=== PATIENT | female | born 1950 | race Caucasian/White ===

== ENCOUNTER → 2017-07-11 | Outpatient (CLI) | payer OTHER ==
[~2017-07-11] MED LIST: ALBUAER19 INH; ASPI81TA28 PO; ATOR10TA88 PO; CALC625T PO; CHOL20009 PO; CIPR-255 PO; CITA20TA9 PO; CZR25 PO; FLUT0.0529 NAE; FLUT0.15 NAE; GLIP1TAB61 PO; INSDGIPEN SC; LEVO137T3 PO; LEVO150T PO; LIRA18IN SC; LPR25 PO; LSN25 PO; METF1000 PO; METF750T PO; METR-163 PO; MOME110A INH; MULT-513 PO; PIOG1TAB25 PO; PRVHFAIN INH; TPRSR/25 PO
[2017-07-11 10:36] LABS: THYROID STIMULATING HORMONE 0.621 uIu/ml (0.300-4.500)
[2017-07-11 12:24] LABS: ESTIMATED AVERAGE GLUCOSE 151 mg/dl; HA1C FLAG Normal (Normal)
== END | disposition home or self-care (01) ==
LOC: C.LAB1850 08:57
PROVIDERS: ATTEND Internal Medicine Endocrinology, Diabetes & Metabolism
DX: E11.9 Type 2 diabetes mellitus without complications (principal); R91.8 Other nonspecific abnormal finding of lung field; E03.9 Hypothyroidism, unspecified

== ENCOUNTER → 2017-08-01 | Outpatient (CLI) | payer OTHER ==
--- NOTE | 2017-08-01 15:28 | DIAGNOSTIC IMAGING REPORT ---
ABDOMEN AND PELVIS CT WITHOUT CONTRAST CT DOSE: 1009.82 mGycm HISTORY: Lower abdominal pain. ACUTE DIVERTICULITIS TECHNIQUE: Multiaxial CT images of the abdomen and pelvis were performed without contrast. A dose lowering technique was utilized adhering to the principles of ALARA. COMPARISON STUDY: Abdomen and pelvis CT 10/09/2014. FINDINGS: There are few linear densities at the lung bases suggesting atelectasis or scarring. No pneumoperitoneum. No pneumatosis. Surgical clips within the abdominal wall and adjacent to the left common femoral vessels. No suspicious lytic or blastic osseous lesions. A stable 8 mm cyst within the left hepatic lobe. Cholecystectomy. The unenhanced spleen, adrenal glands, pancreas, and left kidney are unremarkable. Stable 1 cm hypodense lesion within the lower pole the right kidney. The alf stability favors a cyst. No retroperitoneal lymphadenopathy. Hysterectomy. The bladder is unremarkable. Multiple colonic diverticula. Focal thickening within the mid sigmoid colon with an inflamed diverticula and mild pericolonic fat stranding. This is consistent with acute sigmoid diverticulitis. No perforation or abscess identified at this time. No evidence for bowel obstruction. Normal appendix. IMPRESSION: 1. Acute sigmoid diverticulitis. No perforation or abscess at this time. 2. No evidence for bowel obstruction. 3. Normal appendix. 4. Cholecystectomy. 5. Hysterectomy. Electronically signed by: Josemanuel Shankar M.D. 08/01/2017 3:27 PM Dictated Date/Time: 08/01/2017 3:19 PM
== END | disposition home or self-care (01) ==
LOC: C.CTS 14:47
PROVIDERS: ATTEND Nurse Practitioner Family
DX: K57.32 Diverticulitis of large intestine without perforation or abscess without bleeding (principal); Z90.710 Acquired absence of both cervix and uterus; Z90.49 Acquired absence of other specified parts of digestive tract

== ENCOUNTER → 2017-09-01 | Outpatient (CLI) | payer OTHER ==
[2017-09-01 11:00] LABS: BLOOD UREA NITROGEN 16 mg/dl (7-18); BUN/CREATININE RATIO 17.6 (10-20); CALCIUM 8.9 mg/dl (8.5-10.1); CARBON DIOXIDE 30 mmol/L (21-32); CHLORIDE 105 mmol/L (98-107); CREATININE 0.91 mg/dl (0.60-1.20); GLUCOSE 114 mg/dl (70-99); POTASSIUM 4.3 mmol/L (3.5-5.1); SODIUM 139 mmol/L (136-145)
[2017-09-04 12:59] LABS: APOLIPOPROTEIN B 49 mg/dL (49-103); CHOL.HDL RATIO 2.6 calc (<5.0); CHOLESTEROL, TOTAL 129 mg/dL (<200); HDL CHOLESTEROL 50 mg/dL (>50); HDL LARGE 4066 nmol/L (5038-17886); LDL MEDIUM 105 nmol/L (121-397); LDL PARTICLE NUMBER 518 nmol/L (1016-2185); LDL PATTERN A Pattern (A); LDL PEAK SIZE 223.6 Angstrom (> OR = 218.2); LDL SMALL 58 nmol/L (115-386); LIPOPROTEIN A 41 nmol/L (<75); NON HDL CHOLESTEROL 79 (<130); TRIGLYCERIDES 73 mg/dL (<150)
== END | disposition home or self-care (01) ==
LOC: C.LAB1850 09:30
PROVIDERS: ATTEND Internal Medicine Endocrinology, Diabetes & Metabolism
DX: E78.5 Hyperlipidemia, unspecified (principal); M79.1 Myalgia; R20.2 Paresthesia of skin; E11.9 Type 2 diabetes mellitus without complications

== ENCOUNTER 2017-09-03 16:00 | Emergency (ER) | payer OTHER ==
[~2017-09-03] VITALS: Ht 172.7 cm; Wt 97.4 kg
[~2017-09-03 16:00] MED LIST changes: -CHOL20009 PO; -CIPR-255 PO; -CZR25 PO; -FLUT0.15 NAE; -INSDGIPEN SC; -LIRA18IN SC; -METF750T PO; -METR-163 PO; -MULT-513 PO; -PIOG1TAB25 PO; -PRVHFAIN INH; -TPRSR/25 PO
[2017-09-03 16:10] VITALS: TEMP 36.9; Ht 172.7 cm; Wt 97.4 kg
[2017-09-03] MEDS ORDERED: SODIUM CHLORIDE 0.9% 1000ML 1,000 ML IV STA (16:20)
[2017-09-03] MEDS ORDERED: SODIUM CHLORIDE 0.9% 1000ML 1,000 ML IV ONE (16:20)
--- NOTE | 2017-09-03 16:26 | EMERGENCY ROOM VISIT NOTE ---
History Report prepared by Trudi: Marcus Rangel Under the Supervision of: Dr. Portillo Bueno M.D. First contact with patient: 16:12 Chief Complaint: ABDOMINAL PAIN Stated Complaint: LEFT LOWER ABDOMEN PAIN History of Present Illness The patient is a 67 year old female who presents to the Emergency Room with complaints of LLQ abdominal pain that began yesterday. She rates her pain an 8/ 10 in severity. She has a past medical history of diverticulitis that occurred 1 month ago. At that time, she was treated with Flagyl and Bactrim for ten days then she was placed on Ciprofloxacin. Today, she notes that when she had a bowel movement, her symptoms worsened significantly. She went to her PCP today, and they referred her here. She denies any chest pain, shortness of breath, abnormal urinary symptoms, or rashes. She also has a history of breast cancer, asthma, and diabetes. She notes that her sugars have been high the past couple of days, but they were normal today. She takes Aspirin 81 mg PO, but no other blood thinners. Source of History: patient Onset: yesterday Position: abdomen (LLQ) Symptom Intensity: 8/10 Quality: sharp Timing: constant Modifying Factors (Worsening): other (Bowel Movement) Associated Symptoms: No chest pain, No SOB, No urinary symptoms, No rash Review of Systems See HPI for pertinent positives & negatives. A total of 10 systems reviewed and were otherwise negative. Past Medical & Surgical Medical Problems: (1) Breast cancer (2) Diabetes (3) Diverticulitis Surgical Problems: (1) History of hysterectomy Old medical records were reviewed. Nurse's notes were reviewed and I agree with. Family History Omitted secondary to the patient's age. Social History Smoking Status: Never Smoker Smokeless Tobacco Use: No Drug Use: none Marital Status: Housing Status: lives with significant other Occupation Status: retired Current/Historical Medications Scheduled Atorvastatin (Lipitor), 10 MG PO DAILY Cholecalciferol (Vitamin D), 2,000 UNITS PO DAILY Ciprofloxacin Hcl (Cipro), 500 MG PO BID Citalopram Hydrobromide (Celexa), 40 MG PO DAILY Insulin Glargine (Lantus Solostar), 18 UNITS SC QAM Levothyroxine Sodium (Levothyroxine Sodium), 137 MCG PO QAM Liraglutide (Victoza), 1.8 MG SC QAM Losartan Potassium (Losartan Potassium), 12.5 MG PO DAILY Metformin Hcl (Glucophage Er), 750 MG PO QPM Metoprolol Succinate (Metoprolol Succinate ER), 12.5 MG PO QPM Metronidazole (Flagyl), 500 MG PO BID Multivitamins/Minerals (Mvi With Minerals), 1 TAB PO DAILY Pioglitazone Hcl (Pioglitazone Hcl), 15 MG PO QAM Scheduled PRN Albuterol (Ventolin Hfa), 2 PUFFS INH QID PRN for SOB/Wheezing Fluticasone Propionate (Nasal) (Flonase Allergy Relief), 1 SPRAY ADY DAILY PRN for Nasal Congestion Allergies Coded Allergies: Morphine and Related (Verified Allergy, Severe, MENTAL CONFUSION, SOB, 10/10) INFO FROM G Amoxicillin (Verified Allergy, Intermediate, SOB,ITCHING, 09/03/17) Iodinated Diagnostic Agents (Verified Allergy, Intermediate, itchy,flushed , 09/03/17) Cephalexin (Verified Allergy, Mild, unknown, 09/03/17) Adhesives (Verified Allergy, Unknown, unknown ("adhesive tape")-ITCHY, REDNESS, 09/03/17) Canagliflozin (Unverified Allergy, Unknown, ITCHY,EYES SWELLING, 09/03/17) Codeine (Verified Allergy, Unknown, unknown, 09/03/17) Erythromycin (Verified Allergy, Unknown, UPSET STOMACH,RASH, 09/03/17) Glyburide (Unverified Allergy, Unknown, ITCHY,SOB, 09/03/17) Macrolides (Verified Allergy, Unknown, 09/03/17) Methadone (Verified Allergy, Unknown, 09/03/17) Oxycodone (Verified Allergy, Unknown, unknown, 09/03/17) Penicillins (Verified Allergy, Unknown, 09/03/17) Propoxyphene (Verified Allergy, Unknown, UNKNOWN, 09/03/17) Shrimp (Verified Allergy, Unknown, FLUSH ITCHY, 09/03/17) Physical Exam Vital Signs Date Time Temp Pulse Resp B/P (MAP) Pulse Ox O2 Delivery O2 Flow Rate FiO2 09/03/17 17:57 75 20 135/70 96 Room Air 09/03/17 16:10 36.9 95 16 157/97 95 Room Air Physical Exam General: Non-ill appearing middle aged female in no acute distress. HEENT: Normal cephalic atraumatic. Pupils are equal round and reactive to light. Extraocular movements are intact. Oropharynx is pink with moist mucous membranes. No swelling of the mouth lips or tongue. Neck: Supple with a midline trachea. No meningeal signs or stiffness, no JVD or bruits. No Stridor. Chest: Clear to auscultation bilaterally. No wheezes or rhonchi. No increased work of breathing. Well healing scar from reconstructive breast surgery. No signs of infection or dehiscence. Heart: regular rate and rhythm. Abdomen: Soft, moderately tender to the LLQ, no masses, nondistended without rebound guarding or rigidity. Extremities: No cyanosis clubbing or edema. No calf tenderness or assymetry Spine/Back. Non tender to palpation. No CVA tenderness Skin: Good turgor without rashes. Neurologic exam: Cranial nerves two through 12 are intact. Motor and sensation are intact and symmetrical throughout. Medical Decision & Procedures ER Provider Diagnostic Interpretation: Radiology results as stated below per my review and radiologist interpretation: CT SCAN OF THE ABDOMEN AND PELVIS WITHOUT CONTRAST CLINICAL HISTORY: Left lower quadrant abdominal pain COMPARISON STUDY: 08/01/2017 TECHNIQUE: CT scan of the abdomen and pelvis was performed from the lung bases to the proximal femurs. Images are reviewed in the axial, sagittal, and coronal planes. IV contrast was not administered for this examination. A dose lowering technique was utilized adhering to the principles of ALARA. CT DOSE: 948.45 mGy.cm FINDINGS: Lower chest: There are mild bibasal atelectatic changes. Liver: The unenhanced liver is normal in size, contour, and attenuation. There is no intrahepatic biliary ductal dilatation. Gallbladder: Surgically absent Spleen: Normal in size and attenuation. Pancreas: Unremarkable. Adrenal glands: Unremarkable. Kidneys: No renal, ureteral, or bladder calculi are visualized. There is a stable 2 small to characterize 8 mm hypodensity arising from the right kidney. Bowel: There are no transition zones indicate bowel obstruction. The appendix appears normal. There is persistent sigmoid diverticulitis. There are no fluid collections to indicate a peridiverticular abscess. Peritoneum: There is no intraperitoneal free air or abdominal ascites. Vasculature: The abdominal aorta is normal in course and caliber. Adenopathy: None. Pelvic viscera: The uterus appears surgically absent. Skeletal structures: No destructive osseous lesions are seen. IMPRESSION: 1. No evidence of bowel obstruction. No evidence of free air 2. No renal, ureteral, or bladder calculi identified 3. Normal appendix 4. Persistent sigmoid diverticulitis. No evidence of peridiverticular abscess. Electronically signed by: Negrito Singer M.D. 09/03/2017 5:26 PM Dictated Date/Time: 09/03/2017 5:21 PM Laboratory Results 09/03/17 16:34 Red Blood Count 4.31, Mean Corpuscular Volume 91.0, Mean Corpuscular Hemoglobin 30.4, Mean Corpuscular Hemoglobin Concent 33.4, Mean Platelet Volume 10.6, Neutrophils (%) (Auto) 66.0, Lymphocytes (%) (Auto) 23.6, Monocytes (%) (Auto) 8.0, Eosinophils (%) (Auto) 1.9, Basophils (%) (Auto) 0.3, Neutrophils # (Auto) 6.37, Lymphocytes # (Auto) 2.28, Monocytes # (Auto) 0.77, Eosinophils # (Auto) 0.18, Basophils # (Auto) 0.03 09/03/17 16:34 Test 09/03/17 16:34 09/03/17 16:38 White Blood Count 9.65 K/uL (4.8-10.8) Red Blood Count 4.31 M/uL (4.2-5.4) Hemoglobin 13.1 g/dL (12.0-16.0) Hematocrit 39.2 % (37-47) Mean Corpuscular Volume 91.0 fL (80-100) Mean Corpuscular Hemoglobin 30.4 pg (25-34) Mean Corpuscular Hemoglobin Concent 33.4 g/dl (32-36) Platelet Count 287 K/uL (130-400) Mean Platelet Volume 10.6 fL (7.4-10.4) Neutrophils (%) (Auto) 66.0 % Lymphocytes (%) (Auto) 23.6 % Monocytes (%) (Auto) 8.0 % Eosinophils (%) (Auto) 1.9 % Basophils (%) (Auto) 0.3 % Neutrophils # (Auto) 6.37 K/uL (1.4-6.5) Lymphocytes # (Auto) 2.28 K/uL (1.2-3.4) Monocytes # (Auto) 0.77 K/uL (0.11-0.59) Eosinophils # (Auto) 0.18 K/uL (0-0.5) Basophils # (Auto) 0.03 K/uL (0-0.2) RDW Standard Deviation 48.3 fL (36.4-46.3) RDW Coefficient of Variation 14.4 % (11.5-14.5) Immature Granulocyte % (Auto) 0.2 % Immature Granulocyte # (Auto) 0.02 K/uL (0.00-0.02) Anion Gap 6.0 mmol/L (3-11) Est Creatinine Clear Calc Drug Dose 68.4 ml/min Estimated GFR () 68.5 Estimated GFR (Non- 59.1 BUN/Creatinine Ratio 17.6 (10-20) Calcium Level 9.4 mg/dl (8.5-10.1) Total Bilirubin 0.5 mg/dl (0.2-1) Direct Bilirubin 0.1 mg/dl (0-0.2) Aspartate Amino Transf (AST/SGOT) 16 U/L (15-37) Alanine Aminotransferase (ALT/SGPT) 23 U/L (12-78) Alkaline Phosphatase 82 U/L (45-117) Total Protein 8.0 gm/dl (6.4-8.2) Albumin 3.8 gm/dl (3.4-5.0) Lipase 190 U/L (73-393) Urine Color YELLOW Urine Appearance CLEAR (CLEAR) Urine pH 8.0 (4.5-7.5) Urine Specific Gary 1.021 (1.000-1.030) Urine Protein NEG (NEG) Urine Glucose (UA) NEG (NEG) Urine Ketones NEG (NEG) Urine Occult Blood NEG (NEG) Urine Nitrite NEG (NEG) Urine Bilirubin NEG (NEG) Urine Urobilinogen NEG (NEG) Urine Leukocyte Esterase LARGE (NEG) Urine WBC (Auto) 10-30 /hpf (0-5) Urine RBC (Auto) 0-4 /hpf (0-4) Urine Hyaline Casts (Auto) 1-5 /lpf (0-5) Urine Epithelial Cells (Auto) >30 /lpf (0-5) Urine Bacteria (Auto) NEG (NEG) Urine Renal Epithelial Cells /lpf (0-5) Laboratory studies as stated above per my review. Medications Administered Medications (Trade) Dose Ordered Sig/Miguel Route Start Time Stop Time Status Last Admin Dose Admin Sodium Chloride 1,000 ml @ 999 mls/hr Q1H1M STAT IV 09/03/17 16:20 09/03/17 17:20 DC 09/03/17 16:20 999 MLS/HR Sodium Chloride 1,000 ml @ 200 mls/hr Q5H ONCE IV 09/03/17 16:20 09/03/17 21:19 09/03/17 17:56 200 MLS/HR Ondansetron HCl (Zofran Inj) 4 mg NOW STAT IV 09/03/17 16:49 09/03/17 16:50 DC 09/03/17 16:49 4 MG Ketorolac Tromethamine (Toradol Inj) 30 mg NOW STAT IV 09/03/17 16:49 09/03/17 16:50 DC 09/03/17 16:49 30 MG Ciprofloxacin (Cipro Tab) 500 mg NOW STAT PO 09/03/17 17:33 09/03/17 17:35 DC 09/03/17 17:56 500 MG Metronidazole (Flagyl Tab) 500 mg NOW STAT PO 09/03/17 17:33 09/03/17 17:35 DC 09/03/17 17:56 500 MG ED Course 1612: Past medical records reviewed. The patient was evaluated in room A12B, and a complete history and physical examination were performed. 1620: Ordered Sodium Chloride 1000 ml @ 200 mls/hr IV, Sodium Chloride 1000 ml @ 999 mls/hr IV 1649: Ordered Toradol Inj 30 mg IV, Zofran Inj 4 mg IV 1733: Ordered Flagyl Tab 500 mg PO, Cipro Tab 500 mg PO 1800: Upon reevaluation, the patient is resting. I discussed the results and treatment plan with her. She verbalized agreement of the treatment plan. The patient was discharged home. Medical Decision Differentials include, but are not limited to; diverticulitis, diverticular abscess, UTI, and electrolyte or metabolic abnormality. This patient comes in as described above she was sent over from her doctor's office after having left lower quadrant pain. She was treated recently for diverticulitis and finished antibiotics about 2 weeks ago. She said she did well with Cipro and Flagyl. She does have multiple antibiotic allergies and sensitivities. She's had no fever. On exam, she is moderately tender. IV access established was given Toradol 30 mg IV and Zofran 4 mg IV for pain and nausea management. She's had no white count or fever. She has no electrolyte or metabolic abnormalities. Her urinalysis is suboptimal but it I think likely represents UTI. CAT scan shows persistent sigmoid diverticulitis but no abscess or other complication seen. I will start her back on Cipro and Flagyl and she's done well with these before. She was given 500 mg Cipro by mouth here as well as 500 milligrams Flagyl by mouth as a prescription for both. She is to rest and drink plenty of fluids. She says she's been use acetaminophen/ Tylenol for pain but do not exceed 2 pills every 6 hours. She should return if : increasing pain, fever or chills, worsening of symptoms, any new problems or concerns . She should be feeling better in a day or so. I encouraged her to follow up with her doctor on Friday for recheck for the weekend and return sooner if any problems. She is happy with plan and discharged to home. Medication Reconcilliation Current Medication List: was personally reviewed by me Blood Pressure Screening Patient's blood pressure: Elevated blood pressure Blood pressure disposition: Elevated BP felt to be situational Impression Primary Impression: Diverticulitis Additional Impression: LLQ abdominal pain Scribe Attestation The scribe's documentation has been prepared under my direction and personally reviewed by me in its entirety. I confirm that the note above accurately reflects all work, treatment, procedures, and medical decision making performed by me. Departure Information Dispostion Home / Self-Care Prescriptions Metronidazole (Flagyl) 500 Mg Tab 500 MG PO BID, #20 TAB Prov: Portillo Bueno M.D. 09/03/17 Ciprofloxacin Hcl (CIPRO) 500 Mg Tab 500 MG PO BID, #20 TAB Prov: Portillo Bueno M.D. 09/03/17 Referrals Shari Jansen (PCP) Forms Call Back Authorization, HOME CARE DOCUMENTATION FORM, IMPORTANT VISIT INFORMATION Patient Instructions My [facility] Additional Instructions Rest. Drink plenty of fluids. Use Cipro 500 mg twice a day for 10 daysantibiotic Use Flagyl 500 mg twice a day for 10 daysantibiotic Do not drink alcohol as it will react badly with Flagyl For pain may use a maximum of Tylenol/acetaminophen, 2 pills every 6 hours Return if: Increasing pain, worsening of symptoms, fever or chills, any new problems or concerns. Problem Qualifiers
[2017-09-03] MEDS ORDERED: KETOROLAC TROMETHAMINE 30 MG/ML VIAL IV STA (16:49)
[2017-09-03] MEDS ORDERED: ONDANSETRON INJ 2 MG/ML 2 ML VIAL IV STA (16:49)
[2017-09-03 16:55] LABS: BASO % 0.3 %; BASO ABS # 0.03 K/uL (0-0.2); COMPLETE YES; EOS % 1.9 %; HEMATOCRIT 39.2 % (37-47); IG% 0.2 %; LYMPH % 23.6 %; LYMPH ABS # 2.28 K/uL (1.2-3.4); MEAN CORPUSCULAR HEMOGLOBIN 30.4 pg (25-34); MEAN CORPUSCULAR HGB CONC 33.4 g/dl (32-36); MEAN PLATELET VOLUME 10.6 fL (7.4-10.4); PLATELET COUNT 287 K/uL (130-400); RED BLOOD COUNT 4.31 M/uL (4.2-5.4); WHITE BLOOD COUNT 9.65 K/uL (4.8-10.8)
[2017-09-03 17:13] LABS: URINE APPEARANCE CLEAR (CLEAR); URINE BILIRUBIN NEG (NEG); URINE COLOR YELLOW; URINE EPITHELIAL CELL AUTO >30 /lpf (0-5); URINE NITRITE NEG (NEG); URINE SPECIFIC GRAVITY 1.021 (1.000-1.030); UROBILINOGEN NEG (NEG)
[2017-09-03 17:14] LABS: BUN/CREATININE RATIO 17.6 (10-20); CALCIUM 9.4 mg/dl (8.5-10.1); POTASSIUM 4.1 mmol/L (3.5-5.1)
[2017-09-03 17:17] LABS: MANUAL MICROSCOPIC REQUIRED? NO; REVIEW REQ? YES
--- NOTE | 2017-09-03 17:27 | DIAGNOSTIC IMAGING REPORT ---
CT SCAN OF THE ABDOMEN AND PELVIS WITHOUT CONTRAST CLINICAL HISTORY: Left lower quadrant abdominal pain COMPARISON STUDY: 08/01/2017 TECHNIQUE: CT scan of the abdomen and pelvis was performed from the lung bases to the proximal femurs. Images are reviewed in the axial, sagittal, and coronal planes. IV contrast was not administered for this examination. A dose lowering technique was utilized adhering to the principles of ALARA. CT DOSE: 948.45 mGy.cm FINDINGS: Lower chest: There are mild bibasal atelectatic changes. Liver: The unenhanced liver is normal in size, contour, and attenuation. There is no intrahepatic biliary ductal dilatation. Gallbladder: Surgically absent Spleen: Normal in size and attenuation. Pancreas: Unremarkable. Adrenal glands: Unremarkable. Kidneys: No renal, ureteral, or bladder calculi are visualized. There is a stable 2 small to characterize 8 mm hypodensity arising from the right kidney. Bowel: There are no transition zones indicate bowel obstruction. The appendix appears normal. There is persistent sigmoid diverticulitis. There are no fluid collections to indicate a peridiverticular abscess. Peritoneum: There is no intraperitoneal free air or abdominal ascites. Vasculature: The abdominal aorta is normal in course and caliber. Adenopathy: None. Pelvic viscera: The uterus appears surgically absent. Skeletal structures: No destructive osseous lesions are seen. IMPRESSION: 1. No evidence of bowel obstruction. No evidence of free air 2. No renal, ureteral, or bladder calculi identified 3. Normal appendix 4. Persistent sigmoid diverticulitis. No evidence of peridiverticular abscess. Electronically signed by: Negrito Singer M.D. 09/03/2017 5:26 PM Dictated Date/Time: 09/03/2017 5:21 PM
[2017-09-03] MEDS ORDERED: CZR25 PO (17:30)
[2017-09-03] MEDS ORDERED: CHOL20009 PO (17:30)
[2017-09-03] MEDS ORDERED: MULT-513 PO (17:30)
[2017-09-03] MEDS ORDERED: INSDGIPEN SC (17:30)
[2017-09-03] MEDS ORDERED: TPRSR/25 PO (17:30)
[2017-09-03] MEDS ORDERED: PRVHFAIN INH (17:30)
[2017-09-03] MEDS ORDERED: LIRA18IN SC (17:30)
[2017-09-03] MEDS ORDERED: FLUT0.15 NAE (17:30)
[2017-09-03] MEDS ORDERED: PIOG1TAB25 PO (17:30)
[2017-09-03] MEDS ORDERED: METF750T PO (17:30)
[2017-09-03] MEDS ORDERED: CIPROFLOXACIN 500 MG TAB PO STA (17:33)
[2017-09-03] MEDS ORDERED: METRONIDAZOLE 250 MG TAB PO STA (17:33)
[2017-09-03] MEDS ORDERED: METR-163 PO (17:41)
[2017-09-03] MEDS ORDERED: CIPR-255 PO (17:41)
[2017-09-03 17:57] VITALS: BP 135/70; PULSE 75; O2SAT 96
== END 2017-09-03 18:21 | disposition home or self-care (01) ==
LOC: C.EDB 16:01 → C.EDA 18:21
DX: K57.32 Diverticulitis of large intestine without perforation or abscess without bleeding (principal); R10.32 Left lower quadrant pain; J45.909 Unspecified asthma, uncomplicated; E11.9 Type 2 diabetes mellitus without complications; Z85.3 Personal history of malignant neoplasm of breast; Z79.82 Long term (current) use of aspirin; Z90.710 Acquired absence of both cervix and uterus

== ENCOUNTER → 2017-10-09 | Outpatient (CLI) | payer OTHER ==
[~2017-10-09] MED LIST changes: -ALBUAER19 INH; -ASPI81TA28 PO; +ATOR10TA82 PO; -ATOR10TA88 PO; -CALC625T PO; +CHOL20009 PO; +CIPR-255 PO; +CZR25 PO; -FLUT0.0529 NAE; +FLUT0.15 NAE; -GLIP1TAB61 PO; +INSDGIPEN SC; -LEVO150T PO; +LIRA18IN SC; -LPR25 PO; -LSN25 PO; -METF1000 PO; +METF750T PO; +METR-163 PO; -MOME110A INH; +MULT-513 PO; +PIOG1TAB25 PO; +PRVHFAIN INH; +TPRSR/25 PO
[2017-10-09 18:41] LABS: URINE APPEARANCE TURBID (CLEAR); URINE BILIRUBIN NEG (NEG); URINE COLOR YELLOW; URINE EPITHELIAL CELL AUTO >30 /lpf (0-5); URINE NITRITE NEG (NEG); URINE SPECIFIC GRAVITY 1.019 (1.000-1.030); UROBILINOGEN NEG (NEG)
[2017-10-09 18:56] LABS: MANUAL MICROSCOPIC REQUIRED? NO; REVIEW REQ? NO
== END | disposition home or self-care (01) ==
LOC: C.LAB 17:33
PROVIDERS: ATTEND Nurse Practitioner Family
DX: N39.0 Urinary tract infection, site not specified (principal)

== ENCOUNTER → 2017-12-17 | Outpatient (CLI) | payer OTHER ==
--- NOTE | 2017-12-17 15:41 | MAMMOGRAPHY REPORT ---
UNILATERAL RIGHT DIGITAL SCREENING MAMMOGRAM TOMOSYNTHESIS WITH CAD: 12/17/2017 CLINICAL HISTORY: Asymptomatic. Personal history of breast cancer. TECHNIQUE: Breast tomosynthesis in addition to standard 2D mammography was performed. Current study was also evaluated with a Computer Aided Detection (CAD) system. COMPARISON: Comparison is made to exams dated: 11/21/2016 mammogram, 11/20/2015 mammogram, 4 mammogram, 11/12/2013 mammogram, 11/05/2012 mammogram, and 11/01/2011 mammogram - [facility]. BREAST COMPOSITION: The tissue of the right breast is almost entirely fatty. FINDINGS: The parenchymal pattern is unchanged. There are a few scattered benign-appearing round an d rim calcifications. No developing mass, architectural distortion or cluster of suspicious microcal cifications is seen. IMPRESSION: ACR BI-RADS CATEGORY 2: BENIGN There is no mammographic evidence of malignancy. A 1 year screening mammogram is recommended. The pa tient will receive written notification of the results. Approximately 10% of breast cancers are not detected with mammography. A negative mammographic report should not delay biopsy if a clinically suggestive mass is present. Cindy Gomes M.D. ay/:12/17/2017 13:06:47 [employer] Operator: Clemencia GOMEZ(R)(M), [facility] letter sent: Normal 1/2 BI-RADS Code: ACR BI-RADS Category 2: Benign
== END | disposition home or self-care (01) ==
LOC: C.MAMM 12:40
PROVIDERS: ATTEND Nurse Practitioner Family
DX: Z12.31 Encounter for screening mammogram for malignant neoplasm of breast (principal); Z90.12 Acquired absence of left breast and nipple

== ENCOUNTER → 2017-12-17 | Outpatient (CLI) | payer OTHER ==
[2017-12-17 10:40] LABS: ALBUMIN 3.6 gm/dl (3.4-5.0); ALT/SGPT 23 U/L (12-78); BLOOD UREA NITROGEN 17 mg/dl (7-18); CALCIUM 9.7 mg/dl (8.5-10.1); CARBON DIOXIDE 29 mmol/L (21-32); CREATININE 0.99 mg/dl (0.60-1.20); GLUCOSE 156 mg/dl (70-99); LIPASE 180 U/L (73-393); POTASSIUM 3.9 mmol/L (3.5-5.1); SODIUM 138 mmol/L (136-145)
[2017-12-17 10:42] LABS: ALKALINE PHOSPHATASE 71 U/L (45-117); AST/SGOT 16 U/L (15-37); TOTAL PROTEIN 7.3 gm/dl (6.4-8.2)
== END | disposition home or self-care (01) ==
LOC: C.LAB1850 08:06
PROVIDERS: ATTEND Internal Medicine Endocrinology, Diabetes & Metabolism
DX: E11.9 Type 2 diabetes mellitus without complications (principal); Z79.4 Long term (current) use of insulin

== ENCOUNTER → 2018-01-08 | Outpatient (CLI) | payer OTHER ==
--- NOTE | 2018-01-08 08:38 | DIAGNOSTIC IMAGING REPORT ---
ABDOMEN COMPLETE (US) CLINICAL HISTORY: 67 years-old Female presenting with ABDOMINAL DISTENTION. TECHNIQUE: Real-time grayscale and limited color Doppler ultrasound imaging of the abdomen was performed. COMPARISON: CT from 09/03/2017 and ultrasound from 11/21/2014. FINDINGS: Pancreas: Visualized portions of the pancreatic head and body normal. Liver: Hyperechogenic parenchyma with heterogeneous echotexture, likely indicating fibrosis or steatosis. No sonographic evidence of hepatic mass. Main portal vein patent with normal directional flow. Biliary: No intrahepatic biliary ductal dilatation. Common bile duct measures up to 4 mm in diameter. Gallbladder: Surgically absent. Spleen: Normal in echogenicity and size, measuring 10.3 cm in length. Kidneys: Normal in size and echogenicity. Right kidney measures 9.7 cm, and left kidney measures 10.2 cm. No hydronephrosis. Vasculature: Atherosclerosis of the normal caliber abdominal aorta suspected. Visualized portions of the IVC patent. Ascites: None. IMPRESSION: 1. Heterogeneous hepatic parenchyma could imply underlying steatosis or fibrosis. 2. No ascites. 3. Post cholecystectomy. Electronically signed by: Reza Eldridge M.D. 01/08/2018 8:37 AM Dictated Date/Time: 01/08/2018 8:34 AM
== END | disposition home or self-care (01) ==
LOC: C.ULTR 07:33
PROVIDERS: ATTEND Nurse Practitioner Family
DX: R14.0 Abdominal distension (gaseous) (principal); R93.2 Abnormal findings on diagnostic imaging of liver and biliary tract; Z90.49 Acquired absence of other specified parts of digestive tract

== ENCOUNTER → 2018-01-08 | Outpatient (CLI) | payer OTHER ==
[2018-01-08 10:01] LABS: HEMOGLOBIN A1C 6.2 % (4.5-5.6)
== END | disposition home or self-care (01) ==
LOC: C.LAB1850 08:28
PROVIDERS: ATTEND Internal Medicine Endocrinology, Diabetes & Metabolism
DX: E11.9 Type 2 diabetes mellitus without complications (principal); Z79.4 Long term (current) use of insulin; E03.9 Hypothyroidism, unspecified

== ENCOUNTER → 2018-02-04 | Outpatient (CLI) | payer OTHER ==
[~2018-02-04] MED LIST changes: +CITA40TA4 PO; +ONDA4TAB10 SL; +PRED50TA PO; +SYN137 PO
[2018-02-04 13:00] LABS: ALBUMIN 3.8 gm/dl (3.4-5.0); ALT/SGPT 25 U/L (12-78); BLOOD UREA NITROGEN 14 mg/dl (7-18); CALCIUM 9.7 mg/dl (8.5-10.1); CARBON DIOXIDE 30 mmol/L (21-32); CREATININE 0.96 mg/dl (0.60-1.20); GLUCOSE 143 mg/dl (70-99); POTASSIUM 4.2 mmol/L (3.5-5.1); SODIUM 137 mmol/L (136-145)
[2018-02-04 13:02] LABS: ALKALINE PHOSPHATASE 80 U/L (45-117); AST/SGOT 14 U/L (15-37); TOTAL PROTEIN 7.5 gm/dl (6.4-8.2)
== END | disposition home or self-care (01) ==
LOC: C.LAB 10:59
PROVIDERS: ATTEND Internal Medicine Endocrinology, Diabetes & Metabolism
DX: E11.9 Type 2 diabetes mellitus without complications (principal)

== ENCOUNTER 2018-02-05 13:46 | Emergency (ER) | payer OTHER ==
[~2018-02-05] VITALS: Ht 172.7 cm; Wt 105.4 kg
[~2018-02-05 13:46] MED LIST changes: -CITA40TA4 PO; -ONDA4TAB10 SL; -OPTIRAY 320 IV PRN; -PRED50TA PO; -SYN137 PO
[2018-02-05] MEDS ORDERED: SODIUM CHLORIDE 0.9% 500 ML BAG IV ONE (13:49)
[2018-02-05 13:52] VITALS: TEMP 36.4; Ht 172.7 cm; Wt 105.4 kg
[2018-02-05] MEDS ORDERED: METHYLPREDNISOLONE 125 MG VIAL IV STA (14:14)
[2018-02-05] MEDS ORDERED: SODIUM CHLORIDE 0.9% 1000ML 1,000 ML IV ONE (14:15)
[2018-02-05] MEDS ORDERED: FAMOTIDINE IV INJ 20 MG in DEXTROSE 5% 100ML 100 ML IV ONE (14:15)
--- NOTE | 2018-02-05 14:34 | EMERGENCY ROOM VISIT NOTE ---
History First contact with patient: 14:12 Chief Complaint: ALLERGIC REACTION Stated Complaint: ALLERGIC REACTION Nursing Triage Summary: Pt with allergic reaction to CT contrast. Was having an out pt Abd CT for increased lower extremity and abd swelling. Pt with allergy to iodine and was premedicated, believes it was medrol PO and she took 2 at 0130 today and 1 at [address]40. [address] done, pt states her back became itchy and she felt like she was having a diabetic reaction- vision blurry, sweaty. BSG checked in CT was 306. Pt RR even and unlabored upon arrival to ED. Pt on 3L NC. History of Present Illness The patient is a 67 year old female who presents to the Emergency Room with complaints of itching. The patient was at [facility] today having a CT scan as part of an outpatient workup for ongoing abdominal swelling. The patient states it was a CT scan was completed, she started feeling intensive pruritus in her back. The pruritus also started extending to her chest and arms. She denies any shortness of breath or wheezing. She did not feel any swelling of her tongue, tingling around her mouth, scratches in the back of her throat, or feel her throat closing off. She did not have any abdominal pain, nausea, vomiting. In regards to her scan this morning, she did state that she took a dose of steroid in the middle the night in preparation, and again this morning prior to her scan. At this time the patient states that she does have some ongoing pruritus in her arms and back, though it is improved. She has no upper or lower respiratory symptoms at this time. She also does not have any abdominal symptoms. Review of Systems A 10 point review of systems was negative unless stated above. Past Medical/Surgical History Medical Problems: (1) Breast cancer (2) Diabetes (3) Diverticulitis Surgical Problems: (1) History of hysterectomy Asthma Type 2 Diabetes Mellitus Hypothyroidism Depression Seasonal allergies Social History Smoking Status: Never Smoker Smokeless Tobacco Use: No Alcohol Use: none Drug Use: none Marital Status: Housing Status: lives with significant other Occupation Status: retired Current/Historical Medications Scheduled Atorvastatin (Lipitor), 10 MG PO DAILY Cholecalciferol (Vitamin D), 2,000 UNITS PO DAILY Citalopram (Citalopram Hydrobromide), 40 MG PO DAILY Insulin Glargine (Lantus Solostar), 24 UNITS SC QAM Levothyroxine Sodium (Levothyroxine Sodium), 137 MCG PO QAM Liraglutide (Victoza), 1.8 MG SC QAM Losartan Potassium (Losartan Potassium), 12.5 MG PO DAILY Metoprolol Succinate (Metoprolol Succinate ER), 12.5 MG PO QPM Multivitamins/Minerals (Mvi With Minerals), 1 TAB PO DAILY Prednisone (Prednisone), 50 MG PO DAILY Scheduled PRN Albuterol (Ventolin Hfa), 2 PUFFS INH QID PRN for SOB/Wheezing Allergies as noted in EMR Physical Exam Vital Signs Date Time Temp Pulse Resp B/P (MAP) Pulse Ox O2 Delivery O2 Flow Rate FiO2 02/05/18 17:04 72 14 128/83 97 02/05/18 14:33 101 16 132/93 94 Room Air 02/05/18 14:00 107 02/05/18 13:52 36.4 106 16 117/64 94 Nasal Cannula 3.0 02/05/18 13:52 94 Room Air Physical Exam Constitutional: Vital signs as above were reviewed. Eyes: Pupils equal, round, and reactive to light. Extraocular muscles are intact. No proptosis. No photophobia. ENT: Mucous membranes are moist. Oropharynx is clear. Oral airways patent. Mallampati of 2 Cardiovascular: Heart with a regular rhythm. Pulses are palpable and symmetric in all 4 extremities. No pedal edema appreciated. Low-grade tachycardia noted, with rates between 100 - 110 Respiratory: Lungs clear to auscultation bilaterally. No wheezes, rales, or rhonchi appreciated. No accessory muscle use. No retractions. No increased work of breathing. GI: Abdomen soft, nontender, nondistended. Normal active bowel sounds. No abdominal hernias appreciated. No rebound. No guarding. : No CVA tenderness appreciated. Musculoskeletal: No midline cervical or vertebral tenderness. No gross deformities. No bony tenderness. No calf swelling or tenderness. Integumentary: Plethoric in face and arms. No obvious hives. No rashes Neurological: Patient awake, alert, and oriented x 3. Lymph: No cervical lymphadenopathy appreciated. Medical Decision & Procedures ER Provider Diagnostic Interpretation: [~ rep ct add3]] CHEST ONE VIEW PORTABLE CLINICAL HISTORY: allergic rxn dyspnea COMPARISON STUDY: 09/03/2016 FINDINGS: The bones soft tissues and hemidiaphragms are normal. The cardiomediastinal silhouette is normal. The lungs are clear. The pulmonary vasculature is normal. IMPRESSION: Negative chest. The above report was generated using voice recognition software. It may contain grammatical, syntax or spelling errors. Electronically signed by: Sha Rogers M.D. 02/05/2018 3:23 PM Dictated Date/Time: 02/05/2018 3:22 PM The status of this report is Signed. Draft = Not yet reviewed or approved by Radiologist. Signed = Reviewed and approved by Radiologist. Laboratory Results 02/05/18 14:30 02/05/18 14:30 Test 02/05/18 14:30 Red Blood Count 4.68 M/uL (4.2-5.4) Mean Corpuscular Volume 88.7 fL (80-100) Mean Corpuscular Hemoglobin 31.0 pg (25-34) Mean Corpuscular Hemoglobin Concent 34.9 g/dl (32-36) RDW Standard Deviation 42.8 fL (36.4-46.3) RDW Coefficient of Variation 13.3 % (11.5-14.5) Mean Platelet Volume 11.1 fL (7.4-10.4) Anion Gap 10.0 mmol/L (3-11) Est Creatinine Clear Calc Drug Dose 59.9 ml/min Estimated GFR () 55.5 Estimated GFR (Non- 47.9 BUN/Creatinine Ratio 13.5 (10-20) Calcium Level 9.0 mg/dl (8.5-10.1) Total Bilirubin 0.6 mg/dl (0.2-1) Aspartate Amino Transf (AST/SGOT) 13 U/L (15-37) Alanine Aminotransferase (ALT/SGPT) 24 U/L (12-78) Alkaline Phosphatase 80 U/L (45-117) Total Protein 7.3 gm/dl (6.4-8.2) Albumin 3.6 gm/dl (3.4-5.0) Globulin 3.7 gm/dl (2.5-4.0) Albumin/Globulin Ratio 1.0 (0.9-2) Medications Administered Medications (Trade) Dose Ordered Sig/Miguel Route Start Time Stop Time Status Last Admin Dose Admin Diphenhydramine HCl (Benadryl Cap) 50 mg NOW ONCE PO 3/15/18 14:15 18 14:17 DC 02/05/18 14:23 50 MG Famotidine 20 mg/ Dextrose 102 ml @ 200 mls/hr Q12H ONCE IV 02/05/18 14:15 02/05/18 14:45 DC 02/05/18 14:40 200 MLS/HR Methylprednisolone Sodium Succinate (Solu-Medrol IV) 125 mg NOW STAT IV 02/05/18 14:14 02/05/18 14:17 DC 02/05/18 14:23 125 MG Sodium Chloride 1,000 ml @ 999 mls/hr Q1H1M ONCE IV 02/05/18 14:15 02/05/18 15:15 DC 02/05/18 14:24 999 MLS/HR ECG Per My Interpretation Indication: other Rhythm: normal sinus (Tachycardia on arrival rate less than 100) Findings: no acute ischemic change, no ectopy ED Course 14:10 - First contact Labs: CBC, CMP EKG and CXR 125 Solu-medrol + 20 IV Famotidine + 50 PO Benadryl 1 L NSS Medical Decision This is a 67-year-old female with type 2 diabetes, depression, hypothyroidism, asthma who presented to the hospital today for a CT scan of the abdomen. This was for nonurgent evaluation of swelling in the legs, which was ordered by her PCP. The patient did begin expensing itching following the scan. His note the patient got contrast during the scan. Fortunately scan was able to be completed. The most highly suspect etiology in this case would have been a contrast- induced allergy. The other differential that we had to consider with anaphylaxis. Fortunately, the patient never progressed to developing respiratory symptoms, and remained hemodynamically stable during the entire admission. While I considered anaphylaxis, her presentation did not suggest this. We did elect to give her cautionary dose of Solu-Medrol, famotidine, and oral Benadryl. Her itching resolved remarkably over the course of her hospital stay. And at the time of discharge, she was symptom-free. Her labs did note that she was hyponatremic at 130, though there were no mental status She was hyponatremic at 130, but there were no mental status changes noted. She was also hyperglycemic, understandably due to having done doses of steroid earlier today. It is anticipated that the IV steroid that she received in the ER as well will contribute to her hypoglycemia. She was advised of this and encouraged ongoing glucose monitoring at home. She is advised to contact her PCP if her blood sugars over 2 consecutive measurements are greater than 300. We did elect to give her a short course of prednisone conditionally. She is advised to fill out the prescription, but not to start taking it unless her itching or symptoms of allergy/anaphylaxis return. If she suspects she is having an anaphylactic reaction she is advised to return to the emergency room immediately. The patient was discharged in stable condition. While the report indicated that there were no gross abnormalities, I did not discuss the results of her CT scan with her, and advised her to discuss this with her primary care provider at her follow-up. The patient was discharged in stable condition. Head Trauma GCS Score: 15 Medication Reconcilliation Current Medication List: was personally reviewed by me Blood Pressure Screening Patient's blood pressure: Normal blood pressure Impression Primary Impression: Allergic reaction Additional Impressions: Hyperglycemia Anaphylaxis Departure Information Dispostion Home / Self-Care Condition GOOD Prescriptions Prednisone (Prednisone) 50 Mg Tab 50 MG PO DAILY for 5 Days, #5 TAB Prov: Jose Alfredo Nevarez MD 02/05/18 Referrals Shari Jasnen (PCP) Patient Instructions My [facility] Additional Instructions He came to the emergency room for an allergic reaction which was suspected due to the contrast that she got before your CT scan. When he came to the emergency room all of her vital signs were normal. Unfortunately you were complaining of some significant itching. However we were able to treat this with benadryl, pepcid, and a dose of IV steroids. Looking at your labs, they look normal overall. Your sodium level is slightly low at 130, but this can be repeated within the next 3-5 days by her primary care provider. We did note that your blood sugar was elevated at 280. This can occur as a stress response. You did get steroid, which is likely to further increase her blood sugars over the coming days. We recommend that you keep close monitoring of your blood sugars twice daily (fasting, and 2 hours after dinner). Write these numbers down and bring them to her next follow-up with your primary care provider. You did not have any symptoms prior to discharge. Therefore we did not want you to start oral steroids if you do not meet them. However we will give you a prescription for prednisone. Please fill out the prescription, but do not start taking it unless you have recurrence of allergic symptoms. To treat her allergic symptoms such as itching, you can also try taking small doses of Benadryl (25 mg) every 6 hours as needed. You can buy this over-the- counter at the pharmacy. If you feel you are having symptoms of anaphylaxis such as shortness of breath, tongue swelling or throat closing, abdominal pain, nausea or vomiting, or confusion, you should return immediately to the emergency room to be evaluated. If your symptoms fail to improve, acutely worsen, please seek medical attention immediately by either calling your primary care provider or going to your nearest emergency department. Otherwise, please see your primary care provider within 1 week to ensure that your symptoms continue to improve. It was a pleasure to be involved in your care and we wish you all the best. Problem Qualifiers
[2018-02-05 14:52] LABS: HEMATOCRIT 41.5 % (37-47); HEMOGLOBIN 14.5 g/dL (12.0-16.0); MEAN CELL VOLUME 88.7 fL (80-100); MEAN CORPUSCULAR HGB CONC 34.9 g/dl (32-36); MEAN PLATELET VOLUME 11.1 fL (7.4-10.4); PLATELET COUNT 263 K/uL (130-400); RED CELL DISTRIBUTION WIDTH CV 13.3 % (11.5-14.5); RED CELL DISTRIBUTION WIDTH SD 42.8 fL (36.4-46.3); WHITE BLOOD COUNT 10.22 K/uL (4.8-10.8)
[2018-02-05 15:13] LABS: ALBUMIN 3.6 gm/dl (3.4-5.0); CREATININE 1.19 mg/dl (0.60-1.20)
[2018-02-05 15:14] LABS: TOTAL PROTEIN 7.3 gm/dl (6.4-8.2)
[2018-02-05] MEDS ORDERED: CITA40TA4 PO (15:22)
--- NOTE | 2018-02-05 15:24 | DIAGNOSTIC IMAGING REPORT ---
CHEST ONE VIEW PORTABLE CLINICAL HISTORY: allergic rxn dyspnea COMPARISON STUDY: 09/03/2016 FINDINGS: The bones soft tissues and hemidiaphragms are normal. The cardiomediastinal silhouette is normal. The lungs are clear. The pulmonary vasculature is normal. IMPRESSION: Negative chest. The above report was generated using voice recognition software. It may contain grammatical, syntax or spelling errors. Electronically signed by: Sha Rogers M.D. 02/05/2018 3:23 PM Dictated Date/Time: 02/05/2018 3:22 PM
[2018-02-05] MEDS ORDERED: PRED50TA PO (16:18)
[2018-02-05 17:04] VITALS: BP 128/83; PULSE 72; O2SAT 97
--- NOTE | 2018-02-05 18:03 | EMERGENCY ROOM VISIT NOTE ---
ED Visit Note First contact with patient: 14:12 HPI: The patient is a 67-year-old woman who presents emergency department after having an allergic reaction after having an IV contrast CT scan performed as outpatient. After the scan was completed the patient began to complain of itching in her back extending to arms/legs. PE: AFVSS, NAD NC/AT, no oropharyngeal edema, no tongue elevation or trismus, no stridor. RRR, no murmurs CTAB Abd soft NT/ND Ext: no edema, erythema Neuro: grossly intact Plan: Symptoms consistent with mild allergic reaction possibly anaphylactoid reaction to contrast. Symptoms resolved after receiving Benadryl and steroids. Labs otherwise unremarkable. Plan for PCP follow-up. I reviewed the patient's past medical history, medications, and visit nursing notes. I discussed the case with the resident physician, examined the patient, and agree with the findings and plan as documented in the residents note unless otherwise clarified here by me.
== END 2018-02-05 17:05 | disposition home or self-care (01) ==
LOC: EDBD 13:46 → C.EDB 13:48
DX: T78.40XA Allergy, unspecified, initial encounter (principal); X58.XXXA Exposure to other specified factors, initial encounter; E11.65 Type 2 diabetes mellitus with hyperglycemia; Z85.3 Personal history of malignant neoplasm of breast; K57.92 Diverticulitis of intestine, part unspecified, without perforation or abscess without bleeding; J45.909 Unspecified asthma, uncomplicated; E03.9 Hypothyroidism, unspecified; F32.9 Major depressive disorder, single episode, unspecified; J30.2 Other seasonal allergic rhinitis; Z79.4 Long term (current) use of insulin; Z79.899 Other long term (current) drug therapy

== ENCOUNTER → 2018-02-05 | Outpatient (CLI) | payer OTHER ==
[~2018-02-05] MED LIST changes: +OPTIRAY 320 IV PRN
--- NOTE | 2018-02-05 13:52 | DIAGNOSTIC IMAGING REPORT ---
CT OF THE ABDOMEN AND PELVIS WITH CONTRAST CLINICAL HISTORY: Lower extremity edema. Possible lymphatic obstruction. COMPARISON STUDY: CT of the abdomen and pelvis September 03, 2017 and abdominal ultrasound January 08, 2018. TECHNIQUE: The patient was premedicated for IV dye allergy as per protocol. Following IV administration of 94 mL of [id number], axial images of the abdomen and pelvis were obtained from the lung bases to the proximal femurs. Images were reviewed in the axial, sagittal, and coronal planes. IV contrast was administered without complication. A dose lowering technique was utilized adhering to the principles of ALARA. Oral contrast was administered. Immediately following the exam, the patient reported lightheadedness and itchiness as well as diaphoresis. A code was called and the patient was immediately assessed. The patient's vitals were stable and symptoms slowly improved. The patient was transferred to the emergency department for close monitoring. While not definitive, this may have reflected an allergic reaction and this patient should not receive iodinated contrast in the future. CT DOSE: 1206.59 mGy.cm FINDINGS: Lung bases are clear. There is no biliary ductal dilatation status post cholecystectomy. There are several hepatic and renal cysts. No hydronephrosis. There is no peripancreatic infiltration. The caliber and wall thickness of small and large bowel are normal. The appendix is normal. There is sigmoid diverticulosis without evidence for acute diverticulitis. No abdominal or pelvic lymphadenopathy is present. There is no mass within the abdomen or the pelvis. No suspicious osseous lesions are present. IMPRESSION: 1. No acute process within the abdomen or pelvis. 2. No lymphadenopathy or mass within the abdomen or pelvis. No evidence for venous/lymphatic obstruction. 3. Immediately following the CT, the patient reported lightheadedness, itchiness and diaphoresis. A code was called and the patient was immediately assessed. The patient's vitals were stable and symptoms slowly improved. The patient was transferred to the emergency department for close monitoring. The patient was premedicated for an IV dye allergy. While not definitive, this may have reflected an allergic reaction and this patient should not receive iodinated contrast in the future. Electronically signed by: Quinn Escobedo M.D. 02/05/2018 1:51 PM Dictated Date/Time: 02/05/2018 1:32 PM
== END | disposition home or self-care (01) ==
LOC: C.CTS 13:04
PROVIDERS: ATTEND Nurse Practitioner Family
DX: R22.9 Localized swelling, mass and lump, unspecified (principal); K57.90 Diverticulosis of intestine, part unspecified, without perforation or abscess without bleeding; Z87.19 Personal history of other diseases of the digestive system; I89.0 Lymphedema, not elsewhere classified

== ENCOUNTER → 2018-02-09 | Outpatient (CLI) | payer OTHER ==
[~2018-02-09] MED LIST changes: -CIPR-255 PO; -CITA20TA9 PO; +CITA40TA4 PO; -FLUT0.15 NAE; -METF750T PO; -METR-163 PO; +ONDA4TAB10 SL; -PIOG1TAB25 PO; +PRED50TA PO; +SYN137 PO
[2018-02-09 15:12] LABS: BLOOD UREA NITROGEN 17 mg/dl (7-18); CALCIUM 9.1 mg/dl (8.5-10.1); CARBON DIOXIDE 31 mmol/L (21-32); CREATININE 0.98 mg/dl (0.60-1.20); GLUCOSE 211 mg/dl (70-99); SODIUM 135 mmol/L (136-145)
== END | disposition home or self-care (01) ==
LOC: C.LAB1850 13:41
PROVIDERS: ATTEND Emergency Medicine
DX: E87.1 Hypo-osmolality and hyponatremia (principal)

== ENCOUNTER 2018-02-11 16:12 | Emergency (ER) | payer OTHER ==
[~2018-02-11] VITALS: Ht 172.7 cm; Wt 97.2 kg
[2018-02-11 16:12] VITALS: TEMP 36.5; Ht 172.7 cm; Wt 97.2 kg
[~2018-02-11 16:12] MED LIST changes: -ATOR10TA82 PO; -CHOL20009 PO; -CZR25 PO; -INSDGIPEN SC; -LIRA18IN SC; -MULT-513 PO; -ONDA4TAB10 SL; -PRVHFAIN INH; -SYN137 PO; -TPRSR/25 PO
[2018-02-11] MEDS ORDERED: SODIUM CHLORIDE 0.9% 1000ML 1,000 ML IV STA (16:18)
[2018-02-11] MEDS ORDERED: ONDANSETRON INJ 2 MG/ML 2 ML VIAL IV STA (16:18)
[2018-02-11 16:56] LABS: BASO % 0.1 %; BASO ABS # 0.02 K/uL (0-0.2); EOS % 3.1 %; EOS ABS # 0.42 K/uL (0-0.5); HEMATOCRIT 43.3 % (37-47); HEMOGLOBIN 15.2 g/dL (12.0-16.0); LYMPH % 18.7 %; LYMPH ABS # 2.51 K/uL (1.2-3.4); MEAN CELL VOLUME 89.1 fL (80-100); MEAN CORPUSCULAR HEMOGLOBIN 31.3 pg (25-34); MEAN CORPUSCULAR HGB CONC 35.1 g/dl (32-36); MEAN PLATELET VOLUME 11.1 fL (7.4-10.4); MONO % 8.3 %; MONO ABS # 1.11 K/uL (0.11-0.59); NEUT % 69.1 %; NEUT ABS # 9.23 K/uL (1.4-6.5); PLATELET COUNT 282 K/uL (130-400); RED CELL DISTRIBUTION WIDTH CV 13.4 % (11.5-14.5); RED CELL DISTRIBUTION WIDTH SD 43.6 fL (36.4-46.3); WHITE BLOOD COUNT 13.39 K/uL (4.8-10.8)
[2018-02-11] MEDS ORDERED: SYN137 PO (16:58)
[2018-02-11 17:12] LABS: PTT PATIENT 28.8 SECONDS (21.0-31.0)
[2018-02-11 17:16] LABS: ALBUMIN 3.6 gm/dl (3.4-5.0); CALCIUM 9.4 mg/dl (8.5-10.1); CREATININE 1.1 mg/dl (0.60-1.20); POTASSIUM 3.8 mmol/L (3.5-5.1)
[2018-02-11 17:19] LABS: TOTAL PROTEIN 8.1 gm/dl (6.4-8.2)
[2018-02-11] MEDS ORDERED: MULT-513 PO (17:30)
[2018-02-11] MEDS ORDERED: LIRA18IN SC (17:30)
[2018-02-11] MEDS ORDERED: CHOL20009 PO (17:30)
[2018-02-11] MEDS ORDERED: PRVHFAIN INH (17:30)
[2018-02-11] MEDS ORDERED: CZR25 PO (17:30)
[2018-02-11] MEDS ORDERED: INSDGIPEN SC (17:30)
[2018-02-11] MEDS ORDERED: TPRSR/25 PO (17:30)
[2018-02-11] MEDS ORDERED: PROCHLORPERAZINE 5 MG/ML 2 ML VIAL IV STA (18:08)
[2018-02-11] MEDS ORDERED: ONDA4TAB10 SL (19:06)
--- NOTE | 2018-02-11 19:06 | EMERGENCY ROOM VISIT NOTE ---
History Report prepared by Trudi: Nicolas Pastrana Under the Supervision of: Dr. Den Franco D.O. First contact with patient: 16:16 Chief Complaint: ILLNESS Stated Complaint: ALLERGIC REACTION History of Present Illness The patient is a 67 year old female who presents to the Emergency Room with complaints of intermittent vomiting and diarrhea that began 2 days ago. The patient states that she began vomiting intermittently on Friday, 2 days ago, and subsequently started to experience diarrhea yesterday. She also complains of feeling bloated in her abdomen and unusually tired. The patient noted that she had a CT scan of her abdomen and pelvis performed 6 days ago, to search for tumors. This CT was performed to search for a source of the swelling and fluid accumulation in her legs. She did have CT Contrast for this study. She had a reaction at the end of the study and had a "Code Purple" called for her. These symptoms resolved shortly after and the patient was discharged home. She has felt tired since being discharged home. The patient has had a cholecystectomy, appendectomy, and hysterectomy in the past. Source of History: patient Onset: 2 days ago Position: abdomen Quality: other (Vomiting and diarrhea) Timing: intermittent Associated Symptoms: + fatigue Note: "bloating" in her abdomen. Review of Systems See HPI for pertinent positives & negatives. A total of 10 systems reviewed and were otherwise negative. Past Medical & Surgical Medical Problems: (1) Breast cancer (2) Diabetes (3) Diverticulitis Surgical Problems: (1) History of hysterectomy Family History Omitted secondary to age. Social History Smoking Status: Never Smoker Alcohol Use: none Drug Use: none Marital Status: Housing Status: lives with significant other Occupation Status: retired Current/Historical Medications Scheduled Atorvastatin (Lipitor), 10 MG PO DAILY Cholecalciferol (Vitamin D), 2,000 INTER.UNIT PO DAILY Citalopram (Citalopram Hydrobromide), 40 MG PO DAILY Insulin Glargine (Lantus Solostar), 24 UNITS SC QAM Levothyroxine Sodium (Levothyroxine Sodium), 137 MCG PO QAM Liraglutide (Victoza), 1.8 MG SC QAM Losartan Potassium (Losartan Potassium), 12.5 MG PO DAILY Metoprolol Succinate (Metoprolol Succinate ER), 12.5 MG PO QPM Multivitamins/Minerals (Mvi With Minerals), 1 TAB PO DAILY Ondasetron Odt (Zofran Odt), 4 MG SL Q6H Scheduled PRN Albuterol (Ventolin Hfa), 2 PUFFS INH QID PRN for SOB/Wheezing Allergies Coded Allergies: Iodinated Diagnostic Agents (Verified Allergy, Severe, itchy,flushed, tight throat, 02/05/18) 02/05/18: code purple on pt after receiving IV contrast WITH pre-meds Morphine and Related (Verified Allergy, Severe, MENTAL CONFUSION, SOB, 10/10) INFO FROM [facility] Amoxicillin (Verified Allergy, Intermediate, SOB,ITCHING, 09/03/17) Cephalexin (Verified Allergy, Mild, unknown, 09/03/17) Adhesives (Verified Allergy, Unknown, unknown ("adhesive tape")-ITCHY, REDNESS, 09/03/17) Canagliflozin (Unverified Allergy, Unknown, ITCHY,EYES SWELLING, 09/03/17) Codeine (Verified Allergy, Unknown, unknown, 09/03/17) Erythromycin (Verified Allergy, Unknown, UPSET STOMACH,RASH, 09/03/17) Glyburide (Unverified Allergy, Unknown, ITCHY,SOB, 09/03/17) Macrolides (Verified Allergy, Unknown, 09/03/17) Methadone (Verified Allergy, Unknown, 09/03/17) Oxycodone (Verified Allergy, Unknown, unknown, 09/03/17) Penicillins (Verified Allergy, Unknown, 09/03/17) Propoxyphene (Verified Allergy, Unknown, UNKNOWN, 09/03/17) Shrimp (Verified Allergy, Unknown, FLUSH ITCHY, 09/03/17) Physical Exam Vital Signs Date Time Temp Pulse Resp B/P (MAP) Pulse Ox O2 Delivery O2 Flow Rate FiO2 02/11/18 18:23 99 16 149/90 95 Room Air 02/11/18 16:12 36.5 126 18 147/93 98 Room Air Physical Exam CONSTITUTIONAL/VITAL SIGNS: Reviewed / noted above. GENERAL: Non-toxic in appearance. INTEGUMENTARY: Warm, dry, and [place]. HEAD: Normocephalic. EYES: without scleral icterus or trauma. ENT/OROPHARYNX: clear and moist. LYMPHADENOPATHY/NECK: Is supple without lymphadenopathy or meningismus. RESPIRATORY: Lungs clear and equal. CARDIOVASCULAR: Tachycardic rate and normal rhythm. GI/ABDOMEN: Soft with tenderness to the epigastric area. No organomegaly or pulsatile mass. No rebound or guarding. Normal bowel sounds. EXTREMITIES: Warm and well perfused. BACK: No CVA tenderness. NEUROLOGICAL: Intact without focal deficits. PSYCHIATRIC: normal affect. MUSCULOSKELETAL: Normally developed with good muscle tone. Medical Decision & Procedures Laboratory Results 02/11/18 16:38 Red Blood Count 4.86, Mean Corpuscular Volume 89.1, Mean Corpuscular Hemoglobin 31.3, Mean Corpuscular Hemoglobin Concent 35.1, Mean Platelet Volume 11.1, Neutrophils (%) (Auto) 69.1, Lymphocytes (%) (Auto) 18.7, Monocytes (%) (Auto) 8.3, Eosinophils (%) (Auto) 3.1, Basophils (%) (Auto) 0.1, Neutrophils # (Auto) 9.23, Lymphocytes # (Auto) 2.51, Monocytes # (Auto) 1.11, Eosinophils # (Auto) 0.42, Basophils # (Auto) 0.02 02/11/18 16:38 Test 02/11/18 16:38 02/11/18 17:01 White Blood Count 13.39 K/uL (4.8-10.8) Red Blood Count 4.86 M/uL (4.2-5.4) Hemoglobin 15.2 g/dL (12.0-16.0) Hematocrit 43.3 % (37-47) Mean Corpuscular Volume 89.1 fL (80-100) Mean Corpuscular Hemoglobin 31.3 pg (25-34) Mean Corpuscular Hemoglobin Concent 35.1 g/dl (32-36) Platelet Count 282 K/uL (130-400) Mean Platelet Volume 11.1 fL (7.4-10.4) Neutrophils (%) (Auto) 69.1 % Lymphocytes (%) (Auto) 18.7 % Monocytes (%) (Auto) 8.3 % Eosinophils (%) (Auto) 3.1 % Basophils (%) (Auto) 0.1 % Neutrophils # (Auto) 9.23 K/uL (1.4-6.5) Lymphocytes # (Auto) 2.51 K/uL (1.2-3.4) Monocytes # (Auto) 1.11 K/uL (0.11-0.59) Eosinophils # (Auto) 0.42 K/uL (0-0.5) Basophils # (Auto) 0.02 K/uL (0-0.2) RDW Standard Deviation 43.6 fL (36.4-46.3) RDW Coefficient of Variation 13.4 % (11.5-14.5) Immature Granulocyte % (Auto) 0.7 % Immature Granulocyte # (Auto) 0.10 K/uL (0.00-0.02) Prothrombin Time 10.4 SECONDS (9.0-12.0) Prothromb Time International Ratio 1.0 (0.9-1.1) Activated Partial Thromboplast Time 28.8 SECONDS (21.0-31.0) Partial Thromboplastin Ratio 1.1 Anion Gap 5.0 mmol/L (3-11) Est Creatinine Clear Calc Drug Dose 62.1 ml/min Estimated GFR () 61.0 Estimated GFR (Non- 52.6 BUN/Creatinine Ratio 11.5 (10-20) Calcium Level 9.4 mg/dl (8.5-10.1) Total Bilirubin 0.7 mg/dl (0.2-1) Direct Bilirubin 0.2 mg/dl (0-0.2) Aspartate Amino Transf (AST/SGOT) 12 U/L (15-37) Alanine Aminotransferase (ALT/SGPT) 27 U/L (12-78) Alkaline Phosphatase 91 U/L (45-117) Total Protein 8.1 gm/dl (6.4-8.2) Albumin 3.6 gm/dl (3.4-5.0) Lipase 356 U/L (73-393) Urine Color AIDAN Urine Appearance CLEAR (CLEAR) Urine pH 5.0 (4.5-7.5) Urine Specific [place] >= 1.030 (1.000-1.030) Urine Protein 1+ (NEG) Urine Glucose (UA) NEG (NEG) Urine Ketones 1+ (NEG) Urine Occult Blood NEG (NEG) Urine Nitrite NEG (NEG) Urine Bilirubin NEG (NEG) Urine Urobilinogen POS (NEG) Urine Leukocyte Esterase NEG (NEG) Laboratory results as stated above per my review. Medications Administered Medications (Trade) Dose Ordered Sig/Miguel Route Start Time Stop Time Status Last Admin Dose Admin Sodium Chloride 1,000 ml @ 999 mls/hr Q1H1M STAT IV 02/11/18 16:18 02/11/18 17:18 DC 02/11/18 17:00 999 MLS/HR Ondansetron HCl (Zofran Inj) 4 mg NOW STAT IV 02/11/18 16:18 02/11/18 16:19 DC 02/11/18 17:00 4 MG Prochlorperazine Edisylate (Compazine Inj) 10 mg NOW STAT IV 02/11/18 18:08 02/11/18 18:12 DC 02/11/18 18:08 10 MG ECG Per My Interpretation Indication: vomiting Rate (beats per minute): 74 Rhythm: normal sinus Findings: other (No ANDREW/STD, no PVCs) ED Course 1618: Ordered Zofran 4 mg IV, Sodium Chloride 1000 mL @ 999 mL/hr IV. 162: Previous medical records were reviewed. The patient was evaluated in room B9. A complete history and physical examination was performed. 1906: On reevaluation, the patient is resting in bed and feels good. I discussed the results and findings with the patient. She verbalized agreement of the treatment plan. The patient was discharged home. Medical Decision Differential considered: pancreatitis, hepatitis, or acute cholecystitis, AAA, UTI, pyelonephritis, kidney stones, appendicitis, diverticulitis, shingles, bowel obstruction mesenteric ischemia, intussusception, and hernia. This is a 67-year-old female who presents to the ED with a chief complaint of nausea, vomiting and diarrhea. The patient states that she started having some vomiting on Friday, 2 days ago. She also developed diarrhea and bloating in her abdomen today. She reports feeling tired. She states that she had a CT scan of her abdomen and pelvis with p.o. and IV contrast last . That was negative for acute process. The patient's vital signs revealed a tachycardia on her triage. Her heart rate was 126. Her exam reveals some epigastric abdominal tenderness and a slight tachycardia. A 12-lead EKG reveals a normal sinus rhythm at a rate of 74. CBC reveals a white blood cell count of 13.3. Complete metabolic panel was normal, lipase is negative and urine reveals 1+ ketones. The patient was treated with a liter of IV fluids as well as IV Zofran. She was also given some IV Compazine. Was told the results of the test. She is felt to be stable for discharge . Prescription for Zofran given. Medication Reconcilliation Current Medication List: was personally reviewed by me Blood Pressure Screening Patient's blood pressure: Elevated blood pressure Blood pressure disposition: Elevated BP felt to be situational Impression Primary Impression: Nausea vomiting and diarrhea Scribe Attestation The scribe's documentation has been prepared under my direction and personally reviewed by me in its entirety. I confirm that the note above accurately reflects all work, treatment, procedures, and medical decision making performed by me. Departure Information Dispostion Home / Self-Care Prescriptions Ondasetron Odt (ZOFRAN ODT) 4 Mg Tab 4 MG SL Q6H for Nausea, #20 TAB Prov: Den Franco D.O. 02/11/18 Referrals Shari Jansen (PCP) Patient Instructions My [facility] Additional Instructions Zofran: Allow one tablet to dissolve under the tongue every 6 hours as needed for nausea or vomiting. Follow-up with your doctor for further care and evaluation in 1-2 days. Return to the emergency department for worsening or new symptoms or any concerns. You have been examined and treated today on an emergency basis only. This is not a substitute for, or an effort to provide, complete comprehensive medical care. It is impossible to recognize and treat all injuries or illnesses in a single emergency department visit. It is therefore important that you follow up closely with your doctor. Call as soon as possible for an appointment.
[2018-02-11 19:24] VITALS: BP 153/83; PULSE 93; O2SAT 98
[2018-02-11] MEDS ORDERED: ATOR10TA82 PO (22:33)
== END 2018-02-11 19:25 | disposition home or self-care (01) ==
LOC: C.EDB 16:12
DX: R11.2 Nausea with vomiting, unspecified (principal); R19.7 Diarrhea, unspecified; Z85.3 Personal history of malignant neoplasm of breast; E11.9 Type 2 diabetes mellitus without complications; Z79.899 Other long term (current) drug therapy; Z79.4 Long term (current) use of insulin

== ENCOUNTER → 2018-02-12 | Outpatient (CLI) | payer OTHER ==
[~2018-02-12] MED LIST changes: +ATOR10TA82 PO; +CHOL20009 PO; +CZR25 PO; +INSDGIPEN SC; -LEVO137T3 PO; +LIRA18IN SC; +MULT-513 PO; +ONDA4TAB10 SL; -PRED50TA PO; +PRVHFAIN INH; +SYN137 PO; +TPRSR/25 PO
--- NOTE | 2018-02-12 15:09 | MAMMOGRAPHY REPORT ---
UNILATERAL RIGHT DIGITAL DIAGNOSTIC MAMMOGRAM TOMOSYNTHESIS WITH CAD AND TARGETED RIGHT ULTRASOUND: CLINICAL HISTORY: History of left mastectomy and right reduction mammoplasty. The patient reports an area of tender thickening/swelling in the right outer breast for approximately 3 months. She denies any skin erythema or other complaints. TECHNIQUE: Breast tomosynthesis in addition to standard 2D mammography was performed. Current study was also evaluated with a Computer Aided Detection (CAD) system. Right CC, XCCL, and MLO 2D and fatimah synthesis images were obtained. COMPARISON: Comparison is made to exams dated: 12/17/2017 mammogram, 11/21/2016 mammogram, 11/20/2015 mammogram, 11/14/2014 mammogram, 11/12/2013 mammogram, and 11/05/2012 mammogram - [facility]. BREAST COMPOSITION: The tissue of the right breast is almost entirely fatty. FINDINGS: A triangle marker jackson the site of the tender palpable abnormality pointed out by the david ent in the right far lateral breast at approximately 9:00. There are no suspicious masses or other s uspicious mammographic abnormalities in this region. The remainder of the right breast is stable com pared to prior exams, without suspicious masses, calcifications, or areas of architectural distortion noted. There are stable postsurgical changes from reduction mammoplasty. Scattered benign-appearin g calcifications are also stable. Targeted ultrasound was performed of the area of the tender thickening/swelling pointed out by the pa tient in the right far lateral breast at approximately 8:00, 13 cm from the nipple. No suspicious ma sses or other suspicious sonographic abnormalities are evident in this region. Incidentally noted in the right breast at 8:00, approximately 12 cm from the nipple, is a morphologically normal intramamm rubia lymph node which measures 9 x 5 mm. IMPRESSION: ACR BI-RADS CATEGORY 2: BENIGN, TARGETED ULTRASOUND ACR BI-RADS CATEGORY 2: BENIGN No suspicious mammographic or sonographic abnormality at the site of the tender palpable thickening/s welling in the right far lateral breast pointed out by the patient. There is no mammographic or targ eted sonographic evidence of malignancy. Recommend clinical follow-up for the right breast complaint s, and recommend routine screening mammograms of the right breast in 1 year. The patient has been verbally notified of the results. Approximately 10% of breast cancers are not detected with mammography. A negative mammographic report should not delay biopsy if a clinically suggestive mass is present. Alondra Peraza M.D. ah/:02/12/2018 08:56:58 Sales Contractor: Andreia Francis [facility] letter sent: Normal 1/2 BI-RADS Code: ACR BI-RADS Category 2: Benign Ultrasound BI-RADS: ACR BI-RADS Category 2: Benign
== END | disposition home or self-care (01) ==
LOC: C.MAMM 08:20
PROVIDERS: ATTEND Nurse Practitioner Family
DX: R92.8 Other abnormal and inconclusive findings on diagnostic imaging of breast (principal)

== ENCOUNTER 2020-04-13 13:06 | Inpatient (IN) ==
[2020-04-13] MEDS ORDERED: methylPREDNISolone 125 MG/2 ML VIAL IV STA (14:02)
[2020-04-13] MEDS ORDERED: DiphenhydrAMINE HCL 50 MG/ML VIAL IV STA (14:02)
--- NOTE | 2020-04-13 14:02 | Emergency Department Note ---
Impression & Plan SOB (shortness of breath), Cough, Weakness, Abnormal chest CT ED Provider Note NAME: ROCÍO GREGORY AGE: 69 SEX: F : 1950 ARRIVES VIA: Walk-In INFORMANT: [Patient] ED PROVIDER(S): [Chidi Carballo MD] CHIEF COMPLAINT: Shortness of breath HISTORY OF PRESENT ILLNESS: Patient is a 69-year-old female who presents to the ED with persistent shortness of breath since mid February, over 1 month. She initially had a sore throat and a dry cough and was fatigued. She had sweats. No fever but she has noticed chills. She has had coronavirus testing already, this was done on the , it was negative. The patient states that she did have difficulty with smell and taste although, this seems to be returning. She has been persistently short of breath though. She saw her doctor recently and had lab work that was unremarkable. Because of the persistent symptoms, her doctor referred her here today, there is concern for PE or pneumonia not seen on chest x-ray. The patient has not had vomiting or diarrhea. She does admit to some mild chest pain but this has been an ongoing issue with any kind of exertion. She had a stress test done last year for similar symptoms and she states it was negative. She has no known history of coronary disease. Patient states that her shortness of breath is present with talking and with exertion, she feels okay resting and sitting still. She does have asthma, she was prescribed a new inhaler about a week ago, this has not really helped though. Patient admits to a 4 pound weight gain over 1 week. No leg swelling. REVIEW OF SYSTEMS: See HPI for pertinent positives and negatives. A total of ten systems were reviewed and were otherwise negative. PMHx/PSHx: See Below SOCIAL HISTORY: See Below. PHYSICAL EXAM: GENERAL: Patient is in no acute distress. HEENT: No acute trauma, normocephalic atraumatic, mucous membranes moist, no nasal congestion, no scleral icterus. NECK: No stridor, no adenopathy, no meningismus, trachea is midline. LUNGS: Clear to auscultation bilaterally, no wheeze, no rhonchi, breath sounds equal. No respiratory distress noted. HEART: Without murmurs gallops or rubs, regular rate and rhythm. ABDOMEN: Soft, nontender, bowel sounds positive, no hernias, no peritonitis. EXTREMITIES: No cyanosis or edema, full range of motion of all the joints without pain or difficulty, no signs for acute trauma. NEUROLOGIC: Oriented x 3, no acute motor or sensory deficits, no focal weakness. SKIN: No rash, no jaundice, no diaphoresis. DIFFERENTIAL DIAGNOSIS: Reactive airway disease, pneumonia, pneumothorax, coronavirus, bronchitis, malignancy, COPD, CHF, infections, cardiac ischemia, pulmonary embolism, musculoskeletal, gastrointestinal, as well as other pathologies. EMERGENCY DEPARTMENT COURSE/PROCEDURES: ECG: Indication was shortness of breath. The EKG shows a normal sinus rhythm with a rate of 71. There is no ST elevation, no PVCs. The QTc is 412. Continuous Cardiac Monitoring: An order was placed for continuous cardiac monitoring. The monitor shows a rate of 74 with normal sinus rhythm. MEDICAL DECISION MAKING: There is no leukocytosis or concerning anemia. No coagulopathy. No significant electrolyte abnormality or kidney failure. Lactic acid level was slightly elev ated, possibly consistent with infection and/or dehydration. No liver enzyme elevation. Coronavirus testing today returned negative. Abdominal and pelvis CT did not show any evidence for mass or fluid. Chest CT shows a right lung mass consistent with potential malignancy. Study for PE could not be performed as the patient has a severe IV dye contrast allergy. Patient was given IV saline, 1 L. This was given for hydration. The patient presents with persistent shortness of breath for over a month. She has had sweats, she has had cough. She has failed outpatient treatment and her doctors sent her here today for further work-up and to rule out PE. The patient does have findings of a potential lung mass. This of course could explain her dyspnea. PE work-up will need to be completed in the hospital via a VQ scan as she cannot have IV contrast. I talked to the patient about her findings, she is aware of the need for hospitalization and further work-up. I talked to shoe caser. The on-call hospitalist was consulted. Past Med/Surg History Medical History Dyslipidemia HTN (hypertension) Obesity Social History Preferred Language: Kyrgyz Communication Ability: Effective Matrix Supervisor Required: No Beliefs That Will Affect Care: None Current Living Situation: Spouse Other Information That Helps Us Care for You: No Feels Safe at Home: Yes Safety Concerns: Feels Safe At This Time Smoking Status: Never smoker Do You Dip or Chew Tobacco: No ; Second Hand Exposure: No ; Tobacco Cessation Education Requested by Patient: No Hx Alcohol Use: No Hx Substance Use: No Allergies Allergies Allergy/AdvReac Type Severity Reaction Status Date / Time Iodinated Contrast Media Allergy Severe itchy,flushed,tight Verified 01/21/20 11:13 throat morphine Allergy Severe MENTAL Verified 01/21/20 11:13 CONFUSION, SOB amoxicillin Allergy Intermediate SOB,ITCHING Verified 01/21/20 11:13 cephalexin Allergy Mild unknown Verified 01/21/20 11:13 adhesive Allergy Unknown unknown Verified 01/21/20 11:13 ("adhesive tape")-ITCHY, REDNESS canagliflozin Allergy Unknown ITCHY,EYES Verified 01/21/20 11:13 SWELLING codeine Allergy Unknown unknown Verified 01/21/20 11:13 erythromycin base Allergy Unknown UPSET Verified 01/21/20 11:13 STOMACH,RASH glyburide Allergy Unknown ITCHY,SOB Verified 01/21/20 11:13 Macrolide Antibiotics Allergy Unknown Verified 01/21/20 11:13 methadone Allergy Unknown Verified 01/21/20 11:13 oxycodone Allergy Unknown unknown Verified 01/21/20 11:13 Penicillins Allergy Unknown Verified 01/21/20 11:13 propoxyphene Allergy Unknown UNKNOWN Verified 01/21/20 11:13 shrimp Allergy Unknown FLUSH ITCHY Verified 01/21/20 11:13 aspirin [From Percodan] Allergy dizziness, Verified 01/21/20 11:13 nausea glipizide Allergy Verified 01/21/20 11:13 iodine Allergy Verified 01/21/20 11:13 Sulfa (Sulfonamide Allergy Verified 01/21/20 11:13 Antibiotics) chloraprep one step solution Allergy itching, Uncoded 01/21/20 11:13 rash Home Meds Home Medications Medication Instructions Recorded Confirmed Lactobacillus 1 cap PO QAM cap 06/30/19 04/13/20 acidophilus-Bifidobac.animalis 31 billion cell capsule albuterol sulfate 90 mcg/actuation 2 puffs INH Q4H PRN gm 06/30/19 04/13/20 aerosol inhaler aspirin 81 mg tablet,delayed 81 mg PO QAM tab 06/30/19 04/13/20 release atorvastatin 10 mg tablet 10 mg PO QAM tab 06/30/19 04/13/20 blood sugar diagnostic #10 ea 06/30/19 01/21/20 cholecalciferol (vitamin D3) 25 1,000 units PO HS cap 06/30/19 04/13/20 mcg (1,000 unit) capsule fexofenadine 180 mg tablet 180 mg PO QAM PRN tab 06/30/19 04/13/20 multivitamin 1 tab PO QAM 06/30/19 04/13/20 bimatoprost 0.01 % eye drops 1 drops OPB QPM 01/21/20 04/13/20 citalopram 40 mg tablet 40 mg PO QAM tab 01/21/20 04/13/20 lancets 33 gauge #100 ea 01/21/20 01/21/20 losartan 25 mg tablet 25 mg PO QAM #15 tab 01/21/20 04/13/20 metoprolol succinate 25 mg 25 mg PO HS tab 01/21/20 04/13/20 tablet,extended release 24 hr pen needle, diabetic 31 gauge x ea 01/21/2002/06" calcium carbonate [Calcium 600] 600 mg PO MOWEFR 04/13/20 04/13/20 fluticasone propionate [Flovent 2 puff INHALATION BID 04/13/20 04/13/20 HFA] insulin glargine [Basaglar KwikPen 58 units SQ QAM 04/13/20 04/13/20 U-100 Insulin] levothyroxine 150 mcg PO QAM 04/13/20 04/13/20 metformin 1,500 mg PO DAILY 04/13/20 04/13/20 Results & Data (ED) Vital Signs Vital Signs - 24 hr 04/13/20 13:31 04/13/20 14:38 04/13/20 14:42 Temperature 37.3 C Temperature Source Oral Pulse Rate 84 74 83 Pulse Rate from SpO2 Sensor 74 82 Respiratory Rate 17 Blood Pressure 164/98 H 152/82 H Blood Pressure Mean 120 88 Pulse Oximetry 96 95 93 Oxygen Delivery Method Room Air Sepsis Recent Fever Within 48 Hours No Sepsis New/Unexplained Change in Mental Status No Sepsis Action Taken by Nursing No Action Required 04/13/20 15:00 04/13/20 15:30 04/13/20 16:00 Temperature Temperature Source Pulse Rate 74 78 70 Pulse Rate from SpO2 Sensor 75 77 Respiratory Rate 18 13 12 Blood Pressure Blood Pressure Mean Pulse Oximetry 94 95 Oxygen Delivery Method Sepsis Recent Fever Within 48 Hours Sepsis New/Unexplained Change in Mental Status Sepsis Action Taken by Care Home Medications Current Medication List: was personally reviewed by me Laboratory Data Attestation: I reviewed the patient's lab results. Result diagrams: 04/13/20 14:30 04/13/20 14:30 Lab Results 04/13/20 04/13/20 04/13/20 Range/Units 14:30 14:30 14:30 WBC 8.86 (4.8-10.8) K/uL RBC 4.29 (4.2-5.4) M/uL Hgb 13.1 (12.0-16.0) g/dL Hct 39.1 (37-47) % MCV 91.1 (80-100) fL MCH 30.5 (25-34) pg MCHC 33.5 (32-36) g/dL RDW Std Deviation 46.7 H (36.4-46.3) fL RDW Coeff of Lorie 14.1 (11.5-14.5) % Plt Count 303 (130-400) K/uL MPV 11.6 H (7.4-10.4) fL Immature Gran % (Auto) 0.5 % Neut % (Auto) 59.7 % Lymph % (Auto) 27.4 % [place] % (Auto) 9.6 % Eos % (Auto) 2.5 % Baso % (Auto) 0.3 % Immature Gran # (Auto) 0.04 H (0.00-0.02) K/uL Neut # (Auto) 5.29 (1.4-6.5) K/uL Lymph # (Auto) 2.43 (1.2-3.4) K/uL [place] # (Auto) 0.85 H (0.11-0.59) K/uL Eos # (Auto) 0.22 (0-0.5) K/uL Baso # (Auto) 0.03 (0-0.2) K/uL PT 10.6 (9.0-12.0) Seconds INR 1.0 (0.9-1.1) APTT 25.4 (21.0-31.0) Seconds PTT Ratio 0.9 Sodium 139 (136-145) mmol/L Potassium 3.9 (3.5-5.1) mmol/L Chloride 103 (98-107) mmol/L Carbon Dioxide 27 (21-32) mmol/L Anion Gap 9.0 (3-11) BUN 14 (7-18) mg/dl Creatinine 0.95 (0.6-1.2) mg/dl Est Cr Clr Drug Dosing 71.4 ml/min Est GFR ( Amer) 71.8 Est GFR (Non-Af Amer) 62.0 BUN/Creatinine Ratio 15.2 (10-20) Glucose 192 H (70-99) mg/dl Lactate (0.4-2.0) mmol/L Calcium 9.0 (8.5-10.1) mg/dl Total Bilirubin 0.4 (0.2-1) mg/dl AST 15 (15-37) U/L ALT 30 (12-78) U/L Alkaline Phosphatase 72 (45-117) U/L Troponin I < 0.015 (0-0.045) ng/ml Total Protein 7.5 (6.4-8.2) gm/dl Albumin 3.7 (3.4-5.0) gm/dl Globulin 3.8 (2.5-4.0) gm/dl Albumin/Globulin Ratio 1.0 (0.9-2) COVID-19 PCR (Negative) SARS-CoV-2 RNA (RT-PCR) 04/13/20 04/13/20 04/13/20 Range/Units 14:30 Unknown Unknown WBC (4.8-10.8) K/uL RBC (4.2-5.4) M/uL Hgb (12.0-16.0) g/dL Hct (37-47) % MCV (80-100) fL MCH (25-34) pg MCHC (32-36) g/dL RDW Std Deviation (36.4-46.3) fL RDW Coeff of Lorie (11.5-14.5) % Plt Count (130-400) K/uL MPV (7.4-10.4) fL Immature Gran % (Auto) % Neut % (Auto) % Lymph % (Auto) % [place] % (Auto) % Eos % (Auto) % Baso % (Auto) % Immature Gran # (Auto) (0.00-0.02) K/uL Neut # (Auto) (1.4-6.5) K/uL Lymph # (Auto) (1.2-3.4) K/uL [place] # (Auto) (0.11-0.59) K/uL Eos # (Auto) (0-0.5) K/uL Baso # (Auto) (0-0.2) K/uL PT (9.0-12.0) Seconds INR (0.9-1.1) APTT (21.0-31.0) Seconds PTT Ratio Sodium (136-145) mmol/L Potassium (3.5-5.1) mmol/L Chloride (98-107) mmol/L Carbon Dioxide (21-32) mmol/L Anion Gap (3-11) BUN (7-18) mg/dl Creatinine (0.6-1.2) mg/dl Est Cr Clr Drug Dosing ml/min Est GFR ( Amer) Est GFR (Non-Af Amer) BUN/Creatinine Ratio (10-20) Glucose (70-99) mg/dl Lactate 2.4 H* (0.4-2.0) mmol/L Calcium (8.5-10.1) mg/dl Total Bilirubin (0.2-1) mg/dl AST (15-37) U/L ALT (12-78) U/L Alkaline Phosphatase (45-117) U/L Troponin I (0-0.045) ng/ml Total Protein (6.4-8.2) gm/dl Albumin (3.4-5.0) gm/dl Globulin (2.5-4.0) gm/dl Albumin/Globulin Ratio (0.9-2) COVID-19 PCR NEGATIVE (Negative) SARS-CoV-2 RNA (RT-PCR) Cancelled Administered Medications Discontinued Medications Diphenhydramine HCl (Benadryl) 25 mg IV NOW STA Stop: 04/13/20 14:03 Last Admin: 04/13/20 14:32 Dose: Not Given Documented by: [id number] Sodium Chloride (Nss 1000ml) 1,000 mls @ 999 mls/hr IV .Q1H1M ONE Stop: 05/21/20 16:23 Last Infusion: 04/13/20 16:38 Dose: 0 mls/hr Documented by: [id number] Admin: 04/13/20 15:35 Dose: 999 mls/hr Documented by: [id number] Methylprednisolone (Solumedrol) 125 mg IV NOW STA Stop: 04/13/20 14:03 Last Admin: 04/13/20 14:33 Dose: Not Given Documented by: [id number] Imaging Data Radiologist's Impression: CT OF THE CHEST WITHOUT IV CONTRAST CLINICAL HISTORY: Shortness of breath. Possible pneumonia. COMPARISON STUDY: Chest radiograph March 18, 2020. CT DOSE: 1580.99 mGycm TECHNIQUE: Axial images of the chest were obtained without IV contrast. Images were reviewed in the axial, sagittal, and coronal planes. IV contrast was not administered for this examination. Automated exposure control was utilized for the study. A dose lowering technique was utilized adhering to the principles of ALARA. FINDINGS: No enlarged axillary, mediastinal or hilar lymph nodes are present. The size of the heart is normal. There is no pericardial effusion. Central airways are patent. There is no consolidation to suggest pneumonia. Note is made of a 3.6 x 3 cm lesion within the right upper lobe on image 95 of 296. This is almost entirely groundglass. This has a tiny solid component centrally that measures 7 mm x 2 mm. Pleural tag is noted. No additional suspicious lesions within the lungs are noted. No pneumothorax or pleural effusion is present. No suspicious osseous lesions within the thorax are noted. Abdomen and pelvis will be reported separately. Left axillary surgical clips are noted. Findings suggest a left mastectomy with reconstruction. IMPRESSION: 1. 3.6 x 3 cm right upper lobe mass. This lesion is almost entirely groundglass with tiny central solid component. This is highly suggestive of a primary lung neoplasm, likely within the adenocarcinoma spectrum. Pulmonary consultation is recommended. 2. No thoracic lymphadenopathy. 3. No acute findings within the chest. ABDOMEN AND PELVIS CT WITHOUT CONTRAST CT DOSE: HISTORY: weight gain, sob TECHNIQUE: Multiaxial CT images of the abdomen and pelvis were performed without contrast. A dose lowering technique was utilized adhering to the principles of ALARA. COMPARISON STUDY: Abdomen and pelvis CT 06/12/2018. FINDINGS: Stable 4 mm subpleural nodule within the base of the right lower lobe on image 27. No pneumoperitoneum. No pneumatosis. No suspicious lytic or blastic osseous lesions. Postoperative changes within the left breast. Stable 7 mm hypod ense lesion within segment 2 of the liver. This favors a benign cyst. Cholecystectomy. The unenhanced spleen, adrenal glands, and pancreas are unremarkable. No renal stones or hydronephrosis. There is a 9 mm hypodense lesion within the lower pole the right kidney. This is technically too small to characterize. Normal caliber abdominal aorta containing calcified plaque. No retroperitoneal lymphadenopathy. The bladder is not well-distended but appears unremarkable. The uterus is surgically absent. Mild pelvic floor collapse. Colonic diverticulosis. No evidence for diverticulitis. No definite bowel wall thickening or obstruction. Suboptimal evaluation for bowel pathology due to the lack of intravenous and oral contrast. Normal appendix. IMPRESSION: 1. No definite bowel wall thickening or obstruction. 2. Colonic diverticulosis. 3. Prior hysterectomy and appendectomy. 4. Normal appendix. Blood Pressure Blood Pressure Findings: Elevated blood pressure Blood Pressure Disposition: further management by hospitalist Discharge Plan Visit Data Chief Complaint: Shortness of Breath/Dyspnea Stated Complaint: DOC REF - SOB - FATIGUE - February TEST FOR COVI ED Provider: Chidi Carballo Discharge Problem: SOB (shortness of breath), Cough, Weakness, Abnormal chest CT Patient Disposition: Being Evaluated by Hospitalist Condition: Good Forms Stand Alone Forms: My [facility] [employer] Prescriptions Prescriptions: No Action aspirin 81 mg tablet,delayed release (DR/EC) 81 mg PO QAM RF: 0 atorvastatin 10 mg tablet 10 mg PO QAM RF: 0 fexofenadine 180 mg tablet 180 mg PO QAM PRN (Reason: Allergy Symptoms) RF: 0 multivitamin [Daily Multi-Vitamin] tablet 1 tab PO QAM RF: 0 (DME) OneTouch Verio test strips strip See Dose Instructions .ROUTE .MEDSUPPLY Qty: 10 RF: 0 Lacto.acidophilus-Bif.animalis 31 billion cell capsule 1 cap PO QAM RF: 0 albuterol sulfate [Ventolin HFA] 90 mcg/actuation HFA aerosol inhaler 2 puffs INH Q4H PRN (Reason: Shortness Of Breath) RF: 0 cholecalciferol (vitamin D3) 1,000 unit capsule 1,000 units PO HS RF: 0 citalopram 40 mg tablet 40 mg PO QAM RF: 0 (DME) lancets [OneTouch Delica Lancets] 33 gauge misc See Dose Instructions .ROUTE .MEDSUPPLY Qty: 100 RF: 0 losartan 25 mg tablet 25 mg PO QAM Qty: 15 RF: 0 metoprolol succinate 25 mg tablet extended release 24 hr 25 mg PO HS RF: 0 (DME) pen needle, diabetic [BD Ultra-Fine Mini Pen Needle] 31 gauge x 3/16" needle See Dose Instructions .ROUTE .MEDSUPPLY RF: 0 Lumigan 0.01 % drops 1 drops OPB QPM RF: 0 calcium carbonate [Calcium 600] 600 mg calcium (1,500 mg) Tablet 600 mg PO MOWEFR RF: 0 Flovent HFA 110 mcg/actuation HFA aerosol inhaler 2 puff INHALATION BID RF: 0 metformin 500 mg tablet 1,500 mg PO DAILY RF: 0 levothyroxine 150 mcg tablet 150 mcg PO QAM RF: 0 Basaglfide KwikPen U-100 Insulin 100 unit/mL (3 mL) insulin pen 58 units SQ QAM RF: 0 Referrals Referrals: Shari Jansen [Primary Care Provider] -
[2020-04-13 15:10] LABS: Partial Thromboplastin Ratio 0.9; Partial Thromboplastin Time 25.4 Seconds (21.0-31.0); Prothrombin Time 10.6 Seconds (9.0-12.0)
[2020-04-13 15:16] LABS: Basophils # (auto) 0.03 K/uL (0-0.2); Basophils % (auto) 0.3 %; Eosinophils # (auto) 0.22 K/uL (0-0.5); Eosinophils % (auto) 2.5 %; Hematocrit (blood only) 39.1 % (37-47); Hemoglobin 13.1 g/dL (12.0-16.0); Immature Granulocytes # (auto) 0.04 K/uL (0.00-0.02); Immature Granulocytes % (auto) 0.5 %; Lymphocytes # (auto) 2.43 K/uL (1.2-3.4); Lymphocytes % (auto) 27.4 %; Mean Corpuscular Hemoglobin 30.5 pg (25-34); Mean Corpuscular Hgb Conc 33.5 g/dL (32-36); Mean Corpuscular Volume 91.1 fL (80-100); Mean Platelet Volume 11.6 fL (7.4-10.4); Monocytes # (auto) 0.85 K/uL (0.11-0.59); Monocytes % (auto) 9.6 %; Neutrophils # (auto) 5.29 K/uL (1.4-6.5); Neutrophils % (auto) 59.7 %; Platelet Count 303 K/uL (130-400); RDW Coefficient of Variation 14.1 % (11.5-14.5); RDW Standard Deviation 46.7 fL (36.4-46.3); Red Blood Count 4.29 M/uL (4.2-5.4); White Blood Count 8.86 K/uL (4.8-10.8)
[2020-04-13 15:23] LABS: Alanine Aminotransferase 30 U/L (12-78); Albumin Level 3.7 gm/dl (3.4-5.0); Aspartate Aminotransferase 15 U/L (15-37); BUN Creatinine Ratio 15.2 (10-20); Blood Urea Nitrogen 14 mg/dl (7-18); Carbon Dioxide 27 mmol/L (21-32); Chloride 103 mmol/L (98-107); Creatinine Clr Calc Pharmacy 71.4 ml/min; Est GFR (African American) 71.8; Glucose 192 mg/dl (70-99); Potassium 3.9 mmol/L (3.5-5.1); Sodium 139 mmol/L (136-145)
[2020-04-13] MEDS ORDERED: SODIUM CHLORIDE 0.9% 1000ML 1,000 ML IV ONE (15:23)
[2020-04-13 15:27] LABS: Alkaline Phosphatase 72 U/L (45-117); Bilirubin,Total 0.4 mg/dl (0.2-1); Globulin 3.8 gm/dl (2.5-4.0); Total Protein 7.5 gm/dl (6.4-8.2); Troponin I < 0.015 ng/ml (0-0.045)
--- NOTE | 2020-04-13 15:43 | CT Scan Report ---
CT OF THE CHEST WITHOUT IV CONTRAST CLINICAL HISTORY: Shortness of breath. Possible pneumonia. COMPARISON STUDY: Chest radiograph March 18, 2020. CT DOSE: 1580.99 mGycm TECHNIQUE: Axial images of the chest were obtained without IV contrast. Images were reviewed in the axial, sagittal, and coronal planes. IV contrast was not administered for this examination. Automat ed exposure control was utilized for the study. A dose lowering technique was utilized adhering to t he principles of ALARA. FINDINGS: No enlarged axillary, mediastinal or hilar lymph nodes are present. The size of the heart is normal. There is no pericardial effusion. Central airways are patent. There is no consolidation to suggest pneumonia. Note is made of a 3.6 x 3 cm lesion within the right upper lobe on image 95 of 29 6. This is almost entirely groundglass. This has a tiny solid component centrally that measures 7 mm x 2 mm. Pleural tag is noted. No additional suspicious lesions within the lungs are noted. No pneumot horax or pleural effusion is present. No suspicious osseous lesions within the thorax are noted. Abdo men and pelvis will be reported separately. Left axillary surgical clips are noted. Findings suggest a left mastectomy with reconstruction. IMPRESSION: 1. 3.6 x 3 cm right upper lobe mass. This lesion is almost entirely groundglass with tiny central nestor id component. This is highly suggestive of a primary lung neoplasm, likely within the adenocarcinoma spectrum. Pulmonary consultation is recommended. 2. No thoracic lymphadenopathy. 3. No acute findings within the chest. ACT 112: Negative or not required by law. Electronically signed by: Quinn Escobedo M.D. 04/13/2020 3:42 PM
--- NOTE | 2020-04-13 15:44 | CT Scan Report ---
ABDOMEN AND PELVIS CT WITHOUT CONTRAST CT DOSE: HISTORY: weight gain, sob TECHNIQUE: Multiaxial CT images of the abdomen and pelvis were performed without contrast. A dose lo wering technique was utilized adhering to the principles of ALARA. COMPARISON STUDY: Abdomen and pelvis CT 06/12/2018. FINDINGS: Stable 4 mm subpleural nodule within the base of the right lower lobe on image 27. No pneum operitoneum. No pneumatosis. No suspicious lytic or blastic osseous lesions. Postoperative changes wi thin the left breast. Stable 7 mm hypodense lesion within segment 2 of the liver. This favors a benig n cyst. Cholecystectomy. The unenhanced spleen, adrenal glands, and pancreas are unremarkable. No ruperto al stones or hydronephrosis. There is a 9 mm hypodense lesion within the lower pole the right kidney. This is technically too small to characterize. Normal caliber abdominal aorta containing calcified p laque. No retroperitoneal lymphadenopathy. The bladder is not well-distended but appears unremarkable . The uterus is surgically absent. Mild pelvic floor collapse. Colonic diverticulosis. No evidence fo r diverticulitis. No definite bowel wall thickening or obstruction. Suboptimal evaluation for bowel p athology due to the lack of intravenous and oral contrast. Normal appendix. IMPRESSION: 1. No definite bowel wall thickening or obstruction. 2. Colonic diverticulosis. 3. Prior hysterectomy and appendectomy. 4. Normal appendix. ACT 112: Negative or not required by law. Electronically signed by: Josemanuel Shankar M.D. 04/13/2020 3:42 PM
--- NOTE | 2020-04-13 16:07 | History & Physical Report ---
Date of Service April 13, 2020 Assessment & Plan (1) Mass of upper lobe of right lung: (2) Pneumonia: (3) SOB (shortness of breath): (4) Cough: (5) Weakness: -Admit to MedSurg -Consult pulmonology -CT of the chest reviewed showing right upper lobe lesion, lesion is almost entirely groundglass with tiny central solid component, concerning for malignancy. Will treat as a pneumonia for now with IV ceftriaxone and doxycycline -Possible may need bronch to obtain biopsy due to the location of the lesion, possibly can be done as an outpatient, appreciate pulmonary recs -Was administered Solu-Medrol 125 in the ER, hold off on further steroids at this time -Patient without tachypnea, O2 sats 95% on room air, afebrile -WBC = 8.86 -Continue albuterol inhaler as needed, avoid nebulizers -COVID-19 NEGATIVE today -Dry cough, patient denies sputum production, collect if produces -CT of the chest done without contrast due to allergic reaction in the past, patient adamant to not receive CT with contrast, unable to rule out CT PE, consider VQ scan however with CT findings it would be abnormal, and unlikely provide much further information for course of treatment. -Check doppler BLE -Checking d-dimer - lovenox subq (6) HTN (hypertension): -Continue losartan 25 mg daily, metoprolol succinate 25 mg at bedtime, (7) Dyslipidemia: -Continue atorvastatin 10 mg daily (8) Obesity: -BMI of 34, diet and exercise to be encouraged upon discharge (9) Diabetes: -Solu-Medrol administration will likely elevate glucose -ISS with Accu-Cheks ACHS -Continue glargine 58 units qam -Holding metformin (10) Breast cancer: -History of such 24 years ago, follows with routine mammograms yearly, which was scheduled next week -Underwent left lumpectomy and chemotherapy, no radiation (11) DVT prophylaxis: - teds, Lovenox 30 mg subcu BID CODE: Full Dispo: From home, likely to remain in the hospital x 1-2 days History of Present Illness Primary Care Provider: Shari Jansen This is a 69-year-old female with past medical history of breast cancer 24 years ago s/p left lumpectomy and reconstruction surgery, chemotherapy, asthma, who presents with 1 month of increased shortness of breath, night sweats, dyspnea on exertion without significant improvement. She has been seeing her outpatient PCP and was placed on albuterol inhaler however did not see any significant improvement. She admits to loss of taste and smell within the past month. She denies any known COVID-19 exposures she denies any travel. Patient denies any fever. She reports that she has gained approximately 4 pounds of weight in the past month, and feels slightly swollen in her left lower extremity and her abdomen. She has not been on any antibiotics as an outpatient. She had a COVID-19 test done on March 20 which was negative, and are retesting now. CT of the chest showing RUL lesion which is read as concerning for malignancy which could aslo be underlying cause of her shortness of breath. She denies known exposures to asbestos, chemicals on a farm, etc. 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 She has never smoked, and does not drink alcohol. She gets routine mammograms for history of breast cancer annually, next mammogram was scheduled for next week. Allergies Allergy/AdvReac Type Severity Reaction Status Date / Time Iodinated Contrast Media Allergy Severe itchy,flushed,tight Verified 01/21/20 11:13 throat morphine Allergy Severe MENTAL Verified 01/21/20 11:13 CONFUSION, SOB amoxicillin Allergy Intermediate SOB,ITCHING Verified 01/21/20 11:13 cephalexin Allergy Mild unknown Verified 01/21/20 11:13 adhesive Allergy Unknown unknown Verified 01/21/20 11:13 ("adhesive tape")-ITCHY, REDNESS canagliflozin Allergy Unknown ITCHY,EYES Verified 01/21/20 11:13 SWELLING codeine Allergy Unknown unknown Verified 01/21/20 11:13 erythromycin base Allergy Unknown UPSET Verified 01/21/20 11:13 STOMACH,RASH glyburide Allergy Unknown ITCHY,SOB Verified 01/21/20 11:13 Macrolide Antibiotics Allergy Unknown Verified 01/21/20 11:13 methadone Allergy Unknown Verified 01/21/20 11:13 oxycodone Allergy Unknown unknown Verified 01/21/20 11:13 Penicillins Allergy Unknown Verified 01/21/20 11:13 propoxyphene Allergy Unknown UNKNOWN Verified 01/21/20 11:13 shrimp Allergy Unknown FLUSH ITCHY Verified 01/21/20 11:13 aspirin [From Percodan] Allergy dizziness, Verified 01/21/20 11:13 nausea glipizide Allergy Verified 01/21/20 11:13 iodine Allergy Verified 01/21/20 11:13 Sulfa (Sulfonamide Allergy Verified 01/21/20 11:13 Antibiotics) chloraprep one step solution Allergy itching, Uncoded 01/21/20 11:13 rash Home Medications Home Medications Medication Instructions Recorded Confirmed Type Lactobacillus 1 cap PO QAM cap 06/30/19 04/13/20 History acidophilus-Bifidobac.animalis 31 billion cell capsule albuterol sulfate 90 mcg/actuation 2 puffs INH Q4H PRN gm 06/30/19 04/13/20 History aerosol inhaler aspirin 81 mg tablet,delayed 81 mg PO QAM tab 06/30/19 04/13/20 History release atorvastatin 10 mg tablet 10 mg PO QAM tab 06/30/19 04/13/20 History blood sugar diagnostic #10 ea 06/30/19 01/21/20 History cholecalciferol (vitamin D3) 25 1,000 units PO HS cap 06/30/19 04/13/20 History mcg (1,000 unit) capsule fexofenadine 180 mg tablet 180 mg PO QAM PRN tab 06/30/19 04/13/20 History multivitamin 1 tab PO QAM 06/30/19 04/13/20 History bimatoprost 0.01 % eye drops 1 drops OPB QPM 01/21/20 04/13/20 History citalopram 40 mg tablet 40 mg PO QAM tab 01/21/20 04/13/20 History lancets 33 gauge #100 ea 01/21/20 01/21/20 History losartan 25 mg tablet 25 mg PO QAM #15 tab 01/21/20 04/13/20 History metoprolol succinate 25 mg 25 mg PO HS tab 01/21/20 04/13/20 History tablet,extended release 24 hr pen needle, diabetic 31 gauge x ea 01/21/20 History 3/16" calcium carbonate [Calcium 600] 600 mg PO MOWEFR 04/13/20 04/13/20 History fluticasone propionate [Flovent 2 puff INHALATION BID 04/13/20 04/13/20 History HFA] insulin glargine [Basaglar KwikPen 58 units SQ QAM 04/13/20 04/13/20 History U-100 Insulin] levothyroxine 150 mcg PO QAM 04/13/20 04/13/20 History metformin 1,500 mg PO DAILY 04/13/20 04/13/20 History Past Med/Surg History Medical History Dyslipidemia HTN (hypertension) Obesity Social History Preferred Language: Indonesian Communication Ability: Effective Traffic Court Magistrate Required: No Beliefs That Will Affect Care: None Current Living Situation: Spouse Other Information That Helps Us Care for You: No Feels Safe at Home: Yes Safety Concerns: Feels Safe At This Time Smoking Status: Never smoker Do You Dip or Chew Tobacco: No ; Second Hand Exposure: No ; Tobacco Cessation Education Requested by Patient: No Hx Alcohol Use: No Hx Substance Use: No Review of Systems Review of Systems: Constitutional: No fever, + night sweats, + weight gain of 4 pounds, as per HPI Eyes: No diplopia, no worsening or blurred vision ENT: normal hearing, no trouble swallowing Respiratory: + Intermittent dry cough, no sputum, no hemoptysis, + dyspnea on exertion Cardiovascular: No chest pain, tightness or palpitations, + chest tightness with deep breaths Abdomen: No pain, nausea, vomiting, diarrhea or constipation Musculoskeletal: No joint pain, calf pain, + left lower leg swelling Neurologic: + Generalized weakness, no numbness/tingling, or balance problems Psychiatric: No anxiety or depression Skin: No rash or itch Physical Exam Physical Exam: General: awake, alert, no apparent distress, + obese with BMI of 34 Head: Normocephalic, atraumatic ENT: PERRL, EOMI, no pharyngeal exudate, mucous membranes moist Chest: Clear to auscultation, on room air, no adventitious breath sounds Cardiac: Regular rate and rhythm, no murmur, no JVD, normal peripheral pulses, good capillary refill Abdominal: NABS x 4 quadrants, soft, + minimally distended, nontender to palpation, no rebound, guarding or tenderness Extremities: Normal inspection, + left lower extremity nonpitting edema compared to the right, otherwise no peripheral edema or erythema, calfs nontender to palpation Psych: Normal mood and affect Neuro: AAO x 3, strength intact bilaterally and rated 5/5, no motor deficits, gait normal, speech is clear, no peripheral sensory deficits Skin: no rash or erythema Results & Data Results & Data ([facility]) Vital Signs (Past 12 Hours) Vital Signs Temp Pulse Resp BP Pulse Ox 04/13/20 15:00 74 18 94 04/13/20 14:42 83 17 93 04/13/20 14:38 74 21 152/82 H 95 04/13/20 13:31 37.3 C 84 20 164/98 H 96 Diagnostic Findings ABDOMEN AND PELVIS CT WITHOUT CONTRAST CT DOSE: HISTORY: weight gain, sob TECHNIQUE: Multiaxial CT images of the abdomen and pelvis were performed without contrast. A dose lowering technique was utilized adhering to the principles of ALARA. COMPARISON STUDY: Abdomen and pelvis CT 06/12/2018. FINDINGS: Stable 4 mm subpleural nodule within the base of the right lower lobe on image 27. No pneumoperitoneum. No pneumatosis. No suspicious lytic or blastic osseous lesions. Postoperative changes within the left breast. Stable 7 mm hypodense lesion within segment 2 of the liver. This favors a benign cyst. Cholecystectomy. The unenhanced spleen, adrenal glands, and pancreas are unremarkable. No renal stones or hydronephrosis. There is a 9 mm hypodense lesion within the lower pole the right kidney. This is technically too small to characterize. Normal caliber abdominal aorta containing calcified plaque. No retroperitoneal lymphadenopathy. The bladder is not well-distended but appears unremarkable. The uterus is surgically absent. Mild pelvic floor collapse. Colonic diverticulosis. No evidence for diverticulitis. No definite bowel wall thickening or obstruction. Suboptimal evaluation for bowel pathology due to the lack of intravenous and oral contrast. Normal appendix. IMPRESSION: 1. No definite bowel wall thickening or obstruction. 2. Colonic diverticulosis. 3. Prior hysterectomy and appendectomy. 4. Normal appendix. CT OF THE CHEST WITHOUT IV CONTRAST CLINICAL HISTORY: Shortness of breath. Possible pneumonia. COMPARISON STUDY: Chest radiograph March 18, 2020. CT DOSE: 1580.99 mGycm TECHNIQUE: Axial images of the chest were obtained without IV contrast. Images were reviewed in the axial, sagittal, and coronal planes. IV contrast was not administered for this examination. Automated exposure control was utilized for the study. A dose lowering technique was utilized adhering to the principles of ALARA. FINDINGS: No enlarged axillary, mediastinal or hilar lymph nodes are present. The size of the heart is normal. There is no pericardial effusion. Central airways are patent. There is no consolidation to suggest pneumonia. Note is made of a 3.6 x 3 cm lesion within the right upper lobe on image 95 of 296. This is almost entirely groundglass. This has a tiny solid component centrally that measures 7 mm x 2 mm. Pleural tag is noted. No additional suspicious lesions within the lungs are noted. No pneumothorax or pleural effusion is present. No suspicious osseous lesions within the thorax are noted. Abdomen and pelvis will be reported separately. Left axillary surgical clips are noted. Findings suggest a left mastectomy with reconstruction. IMPRESSION: 1. 3.6 x 3 cm right upper lobe mass. This lesion is almost entirely groundglass with tiny central solid component. This is highly suggestive of a primary lung neoplasm, likely within the adenocarcinoma spectrum. Pulmonary consultation is recommended. 2. No thoracic lymphadenopathy. 3. No acute findings within the chest. Code Status & VTE Plan Code Status Full code-discussed with the patient Supervising Physician Co-Signing Physician Notes Patient was seen and examined independently I discussed the case with Amna MARTE I reviewed pertinent past medical social family history and also the plan of care and agree with the plan of care. Any exceptions will be noted below Patient had breathlessness for about 1 month's time. This also dates back somewhat to the fall where she did stress test which was negative at Dr. Miranda's office as an outpatient. Patient presents to the emergency department with some minor CT scan changes in her right lungs. She does have a contrast dye allergy by report which we cannot pursue a CT scan with contrast to rule pulmonary embolism. She however is on a beta-anh she is not significantly tachycardic or tachypneic she is not hypoxic she is no elevation of white blood cell count she does have a low-grade temperature. On exam her cardiac exam is regular lungs are clear COVID was negative in the ER Patient brought in our facility concerned the VQ scan will be indeterminate due to her pulmonary infiltrate. We will treat her for community associated infection with ceftriaxone and doxycycline will have a pulmonary consultation will do Dopplers of her lower extremities to evaluate for blood clot will check a d-dimer although it might be elevated at his was drawn secondarily in the ER after other labs were drawn. PG Care Time/CCT Total # of Minutes Spent Total Time Spent with Patient: Total time spent is greater than 50% in coordination of care (as documented) at patient's floor/unit and/or counseling patient: Coding Level of Care Code 19008 Initial Inpt Care Lvl 3 Diagnoses Mass of upper lobe of right lung R91.8 Pneumonia J18.9 SOB (shortness of breath) R06.02 Cough R05 Weakness R53.1 HTN (hypertension) I10 Dyslipidemia E78.5 Obesity E66.9 Diabetes E11.9 Breast cancer C50.919 DVT prophylaxis Z29.9
--- NOTE | 2020-04-13 16:31 | Electrocardiogram Report ---
Test Reason : Blood Pressure : / mmHG Vent. Rate : 071 BPM Atrial Rate : 071 BPM P-R Int : 152 ms QRS Dur : 084 ms QT Int : 380 ms P-R-T Axes : 012 004 049 degrees QTc Int : 412 ms Normal sinus rhythm Normal ECG When compared with ECG of 19-JUN-2018 18:57, No significant change was found Confirmed by Franco Angeles ([id number]) on 04/13/2020 4:30:59 PM Referred By: Confirmed By:Gilbert Angeles
[2020-04-13] MEDS ORDERED: FEXOFENADINE HCL 180 MG TAB PO PRN (19:51)
[2020-04-13] MEDS ORDERED: GLUCOSE 10 TABS/TUBE PO PRN (19:51)
[2020-04-13] MEDS ORDERED: GLUCAGON FOR INJ 1 MG VIAL SQ PRN (19:51)
[2020-04-13] MEDS ORDERED: CARBOHYDRATES FOR HYPOGLYCEMIA PO PRN (19:51)
[2020-04-13] MEDS ORDERED: DEXTROSE 50% 50 ML SYRINGE IV PRN (19:51)
[2020-04-13] MEDS ORDERED: GLUCOSE 40% GEL 15 GM TUBE PO PRN (19:51)
[2020-04-13] MEDS ORDERED: ACETAMINOPHEN 325 MG TAB PO PRN (19:51)
[2020-04-13] MEDS ORDERED: ALBUTEROL HFA 8 GM INHALER INH PRN (19:51)
[2020-04-13] MEDS ORDERED: ONDANSETRON INJ 2 MG/ML 2 ML VIAL IV PRN (19:51)
[2020-04-13 20:40] LABS: D Dimer 480 ug/L FEU (0-500)
[2020-04-13] MEDS ORDERED: CHOLECALCIFEROL 1,000 UNITS 25 MCG TAB PO SCH (21:00)
[2020-04-13] MEDS ORDERED: cefTRIAXone SODIUM 2,000 MG in DEXTROSE 5% 50 ML IV SCH (21:00)
[2020-04-13] MEDS ORDERED: BIMATOPROST 0.01% OP SOLN 2.5 ML BTL OP SCH (21:00)
[2020-04-13] MEDS ORDERED: METOPROLOL SUCC 25MG EXT REL TAB PO SCH (21:00)
[2020-04-13] MEDS: INSULIN ASPART 100 UNITS/ML 3 ML PEN SC SCH (21:07)
[2020-04-13] MEDS: ENOXAPARIN INJ 30 MG/0.3 ML SYR SQ SCH (21:08)
[2020-04-13] MEDS: DOXYCYCLINE HYCLATE 100 MG in DEXTROSE 5% 100 ML IV SCH (21:12)
--- NOTE | 2020-04-13 22:20 | Ultrasound Report ---
BILATERAL LOWER EXTREMITY VENOUS DOPPLER HISTORY: Acute shortness of breath. Clinical concern for DVT eval for dvt COMPARISON STUDY: Chest CT of same day, duplex venous Doppler study 06/20/2018 FINDINGS: There is normal compressibility, flow, and augmentation within the bilateral lower extremit y deep venous systems. IMPRESSION: No DVT within the right or left lower extremity. ACT 112: Negative or not required by law. Electronically signed by: Lex Dolan M.D. 04/13/2020 10:19 PM
[2020-04-13 22:22] LABS: Appearance Urine Clear (Clear); Bacteria Urine Automated Negative (Negative); Bilirubin Urine Negative (Negative); Blood Urine Negative (Negative); Cast Urine Automated 0 /lpf (0-5); Color Urine Yellow; Epithelial Cell Urine Auto >30 /lpf (0-5); Glucose Urine UA Negative (Negative); Ketones Urine Negative (Negative); Leukocyte Esterase Urine 2+ (Negative); Nitrite Urine Negative (Negative); Protein Urine Negative (Negative); RBC Urine Automated 0-4 /hpf (0-4); Specific Gravity Urine 1.017 (1.000-1.030); Urobilinogen Urine Negative (Negative); pH Urine 6.5 (4.5-7.5)
[2020-04-14] MEDS ORDERED: LEVOTHYROXINE SODIUM 150 MCG TABLET PO SCH (06:30)
[2020-04-14 07:37] LABS: Hematocrit (blood only) 39.3 % (37-47); Mean Corpuscular Hemoglobin 30.3 pg (25-34); Mean Corpuscular Hgb Conc 33.1 g/dL (32-36); Mean Corpuscular Volume 91.6 fL (80-100); Mean Platelet Volume 11.3 fL (7.4-10.4); Platelet Count 294 K/uL (130-400); RDW Coefficient of Variation 14.2 % (11.5-14.5); RDW Standard Deviation 47.1 fL (36.4-46.3); Red Blood Count 4.29 M/uL (4.2-5.4); White Blood Count 9.16 K/uL (4.8-10.8)
--- NOTE | 2020-04-14 07:41 | Hospitalist Progress Note ---
Date of Service April 14, 2020 Assessment & Plan (1) Mass of upper lobe of right lung: there is a small mass in right lung, its size does not correlate with the degree of dyspnea that the pt is reporting, she lists a Dye allergy and will not permit a CTA of chest, given the abnormal CXR will likley not have easy interpretation of VQ, will treat for infectious causes and have pulmonary consultation (2) Pneumonia: PT will be treated with ceftriaxone and doxycycline, her COVID is negtive (3) Weakness: -Admit to Medr -Consult pulmonology -CT of the chest reviewed showing right upper lobe lesion, lesion is almost entirely groundglass with tiny central solid component, concerning for malignancy. Will treat as a pneumonia for now with IV ceftriaxone and doxycycline -Possible may need bronch to obtain biopsy due to the location of the lesion, possibly can be done as an outpatient, appreciate pulmonary recs -Was administered Solu-Medrol 125 in the ER, hold off on further steroids at this time -Patient without tachypnea, O2 sats 95% on room air, afebrile -WBC = 8.86 -Continue albuterol inhaler as needed, avoid nebulizers -COVID-19 NEGATIVE today -Dry cough, patient denies sputum production, collect if produces -CT of the chest done without contrast due to allergic reaction in the past, patient adamant to not receive CT with contrast, unable to rule out CT PE, consider VQ scan however with CT findings it would be abnormal, and unlikely provide much further information for course of treatment. -Check doppler BLE -Checking d-dimer - lovenox subq (4) HTN (hypertension): -Continue losartan 25 mg daily, metoprolol succinate 25 mg at bedtime, (5) Dyslipidemia: -Continue atorvastatin 10 mg daily (6) Obesity: -BMI of 34, diet and exercise to be encouraged upon discharge (7) Diabetes: -Solu-Medrol administration will likely elevate glucose -ISS with Accu-Cheks ACHS -Continue glargine 58 units qam -Holding metformin (8) Breast cancer: -History of such 24 years ago, follows with routine mammograms yearly, which was scheduled next week -Underwent left lumpectomy and chemotherapy, no radiation (9) DVT prophylaxis: - teds, Lovenox 30 mg subcu BID CODE: Full Dispo: From home, likely to remain in the hospital x 1-2 days Admission and Anticipated Discharge Date Admission Date: April 13, 2020 Results & Data Results & Data ([facility]) Vital Signs (Past 12 Hours) Vital Signs Temp Pulse Pulse Resp BP Pulse Ox 04/13/20 23:26 97.9 F 67 18 161/87 H 96 04/13/20 21:34 60 16 98 04/13/20 20:00 97.9 F 67 18 173/86 H 96 PG Care Time/CCT Total # of Minutes Spent Total Time Spent with Patient: Total time spent is greater than 50% in coordination of care (as documented) at patient's floor/unit and/or counseling patient: Coding Diagnoses Mass of upper lobe of right lung R91.8 Pneumonia J18.9 Weakness R53.1 HTN (hypertension) I10 Dyslipidemia E78.5 Obesity E66.9 Diabetes E11.9 Breast cancer C50.919 DVT prophylaxis Z29.9
[2020-04-14 08:15] LABS: Albumin Level 3.7 gm/dl (3.4-5.0); BUN Creatinine Ratio 17.1 (10-20); Calcium 9.4 mg/dl (8.5-10.1); Creatinine Clr Calc Pharmacy 75.4 ml/min; Est GFR (African American) 76.7; Est GFR (Non-African American) 66.2; Potassium 3.8 mmol/L (3.5-5.1)
[2020-04-14 08:18] LABS: Bilirubin,Total 0.4 mg/dl (0.2-1); Globulin 3.8 gm/dl (2.5-4.0); Total Protein 7.5 gm/dl (6.4-8.2)
[2020-04-14] MEDS: ENOXAPARIN INJ 30 MG/0.3 ML SYR SQ SCH (08:31)
[2020-04-14] MEDS: INSULIN ASPART 100 UNITS/ML 3 ML PEN SC SCH ×2 (08:31→12:25)
[2020-04-14] MEDS: DOXYCYCLINE HYCLATE 100 MG in DEXTROSE 5% 100 ML IV SCH (08:35)
[2020-04-14] MEDS ORDERED: INSULIN GLARGINE SOLOSTAR 100 UNITS/ML 3 ML PEN SQ SCH (09:00)
[2020-04-14] MEDS ORDERED: MULTIVITAMIN TAB PO SCH (09:00)
[2020-04-14] MEDS ORDERED: LACTOBACILLUS ACIDOPHILUS (FLORANEX) TAB PO SCH (09:00)
[2020-04-14] MEDS ORDERED: ATORVASTATIN 10 MG TAB PO SCH (09:00)
[2020-04-14] MEDS ORDERED: FLUTICASONE FUROATE 200MCG 14 PUFFS/INHALER INH SCH (09:00)
[2020-04-14] MEDS ORDERED: CITALOPRAM 40 MG TAB PO SCH (09:00)
[2020-04-14] MEDS ORDERED: LOSARTAN POTASSIUM 25 MG TAB PO SCH (09:00)
[2020-04-14] MEDS ORDERED: ASPIRIN 81 MG ECTAB PO SCH (09:00)
--- NOTE | 2020-04-14 10:04 | Pulmonary Consultation ---
Date of Consultation April 14, 2020 Assessment & Plan (1) Mass of upper lobe of right lung: I had a lengthy discussion with the patient. I have reviewed all records on [employer] and previous chest x-rays. The current lesion approximately 30 mm which is often the right upper lobe is mostly groundglass with a small solid component is very worrisome for a primary bronchogenic neoplasm possible mucinous adenocarcinoma. I do not believe it is responsible for her atypical chest pain or progressive dyspnea though it may provide a contributing factor. I cannot find a previous CT scan to compare and the most recent chest radiograph is somewhat vague involving the right upper lobe. She has no fever or signs of active infection and has complained of progressive dyspnea with exertion for many years according to her record. Navigational bronchoscopy with transbronchial biopsy could be attempted but with neoplasms the present as groundglass opacity the biopsies are often nondiagnostic. He may very well require a robotic thorascopic procedure with biopsy and eventual right upper lobectomy. An outpatient PET scan with full PFTs and review of recent stress testing will be required. Will speak with Dr. Davidson about her current hospitalization. There is no sign of obvious infection and believe patient's work-up can be carried out as an outpatient. Her progressive dyspnea is no doubt related to her obesity and may need to repeat her cardiology evaluation preoperatively prior to entertaining lung resection. Will have patient referred to Dr. Doss/pulmonary medicine in our clinic for more definitive work-up. (2) Weakness: (3) Dyslipidemia: (4) HTN (hypertension): (5) Obesity: (6) Diabetes: (7) Breast cancer: (8) Chest pain: History of Present Illness Reason for Consultation: Mass of right upper lobe Rule out pneumonitis Weakness with atypical chest pain Attending Physician: Cal Davidson MD History of Present Illness 69-year-old white female was admitted on 04/13/2022 [facility] by Dr. Ferrari with symptoms of progressive dyspnea over the past 5-weeks. She states 5 weeks ago she developed an upper respiratory infection and was COVID negative. She had a low-grade fever at that time with submandibular and anterior cervical lymphadenopathy tenderness resolved. She she was told that this represented probable viral infection. Has had no recent travel history although in November she did go to the [place] on a rastafari mission. 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 Previous work performed in [place] was noted and patient converted her PPD at that time and was placed on 9 months of INH therapy. Chest x-ray at that time was negative and she had no systemic symptoms. Her primary care provider is Shari Jansen and previous chest x-ray late February suggested a pneumonitis in the involving the right upper lobe. She underwent CAT scanning of the chest on 04/13/2020 which suggests a 3 cm groundglass lesion with a small central solid component worrisome for an underlying neoplasm. She denies cough or sputum production, fever, chills or known exposure to anyone ill. Mopped assist. Her weight has not significantly changed. Occasionally becomes edematous. She is treated for obstructive sleep apnea with CPAP. Patient was started on IV ceftriaxone and doxycycline. She is COVID negative. She was given IV Solu- Medrol in the ER but no additional steroids. An albuterol inhaler as needed. She denies any smoking history but has secondary exposure from a [id number]. Lives with her . 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 CT scan was done without contrast due to significant allergic reaction in the past. Ventilation/perfusion scan was suggested but deferred and ultrasound of both lower extremities showed no evidence for DVT. She is on Lovenox prophylaxis. She has complained of an atyp ical chest pain midsternal in nature usually radiating to the left shoulder but has undergone stress testing with Dr. Hendrickson in the remote past and ischemic disease was ruled out. She denies history of previous bouts of pneumonitis. She is diabetic and has a history of breast cancer with lumpectomy performed by Dr. Walker and adjuvant chemotherapy without radiation therapy at that time. Annual mammograms have been negative. Patient has been evaluated by Dr. Jose Francisco Palmer/[facility] in the past in 2012. She gave him a history of bronchial asthma controlled with Ventolin inhaler but had noted progressive dyspnea with exertion. Previous CAT scan in 2012 had shown multiple pulmonary nodules without adenopathy. Reportedly CAT scan in 2006 showing the same pulmonary nodulosis. Her blood pressure has been controlled on metoprolol. PFT reportedly in 2012 showed mild to moderate obstruction with 30% improvement in the FEV1 and forced vital capacity with bronchodilator. She has also felt to experience mild diastolic heart failure by Dr. Aaron Denise in the past. She has been on Asmanex inhaler in the past. He has performed poorly with exercise stress testing dating back to 2012 although the study was negative for ischemia. Nocturnal polysomnography in the remote past 06/14/2019 showed severe obstructive sleep apnea with an apnea hypotony index of 34.4 and CPAP was recom mended. Allergies Allergy/AdvReac Type Severity Reaction Status Date / Time Iodinated Contrast Media Allergy Severe itchy,flushed,tight Verified 01/21/20 11:13 throat morphine Allergy Severe MENTAL Verified 01/21/20 11:13 CONFUSION, SOB amoxicillin Allergy Intermediate SOB,ITCHING Verified 01/21/20 11:13 cephalexin Allergy Mild unknown Verified 01/21/20 11:13 adhesive Allergy Unknown unknown Verified 01/21/20 11:13 ("adhesive tape")-ITCHY, REDNESS canagliflozin Allergy Unknown ITCHY,EYES Verified 01/21/20 11:13 SWELLING codeine Allergy Unknown unknown Verified 01/21/20 11:13 erythromycin base Allergy Unknown UPSET Verified 01/21/20 11:13 STOMACH,RASH glyburide Allergy Unknown ITCHY,SOB Verified 01/21/20 11:13 Macrolide Antibiotics Allergy Unknown Verified 01/21/20 11:13 methadone Allergy Unknown Verified 01/21/20 11:13 oxycodone Allergy Unknown unknown Verified 01/21/20 11:13 Penicillins Allergy Unknown Verified 01/21/20 11:13 propoxyphene Allergy Unknown UNKNOWN Verified 01/21/20 11:13 shrimp Allergy Unknown FLUSH ITCHY Verified 01/21/20 11:13 aspirin [From Percodan] Allergy dizziness, Verified 01/21/20 11:13 nausea glipizide Allergy Verified 01/21/20 11:13 iodine Allergy Verified 01/21/20 11:13 Sulfa (Sulfonamide Allergy Verified 01/21/20 11:13 Antibiotics) chloraprep one step solution Allergy itching, Uncoded 01/21/20 11:13 rash Home Medications Home Medications Medication Instructions Recorded Confirmed Type Lactobacillus 1 cap PO QAM cap 06/30/19 04/13/20 History acidophilus-Bifidobac.animalis 31 billion cell capsule albuterol sulfate 90 mcg/actuation 2 puffs INH Q4H PRN gm 06/30/19 04/13/20 History aerosol inhaler aspirin 81 mg tablet,delayed 81 mg PO QAM tab 06/30/19 04/13/20 History release atorvastatin 10 mg tablet 10 mg PO QAM tab 06/30/19 04/13/20 History blood sugar diagnostic #10 ea 06/30/19 01/21/20 History cholecalciferol (vitamin D3) 25 1,000 units PO HS cap 06/30/19 04/13/20 History mcg (1,000 unit) capsule fexofenadine 180 mg tablet 180 mg PO QAM PRN tab 06/30/19 04/13/20 History multivitamin 1 tab PO QAM 06/30/19 04/13/20 History bimatoprost 0.01 % eye drops 1 drops OPB QPM 01/21/20 04/13/20 History citalopram 40 mg tablet 40 mg PO QAM tab 01/21/20 04/13/20 History lancets 33 gauge #100 ea 01/21/20 01/21/20 History losartan 25 mg tablet 25 mg PO QAM #15 tab 01/21/20 04/13/20 History metoprolol succinate 25 mg 25 mg PO HS tab 01/21/20 04/13/20 History tablet,extended release 24 hr pen needle, diabetic 31 gauge x ea 01/21/20 History 3/" calcium carbonate [Calcium 600] 600 mg PO MOWEFR 04/13/20 04/13/20 History fluticasone propionate [Flovent 2 puff INHALATION BID 04/13/20 04/13/20 History HFA] insulin glargine [Basaglar KwikPen 58 units SQ QAM 04/13/20 04/13/20 History U-100 Insulin] levothyroxine 150 mcg PO QAM 04/13/20 04/13/20 History metformin 1,500 mg PO DAILY 04/13/20 04/13/20 History Patient History Medical History Dyslipidemia HTN (hypertension) Obesity Social History Preferred Language: Haitian Communication Ability: Effective Track Grinder Required: No Beliefs That Will Affect Care: None Current Living Situation: Spouse Other Information That Helps Us Care for You: No Feels Safe at Home: Yes Safety Concerns: Feels Safe At This Time Smoking Status: Never smoker Do You Dip or Chew Tobacco: No ; Second Hand Exposure: No ; Tobacco Cessation Education Requested by Patient: No Hx Alcohol Use: No Hx Substance Use: No Review of Systems Constitutional: no problem reported Eyes: no problem reported Ear, Nose, Mouth, Throat: no problem reported Respiratory: no problem reported Cardiovascular: no problem reported Gastrointestinal: no problem reported Genitourinary: no problem reported Musculoskeletal: no problem reported Integumentary: no problem reported Neurologic: no problem reported Psychiatric: no problem reported Endocrine: no problem reported Hematologic / Lymphatic: no problem reported Allergy / Immunological: no problem reported Physical Exam Respiratory: Auscultation: + diminished lung sounds (Diminished breath sounds at the bases but no audible wheezing or rails noted or egophony) Results & Data Results & Data ([facility]) Vital Signs (Past 12 Hours) Vital Signs Temp Pulse Resp BP Pulse Ox 04/14/20 07:36 36.7 C 66 20 121/73 95 04/13/20 23:26 36.6 C 67 18 161/87 H 96 PG Care Time/CCT Total # of Minutes Spent Total Time Spent: 50 Total Time Spent with Patient: Total time spent is greater than 50% in coord ination of care (as documented) at patient's floor/unit and/or counseling patient: Coding Level of Care Code 95984 Initial Inpt Care Lvl 3 Diagnoses Mass of upper lobe of right lung R91.8 Weakness R53.1 Dyslipidemia E78.5 HTN (hypertension) I10 Obesity E66.9 Diabetes E11.9 Breast cancer C50.919 Chest pain R07.9 Time Spent (min) 50
--- NOTE | 2020-04-14 18:35 | Discharge Summary ---
Date of Service April 14, 2020 Admission HPI Per Admitting Provider This is a 69-year-old female with past medical history of breast cancer 24 years ago s/p left lumpectomy and reconstruction surgery, chemotherapy, asthma, who presents with 1 month of increased shortness of breath, night sweats, dyspnea on exertion without significant improvement. She has been seeing her outpatient PCP and was placed on albuterol inhaler however did not see any significant improvement. She admits to loss of taste and smell within the past month. She denies any known COVID-19 exposures she denies any travel. Patient denies any fever. She reports that she has gained approximately 4 pounds of weight in the past month, and feels slightly swollen in her left lower extremity and her abdomen. She has not been on any antibiotics as an outpatient. She had a COVID-19 test done on March 20 which was negative, and are retesting now. CT of the chest showing RUL lesion which is read as concerning for malignancy which could aslo be underlying cause of her shortness of breath. She denies known exposures to asbestos, chemicals on a farm, etc. 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 She has never smoked, and does not drink alcohol. She gets routine mammograms for history of breast cancer annually, next mammogram was scheduled for next week. Principal Diagnosis lung infiltrate, possible malignancy, negative covid Discharge Exam The patient appeared well Vital signs as documented. Lungs are clear to auscultation and appear unlabored Cardiac exam, Rhythm is regular.. No murmurs, rubs or gallops. Abdominal exam reveals normal bowel sounds, soft non tender, no masses Extremities are nonedematous and both pedal pulses are normal. Neurologic exam is alert and oriented, no focal loss of strength or sensation Skin is without bruises or rashes Psychologically is without concerns for anxiety or depression Discharge Data Allergies Allergy/AdvReac Type Severity Reaction Status Date / Time Iodinated Contrast Media Allergy Severe itchy,flushed,tight Verified 01/21/20 11:13 throat morphine Allergy Severe MENTAL Verified 01/21/20 11:13 CONFUSION, SOB amoxicillin Allergy Intermediate SOB,ITCHING Verified 01/21/20 11:13 cephalexin Allergy Mild unknown Verified 01/21/20 11:13 adhesive Allergy Unknown unknown Verified 01/21/20 11:13 ("adhesive tape")-ITCHY, REDNESS canagliflozin Allergy Unknown ITCHY,EYES Verified 01/21/20 11:13 SWELLING codeine Allergy Unknown unknown Verified 01/21/20 11:13 erythromycin base Allergy Unknown UPSET Verified 01/21/20 11:13 STOMACH,RASH glyburide Allergy Unknown ITCHY,SOB Verified 01/21/20 11:13 Macrolide Antibiotics Allergy Unknown Verified 01/21/20 11:13 methadone Allergy Unknown Verified 01/21/20 11:13 oxycodone Allergy Unknown unknown Verified 01/21/20 11:13 Penicillins Allergy Unknown Verified 01/21/20 11:13 propoxyphene Allergy Unknown UNKNOWN Verified 01/21/20 11:13 shrimp Allergy Unknown FLUSH ITCHY Verified 01/21/20 11:13 aspirin [From Percodan] Allergy dizziness, Verified 01/21/20 11:13 nausea glipizide Allergy Verified 01/21/20 11:13 iodine Allergy Verified 01/21/20 11:13 Sulfa (Sulfonamide Allergy Verified 01/21/20 11:13 Antibiotics) chloraprep one step solution Allergy itching, Uncoded 01/21/20 11:13 rash Consultations 04/13/20 16:08 ED Decision to Admit Stat 04/13/20 19:51 Consult Case Management - Discharge Planning Routine Consult Pulmonology Routine Ordered Studies 04/13/20 14:34 CT abd pelvis wo con Stat CT chest wo con Stat 04/13/20 19:51 US venous doppler [facility] Routine Hospital Course (1) Mass of upper lobe of right lung: there is a small mass in right lung, its size does not correlate with the degree of dyspnea that the pt is reporting, she lists a Dye allergy and will not permit a CTA of chest, given the abnormal CXR will likley not have easy interpretation of VQ, pulmonary consultation did not feel this is consistent with an infectious cause therefore will not continue treatment she did have a negative cover testing. Pulmonary consultation does recommend outpatient follow-up for possible navigational bronchoscopy, PET scan, and repeat cardiac stress testing to evaluate for sources of her dyspnea on exertion (2) Pneumonia: This is been ruled out (3) Weakness: -Weakness has resolved (4) HTN (hypertension): -Continue losartan 25 mg daily, metoprolol succinate 25 mg at bedtime, (5) Dyslipidemia: -Continue atorvastatin 10 mg daily (6) Obesity: -BMI of 34, diet and exercise to be encouraged upon discharge (7) Diabetes: -Continue glargine 58 units qam, metformin (8) Breast cancer: -History of such 24 years ago, follows with routine mammograms yearly, which was scheduled next week -Underwent left lumpectomy and chemotherapy, no radiation Total Time Total Time Spent Total Time Spent (In Minutes): It required greater than 30 minutes to prepare this patient for discharge Discharge Plan Discharge Items Patient Disposition: Home - Self-Care Reason For Visit: SHORTNESS OF BREATH Discharge Diagnosis: abnormal ct chest dyspnea Condition on Discharge: Good Activity: Resume your previous activity Non-emergency contact: Primary Care Provider and Food Safety Officer Call non-emergency contact if: you have any medication questions and your symptoms worsen Follow-up/Referrals: Jessica Doss MD [Physician] - 04/21/20 9:00 am (A follow-up appointment has been arranged on your behalf at [facility]. Please call the office with any questions or concerns. ) Shari Jansen [Primary Care Provider] - Diet: Regular Addtl Attending Provider Instructions: please be sure to follow up with your primary care provider and Pulmonary medicine Pending Studies at Discharge: No Stand-Alone Forms: My [place], Smoking Cessation Medications and DC Order Prescriptions: Continued aspirin 81 mg tablet,delayed release (DR/EC) 81 mg PO QAM RF: 0 atorvastatin 10 mg tablet 10 mg PO QAM RF: 0 fexofenadine 180 mg tablet 180 mg PO QAM PRN (Reason: Allergy Symptoms) RF: 0 multivitamin [Daily Multi-Vitamin] tablet 1 tab PO QAM RF: 0 (DME) OneTouch Verio test strips strip See Dose Instructions .ROUTE .MEDSUPPLY Qty: 10 RF: 0 Lacto.acidophilus-Bif.animalis 31 billion cell capsule 1 cap PO QAM RF: 0 albuterol sulfate [Ventolin HFA] 90 mcg/actuation HFA aerosol inhaler 2 puffs INH Q4H PRN (Reason: Shortness Of Breath) RF: 0 cholecalciferol (vitamin D3) 1,000 unit capsule 1,000 units PO HS RF: 0 citalopram 40 mg tablet 40 mg PO QAM RF: 0 (DME) lancets [OneTouch Delica Lancets] 33 gauge misc See Dose Instructions .ROUTE .MEDSUPPLY Qty: 100 RF: 0 losartan 25 mg tablet 25 mg PO QAM Qty: 15 RF: 0 metoprolol succinate 25 mg tablet extended release 24 hr 25 mg PO HS RF: 0 (DME) pen needle, diabetic [BD Ultra-Fine Mini Pen Needle] 31 gauge x 3/16" needle See Dose Instructions .ROUTE .MEDSUPPLY RF: 0 Lumigan 0.01 % drops 1 drops OPB QPM RF: 0 calcium carbonate [Calcium 600] 600 mg calcium (1,500 mg) Tablet 600 mg PO MOWEFR RF: 0 Flovent HFA 110 mcg/actuation HFA aerosol inhaler 2 puff INHALATION BID RF: 0 metformin 500 mg tablet 1,500 mg PO DAILY RF: 0 levothyroxine 150 mcg tablet 150 mcg PO QAM RF: 0 Basaglar KwikPen U-100 Insulin 100 unit/mL (3 mL) insulin pen 58 units SQ QAM RF: 0 Discharge Orders: Discharge Order (Routine); Ordered 04/14/20 Ordered By: Cal Davidson Admission Data Admit Date/Time: 04/13/20 16:52 Attending Provider: Cal Davidson Admit Provider: Melissa Chavez Primary Care Provider: Shari Jansen Other Providers: Cal Davidson ; Kirk Lawson Other Interventions: Discharge Summary Assessment (RN) Last Done: 04/14/20 14:33 DC Date/Time DO NOT enter until pt leaves facility: 04/14/20 15:18 Coding Level of Care Code D/C Day Management >30 mins Diagnoses Mass of upper lobe of right lung R91.8 Pneumonia J18.9 Weakness R53.1 HTN (hypertension) I10 Dyslipidemia E78.5 Obesity E66.9 Diabetes E11.9 Breast cancer C50.919
== END 2020-04-14 15:18 | disposition home or self-care (01) | DRG 204 ==
LOC: ED 13:06 → 2N 16:52

== ENCOUNTER 2024-05-18 16:08 | Inpatient (IN) ==
--- NOTE | 2024-05-18 16:42 | ED Triage Note ---
Date of Service May 18, 2024 Provider in Triage Author: Pravin Degroot A History of Present Illness This patient was briefly evaluated while in triage. An abbreviated physical exam was performed. This patient is a 74-year-old Female who presents to the ED for evaluation of blood when going to the bathroom this morning. Had dark stool. Currently under tx for Lung CA. No blood thinners. Had crampy pain intially. Physical Exam Limited Triage Exam: VITALS: Vitals are noted on the nurse's note and reviewed by myself. Vital signs stable. GENERAL: Elderly white female in NAD HEART: Regular rate and rhythm without murmurs gallops or rubs. LUNGS: Clear to auscultation bilaterally without wheezes, rales or rhonchi. No retractions or accessory muscle use. NEURO: Patient was alert and oriented to person place and time. CN II through XII grossly intact. Initial orders for labs and / or imaging were placed and patient was placed in the waiting area until a bed is available. Please see further documentation for the full ED course.
[2024-05-18 17:29] LABS: Basophils # (auto) 0.05 K/uL (0.00-0.20); Basophils % (auto) 0.6 %; Eosinophils # (auto) 0.23 K/uL (0.00-0.50); Eosinophils % (auto) 2.9 %; Hematocrit (blood only) 35.6 % (37.0-47.0); Hemoglobin 12.1 g/dl (12.0-16.0); Immature Granulocytes # (auto) 0.04 K/uL (0.01-0.20); Immature Granulocytes % (auto) 0.5 %; Lymphocytes # (auto) 1.66 K/uL (1.20-3.40); Lymphocytes % (auto) 20.6 %; Mean Corpuscular Hemoglobin 33.2 pg (25.0-34.0); Mean Corpuscular Volume 97.5 fL (80.0-100.0); Mean Platelet Volume 10.7 fL (9.4-12.4); Monocytes # (auto) 0.83 K/uL (0.11-0.59); Monocytes % (auto) 10.3 %; Neutrophils # (auto) 5.26 K/uL (1.40-6.50); Neutrophils % (auto) 65.1 %; Platelet Count 304 K/uL (130-400); RDW Coefficient of Variation 12.9 % (11.5-14.5); RDW Standard Deviation 46.2 fL (36.4-46.3); Red Blood Count 3.65 M/uL (4.20-5.40); White Blood Count 8.07 K/ul (4.8-10.8)
[2024-05-18 17:41] LABS: Albumin Globulin Ratio 1.6 (0.9-2); Albumin Level 4.4 gm/dl (3.4-5.0); BUN Creatinine Ratio 16.9 (10-20); Bilirubin,Total 0.5 mg/dl (0.2-1.0); Creatinine Clr Calc Pharmacy 67.9 ml/min; Est GFR (Non-African American) 64.7 ml/min; Globulin 2.7 gm/dl (2.5-4.0); Magnesium 1.4 mg/dl (1.7-2.4); Total Protein 7.1 gm/dl (6.0-8.3)
[2024-05-18 17:47] LABS: Troponin I High Sensitivity 5.9 pg/ml (0-14)
[2024-05-18 18:15] LABS: INR 0.9 (0.9-1.1); Partial Thromboplastin Time 26 Seconds (21-31); Prothrombin Time 10.3 Seconds (9.0-12.0)
[2024-05-18] MEDS: MAGNESIUM SULFATE / D5W 1 GM/100 ML BAG IV SCH (18:39)
[2024-05-18] MEDS: SODIUM CHLORIDE 0.9% 1,000 ML IV ONE (18:39)
--- NOTE | 2024-05-18 18:52 | Emergency Department Note ---
Impression & Plan Acute GI bleeding, Hypomagnesemia, Diarrhea, Medication reaction ED Provider Note NAME: ROCÍO GREGORY AGE: 74 SEX: F : 1950 ARRIVES VIA: Walk-In INFORMANT: [Patient] ED PROVIDER(S): [Chidi Carballo MD] CHIEF COMPLAINT: Rectal bleeding HISTORY OF PRESENT ILLNESS: The patient is a 74-year-old female who presents with rectal bleeding noticed first about 12 hours ago. She just finished chemotherapy and is now taking Keytruda. Diarrhea is one of the side effects of Keytruda and she has really had abdominal bloating, cramping and diarrhea for 4 days. Today, she had bright red blood per rectum and this has continued throughout the day. She has not had fever, no cough or congestion. She is not on blood thinning agents. She has no history of previous GI bleeding. She has some small hemorrhoids but she really has not had significant bleeding from the hemorrhoids in the past. The patient spoke to the cancer center, she was referred to the ER. PMHx/PSHx/Social Hx: See Below PHYSICAL EXAM: GENERAL: Patient is in no acute distress. HEENT: No acute trauma, normocephalic atraumatic, mucous membranes moist, no nasal congestion. NECK: No stridor, no adenopathy, no meningismus, trachea is midline. LUNGS: Clear to auscultation bilaterally, no wheeze, no rhonchi, breath sounds equal. HEART: Without murmurs gallops or rubs, regular rate and rhythm. ABDOMEN: Soft, mild abdominal distention, mildly diffusely tender. EXTREMITIES: No cyanosis, full range of motion of all the joints without pain or difficulty. NEUROLOGIC: Oriented x 3, no acute motor or sensory deficits, no focal weakness. SKIN: No jaundice, no diaphoresis. Rectal: Dark maroon blood noted with digital rectal exam, no external source of bleeding. This exam was performed with a female nurse vortex operator. DIFFERENTIAL DIAGNOSIS: Gastritis or ulcer, colitis or diverticulitis, AVM, anemia, dehydration, medication reaction, among others. EMERGENCY DEPARTMENT PROCEDURES: MEDICAL DECISION MAKING: There is no leukocytosis. No real anemia by our testing. There was a normal platelet count. No coagulopathy. No renal failure. Magnesium was low at 1.4. No concerning liver enzyme elevation. No evidence for pancreatitis. Cardiac enzyme testing x 1 was not consistent with acute cardiac injury. Stool cultures were negative. Stool C. difficile was positive however, the toxin test was negative. Abdominal and pelvis CT did not show findings of diverticulitis or acute surgical pathology. On exam, the patient had some mild diffuse abdominal discomfort with palpation. She was not toxic or febrile. Rectal exam did show some dark venous appearing blood within the rectal vault. The patient received IV Protonix for the possibility of upper GI bleeding. She was given IV saline for hydration. She received IV magnesium. I did speak with GI, hospitalization, hemoglobin trending, further workup was felt warranted. I spoke with the patient about the need for a hospital stay, I did speak with case management, the on-call hospitalist was consulted. At this point, the cause for the GI bleeding is unclear. Prior/Outside records/notes reviewed: None Imaging/x-ray results per my interpretation: Chronic Medical/Social conditions affecting care: Advanced age. Care/Management discussed with: Hematology/oncology-Dr. Stone. Case management and the on-call hospitalist. Level of care consideration(s): After review of the information above and other included data: --I believe the patient requires escalation of care to admission DISPOSITION: Admission Past Med/Surg History Problem List (Updated 05/19/24 @ 02:07 by Chidi Carballo MD) Medication reaction (Acute) Diarrhea (Acute) Hypomagnesemia (Acute) Acute GI bleeding (Acute) Hypomagnesemia Adenocarcinoma, lung Rectal bleeding Encounter for pre-operative examination Asthma Lung cancer Neuropathy Headache Migraine Imbalance Left-sided sensorineural hearing loss Mixed conductive and sensorineural hearing loss of left ear with restricted hearing of right ear Controlled type 2 diabetes mellitus, with long-term current use of insulin Hypothyroidism (acquired) Dietary counseling and surveillance Metabolic syndrome Chronic cough DANIA (obstructive sleep apnea) Asthma without acute exacerbation Pneumonia Mass of upper lobe of right lung Abnormal chest CT (Acute) Weakness (Acute) Chest pain Cholelithiasis (Acute) Nausea vomiting and diarrhea (Acute) Acute abdominal pain in right lower quadrant (Acute) Obesity HTN (hypertension) Dyslipidemia Medical History Migraine rare Nausea and vomiting after administration of anesthetic agent Diverticular disease Neuropathy feet Depression Hypothyroidism Diabetes mellitus, type 2 HX: breast cancer 1995 Hyperlipidemia Lung cancer dx March 2020 > surgery in 2022 > now getting port placed for chemo Asthma short of breath with activity since lung surgery, using res inh daily DANIA (obstructive sleep apnea) cpap Surgical History (Updated 01/27/24 @ 13:25 by Tanya Lemos RN) Port-A-Cath in place (01/23/24) Insertion MRI Compatible Access Port Right Cephalic(Right) - Atul Sol MD, FACS [place] teeth extracted History of lung surgery (2022) Right lung lobe removed > Oct 2023 > [facility] [place] History of cataract surgery (2020) bilat H/O breast reconstruction (1997) H/O mastectomy (1995) left H/O colonoscopy (12/02/04) S/P laparoscopic cholecystectomy (12/08/14) Lap mamadou with C'gram Dr. Sol History of hysterectomy (1998) Family History Father Hypertension Heart disease Mother Hypertension Heart disease Other No family history of adverse response to anesthesia No family history of bleeding disorder Social History Smoking Status: Never smoker Second Hand Exposure: No; Do You Dip or Chew Tobacco: No; Hx Alcohol Use: No Hx Substance Use: No Preferred Language: Indonesian Communication Ability: Effective Nail Professional Required: No Beliefs That Will Affect Care: None marital status: Current Living Situation: Spouse current occupational status: retired How many Children do You have: 2 Feels Safe at Home: Yes Safety Concerns: Feels Safe At This Time Diet: diabetic Assistive Devices: Cane and Glasses Allergies Allergies Allergy/AdvReac Type Severity Reaction Status Date / Time amoxicillin Allergy Severe SOB,ITCHING Verified 05/18/24 19:23 glyburide Allergy Severe ITCHY,SOB Verified 05/18/24 19:23 Iodinated Contrast Media Allergy Severe itchy,flushed,tight Verified 05/18/24 19:23 throat iodine Allergy Severe itching, Verified 05/18/24 19:23 flushed, tight throat morphine Allergy Severe MENTAL Verified 05/18/24 19:23 CONFUSION, SOB adhesive Allergy Intermediate unknown Verified 05/18/24 19:23 ("adhesive tape")-ITCHY, REDNESS canagliflozin Allergy Intermediate ITCHY,EYES Verified 05/18/24 19:23 SWELLING chlorhexidine Allergy Intermediate Rash Verified 05/18/24 19:23 [From ChloraPrep Clear] erythromycin base Allergy Intermediate UPSET Verified 05/18/24 19:23 STOMACH,RASH isopropyl alcohol Allergy Intermediate Rash Verified 05/18/24 19:23 [From ChloraPrep Clear] shrimp Allergy Intermediate FLUSH ITCHY Verified 05/18/24 19:23 cephalexin Allergy Mild unknown Verified 05/18/24 19:23 codeine Allergy Unknown unknown Verified 05/18/24 19:23 Macrolide Antibiotics Allergy Unknown Unknown Verified 05/18/24 19:23 methadone Allergy Unknown Unknown Verified 05/18/24 19:23 oxycodone Allergy Unknown unknown Verified 05/18/24 19:23 Penicillins Allergy Unknown Unknown Verified 05/18/24 19:23 propoxyphene Allergy Unknown UNKNOWN Verified 05/18/24 19:23 aspirin [From Percodan] AdvReac Intermediate dizziness, Verified 05/18/24 19:23 nausea glipizide AdvReac Intermediate Gastrointestinal Verified 05/18/24 19:23 Upset Sulfa (Sulfonamide AdvReac Intermediate Gastrointestinal Verified 05/18/24 19:23 Antibiotics) Upset Home Meds Home Medications Medication Instructions Recorded Confirmed aspirin 81 mg tablet,delayed 81 mg PO QAM 06/30/19 05/18/24 release atorvastatin 10 mg tablet 10 mg PO QAM 06/30/19 05/18/24 cholecalciferol (vitamin D3) 25 1,000 units PO HS 06/30/19 05/18/24 mcg (1,000 unit) capsule multivitamin (Daily Multi-Vitamin 1 tab PO PM 06/30/19 05/18/24 tablet) citalopram 40 mg tablet 40 mg PO QAM 01/21/20 05/18/24 calcium carbonate (Calcium 600) 600 mg PO 3XWK 04/13/20 05/18/24 furosemide 20 mg tablet 20 mg PO DAILY PRN Edema 08/25/20 05/18/24 lancets 33 gauge (OneTouch Delivonne #100 ea 08/19/22 05/11/24 Lancets) insulin aspart U-100 100 unit/mL 10 unit subcut BID 07/24/23 05/18/24 (3 mL) subcutaneous pen (Novolog FlexPen U-100 Insulin aspart) insulin glargine 100 unit/mL (3 24 unit subcut PM 07/24/23 05/18/24 mL) subcutaneous pen (Lantus Solostar U-100 Insulin) cyanocobalamin (vitamin B-12) 1,000 mcg PO PM 01/22/24 05/18/24 1,000 mcg capsule losartan 25 mg tablet 100 mg PO QAM #15 tabs 02/25/24 05/18/24 blood-glucose sensor (FreeStyle 05/11/24 05/11/24 Darnell 3 Sensor device) levothyroxine 175 mcg tablet 175 mcg PO DAILY 05/11/24 05/18/24 pembrolizumab 25 mg/mL intravenous 0 mg IV .Q6WK 05/18/24 05/18/24 solution (Keytruda) Previous Rx's Medication Instructions Recorded chlorpheniramine 4 1 tab PO Q8 PRN allergy symptoms 04/21/20 mg-phenylephrine 10 mg-DM 10 mg and cough #30 tabs tablet albuterol sulfate 90 mcg/actuation 2 inh inhalation Q4H PRN Shortness 03/08/21 aerosol inhaler (Ventolin HFA) Of Breath #18 grams pen needle, diabetic 32 gauge x #100 ea 11/29/22 5/32" (BD Johanne 2nd Gen Pen Needle) OneTouch Verio test strips (blood #300 ea 01/23/23 sugar diagnostic) metformin 500 mg tablet,extended 500 mg PO .COMPLEX #90 tabs 08/07/23 release 24 hr CPAP Machine #1 ea 08/21/23 CPAP Supplies #1 ea 08/21/23 Results & Data (ED) Vital Signs Vital Signs - 24 hr 05/18/24 16:41 05/18/24 18:37 05/18/24 18:37 Temperature 36.7 C Temperature Source Skin Pulse Rate 110 H Pulse Rate [Apical] 88 Pulse Rate from SpO2 Sensor Pulse Rhythm [Apical] Regular Respiratory Rate 18 20 Respiratory Effort / Characteristics Non-Labored Spontaneous Respiratory Depth Normal Respiratory Pattern Regular Blood Pressure 184/98 H 152/96 H Blood Pressure [Right Arm] 152/96 H Blood Pressure Mean 126 118 Blood Pressure Mean [Right Arm] 114 Pulse Oximetry 95 97 Oxygen Delivery Method Room Air Room Air Sepsis Recent Fever Within 48 Hours No Sepsis New/Unexplained Change in Mental Status No Sepsis Action Taken by Nursing No Action Required 05/18/24 18:38 05/18/24 18:51 05/18/24 19:03 Temperature Temperature Source Pulse Rate 89 89 Pulse Rate [Apical] Pulse Rate from SpO2 Sensor 90 Pulse Rhythm [Apical] Respiratory Rate 19 Respiratory Effort / Characteristics Respiratory Depth Respiratory Pattern Blood Pressure 175/103 H Blood Pressure [Right Arm] Blood Pressure Mean 144 Blood Pressure Mean [Right Arm] Pulse Oximetry 97 Oxygen Delivery Method Sepsis Recent Fever Within 48 Hours Sepsis New/Unexplained Change in Mental Status Sepsis Action Taken by Nursing 05/18/24 19:06 05/18/24 19:15 05/18/24 19:18 Temperature Temperature Source Pulse Rate 83 83 85 Pulse Rate [Apical] Pulse Rate from SpO2 Sensor 83 85 85 Pulse Rhythm [Apical] Respiratory Rate 24 21 20 Respiratory Effort / Characteristics Respiratory Depth Respiratory Pattern Blood Pressure Blood Pressure [Right Arm] Blood Pressure Mean Blood Pressure Mean [Right Arm] Pulse Oximetry 95 98 96 Oxygen Delivery Method Sepsis Recent Fever Within 48 Hours Sepsis New/Unexplained Change in Mental Status Sepsis Action Taken by Detention Medications Current Medication List: was personally reviewed by me Laboratory Data Attestation: I reviewed the patient's lab results. 05/18/24 21:17 05/18/24 16:58 Lab Results 05/18/24 Range/Units 16:58 WBC 8.07 (4.8-10.8) K/ul RBC 3.65 L (4.20-5.40) M/uL Hgb 12.1 (12.0-16.0) g/dl Hct 35.6 L (37.0-47.0) % MCV 97.5 (80.0-100.0) fL MCH 33.2 (25.0-34.0) pg MCHC 34.0 (32.0-36.0) g/dL RDW Std Deviation 46.2 (36.4-46.3) fL RDW Coeff of Lorie 12.9 (11.5-14.5) % Plt Count 304 (130-400) K/uL MPV 10.7 (9.4-12.4) fL Immature Gran % (Auto) 0.5 % Neut % (Auto) 65.1 % Lymph % (Auto) 20.6 % Toombs % (Auto) 10.3 % Eos % (Auto) 2.9 % Baso % (Auto) 0.6 % Neut # (Auto) 5.26 (1.40-6.50) K/uL Lymph # (Auto) 1.66 (1.20-3.40) K/uL [place]bs # (Auto) 0.83 H (0.11-0.59) K/uL Eos # (Auto) 0.23 (0.00-0.50) K/uL Baso # (Auto) 0.05 (0.00-0.20) K/uL Immature Gran # (Auto) 0.04 (0.01-0.20) K/uL PT 10.3 (9.0-12.0) Seconds INR 0.9 (0.9-1.1) APTT 26 (21-31) Seconds PTT Ratio 1.0 Sodium 136 (136-145) mmol/L Potassium 4.0 (3.5-5.1) mmol/L Chloride 100 (98-107) mmol/L Carbon Dioxide 28 (21-32) mmol/L Anion Gap 8 (3-11) BUN 15 (6-23) mg/dl Creatinine 0.89 (0.6-1.2) mg/dl Est Cr Clr Drug Dosing 67.9 ml/min Est GFR ( Amer) 75.0 ml/min Est GFR (Non-Af Amer) 64.7 ml/min BUN/Creatinine Ratio 16.9 (10-20) Glucose 215 H (70-99(Fasting)) mg/dl Calcium 10.0 (8.6-10.3) mg/dl Magnesium 1.4 L (1.7-2.4) mg/dl Total Bilirubin 0.5 (0.2-1.0) mg/dl AST 18 (13-39) U/L ALT 17 (7-52) U/L Alkaline Phosphatase 63 (34-104) U/L Troponin I High Sens 5.9 (0-14) pg/ml Total Protein 7.1 (6.0-8.3) gm/dl Albumin 4.4 (3.4-5.0) gm/dl Globulin 2.7 (2.5-4.0) gm/dl Albumin/Globulin Ratio 1.6 (0.9-2) Lipase 14 (11-82) U/L Blood Type A Positive Antibody Screen NEGATIVE Administered Medications Cyanocobalamin (Cyanocobalamin (B-12) 500 Mcg Tablet) 1,000 mcg PO PM MAYE Stop: 06/17/24 20:59 Last Admin: 05/18/24 22:35 Dose: 1,000 mcg Documented By: RADHA Sodium Chloride (Nss) 1,000 mls @ 80 mls/hr IV .[id number] MAYE Stop: 06/17/24 19:29 Last Admin: 05/18/24 20:24 Dose: 80 mls/hr Documented By: RADHA Pantoprazole Sodium 40 mg/ (Syringe) 10 mls @ 5 mls/min IV BID MAYE Stop: 06/17/24 20:59 Last Admin: 05/18/24 20:42 Dose: 5 mls/min Documented By: IVÁN Insulin Aspart (Insulin Aspart Per Unit Charge) 0 units SC ACHS MAYE Stop: 06/17/24 20:59 Last Admin: 05/18/24 21:27 Dose: 6 units Documented By: RADHA Co-signed By: KATHIE Insulin Glargine (Lantus Per Unit Charge) 20 units SQ PM MAYE Stop: 06/17/24 20:59 Last Admin: 05/18/24 22:37 Dose: 20 units Documented By: RADHA Co-signed By: FRIDA Discontinued Medications Sodium Chloride (Nss) 1,000 mls @ 999 mls/hr IV .Q1H1M ONE Stop: 05/18/24 19:30 Last Infusion: 05/18/24 19:57 Dose: Infused Documented By: Admin: 05/18/24 18:39 Dose: 999 mls/hr Documented By: RADHA Magnesium Sulfate/Dextrose (Magnesium Sulfate / D5w) 1 gm in 100 mls @ 100 mls/hr IV Q1H MAYE Stop: 05/18/24 20:29 Last Infusion: 05/18/24 20:41 Dose: Infused Documented By: Admin: 05/18/24 19:37 Dose: 100 mls/hr Documented By: Infusion: 05/18/24 19:37 Dose: Infused Documented By: Admin: 05/18/24 18:39 Dose: 100 mls/hr Documented By: RADHA Pantoprazole Sodium 80 mg/ (Dextrose) 120 mls @ 400 mls/hr IV NOW ONE Stop: 05/18/24 19:13 Last Infusion: 05/18/24 20:42 Dose: Infused Documented By: Admin: 05/18/24 20:22 Dose: 400 mls/hr Documented By: [facility] Imaging Data Radiologist's Impression: Abdomen/Pelvis CT 05/18/24 18:55 Exam(s): CT ABDOMEN + PELVIS Without Contrast EXAM: CT Abdomen and Pelvis Without Intravenous Contrast CLINICAL HISTORY: Reason for exam: bloody stool, contrast allergy. TECHNIQUE: Axial computed tomography images of the abdomen and pelvis without intravenous contrast. CTDI is 27 mGy and DLP is 1277 mGy-cm. Automated exposure control was utilized for the study. A dose lowering technique was utilized adhering to the principles of ALARA. COMPARISON: 04/13/2020 FINDINGS: ABDOMEN: Liver: Unremarkable. Gallbladder and bile ducts: Cholecystectomy. No biliary dilatation. Pancreas: Unremarkable. Spleen: Unremarkable. Adrenals: Unremarkable. Kidneys and ureters: Unremarkable. No obstructing stones. No hydronephrosis. Stomach and bowel: High attenuation liquid contents within the distal transverse and proximal descending colon which could represent blood products. Colonic diverticulosis without acute diverticulitis. PELVIS: Appendix: Normal appendix. Bladder: Unremarkable. Reproductive: Status post hysterectomy. ABDOMEN and PELVIS: Intraperitoneal space: Unremarkable. No free air. No significant fluid collection. Bones/joints: No acute fracture. Soft tissues: Unremarkable. Vasculature: Unremarkable. Lymph nodes: Unremarkable. IMPRESSION: 1. High attenuation liquid contents within the distal transverse and proximal descending colon which could represent blood products. 2. Colonic diverticulosis without acute diverticulitis. Electronically signed by: Partha Alcala MD 05/18/24 23:47 PM Discharge Plan Visit Data Chief Complaint: Rectal Bleed Stated Complaint: RECTAL BLEEDING ED Provider: Chidi Carballo Discharge Problem: Acute GI bleeding, Hypomagnesemia, Diarrhea, Medication reaction Patient Disposition: Admitted As Inpatient Condition: Fair Discharge Instructions Interventions: ED Discharge Assessment Last Done: 05/18/24 22:04 Discharge Problem: Diarrhea Qualifiers: Diarrhea type: unspecified type Qualified Code(s): R19.7 - Diarrhea, unspecified Medication reaction Qualifiers: Encounter type: initial encounter Qualified Code(s): T50.905A - Adverse effect of unspecified drugs, medicaments and biological substances, initial encounter
--- NOTE | 2024-05-18 19:36 | History & Physical Report ---
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 ED physican spoke with oncologist Dr Stone who recommended C diff and stool cultures along with CT abdomen and oncology evaluation. He did not recommend steroids for now until infection ruled out. Follow up on stool clx, C diff and CT abd. Trend H and H. She currently does not need transfusion but will have blood ready just in case. Patient is agreeable for blood transfusion if needed and consent form signed. Empiric iv ppi. NPO after midnight except sips with meds. Consult oncology and GI. Hold aspirin for now. 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 Follows with oncology DM-2 on insulin- A1c 7.6. Takes lantus 24 U hs along with novolog 10 U bid with meals. Will adjust dose as she will be npo overnight. Further adjustment as needed Hypomagnesemia- repleted, recheck in am HTN- hold losartan for now. Can resume in am if BP stable. Hypothyroid- continue synthroid DANIA on CPAP hs- continue DVT ppx- SCD. Chemoppx C/I with GI bleed Dispo- Admit to [facility] on tele Time spent- approx 75 mins Updated at bedside She opts to be DNR/DNI History of Present Illness Chief Complaint: rectal bleed Primary Care Provider: Clemencia Scott DO 74 year old female with h/o adenocarcinoma lung s/p resection and chemo now on Keytruda (1st dose 04/20) who presented to the ED per recommendation of cancer center for evaluation. Comes with diarrhea, lower abd pain and rectal bleeding for past few days. Had intermittent diarrhea since Friday with abdominal bloating and pain. This morning at 6:30 had diarrhea with blood and since then had 2 more episodes. Last one was in the ED with clots. No fever, chills, N/V, CP, SOB, dizziness. Not on anticoagulation, just aspirin. Does not take NSAIDs. No h/o ulcers. No bleeding issues before. Hb 13 in ED, hemodynamically stable. ED physician spoke with Dr Stone who recommended C diff and stool cultures along with CT abdomen and oncology evaluation. He did not recommend steroids for now until infection ruled out. Hospitalist service was consulted for admission. Patient was evaluated at bedside in presence of . She is lying in bed, comfortable, no distress. Allergies Allergy/AdvReac Type Severity Reaction Status Date / Time amoxicillin Allergy Severe SOB,ITCHING Verified 05/18/24 19:23 glyburide Allergy Severe ITCHY,SOB Verified 05/18/24 19:23 Iodinated Contrast Media Allergy Severe itchy,flushed,tight Verified 05/18/24 19:23 throat iodine Allergy Severe itching, Verified 05/18/24 19:23 flushed, tight throat morphine Allergy Severe MENTAL Verified 05/18/24 19:23 CONFUSION, SOB adhesive Allergy Intermediate unknown Verified 05/18/24 19:23 ("adhesive tape")-ITCHY, REDNESS canagliflozin Allergy Intermediate ITCHY,EYES Verified 05/18/24 19:23 SWELLING chlorhexidine Allergy Intermediate Rash Verified 05/18/24 19:23 [From ChloraPrep Clear] erythromycin base Allergy Intermediate UPSET Verified 05/18/24 19:23 STOMACH,RASH isopropyl alcohol Allergy Intermediate Rash Verified 05/18/24 19:23 [From ChloraPrep Clear] shrimp Allergy Intermediate FLUSH ITCHY Verified 05/18/24 19:23 cephalexin Allergy Mild unknown Verified 05/18/24 19:23 codeine Allergy Unknown unknown Verified 05/18/24 19:23 Macrolide Antibiotics Allergy Unknown Unknown Verified 05/18/24 19:23 methadone Allergy Unknown Unknown Verified 05/18/24 19:23 oxycodone Allergy Unknown unknown Verified 05/18/24 19:23 Penicillins Allergy Unknown Unknown Verified 05/18/24 19:23 propoxyphene Allergy Unknown UNKNOWN Verified 05/18/24 19:23 aspirin [From Percodan] AdvReac Intermediate dizziness, Verified 05/18/24 19:23 nausea glipizide AdvReac Intermediate Gastrointestinal Verified 05/18/24 19:23 Upset Sulfa (Sulfonamide AdvReac Intermediate Gastrointestinal Verified 05/18/24 19:23 Antibiotics) Upset chloraprep one step solution Allergy Intermediate itching, Uncoded 05/18/24 19:23 rash Home Medications Medication Instructions Recorded Confirmed Type aspirin 81 mg tablet,delayed 81 mg PO QAM 06/30/19 05/18/24 History release atorvastatin 10 mg tablet 10 mg PO QAM 06/30/19 05/18/24 History cholecalciferol (vitamin D3) 25 1,000 units PO HS 06/30/19 05/18/24 History mcg (1,000 unit) capsule multivitamin (Daily Multi-Vitamin 1 tab PO PM 06/30/19 05/18/24 History tablet) citalopram 40 mg tablet 40 mg PO QAM 01/21/20 05/18/24 History calcium carbonate (Calcium 600) 600 mg PO 3XWK 04/13/20 05/18/24 History chlorpheniramine 4 1 tab PO Q8 PRN allergy symptoms 04/21/20 05/18/24 Rx mg-phenylephrine 10 mg-DM 10 mg and cough #30 tabs tablet furosemide 20 mg tablet 20 mg PO DAILY PRN Edema 08/25/20 05/18/24 History albuterol sulfate 90 mcg/actuation 2 inh inhalation Q4H PRN Shortness 03/08/21 05/18/24 Rx aerosol inhaler (Ventolin HFA) Of Breath #18 grams lancets 33 gauge (OneTouch Delica #100 ea 08/19/22 05/11/24 History Lancets) pen needle, diabetic 32 gauge x #100 ea 11/29/22 05/11/24 Rx 5/32" (BD Johanne 2nd Gen Pen Needle) OneTouch Verio test strips (blood #300 ea 01/23/23 05/11/24 Rx sugar diagnostic) insulin aspart U-100 100 unit/mL 10 unit subcut BID 07/24/23 05/18/24 History (3 mL) subcutaneous pen (Novolog FlexPen U-100 Insulin aspart) insulin glargine 100 unit/mL (3 24 unit subcut PM 07/24/23 05/18/24 History mL) subcutaneous pen (Lantus Solostar U-100 Insulin) metformin 500 mg tablet,extended 500 mg PO .COMPLEX #90 tabs 08/07/23 05/18/24 Rx release 24 hr CPAP Machine #1 ea 08/21/23 05/11/24 Rx CPAP Supplies #1 ea 08/21/23 05/11/24 Rx cyanocobalamin (vitamin B-12) 1,000 mcg PO PM 01/22/24 05/18/24 History 1,000 mcg capsule losartan 25 mg tablet 100 mg PO QAM #15 tabs 02/25/24 05/18/24 History blood-glucose sensor (FreeStyle 05/11/24 05/11/24 History Darnell 3 Sensor device) levothyroxine 175 mcg tablet 175 mcg PO DAILY 05/11/24 05/18/24 History pembrolizumab 25 mg/mL intravenous 0 mg IV .Q6WK 05/18/24 05/18/24 History solution (Keytruda) Past Med/Surg History Problem List (Updated 05/18/24 @ 19:56 by Dylon Mahmood MD) Hypomagnesemia Adenocarcinoma, lung Rectal bleeding Encounter for pre-operative examination Asthma Lung cancer Neuropathy Headache Migraine Imbalance Left-sided sensorineural hearing loss Mixed conductive and sensorineural hearing loss of left ear with restricted hearing of right ear Controlled type 2 diabetes mellitus, with long-term current use of insulin Hypothyroidism (acquired) Dietary counseling and surveillance Metabolic syndrome Chronic cough DANIA (obstructive sleep apnea) Asthma without acute exacerbation Pneumonia Mass of upper lobe of right lung Abnormal chest CT (Acute) Weakness (Acute) Chest pain Cholelithiasis (Acute) Nausea vomiting and diarrhea (Acute) Acute abdominal pain in right lower quadrant (Acute) Obesity HTN (hypertension) Dyslipidemia Medical History (Updated 05/18/24 @ 19:56 by Dylon Mahmood MD) Migraine rare Nausea and vomiting after administration of anesthetic agent Diverticular disease Neuropathy feet Depression Hypothyroidism Diabetes mellitus, type 2 HX: breast cancer 1995 Hyperlipidemia Lung cancer dx March 2020 > surgery in 2022 > now getting port placed for chemo Asthma short of breath with activity since lung surgery, using res inh daily DANIA (obstructive sleep apnea) cpap Surgical History (Updated 01/27/24 @ 13:25 by Tanya Lemos RN) Port-A-Cath in place (01/23/24) Insertion MRI Compatible Access Port Right Cephalic(Right) - Atul Sol MD, FACS [place] teeth extracted History of lung surgery (2022) [place] [facility] [place] of [place] surgery ([place]) bilat H/O breast reconstruction (1997) H/O mastectomy (1995) left H/O colonoscopy (12/02/04) S/P laparoscopic cholecystectomy (12/08/14) Lap mamadou with C'gram Dr. 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: No Beliefs That Will Affect Care: None marital status: Current Living Situation: Spouse current occupational status: retired How many Children do You have: 2 Feels Safe at Home: Yes Diet: diabetic Assistive Devices: Glasses Review of Systems Review of Systems: All systems reviewed & are unremarkable except as noted in Subjective Physical Exam Physical Exam: General: Lying comfortably in bed, not in distress, on room air HEENT: EOMI, LEONARDO, MMM Chest: Clear breath sounds bilaterally, no wheezes or crackles CVS: Regular rate and rhythm, normal heart sounds, no murmur Abdomen: Soft, non tender, not distended, normal bowel sounds Neuro: Awake, alert, oriented, conversing well, non focal Extremities: No cyanosis, clubbing or edema Results & Data Results & Data Vital Signs (Past 12 Hours) Vital Signs Temp Pulse Pulse Resp BP BP Pulse Ox 05/18/24 18:38 89 05/18/24 18:37 88 20 152/96 H 97 05/18/24 16:41 36.7 C 110 H 18 184/98 H 95 O2 Del Method 05/18/24 18:38 05/18/24 18:37 Room Air 05/18/24 16:41 Room Air Laboratory Results Short CBC 05/18/24 Range/Units 16:58 WBC 8.07 (4.8-10.8) K/ul Hgb 12.1 (12.0-16.0) g/dl Hct 35.6 L (37.0-47.0) % Plt Count 304 (130-400) K/uL BMP 05/18/24 16:58 Sodium 136 Potassium 4.0 Chloride 100 Carbon Dioxide 28 BUN 15 Creatinine 0.89 Glucose 215 H Calcium 10.0 Liver Function 05/18/24 Range/Units 16:58 Total Bilirubin 0.5 (0.2-1.0) mg/dl AST 18 (13-39) U/L ALT 17 (7-52) U/L Alkaline Phosphatase 63 (34-104) U/L Albumin 4.4 (3.4-5.0) gm/dl Code Status & VTE Plan VTE Prophylaxis Plan VTE Prophylaxis will be ordered: Yes Reason for no VTE drug order: Contraindicated
[2024-05-18] MEDS ORDERED: SODIUM CHLORIDE 0.9% 250 ML IV PRN (20:07)
[2024-05-18] MEDS ORDERED: ALBUTEROL HFA 8 GM INHALER INH PRN (20:19)
[2024-05-18] MEDS ORDERED: GLUCAGON FOR INJ 1 MG VIAL SQ PRN (20:21)
[2024-05-18] MEDS ORDERED: GLUCOSE 40% GEL 15 GM TUBE PO PRN (20:21)
[2024-05-18] MEDS ORDERED: GLUCOSE 10 TAB/TUBE PO PRN (20:21)
[2024-05-18] MEDS ORDERED: CARBOHYDRATES FOR HYPOGLYCEMIA PO PRN (20:21)
[2024-05-18] MEDS ORDERED: DEXTROSE 50% 50 ML SYRINGE IV PRN (20:21)
[2024-05-18] MEDS: PANTOprazole 80 MG in DEXTROSE 5% 100 ML IV ONE (20:22)
[2024-05-18] MEDS: SODIUM CHLORIDE 0.9% 1,000 ML IV SCH (20:24)
[2024-05-18] MEDS: PANTOprazole 40 MG in SYRINGE 0 ML IV SCH (20:42)
[2024-05-18] MEDS ORDERED: LANTUS PER UNIT CHARGE SQ SCH (21:00)
[2024-05-18 21:13] LABS: Adenovirus F 40/41 PCR Not Detected (NotDetected); Astrovirus PCR Not Detected (NotDetected); Campylobacter PCR Not Detected (NotDetected); Cryptosporidium PCR Not Detected (NotDetected); Cyclospora cayetanensis PCR Not Detected (NotDetected); Entamoeba histolytica PCR Not Detected (NotDetected); Enteroaggregative E.coli(EAEC) Not Detected (NotDetected); Enteropathogenic E.coli (EPEC) Not Detected (NotDetected); Enterotoxigenic E.coli (ETEC) Not Detected (NotDetected); Giardia lamblia PCR Not Detected (NotDetected); Norovirus GI/GII PCR Not Detected (NotDetected); Plesiomonas shigelloides PCR Not Detected (NotDetected); Rotavirus A PCR Not Detected (NotDetected); Salmonella PCR Not Detected (NotDetected); Sapovirus PCR Not Detected (NotDetected); Shiga-like Toxin E.coli (STEC) Not Detected (NotDetected); Shigella/Enteroinvasive E.coli Not Detected (NotDetected); Vibrio cholerae PCR Not Detected (NotDetected); Vibrio species PCR Not Detected (NotDetected); Yersinia enterocolitica PCR Not Detected (NotDetected)
[2024-05-18] MEDS: INSULIN ASPART PER UNIT CHARGE SC SCH (21:27)
[2024-05-18 21:38] LABS: Cdiff Antigen Negative; Cdiff Toxin A+B Negative Cdiff Toxin (Negative); Cdiff Toxin B Gene (2yr or >) Positive Cdiff Gene (Neg)
[2024-05-18 21:52] LABS: Hemoglobin 11.1 g/dl (12.0-16.0)
[2024-05-18] MEDS: CYANOCOBALAMIN (B-12) 500 MCG TABLET PO SCH (22:35)
[2024-05-18] MEDS: LANTUS PER UNIT CHARGE SQ SCH (22:37)
--- NOTE | 2024-05-18 23:48 | CT Scan Report ---
Exam(s): CT ABDOMEN + PELVIS Without Contrast EXAM: CT Abdomen and Pelvis Without Intravenous Contrast CLINICAL HISTORY: Reason for exam: bloody stool, contrast allergy. TECHNIQUE: Axial computed tomography images of the abdomen and pelvis without intravenous contrast. CTDI is 27 mGy and DLP is 1277 mGy-cm. Automated exposure control was utilized for the study. A dose lowering technique was utilized adhering to the principles of ALARA. COMPARISON: 04/13/2020 FINDINGS: ABDOMEN: Liver: Unremarkable. Gallbladder and bile ducts: Cholecystectomy. No biliary dilatation. Pancreas: Unremarkable. Spleen: Unremarkable. Adrenals: Unremarkable. Kidneys and ureters: Unremarkable. No obstructing stones. No hydronephrosis. Stomach and bowel: High attenuation liquid contents within the distal transverse and proximal descending colon which could represent blood products. Colonic diverticulosis without acute diverticulitis. PELVIS: Appendix: Normal appendix. Bladder: Unremarkable. Reproductive: Status post hysterectomy. ABDOMEN and PELVIS: Intraperitoneal space: Unremarkable. No free air. No significant fluid collection. Bones/joints: No acute fracture. Soft tissues: Unremarkable. Vasculature: Unremarkable. Lymph nodes: Unremarkable. IMPRESSION: 1. High attenuation liquid contents within the distal transverse and proximal descending colon which could represent blood products. 2. Colonic diverticulosis without acute diverticulitis. Electronically signed by: Partha Alcala MD 05/18/24 23:47 PM
[2024-05-19 04:42] LABS: Hematocrit (blood only) 30.7 % (37.0-47.0); Hemoglobin 10.3 g/dl (12.0-16.0); Mean Corpuscular Hgb Conc 33.6 g/dL (32.0-36.0); Mean Corpuscular Volume 98.4 fL (80.0-100.0); Mean Platelet Volume 10.3 fL (9.4-12.4); Platelet Count 245 K/uL (130-400); RDW Standard Deviation 46.7 fL (36.4-46.3); Red Blood Count 3.12 M/uL (4.20-5.40); White Blood Count 6.05 K/ul (4.8-10.8)
[2024-05-19 05:01] LABS: BUN Creatinine Ratio 16.5 (10-20); Calcium 9.1 mg/dl (8.6-10.3); Creatinine Clr Calc Pharmacy 71.1 ml/min; Est GFR (African American) 79.3 ml/min; Est GFR (Non-African American) 68.5 ml/min; Magnesium 1.7 mg/dl (1.7-2.4); Potassium 4.4 mmol/L (3.5-5.1)
[2024-05-19] MEDS: LEVOTHYROXINE SODIUM 175 MCG TABLET PO SCH (06:10)
[2024-05-19 06:30] LABS: Appearance Urine Clear (Clear); Bacteria Urine Automated None Seen (None Seen); Bilirubin Urine Negative (Negative); Blood Urine Negative (Negative); Cast Urine Automated 0-2 /lpf (0-2); Color Urine Yellow; Epithelial Cell Urine Auto 0-2 /hpf (0-2); Glucose Urine UA Negative (Negative); Ketones Urine Negative (Negative); Leukocyte Esterase Urine 2+ (Negative); Nitrite Urine Negative (Negative); Protein Urine Negative (Negative); RBC Urine Automated 0-2 /hpf (0-2); Specific Gravity Urine 1.012 (1.000-1.030); Urobilinogen Urine Negative (Negative); WBC Urine Automated 21-50 /hpf (0-5)
[2024-05-19] MEDS: ATORVASTATIN 10 MG TAB PO SCH (08:58)
[2024-05-19] MEDS: LOSARTAN POTASSIUM 50 MG TAB PO SCH (08:58)
[2024-05-19] MEDS: CITALOPRAM 40 MG TAB PO SCH (08:58)
--- NOTE | 2024-05-19 11:55 | Hospitalist Progress Note ---
Date of Service May 19, 2024 Assessment & Plan (1) Rectal bleeding: (2) Adenocarcinoma, lung: (3) Controlled type 2 diabetes mellitus, with long-term current use of insulin: (4) Asthma without acute exacerbation: (5) Hypomagnesemia: Plan Pt is a 74 year old female with h/o adenocarcinoma of the lung s/p resection and chemo now on Keytruda (1st dose 04/20) who presented to the ED per the recommendation of the cancer center for further evaluation of bloody stools. Rectal bleeding Acute blood loss Anemia Colitis, possible c diff vs. keytruda associated Presenting with bloody diarrhea Hgb trend of 12.1-->11.1-->10.3 C diff GENE positive, negative for toxin CT abd/pelvis noting possible blood in the colon, diverticuloSIS without diverticulitis Possible keytruda associated colitis vs. c diff colitis GI consulted, appreciate recs -case discussed with GI Dr Jim Somers in the early AM on 05/19 who recommended treating with po Vancomycin to determine if there was a change in her symptoms -pt seen by GI Dr Wesley Coy, recommends moving up her outpt colonoscopy to 4-6 weeks from now Oncology also consulted, appreciate recs -recommended trial of po Vancomycin to rule out c diff before initiating steroids for keytruda associated colitis Home aspirin on hold Continue with po Vancomycin QID at this time Monitor H/H and symptoms Possible UTI UA suggestive of infection Urine Cx pending Empiric Rocephin Follow cultures and d/c or continue course as needed Hypomagnesemia Replete as needed Stage IIA Lung Adenocarcinoma (pT1c N1 dxed 10/01/23) s/p resection and chemo, now on Keytruda First dose of Keytruda on 04/20, gets q6 weeks. Follows with oncology Oncology consulted, appreciate recs DMII on insulin Last A1c 7.6, repeat pending. Basal/bolus continue to monitor HTN BP significantly elevated even in setting of rectal bleeding Continue home losartan Hypothyroidism continue Synthroid DANIA on CPAP hs- continue DVT ppx- SCDs Diet: Clears Dispo: PT/OT ordered for further recs Admission and Anticipated Discharge Date Admission Date: May 18, 2024 Subjective Pt was seen while still down in the ED. States that she is still having the diarrhea, still bloody. Denied dizziness or SOB. Some abd pain. Review of Systems Review of Systems: All systems reviewed & are unremarkable except as noted in Subjective Physical Exam Physical Exam: General: Alert, oriented. No acute distress Skin: No noted rashes or bruises Psych: Appropriate mood and affect Neuro: No gross deficits HEENT: NC/AT CV: RRR Resp: Breath sounds clear bilaterally, no increased effort of breathing. Abdomen: Soft, tender diffusely Extremities: No edema in lower extremities bilaterally. Results & Data Results & Data Vital Signs (Past 12 Hours) Vital Signs Pulse Pulse Resp BP BP Pulse Ox O2 Del Method 05/19/24 10:12 88 18 158/92 H 93 05/19/24 09:30 85 20 130/85 95 05/19/24 08:00 86 17 142/84 H 96 05/19/24 07:19 70 05/19/24 06:00 83 16 138/81 99 CPAP 05/19/24 04:02 70 20 99 05/19/24 04:00 75 14 153/86 H 95 CPAP 05/19/24 03:00 72 14 121/79 96 CPAP 05/19/24 02:00 68 16 144/87 H 98 CPAP 05/19/24 01:24 74 16 139/88 98 CPAP FiO2 05/19/24 10:12 05/19/24 09:30 05/19/24 08:00 05/19/24 07:19 05/19/24 06:00 05/19/24 04:02 21 05/19/24 04:00 05/19/24 03:00 05/19/24 02:00 05/19/24 01:24 Diagnostic Findings Abdomen/Pelvis CT 05/18/24 18:55 Exam(s): CT ABDOMEN + PELVIS Without Contrast EXAM: CT Abdomen and Pelvis Without Intravenous Contrast CLINICAL HISTORY: Reason for exam: bloody stool, contrast allergy. TECHNIQUE: Axial computed tomography images of the abdomen and pelvis without intravenous contrast. CTDI is 27 mGy and DLP is 1277 mGy-cm. Automated exposure control was utilized for the study. A dose lowering technique was utilized adhering to the principles of ALARA. COMPARISON: 04/13/2020 FINDINGS: ABDOMEN: Liver: Unremarkable. Gallbladder and bile ducts: Cholecystectomy. No biliary dilatation. Pancreas: Unremarkable. Spleen: Unremarkable. Adrenals: Unremarkable. Kidneys and ureters: Unremarkable. No obstructing stones. No hydronephrosis. Stomach and bowel: High attenuation liquid contents within the distal transverse and proximal descending colon which could represent blood products. Colonic diverticulosis without acute diverticulitis. PELVIS: Appendix: Normal appendix. Bladder: Unremarkable. Reproductive: Status post hysterectomy. ABDOMEN and PELVIS: Intraperitoneal space: Unremarkable. No free air. No significant fluid collection. Bones/joints: No acute fracture. Soft tissues: Unremarkable. Vasculature: Unremarkable. Lymph nodes: Unremarkable. IMPRESSION: 1. High attenuation liquid contents within the distal transverse and proximal descending colon which could represent blood products. 2. Colonic diverticulosis without acute diverticulitis. Electronically signed by: Partha Alcala MD 05/18/24 23:47 PM
[2024-05-19] MEDS: VANCOMYCIN HCL 125 MG/2.5ML SOLN PO SCH (13:26)
[2024-05-19] MEDS: CHERRY SYRUP 5 ML UDP PO SCH (13:26)
[2024-05-19 13:38] LABS: Hematocrit (blood only) 30.6 % (37.0-47.0); Hemoglobin 10.3 g/dl (12.0-16.0)
--- NOTE | 2024-05-19 15:26 | Gastrointestinal Consultation ---
Date of Consultation May 19, 2024 Assessment & Plan (1) Diarrhea: Pleasant lady with colitis, diarrhea and rectal bleeding. 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 I don't think it is completely ruled out but is effectively ruled out. She could just have garden variety routine infectious enteritis or this could be related to keytruda. It is not indicated to pursue colonoscopy in the instance of acute diarrheal illness as it usually is not too helpful. However, with her bleeding I think her routine follow up should be moved up from the fall, perhaps 4-6 weeks from now. For now I think observation is warranted. If it is felt to be related to Keytruda she and her oncologist will need to have discussions about further use. History of Present Illness Reason for Consultation: diarrhea, rectal bleeding Attending Physician: Paula Sharp MD History of Present Illness 74 year old female who recently started Keytruda for lung cancer came in with diarrhea since Friday. She had it Friday, none Friday, had it Friday, none Friday and it came back Friday with bleeding. She has abdominal cramping prior to the diarrhea. She has not been on antibiotics in the past six months that she can recall. She doesn't typically have troubles like this. She has not eaten anything that she thinks could possibly have been bad. Her last colonoscopy was less than five years ago--she is due in the Fall. She denies fever or chills. Allergies Allergy/AdvReac Type Severity Reaction Status Date / Time amoxicillin Allergy Severe SOB,ITCHING Verified 05/18/24 19:23 glyburide Allergy Severe ITCHY,SOB Verified 05/18/24 19:23 Iodinated Contrast Media Allergy Severe itchy,flushed,tight Verified 05/18/24 19:23 throat iodine Allergy Severe itching, Verified 05/18/24 19:23 flushed, tight throat morphine Allergy Severe MENTAL Verified 05/18/24 19:23 CONFUSION, SOB adhesive Allergy Intermediate unknown Verified 05/18/24 19:23 ("adhesive tape")-ITCHY, REDNESS canagliflozin Allergy Intermediate ITCHY,EYES Verified 05/18/24 19:23 SWELLING chlorhexidine Allergy Intermediate Rash Verified 05/18/24 19:23 [From ChloraPrep Clear] erythromycin base Allergy Intermediate UPSET Verified 05/18/24 19:23 STOMACH,RASH isopropyl alcohol Allergy Intermediate Rash Verified 05/18/24 19:23 [From ChloraPrep Clear] shrimp Allergy Intermediate FLUSH ITCHY Verified 05/18/24 19:23 cephalexin Allergy Mild unknown Verified 05/18/24 19:23 codeine Allergy Unknown unknown Verified 05/18/24 19:23 Macrolide Antibiotics Allergy Unknown Unknown Verified 05/18/24 19:23 methadone Allergy Unknown Unknown Verified 05/18/24 19:23 oxycodone Allergy Unknown unknown Verified 05/18/24 19:23 Penicillins Allergy Unknown Unknown Verified 05/18/24 19:23 propoxyphene Allergy Unknown UNKNOWN Verified 05/18/24 19:23 aspirin [From Percodan] AdvReac Intermediate dizziness, Verified 05/18/24 19:23 nausea glipizide AdvReac Intermediate Gastrointestinal Verified 05/18/24 19:23 Upset Sulfa (Sulfonamide AdvReac Intermediate Gastrointestinal Verified 05/18/24 19:23 Antibiotics) Upset Home Medications Medication Instructions Recorded Confirmed Type aspirin 81 mg tablet,delayed 81 mg PO QAM 06/30/19 05/18/24 History release atorvastatin 10 mg tablet 10 mg PO QAM 06/30/19 05/18/24 History cholecalciferol (vitamin D3) 25 1,000 units PO HS 06/30/19 05/18/24 History mcg (1,000 unit) capsule multivitamin (Daily Multi-Vitamin 1 tab PO PM 06/30/19 05/18/24 History tablet) citalopram 40 mg tablet 40 mg PO QAM 01/21/20 05/18/24 History calcium carbonate (Calcium 600) 600 mg PO 3XWK 04/13/20 05/18/24 History chlorpheniramine 4 1 tab PO Q8 PRN allergy symptoms 04/21/20 05/18/24 Rx mg-phenylephrine 10 mg-DM 10 mg and cough #30 tabs tablet furosemide 20 mg tablet 20 mg PO DAILY PRN Edema 08/25/20 05/18/24 History albuterol sulfate 90 mcg/actuation 2 inh inhalation Q4H PRN Shortness 03/08/21 05/18/24 Rx aerosol inhaler (Ventolin HFA) Of Breath #18 grams lancets 33 gauge (OneTouch Delica #100 ea 08/19/22 05/11/24 History Lancets) pen needle, diabetic 32 gauge x #100 ea 11/29/22 05/11/24 Rx 5/32" (BD Johanne 2nd Gen Pen Needle) OneTouch Verio test strips (blood #300 ea 01/23/23 05/11/24 Rx sugar diagnostic) insulin aspart U-100 100 unit/mL 10 unit subcut BID 07/24/23 05/18/24 History (3 mL) subcutaneous pen (Novolog FlexPen U-100 Insulin aspart) insulin glargine 100 unit/mL (3 24 unit subcut PM 07/24/23 05/18/24 History mL) subcutaneous pen (Lantus Solostar U-100 Insulin) metformin 500 mg tablet,extended 500 mg PO .COMPLEX #90 tabs 08/07/23 05/18/24 Rx release 24 hr CPAP Machine #1 ea 08/21/23 05/11/24 Rx CPAP Supplies #1 ea 08/21/23 05/11/24 Rx cyanocobalamin (vitamin B-12) 1,000 mcg PO PM 01/22/24 05/18/24 History 1,000 mcg capsule losartan 25 mg tablet 100 mg PO QAM #15 tabs 02/25/24 05/18/24 History blood-glucose sensor (FreeStyle 05/11/24 05/11/24 History Darnell 3 Sensor device) levothyroxine 175 mcg tablet 175 mcg PO DAILY 05/11/24 05/18/24 History pembrolizumab 25 mg/mL intravenous 0 mg IV .Q6WK 05/18/24 05/18/24 History solution (Keytruda) Patient History Medical History Migraine rare Nausea and vomiting after administration of anesthetic agent Diverticular disease Neuropathy feet Depression Hypothyroidism Diabetes mellitus, type 2 HX: breast cancer 1995 Hyperlipidemia Lung cancer dx March 2020 > surgery in 2022 > now getting port placed for chemo Asthma short of breath with activity since lung surgery, using res inh daily DANIA (obstructive sleep apnea) cpap Surgical History Port-A-Cath in place (01/23/24) Insertion MRI Compatible Access Port Right Cephalic(Right) - Atul Sol MD, FACS [place] teeth extracted History of lung surgery (2022) Right lung lobe removed > Oct 2023 > [facility] [place] History of cataract surgery (2020) bilat H/O breast reconstruction (1997) H/O mastectomy (1995) left H/O colonoscopy (12/02/04) S/P laparoscopic cholecystectomy (12/08/14) Lap mamadou with C'gram Dr. 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 Beliefs That Will Affect Care: None marital status: Current Living Situation: Spouse current occupational status: retired How many Children do You have: 2 Feels Safe at Home: Yes Safety Concerns: Feels Safe At This Time Diet: diabetic Assistive Devices: Cane and Glasses Review of Systems Review of Systems: All systems reviewed & are unremarkable except as noted in HPI & below Physical Exam Constitutional: WD/WN, vitals as above very pleasant Neck: trachea midline, no thyromegaly Respiratory: normal respiratory effort, lungs clear to auscultation Cardiovascular: RRR, no murmur, no edema Gastrointestinal (Abdomen): normal bowel sounds, soft, nontender, no hepatosplenomegaly Musculoskeletal: Extremities: extremities normal to inspection Results & Data Vital Signs (Past 12 Hours) Vital Signs Temp Pulse Pulse Resp BP BP Pulse Ox 05/19/24 13:00 36.8 C 93 H 20 155/124 H 96 05/19/24 10:12 88 18 158/92 H 93 05/19/24 09:30 85 20 130/85 95 05/19/24 08:00 86 17 142/84 H 96 05/19/24 07:19 70 05/19/24 06:00 83 16 138/81 99 05/19/24 04:02 70 20 99 05/19/24 04:00 75 14 153/86 H 95 O2 Del Method FiO2 05/19/24 13:00 Room Air 06/26/24 10:12 05/19/24 09:30 05/19/24 08:00 05/19/24 07:19 05/19/24 06:00 CPAP 05/19/24 04:02 21 05/19/24 04:00 CPAP Laboratory Results 05/19/24 05/19/24 05/19/24 Range/Units Unknown 13:05 12:04 WBC (4.8-10.8) K/ul RBC (4.20-5.40) M/uL Hgb 10.3 L (12.0-16.0) g/dl Hct 30.6 L (37.0-47.0) % MCV (80.0-100.0) fL MCH (25.0-34.0) pg MCHC (32.0-36.0) g/dL RDW Std Deviation (36.4-46.3) fL RDW Coeff of Lorie (11.5-14.5) % Plt Count (130-400) K/uL MPV (9.4-12.4) fL Immature Gran % (Auto) % Neut % (Auto) % Lymph % (Auto) % Curry % (Auto) % Eos % (Auto) % Baso % (Auto) % Neut # (Auto) (1.40-6.50) K/uL Lymph # (Auto) (1.20-3.40) K/uL Curry # (Auto) (0.11-0.59) K/uL Eos # (Auto) (0.00-0.50) K/uL Baso # (Auto) (0.00-0.20) K/uL Immature Gran # (Auto) (0.01-0.20) K/uL PT (9.0-12.0) Seconds INR (0.9-1.1) APTT (21-31) Seconds PTT Ratio Sodium (136-145) mmol/L Potassium (3.5-5.1) mmol/L Chloride (98-107) mmol/L Carbon Dioxide (21-32) mmol/L Anion Gap (3-11) BUN (6-23) mg/dl Creatinine (0.6-1.2) mg/dl Est Cr Clr Drug Dosing ml/min Est GFR ( Amer) ml/min Est GFR (Non-Af Amer) ml/min BUN/Creatinine Ratio (10-20) Glucose (70-99(Fasting)) mg/dl POC Glucose 221 H (70-99) mg/dl Calcium (8.6-10.3) mg/dl Magnesium (1.7-2.4) mg/dl Total Bilirubin (0.2-1.0) mg/dl AST (13-39) U/L ALT (7-52) U/L Alkaline Phosphatase (34-104) U/L Troponin I High Sens (0-14) pg/ml Total Protein (6.0-8.3) gm/dl Albumin (3.4-5.0) gm/dl Globulin (2.5-4.0) gm/dl Albumin/Globulin Ratio (0.9-2) Lipase (11-82) U/L Urine Color Yellow Urine Appearance Clear (Clear) Urine pH 6.0 (4.5-7.5) Ur Specific Pilgrim 1.012 (1.000-1.030) Urine Protein Negative (Negative) Urine Glucose (UA) Negative (Negative) Urine Ketones Negative (Negative) Urine Blood Negative (Negative) Urine Nitrite Negative (Negative) Urine Bilirubin Negative (Negative) Urine Urobilinogen Negative (Negative) Ur Leukocyte Esterase 2+ H (Negative) Urine WBC (Auto) 21-50 H (0-5) /hpf Urine RBC (Auto) 0-2 (0-2) /hpf U Hyaline Cast (Auto) 0-2 (0-2) /lpf U Epithel Cells (Auto) 0-2 (0-2) /hpf Urine Bacteria (Auto) None Seen (None Seen) Stl C. cayetanensis PCR (NotDetected) Stool Rotavirus A PCR (NotDetected) Stl Adenov F 40/41 PCR (NotDetected) Stool Astrovirus (PCR) (NotDetected) Stool Campylobacter PCR (NotDetected) Stl C. diff Tox B Gene (Neg) Stl C.difficile Tox A&B (Negative) Stool Cryptosporidium PCR (NotDetected) Stl E.coli Shiga Tox PCR (NotDetected) Stl Enterotoxigenic E PCR (NotDetected) Stool EPEC (PCR) (NotDetected) Stool EAEC (PCR) (NotDetected) Stl E. histolytica PCR (NotDetected) Stool Giardia Lamblia PCR (NotDetected) Stool Salmonella PCR (NotDetected) Stool Sapovirus (PCR) (NotDetected) Stl P. shigelloides PCR (NotDetected) Stl Shigella/EIEC PCR (NotDetected) St Y.enterocolitica PCR (NotDetected) Stool Vibrio (PCR) (NotDetected) Stl Vibrio cholerae PCR (NotDetected) Stl Norovirus GI/GII PCR (NotDetected) Blood Type Blood Type Recheck Antibody Screen 05/19/24 05/19/24 05/18/24 Range/Units 08:42 04:23 22:36 WBC 6.05 (4.8-10.8) K/ul RBC 3.12 L (4.20-5.40) M/uL Hgb 10.3 L (12.0-16.0) g/dl Hct 30.7 L (37.0-47.0) % MCV 98.4 (80.0-100.0) fL MCH 33.0 (25.0-34.0) pg MCHC 33.6 (32.0-36.0) g/dL RDW Std Deviation 46.7 H (36.4-46.3) fL RDW Coeff of Lorie 13.0 (11.5-14.5) % Plt Count 245 (130-400) K/uL MPV 10.3 (9.4-12.4) fL Immature Gran % (Auto) % Neut % (Auto) % Lymph % (Auto) % Curry % (Auto) % Eos % (Auto) % Baso % (Auto) % Neut # (Auto) (1.40-6.50) K/uL Lymph # (Auto) (1.20-3.40) K/uL Curry # (Auto) (0.11-0.59) K/uL Eos # (Auto) (0.00-0.50) K/uL Baso # (Auto) (0.00-0.20) K/uL Immature Gran # (Auto) (0.01-0.20) K/uL PT (9.0-12.0) Seconds INR (0.9-1.1) APTT (21-31) Seconds PTT Ratio Sodium 140 (136-145) mmol/L Potassium 4.4 (3.5-5.1) mmol/L Chloride 106 (98-107) mmol/L Carbon Dioxide 28 (21-32) mmol/L Anion Gap 6 (3-11) BUN 14 (6-23) mg/dl Creatinine 0.85 (0.6-1.2) mg/dl Est Cr Clr Drug Dosing 71.1 ml/min Est GFR ( Amer) 79.3 ml/min Est GFR (Non-Af Amer) 68.5 ml/min BUN/Creatinine Ratio 16.5 (10-20) Glucose 168 H (70-99(Fasting)) mg/dl POC Glucose 194 H 183 H (70-99) mg/dl Calcium 9.1 (8.6-10.3) mg/dl Magnesium 1.7 (1.7-2.4) mg/dl Total Bilirubin (0.2-1.0) mg/dl AST (13-39) U/L ALT (7-52) U/L Alkaline Phosphatase (34-104) U/L Troponin I High Sens (0-14) pg/ml Total Protein (6.0-8.3) gm/dl Albumin (3.4-5.0) gm/dl Globulin (2.5-4.0) gm/dl Albumin/Globulin Ratio (0.9-2) Lipase (11-82) U/L Urine Color Urine Appearance (Clear) Urine pH (4.5-7.5) Ur Specific Pilgrim (1.000-1.030) Urine Protein (Negative) Urine Glucose (UA) (Negative) Urine Ketones (Negative) Urine Blood (Negative) Urine Nitrite (Negative) Urine Bilirubin (Negative) Urine Urobilinogen (Negative) Ur Leukocyte Esterase (Negative) Urine WBC (Auto) (0-5) /hpf Urine RBC (Auto) (0-2) /hpf U Hyaline Cast (Auto) (0-2) /lpf U Epithel Cells (Auto) (0-2) /hpf Urine Bacteria (Auto) (None Seen) Stl C. cayetanensis PCR (NotDetected) Stool Rotavirus A PCR (NotDetected) Stl Adenov F 40/41 PCR (NotDetected) Stool Astrovirus (PCR) (NotDetected) Stool Campylobacter PCR (NotDetected) Stl C. diff Tox B Gene (Neg) Stl C.difficile Tox A&B (Negative) Stool Cryptosporidium PCR (NotDetected) Stl E.coli Shiga Tox PCR (NotDetected) Stl Enterotoxigenic E PCR (NotDetected) Stool EPEC (PCR) (NotDetected) Stool EAEC (PCR) (NotDetected) Stl E. histolytica PCR (NotDetected) Stool Giardia Lamblia PCR (NotDetected) Stool Salmonella PCR (NotDetected) Stool Sapovirus (PCR) (NotDetected) Stl P. shigelloides PCR (NotDetected) Stl Shigella/EIEC PCR (NotDetected) St Y.enterocolitica PCR (NotDetected) Stool Vibrio (PCR) (NotDetected) Stl Vibrio cholerae PCR (NotDetected) Stl Norovirus GI/GII PCR (NotDetected) Blood Type Blood Type Recheck Antibody Screen 05/18/24 05/18/24 05/18/24 Range/Units 21:17 20:46 19:35 WBC (4.8-10.8) K/ul RBC (4.20-5.40) M/uL Hgb 11.1 L (12.0-16.0) g/dl Hct 33.0 L (37.0-47.0) % MCV (80.0-100.0) fL MCH (25.0-34.0) pg MCHC (32.0-36.0) g/dL RDW Std Deviation (36.4-46.3) fL RDW Coeff of Lorie (11.5-14.5) % Plt Count (130-400) K/uL MPV (9.4-12.4) fL Immature Gran % (Auto) % Neut % (Auto) % Lymph % (Auto) % Curry % (Auto) % Eos % (Auto) % Baso % (Auto) % Neut # (Auto) (1.40-6.50) K/uL Lymph # (Auto) (1.20-3.40) K/uL Curry # (Auto) (0.11-0.59) K/uL Eos # (Auto) (0.00-0.50) K/uL Baso # (Auto) (0.00-0.20) K/uL Immature Gran # (Auto) (0.01-0.20) K/uL PT (9.0-12.0) Seconds INR (0.9-1.1) APTT (21-31) Seconds PTT Ratio Sodium (136-145) mmol/L Potassium (3.5-5.1) mmol/L Chloride (98-107) mmol/L Carbon Dioxide (21-32) mmol/L Anion Gap (3-11) BUN (6-23) mg/dl Creatinine (0.6-1.2) mg/dl Est Cr Clr Drug Dosing ml/min Est GFR ( Amer) ml/min Est GFR (Non-Af Amer) ml/min BUN/Creatinine Ratio (10-20) Glucose (70-99(Fasting)) mg/dl POC Glucose 220 H (70-99) mg/dl Calcium (8.6-10.3) mg/dl Magnesium (1.7-2.4) mg/dl Total Bilirubin (0.2-1.0) mg/dl AST (13-39) U/L ALT (7-52) U/L Alkaline Phosphatase (34-104) U/L Troponin I High Sens (0-14) pg/ml Total Protein (6.0-8.3) gm/dl Albumin (3.4-5.0) gm/dl Globulin (2.5-4.0) gm/dl Albumin/Globulin Ratio (0.9-2) Lipase (11-82) U/L Urine Color Urine Appearance (Clear) Urine pH (4.5-7.5) Ur Specific Pilgrim (1.000-1.030) Urine Protein (Negative) Urine Glucose (UA) (Negative) Urine Ketones (Negative) Urine Blood (Negative) Urine Nitrite (Negative) Urine Bilirubin (Negative) Urine Urobilinogen (Negative) Ur Leukocyte Esterase (Negative) Urine WBC (Auto) (0-5) /hpf Urine RBC (Auto) (0-2) /hpf U Hyaline Cast (Auto) (0-2) /lpf U Epithel Cells (Auto) (0-2) /hpf Urine Bacteria (Auto) (None Seen) Stl C. cayetanensis PCR Not Detected (NotDetected) Stool Rotavirus A PCR Not Detected (NotDetected) Stl Adenov F 40/41 PCR Not Detected (NotDetected) Stool Astrovirus (PCR) Not Detected (NotDetected) Stool Campylobacter PCR Not Detected (NotDetected) Stl C. diff Tox B Gene Positive Cdiff Gene H (Neg) Stl C.difficile Tox A&B Negative Cdiff Toxin (Negative) Stool Cryptosporidium PCR Not Detected (NotDetected) Stl E.coli Shiga Tox PCR Not Detected (NotDetected) Stl Enterotoxigenic E PCR Not Detected (NotDetected) Stool EPEC (PCR) Not Detected (NotDetected) Stool EAEC (PCR) Not Detected (NotDetected) Stl E. histolytica PCR Not Detected (NotDetected) Stool Giardia Lamblia PCR Not Detected (NotDetected) Stool Salmonella PCR Not Detected (NotDetected) Stool Sapovirus (PCR) Not Detected (NotDetected) Stl P. shigelloides PCR Not Detected (NotDetected) Stl Shigella/EIEC PCR Not Detected (NotDetected) St Y.enterocolitica PCR Not Detected (NotDetected) Stool Vibrio (PCR) Not Detected (NotDetected) Stl Vibrio cholerae PCR Not Detected (NotDetected) Stl Norovirus GI/GII PCR Not Detected (NotDetected) Blood Type Blood Type Recheck A Positive Antibody Screen 05/18/24 Range/Units 16:58 WBC 8.07 (4.8-10.8) K/ul RBC 3.65 L (4.20-5.40) M/uL Hgb 12.1 (12.0-16.0) g/dl Hct 35.6 L (37.0-47.0) % MCV 97.5 (80.0-100.0) fL MCH 33.2 (25.0-34.0) pg MCHC 34.0 (32.0-36.0) g/dL RDW Std Deviation 46.2 (36.4-46.3) fL RDW Coeff of Lorie 12.9 (11.5-14.5) % Plt Count 304 (130-400) K/uL MPV 10.7 (9.4-12.4) fL Immature Gran % (Auto) 0.5 % Neut % (Auto) 65.1 % Lymph % (Auto) 20.6 % Curry % (Auto) 10.3 % Eos % (Auto) 2.9 % Baso % (Auto) 0.6 % Neut # (Auto) 5.26 (1.40-6.50) K/uL Lymph # (Auto) 1.66 (1.20-3.40) K/uL Curry # (Auto) 0.83 H (0.11-0.59) K/uL Eos # (Auto) 0.23 (0.00-0.50) K/uL Baso # (Auto) 0.05 (0.00-0.20) K/uL Immature Gran # (Auto) 0.04 (0.01-0.20) K/uL PT 10.3 (9.0-12.0) Seconds INR 0.9 (0.9-1.1) APTT 26 (21-31) Seconds PTT Ratio 1.0 Sodium 136 (136-145) mmol/L Potassium 4.0 (3.5-5.1) mmol/L Chloride 100 (98-107) mmol/L Carbon Dioxide 28 (21-32) mmol/L Anion Gap 8 (3-11) BUN 15 (6-23) mg/dl Creatinine 0.89 (0.6-1.2) mg/dl Est Cr Clr Drug Dosing 67.9 ml/min Est GFR ( Amer) 75.0 ml/min Est GFR (Non-Af Amer) 64.7 ml/min BUN/Creatinine Ratio 16.9 (10-20) Glucose 215 H (70-99(Fasting)) mg/dl POC Glucose (70-99) mg/dl Calcium 10.0 (8.6-10.3) mg/dl Magnesium 1.4 L (1.7-2.4) mg/dl Total Bilirubin 0.5 (0.2-1.0) mg/dl AST 18 (13-39) U/L ALT 17 (7-52) U/L Alkaline Phosphatase 63 (34-104) U/L Troponin I High Sens 5.9 (0-14) pg/ml Total Protein 7.1 (6.0-8.3) gm/dl Albumin 4.4 (3.4-5.0) gm/dl Globulin 2.7 (2.5-4.0) gm/dl Albumin/Globulin Ratio 1.6 (0.9-2) Lipase 14 (11-82) U/L Urine Color Urine Appearance (Clear) Urine pH (4.5-7.5) Ur Specific Pilgrim (1.000-1.030) Urine Protein (Negative) Urine Glucose (UA) (Negative) Urine Ketones (Negative) Urine Blood (Negative) Urine Nitrite (Negative) Urine Bilirubin (Negative) Urine Urobilinogen (Negative) Ur Leukocyte Esterase (Negative) Urine WBC (Auto) (0-5) /hpf Urine RBC (Auto) (0-2) /hpf U Hyaline Cast (Auto) (0-2) /lpf U Epithel Cells (Auto) (0-2) /hpf Urine Bacteria (Auto) (None Seen) Stl C. cayetanensis PCR (NotDetected) Stool Rotavirus A PCR (NotDetected) Stl Adenov F 40/41 PCR (NotDetected) Stool Astrovirus (PCR) (NotDetected) Stool Campylobacter PCR (NotDetected) Stl C. diff Tox B Gene (Neg) Stl C.difficile Tox A&B (Negative) Stool Cryptosporidium PCR (NotDetected) Stl E.coli Shiga Tox PCR (NotDetected) Stl Enterotoxigenic E PCR (NotDetected) Stool EPEC (PCR) (NotDetected) Stool EAEC (PCR) (NotDetected) Stl E. histolytica PCR (NotDetected) Stool Giardia Lamblia PCR (NotDetected) Stool Salmonella PCR (NotDetected) Stool Sapovirus (PCR) (NotDetected) Stl P. shigelloides PCR (NotDetected) Stl Shigella/EIEC PCR (NotDetected) St Y.enterocolitica PCR (NotDetected) Stool Vibrio (PCR) (NotDetected) Stl Vibrio cholerae PCR (NotDetected) Stl Norovirus GI/GII PCR (NotDetected) Blood Type A Positive Blood Type Recheck Antibody Screen NEGATIVE Diagnostic Findings Abdomen/Pelvis CT 05/18/24 18:55 Exam(s): CT ABDOMEN + PELVIS Without Contrast EXAM: CT Abdomen and Pelvis Without Intravenous Contrast CLINICAL HISTORY: Reason for exam: bloody stool, contrast allergy. TECHNIQUE: Axial computed tomography images of the abdomen and pelvis without intravenous contrast. CTDI is 27 mGy and DLP is 1277 mGy-cm. Automated exposure control was utilized for the study. A dose lowering technique was utilized adhering to the principles of ALARA. COMPARISON: 04/13/2020 FINDINGS: ABDOMEN: Liver: Unremarkable. Gallbladder and bile ducts: Cholecystectomy. No biliary dilatation. Pancreas: Unremarkable. Spleen: Unremarkable. Adrenals: Unremarkable. Kidneys and ureters: Unremarkable. No obstructing stones. No hydronephrosis. Stomach and bowel: High attenuation liquid contents within the distal transverse and proximal descending colon which could represent blood products. Colonic diverticulosis without acute diverticulitis. PELVIS: Appendix: Normal appendix. Bladder: Unremarkable. Reproductive: Status post hysterectomy. ABDOMEN and PELVIS: Intraperitoneal space: Unremarkable. No free air. No significant fluid collection. Bones/joints: No acute fracture. Soft tissues: Unremarkable. Vasculature: Unremarkable. Lymph nodes: Unremarkable. IMPRESSION: 1. High attenuation liquid contents within the distal transverse and proximal descending colon which could represent blood products. 2. Colonic diverticulosis without acute diverticulitis. Electronically signed by: Partha Alcala MD 05/18/24 23:47 PM (1) Diarrhea Diarrhea type: unspecified type Qualified Code(s): R19.7 - Diarrhea, unspecified
--- NOTE | 2024-05-19 16:29 | Oncology Consultation ---
Date of Consultation May 19, 2024 History of Present Illness Reason for Consultation: Hematochezia Attending Physician: Paula Sharp MD Allergies Allergy/AdvReac Type Severity Reaction Status Date / Time amoxicillin Allergy Severe SOB,ITCHING Verified 05/18/24 19:23 glyburide Allergy Severe ITCHY,SOB Verified 05/18/24 19:23 Iodinated Contrast Media Allergy Severe itchy,flushed,tight Verified 05/18/24 19:23 throat iodine Allergy Severe itching, Verified 05/18/24 19:23 flushed, tight throat morphine Allergy Severe MENTAL Verified 05/18/24 19:23 CONFUSION, SOB adhesive Allergy Intermediate unknown Verified 05/18/24 19:23 ("adhesive tape")-ITCHY, REDNESS canagliflozin Allergy Intermediate ITCHY,EYES Verified 05/18/24 19:23 SWELLING chlorhexidine Allergy Intermediate Rash Verified 05/18/24 19:23 [From ChloraPrep Clear] erythromycin base Allergy Intermediate UPSET Verified 05/18/24 19:23 STOMACH,RASH isopropyl alcohol Allergy Intermediate Rash Verified 05/18/24 19:23 [From ChloraPrep Clear] shrimp Allergy Intermediate FLUSH ITCHY Verified 05/18/24 19:23 cephalexin Allergy Mild unknown Verified 05/18/24 19:23 codeine Allergy Unknown unknown Verified 05/18/24 19:23 Macrolide Antibiotics Allergy Unknown Unknown Verified 05/18/24 19:23 methadone Allergy Unknown Unknown Verified 05/18/24 19:23 oxycodone Allergy Unknown unknown Verified 05/18/24 19:23 Penicillins Allergy Unknown Unknown Verified 05/18/24 19:23 propoxyphene Allergy Unknown UNKNOWN Verified 05/18/24 19:23 aspirin [From Percodan] AdvReac Intermediate dizziness, Verified 05/18/24 19:23 nausea glipizide AdvReac Intermediate Gastrointestinal Verified 05/18/24 19:23 Upset Sulfa (Sulfonamide AdvReac Intermediate Gastrointestinal Verified 05/18/24 19:23 Antibiotics) Upset Home Medications Medication Instructions Recorded Confirmed Type aspirin 81 mg tablet,delayed 81 mg PO QAM 06/30/19 05/18/24 History release atorvastatin 10 mg tablet 10 mg PO QAM 06/30/19 05/18/24 History cholecalciferol (vitamin D3) 25 1,000 units PO HS 06/30/19 05/18/24 History mcg (1,000 unit) capsule multivitamin (Daily Multi-Vitamin 1 tab PO PM 06/30/19 05/18/24 History tablet) citalopram 40 mg tablet 40 mg PO QAM 01/21/20 05/18/24 History calcium carbonate (Calcium 600) 600 mg PO 3XWK 04/13/20 05/18/24 History chlorpheniramine 4 1 tab PO Q8 PRN allergy symptoms 04/21/20 05/18/24 Rx mg-phenylephrine 10 mg-DM 10 mg and cough #30 tabs tablet furosemide 20 mg tablet 20 mg PO DAILY PRN Edema 08/25/20 05/18/24 History albuterol sulfate 90 mcg/actuation 2 inh inhalation Q4H PRN Shortness 03/08/21 05/18/24 Rx aerosol inhaler (Ventolin HFA) Of Breath #18 grams lancets 33 gauge ([place] [employer] #100 ea 08/19/22 05/11/24 History Lancets) pen needle, diabetic 32 gauge x #100 ea 11/29/22 05/11/24 Rx 5/32" (BD Johanne 2nd Gen Pen Needle) OneTouch Verio test strips (blood #300 ea 01/23/23 05/11/24 Rx sugar diagnostic) insulin aspart U-100 100 unit/mL 10 unit subcut BID 07/24/23 05/18/24 History (3 mL) subcutaneous pen (Novolog FlexPen U-100 Insulin aspart) insulin glargine 100 unit/mL (3 24 unit subcut PM 07/24/23 05/18/24 History mL) subcutaneous pen (Lantus Solostar U-100 Insulin) metformin 500 mg tablet,extended 500 mg PO .COMPLEX #90 tabs 08/07/23 05/18/24 Rx release 24 hr CPAP Machine #1 ea 08/21/23 05/11/24 Rx CPAP Supplies #1 ea 08/21/23 05/11/24 Rx cyanocobalamin (vitamin B-12) 1,000 mcg PO PM 01/22/24 05/18/24 History 1,000 mcg capsule losartan 25 mg tablet 100 mg PO QAM #15 tabs 02/25/24 05/18/24 History blood-glucose sensor (FreeStyle 05/11/24 05/11/24 History Darnell 3 Sensor device) levothyroxine 175 mcg tablet 175 mcg PO DAILY 05/11/24 05/18/24 History pembrolizumab 25 mg/mL intravenous 0 mg IV .Q6WK 05/18/24 05/18/24 History solution (Keytruda) Patient History Medical History Migraine rare Nausea and vomiting after administration of anesthetic agent Diverticular disease Neuropathy feet Depression Hypothyroidism Diabetes mellitus, type 2 HX: breast cancer 1995 Hyperlipidemia Lung cancer dx March 2020 > surgery in 2022 > now getting port placed for chemo Asthma short of breath with activity since lung surgery, using res inh daily DANIA (obstructive sleep apnea) cpap Surgical History Port-A-Cath in place (01/23/24) Insertion MRI Compatible Access Port Right Cephalic(Right) - Atul Sol MD, FACS [place] teeth extracted History of lung surgery (2022) Right lung lobe removed > Oct 2023 > [facility] [place] History of cataract surgery (2020) bilat H/O breast reconstruction (1997) H/O mastectomy (1995) left H/O colonoscopy (12/02/04) S/P laparoscopic cholecystectomy (12/08/14) Lap mamadou with C'gram Dr. 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 Beliefs That Will Affect Care: None marital status: Current Living Situation: Spouse current occupational status: retired How many Children do You have: 2 Feels Safe at Home: Yes Safety Concerns: Feels Safe At This Time Diet: diabetic Assistive Devices: Cane and Glasses Results & Data Vital Signs (Past 12 Hours) Vital Signs Temp Pulse Pulse Resp BP BP Pulse Ox 05/19/24 13:00 36.8 C 93 H 20 155/124 H 96 05/19/24 10:12 88 18 158/92 H 93 05/19/24 09:30 85 20 130/85 95 05/19/24 08:00 86 17 142/84 H 96 05/19/24 07:19 70 05/19/24 06:00 83 16 138/81 99 O2 Del Method 05/19/24 13:00 Room Air 05/19/24 10:12 05/19/24 09:30 05/19/24 08:00 05/19/24 07:19 05/19/24 06:00 CPAP
[2024-05-19] MEDS: cefTRIAXone SODIUM 2,000 MG/50 ML BAG IV SCH (17:08)
[2024-05-19] MEDS: ACETAMINOPHEN 325 MG TAB PO PRN (20:51)
[2024-05-20 08:24] LABS: Basophils # (auto) 0.03 K/uL (0.00-0.20); Basophils % (auto) 0.7 %; Eosinophils # (auto) 0.23 K/uL (0.00-0.50); Eosinophils % (auto) 5.1 %; Hematocrit (blood only) 30.5 % (37.0-47.0); Hemoglobin 10.1 g/dl (12.0-16.0); Immature Granulocytes # (auto) 0.02 K/uL (0.01-0.20); Immature Granulocytes % (auto) 0.4 %; Lymphocytes # (auto) 1.01 K/uL (1.20-3.40); Lymphocytes % (auto) 22.3 %; Mean Corpuscular Hgb Conc 33.1 g/dL (32.0-36.0); Mean Corpuscular Volume 99.7 fL (80.0-100.0); Mean Platelet Volume 10.6 fL (9.4-12.4); Monocytes # (auto) 0.44 K/uL (0.11-0.59); Monocytes % (auto) 9.7 %; Neutrophils # (auto) 2.79 K/uL (1.40-6.50); Neutrophils % (auto) 61.8 %; Platelet Count 241 K/uL (130-400); RDW Coefficient of Variation 13.2 % (11.5-14.5); RDW Standard Deviation 47.6 fL (36.4-46.3); Red Blood Count 3.06 M/uL (4.20-5.40); White Blood Count 4.52 K/ul (4.8-10.8)
[2024-05-20 08:42] LABS: BUN Creatinine Ratio 15.7 (10-20); Calcium 8.9 mg/dl (8.6-10.3); Creatinine Clr Calc Pharmacy 72.8 ml/min; Est GFR (African American) 81.7 ml/min; Est GFR (Non-African American) 70.4 ml/min; Magnesium 1.6 mg/dl (1.7-2.4); Potassium 3.8 mmol/L (3.5-5.1)
[2024-05-20 09:00] LABS: Estimated Average Glucose 174 mg/dl; Hemoglobin A1C 7.7 % (4.5-5.6)
[2024-05-20] MEDS: MAGNESIUM OXIDE 400 MG TAB PO SCH (10:15)
--- NOTE | 2024-05-20 12:20 | Hospitalist Progress Note ---
Date of Service May 20, 2024 Assessment & Plan (1) Rectal bleeding: (2) Adenocarcinoma, lung: (3) Controlled type 2 diabetes mellitus, with long-term current use of insulin: (4) Asthma without acute exacerbation: (5) Hypomagnesemia: Plan Pt is a 74 year old female with h/o adenocarcinoma of the lung s/p resection and chemo now on Keytruda (1st dose 04/20) who presented to the ED per the recommendation of the cancer center for further evaluation of bloody stools. Rectal bleeding Acute blood loss Anemia Colitis, possible c diff vs. keytruda associated Presenting with bloody diarrhea Hgb trend of 12.1-->11.1-->10.3 C diff GENE positive, negative for toxin CT abd/pelvis noting possible blood in the colon, diverticuloSIS without diverticulitis Possible keytruda associated colitis vs. c diff colitis GI consulted, appreciate recs -case discussed with GI Dr Jim Somers in the early AM on 05/19 who recommended treating with po Vancomycin to determine if there was a change in her symptoms -pt seen by GI Dr Wesley Coy, recommends moving up her outpt colonoscopy to 4-6 weeks from now Oncology also consulted, appreciate recs -recommended trial of po Vancomycin to rule out c diff before initiating steroids for keytruda associated colitis Home aspirin on hold Continue with po Vancomycin QID at this time Monitor H/H and symptoms -H/H stable -symptoms improving at this time Possible UTI UA suggestive of infection Urine Cx pending- reincubating Empiric Rocephin Follow cultures and d/c or continue course as needed Hypomagnesemia Replete as needed Stage IIA Lung Adenocarcinoma (pT1c N1 dxed 10/01/23) s/p resection and chemo, now on Keytruda First dose of Keytruda on 04/20, gets q6 weeks. Follows with oncology Oncology consulted, appreciate recs DMII on insulin Last A1c 7.6, repeat pending. Basal/bolus continue to monitor HTN BP significantly elevated even in setting of rectal bleeding Continue home losartan Hypothyroidism continue Synthroid DANIA on CPAP hs- continue DVT ppx- SCDs Diet: advanced to low fiber Dispo: PT/OT ordered for further recs- OT recommending home Admission and Anticipated Discharge Date Admission Date: May 18, 2024 Subjective Was seen after therapy eval. Able to walk with no issues. States bloody diarrhea improving though still present. Review of Systems Review of Systems: All systems reviewed & are unremarkable except as noted in Subjective Physical Exam Physical Exam: General: Alert, oriented. No acute distress Skin: No noted rashes or bruises Psych: Appropriate mood and affect Neuro: No gross deficits HEENT: NC/AT CV: RRR Resp: Breath sounds clear bilaterally, no increased effort of breathing. Abdomen: Soft, tender diffusely Extremities: No edema in lower extremities bilaterally. Results & Data Results & Data Vital Signs (Past 12 Hours) Vital Signs Temp Pulse Pulse Resp BP Pulse Ox Pulse Ox 05/20/24 12:06 96 05/20/24 11:50 36.9 C 84 18 153/83 H 95 05/20/24 08:17 36.7 C 76 18 148/90 H 95 05/20/24 03:49 75 15 92 05/20/24 03:42 36.3 C L 83 14 147/82 H 92 O2 Del Method O2 Flow Rate FiO2 05/20/24 12:06 0 05/20/24 11:50 Room Air 05/20/24 08:17 Room Air 05/20/24 03:49 21 05/20/24 03:42 CPAP
--- NOTE | 2024-05-20 13:52 | Gastroenterology Progress Note ---
Date of Service May 20, 2024 Assessment & Plan (1) Diarrhea: Plan: She is improving as far as her diarrhea goes. She is still bleeding but it sounds more like internal hemorrhoids with clots on their own. Problem is she was started on Vancomycin and improved. Although the improvement is much quicker than we see with vancomycin in a real case of c. diff I think we are obligated to give her a full ten day course. She understands. She wants to go home. I think we should wait one more day to see what happens with bleeding but her hemoglobin has remained stable. Maybe home tomorrow Admission and Anticipated Discharge Date Admission Date: May 18, 2024 Subjective She feels much better today. BMs solidified. Still passing some clots. Hgb stable Physical Exam Physical Exam: She looks well Results & Data Vital Signs (Past 12 Hours) Vital Signs Temp Pulse Pulse Resp BP Pulse Ox Pulse Ox 05/20/24 12:06 96 05/20/24 11:50 36.9 C 84 18 153/83 H 95 05/20/24 08:17 36.7 C 76 18 148/90 H 95 05/20/24 03:49 75 15 92 05/20/24 03:42 36.3 C L 83 14 147/82 H 92 O2 Del Method O2 Flow Rate FiO2 05/20/24 12:06 0 05/20/24 11:50 Room Air 05/20/24 08:17 Room Air 05/20/24 03:49 21 05/20/24 03:42 CPAP (1) Diarrhea Diarrhea type: unspecified type Qualified Code(s): R19.7 - Diarrhea, unspecified
[2024-05-20 16:46] LABS: Ferritin 87.8 ng/ml (8-388)
--- NOTE | 2024-05-20 16:52 | Oncology Consultation ---
Date of Consultation May 20, 2024 Assessment & Plan (1) Rectal bleeding: (2) Lung cancer: Plan -Diarrhea appears to be improving with vancomycin. Given improvement in symptoms without steroids, no evidence at this time to support Keytruda induced colitis. Will see her in clinic on 06/02/2024 prior to receiving Keytruda.If diarrhea recurs, would recommend colonoscopy to evaluate for immunotherapy induced colitis -She complains of fatigue, for which will check anemia labs including iron studies, B12 and folate level. If she has iron deficiency, plan to give IV Venofer while in the hospital. Also check cortisol, ACTH, thyroid function test Thank you for this consult. Oncology will follow patient upon discharge from hospital. Please feel free to call if you have any further questions History of Present Illness Reason for Consultation: Diarrhea on Keytruda Attending Physician: Paula Sharp MD History of Present Illness 74-year-old female with history of adenocarcinoma of the right lung for which she is s/p right upper lobectomy. She received adjuvant chemotherapy with carboplatin/pemetrexed completed on 03/30/2024 and started adjuvant pembrolizumab on 04/21/2024. Patient presented to the ER with complaints of diarrhea and hematochezia. Infectious workup was positive for C. difficile gene but negative for toxin. Was started on vancomycin with improvement in symptoms. States that diarrhea has resolved. Has noticed improvement in hematochezia, still some blood when she wipes but overall improved. Denies any other complaints. Allergies Allergy/AdvReac Type Severity Reaction Status Date / Time amoxicillin Allergy Severe SOB,ITCHING Verified 05/18/24 19:23 glyburide Allergy Severe ITCHY,SOB Verified 05/18/24 19:23 Iodinated Contrast Media Allergy Severe itchy,flushed,tight Verified 05/18/24 19:23 throat iodine Allergy Severe itching, Verified 05/18/24 19:23 flushed, tight throat morphine Allergy Severe MENTAL Verified 05/18/24 19:23 CONFUSION, SOB adhesive Allergy Intermediate unknown Verified 05/18/24 19:23 ("adhesive tape")-ITCHY, REDNESS canagliflozin Allergy Intermediate ITCHY,EYES Verified 05/18/24 19:23 SWELLING chlorhexidine Allergy Intermediate Rash Verified 05/18/24 19:23 [From ChloraPrep Clear] erythromycin base Allergy Intermediate UPSET Verified 05/18/24 19:23 STOMACH,RASH isopropyl alcohol Allergy Intermediate Rash Verified 05/18/24 19:23 [From ChloraPrep Clear] shrimp Allergy Intermediate FLUSH ITCHY Verified 05/18/24 19:23 cephalexin Allergy Mild unknown Verified 05/18/24 19:23 codeine Allergy Unknown unknown Verified 05/18/24 19:23 Macrolide Antibiotics Allergy Unknown Unknown Verified 05/18/24 19:23 methadone Allergy Unknown Unknown Verified 05/18/24 19:23 oxycodone Allergy Unknown unknown Verified 05/18/24 19:23 Penicillins Allergy Unknown Unknown Verified 05/18/24 19:23 propoxyphene Allergy Unknown UNKNOWN Verified 05/18/24 19:23 aspirin [From Percodan] AdvReac Intermediate dizziness, Verified 05/18/24 19:23 nausea glipizide AdvReac Intermediate Gastrointestinal Verified 05/18/24 19:23 Upset Sulfa (Sulfonamide AdvReac Intermediate Gastrointestinal Verified 05/18/24 19:23 Antibiotics) Upset Home Medications Medication Instructions Recorded Confirmed Type aspirin 81 mg tablet,delayed 81 mg PO QAM 06/30/19 05/18/24 History release atorvastatin 10 mg tablet 10 mg PO QAM 06/30/19 05/18/24 History cholecalciferol (vitamin D3) 25 1,000 units PO HS 06/30/19 05/18/24 History mcg (1,000 unit) capsule multivitamin (Daily Multi-Vitamin 1 tab PO PM 06/30/19 05/18/24 History tablet) citalopram 40 mg tablet 40 mg PO QAM 01/21/20 05/18/24 History calcium carbonate (Calcium 600) 600 mg PO 3XWK 04/13/20 05/18/24 History chlorpheniramine 4 1 tab PO Q8 PRN allergy symptoms 04/21/20 05/18/24 Rx mg-phenylephrine 10 mg-DM 10 mg and cough #30 tabs tablet furosemide 20 mg tablet 20 mg PO DAILY PRN Edema 08/25/20 05/18/24 History albuterol sulfate 90 mcg/actuation 2 inh inhalation Q4H PRN Shortness 03/08/21 05/18/24 Rx aerosol inhaler (Ventolin HFA) Of Breath #18 grams lancets 33 gauge ([place] #100 ea 08/19/22 05/11/24 History Lancets) pen needle, diabetic 32 gauge x #100 ea 11/29/22 05/11/24 Rx 5/32" (BD Johanne 2nd Gen Pen Needle) OneTouch Verio test strips (blood #300 ea 01/23/23 05/11/24 Rx sugar diagnostic) insulin aspart U-100 100 unit/mL 10 unit subcut BID 07/24/23 05/18/24 History (3 mL) subcutaneous pen (Novolog FlexPen U-100 Insulin aspart) insulin glargine 100 unit/mL (3 24 unit subcut PM 07/24/23 05/18/24 History mL) subcutaneous pen (Lantus Solostar U-100 Insulin) metformin 500 mg tablet,extended 500 mg PO .COMPLEX #90 tabs 08/07/23 05/18/24 Rx release 24 hr CPAP Machine #1 ea 08/21/23 05/11/24 Rx CPAP Supplies #1 ea 08/21/23 05/11/24 Rx cyanocobalamin (vitamin B-12) 1,000 mcg PO PM 01/22/24 05/18/24 History 1,000 mcg capsule losartan 25 mg tablet 100 mg PO QAM #15 tabs 02/25/24 05/18/24 History blood-glucose sensor (FreeStyle 05/11/24 05/11/24 History Darnell 3 Sensor device) levothyroxine 175 mcg tablet 175 mcg PO DAILY 05/11/24 05/18/24 History pembrolizumab 25 mg/mL intravenous 0 mg IV .Q6WK 05/18/24 05/18/24 History solution (Keytruda) Patient History Medical History Migraine rare Nausea and vomiting after administration of anesthetic agent Diverticular disease Neuropathy feet Depression Hypothyroidism Diabetes mellitus, type 2 HX: breast cancer 1995 Hyperlipidemia Lung cancer dx March 2020 > surgery in 2022 > now getting port placed for chemo Asthma short of breath with activity since lung surgery, using res inh daily DANIA (obstructive sleep apnea) cpap Surgical History Port-A-Cath in place (01/23/24) Insertion MRI Compatible Access Port Right Cephalic(Right) - Atul Sol MD, FACS [place] teeth extracted History of lung surgery (2022) Right lung lobe removed > Oct 2023 > [facility] [place] History of cataract surgery (2020) bilat H/O breast reconstruction (1997) H/O mastectomy (1995) left H/O colonoscopy (12/02/04) S/P laparoscopic cholecystectomy (12/08/14) Lap mamadou with C'gram Dr. 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 Beliefs That Will Affect Care: None marital status: Current Living Situation: Spouse current occupational status: retired How many Children do You have: 2 Feels Safe at Home: Yes Safety Concerns: Feels Safe At This Time Diet: diabetic Assistive Devices: Cane and Glasses Results & Data Vital Signs (Past 12 Hours) Vital Signs Temp Pulse Resp BP Pulse Ox Pulse Ox O2 Del Method 05/20/24 16:30 36.8 C 83 18 154/83 H 97 Room Air 05/20/24 12:06 96 05/20/24 11:50 36.9 C 84 18 153/83 H 95 Room Air 05/20/24 08:17 36.7 C 76 18 148/90 H 95 Room Air O2 Flow Rate 05/20/24 16:30 05/20/24 12:06 0 05/20/24 11:50 05/20/24 08:17
[2024-05-20 17:15] LABS: Folate (Folic Acid),Ser orPlas > 22.30 ng/ml (>5.38)
[2024-05-20 17:16] LABS: Vitamin B12 1474 pg/ml (180-914)
[2024-05-20 17:48] LABS: Thyroid Stimulating Hormone 5.973 uIu/ml (0.300-4.500)
[2024-05-20 18:20] LABS: T4 Free Thyroxine 1.3 ng/dl (0.61-1.60)
[2024-05-21 07:36] LABS: Basophils # (auto) 0.04 K/uL (0.00-0.20); Basophils % (auto) 0.8 %; Eosinophils # (auto) 0.27 K/uL (0.00-0.50); Eosinophils % (auto) 5.3 %; Hematocrit (blood only) 28.6 % (37.0-47.0); Hemoglobin 9.7 g/dl (12.0-16.0); Immature Granulocytes # (auto) 0.02 K/uL (0.01-0.20); Immature Granulocytes % (auto) 0.4 %; Lymphocytes # (auto) 1.14 K/uL (1.20-3.40); Lymphocytes % (auto) 22.4 %; Mean Corpuscular Hemoglobin 33.7 pg (25.0-34.0); Mean Corpuscular Hgb Conc 33.9 g/dL (32.0-36.0); Mean Corpuscular Volume 99.3 fL (80.0-100.0); Mean Platelet Volume 10.4 fL (9.4-12.4); Monocytes # (auto) 0.54 K/uL (0.11-0.59); Monocytes % (auto) 10.6 %; Neutrophils # (auto) 3.08 K/uL (1.40-6.50); Neutrophils % (auto) 60.5 %; Platelet Count 229 K/uL (130-400); RDW Standard Deviation 46.8 fL (36.4-46.3); Red Blood Count 2.88 M/uL (4.20-5.40); White Blood Count 5.09 K/ul (4.8-10.8)
[2024-05-21 08:07] LABS: Creatinine Clr Calc Pharmacy 66.1 ml/min; Est GFR (African American) 72.1 ml/min; Est GFR (Non-African American) 62.2 ml/min; Magnesium 1.6 mg/dl (1.7-2.4); Phosphorus 4.1 mg/dl (2.5-4.9); Potassium 4.1 mmol/L (3.5-5.1)
[2024-05-21] MEDS: MAGNESIUM SULFATE / D5W 1 GM/100 ML BAG IV SCH (10:53)
--- NOTE | 2024-05-21 13:43 | Discharge Summary ---
Discharge Summary Date of Service May 21, 2024 Principal Dx & Hospital Course #1 = Principal Diagnosis (1) Rectal bleeding: (2) Adenocarcinoma, lung: (3) Controlled type 2 diabetes mellitus, with long-term current use of insulin: (4) Asthma without acute exacerbation: (5) Hypomagnesemia: Plan Pt is a 74 year old female with h/o adenocarcinoma of the lung s/p resection and chemo now on Keytruda (1st dose 04/20) who presented to the ED per the recommendation of the cancer center for further evaluation of bloody stools. Rectal bleeding Acute blood loss Anemia Colitis, possible c diff vs. keytruda associated Presenting with bloody diarrhea Hgb trend of 12.1-->11.1-->10.3-->9.7 Folate, b12 and iron levels all wnl C diff GENE positive, negative for toxin CT abd/pelvis noting possible blood in the colon, diverticulosis without diverticulitis Possible keytruda associated colitis vs. c diff colitis GI consulted, appreciate recs -case discussed with GI Dr Jim Somers in the early AM on 05/19 who recommended treating with po Vancomycin to determine if there was a change in her symptoms -pt seen by GI Dr Wesley Coy, recommends moving up her outpt colonoscopy to 4-6 weeks from now Oncology also consulted, appreciate recs -recommended trial of po Vancomycin to rule out c diff before initiating steroids for keytruda associated colitis Home aspirin on hold, held on discharge as well with pcp followup Continue with po Vancomycin QID at this time Pt with improved symptoms on discharge, BMs no longer bloody. One formed nonbloody stool on discharge H/H remained stable Discharged with 8 more days of po Vancomycin treatment to complete a 10 day course. Close PCP, GI followup (for sooner colonoscopy) and Oncology followup after discharge. Possible UTI UA suggestive of infection Urine Cx grew Group B strep Empiric Rocephin, transitioned to 5 days of po cefdinir for discharge PCP followup Hypomagnesemia Repleted as needed Stage IIA Lung Adenocarcinoma (pT1c N1 dxed 10/01/23) s/p resection and chemo, now on Keytruda First dose of Keytruda on 04/20, gets q6 weeks. Follows with oncology Oncology consulted, appreciate recs. Noted the following: "Diarrhea appears to be improving with vancomycin. Given improvement in symptoms without steroids, no evidence at this time to support Keytruda induced colitis. Will see her in clinic on 06/02/2024 prior to receiving Keytruda.If diarrhea recurs, would recommend colonoscopy to evaluate for immunotherapy induced colitis -She complains of fatigue, for which will check anemia labs including iron studies, B12 and folate level. If she has iron deficiency, plan to give IV Venofer while in the hospital. Also check cortisol, ACTH, thyroid function test." Iron, folate and b12 normal. Oncology followup after discharge. DMII on insulin Last A1c 7.6, repeat 7.7 Basal/bolus in hospital Resume home regimen on discharge HTN BP was significantly elevated even in setting of rectal bleeding Continue home losartan Hypothyroidism continue Synthroid DANIA on CPAP hs- continue Notes For Next Care Provider Please ensure GI followup- recommended sooner colonoscopy in 4-6 weeks Please ensure Oncology followup Medication Changes From Visit Discontinued home aspirin in setting of rectal bleed Cefdinir 300mg BID x 5 more days PO Vancomycin 125mg q6h x 8 more days Admission HPI Per Admitting Provider 74 year old female with h/o adenocarcinoma lung s/p resection and chemo now on Keytruda (1st dose 04/20) who presented to the ED per recommendation of cancer center for evaluation. Comes with diarrhea, lower abd pain and rectal bleeding for past few days. Had intermittent diarrhea since Friday with abdominal bloating and pain. This morning at 6:30 had diarrhea with blood and since then had 2 more episodes. Last one was in the ED with clots. No fever, chills, N/V, C P, SOB, dizziness. Not on anticoagulation, just aspirin. Does not take NSAIDs. No h/o ulcers. No bleeding issues before. Hb 13 in ED, hemodynamically stable. ED physician spoke with Dr Stone who recommended C diff and stool cultures along with CT abdomen and oncology evaluation. He did not recommend steroids for now until infection ruled out. Hospitalist service was consulted for admission. Patient was evaluated at bedside in presence of . She is lying in bed, comfortable, no distress. Admission Exam Per Admitting Provider General: Lying comfortably in bed, not in distress, on room air HEENT: EOMI, LEONARDO, MMM Chest: Clear breath sounds bilaterally, no wheezes or crackles CVS: Regular rate and rhythm, normal heart sounds, no murmur Abdomen: Soft, non tender, not distended, normal bowel sounds Neuro: Awake, alert, oriented, conversing well, non focal Extremities: No cyanosis, clubbing or edema Discharge Exam General: Alert, oriented. No acute distress Skin: No noted rashes or bruises Psych: Appropriate mood and affect Neuro: No gross deficits HEENT: NC/AT CV: RRR Resp: Breath sounds clear bilaterally, no increased effort of breathing. Abdomen: Soft, nontender Extremities: No edema in lower extremities bilaterally. Updated Medication List Medication Instructions Recorded Confirmed Type aspirin 81 mg tablet,delayed 81 mg PO QAM 06/30/19 05/18/24 History release atorvastatin 10 mg tablet 10 mg PO QAM 06/30/19 05/18/24 History cholecalciferol (vitamin D3) 25 1,000 units PO HS 06/30/19 05/18/24 History mcg (1,000 unit) capsule multivitamin (Daily Multi-Vitamin 1 tab PO PM 06/30/19 05/18/24 History tablet) citalopram 40 mg tablet 40 mg PO QAM 01/21/20 05/18/24 History calcium carbonate (Calcium 600) 600 mg PO 3XWK 04/13/20 05/18/24 History chlorpheniramine 4 1 tab PO Q8 PRN allergy symptoms 04/21/20 05/18/24 Rx mg-phenylephrine 10 mg-DM 10 mg and cough #30 tabs tablet furosemide 20 mg tablet 20 mg PO DAILY PRN Edema 08/25/20 05/18/24 History albuterol sulfate 90 mcg/actuation 2 inh inhalation Q4H PRN Shortness 03/08/21 05/18/24 Rx aerosol inhaler (Ventolin HFA) Of Breath #18 grams lancets 33 gauge (OneTouch Delica #100 ea 08/19/22 05/11/24 History Lancets) pen needle, diabetic 32 gauge x #100 ea 11/29/22 05/11/24 Rx 5/32" (BD Johanne 2nd Gen Pen Needle) OneTouch Verio test strips (blood #300 ea 01/23/23 05/11/24 Rx sugar diagnostic) insulin aspart U-100 100 unit/mL 10 unit subcut BID 07/24/23 05/18/24 History (3 mL) subcutaneous pen (Novolog FlexPen U-100 Insulin aspart) insulin glargine 100 unit/mL (3 24 unit subcut PM 07/24/23 05/18/24 History mL) subcutaneous pen (Lantus Solostar U-100 Insulin) metformin 500 mg tablet,extended 500 mg PO .COMPLEX #90 tabs 08/07/23 05/18/24 Rx release 24 hr CPAP Machine #1 ea 08/21/23 05/11/24 Rx CPAP Supplies #1 ea 08/21/23 05/11/24 Rx cyanocobalamin (vitamin B-12) 1,000 mcg PO PM 01/22/24 05/18/24 History 1,000 mcg capsule losartan 25 mg tablet 100 mg PO QAM #15 tabs 02/25/24 05/18/24 History blood-glucose sensor (FreeStyle 05/11/24 05/11/24 History Darnell 3 Sensor device) levothyroxine 175 mcg tablet 175 mcg PO DAILY 05/11/24 05/18/24 History pembrolizumab 25 mg/mL intravenous 0 mg IV .Q6WK 05/18/24 05/18/24 History solution (Keytruda) cefdinir 300 mg capsule 300 mg PO BID #10 caps 05/21/24 Rx vancomycin 125 mg capsule 125 mg PO Q6H #32 caps 05/21/24 Rx Hospital Stay Data Consultations 05/18/24 19:01 ED Decision to Admit Stat 05/18/24 19:24 Consult Oncology Routine 05/18/24 19:25 ED Decision to Admit Stat 05/18/24 20:44 Consult Gastroenterology Routine Diagnostic Imagining Performed 05/18/24 18:55 CT abd pelvis wo con Stat Abdomen/Pelvis CT 05/18/24 18:55 Exam(s): CT ABDOMEN + PELVIS Without Contrast EXAM: CT Abdomen and Pelvis Without Intravenous Contrast CLINICAL HISTORY: Reason for exam: bloody stool, contrast allergy. TECHNIQUE: Axial computed tomography images of the abdomen and pelvis without intravenous contrast. CTDI is 27 mGy and DLP is 1277 mGy-cm. Automated exposure control was utilized for the study. A dose lowering technique was utilized adhering to the principles of ALARA. COMPARISON: 04/13/2020 FINDINGS: ABDOMEN: Liver: Unremarkable. Gallbladder and bile ducts: Cholecystectomy. No biliary dilatation. Pancreas: Unremarkable. Spleen: Unremarkable. Adrenals: Unremarkable. Kidneys and ureters: Unremarkable. No obstructing stones. No hydronephrosis. Stomach and bowel: High attenuation liquid contents within the distal transverse and proximal descending colon which could represent blood products. Colonic diverticulosis without acute diverticulitis. PELVIS: Appendix: Normal appendix. Bladder: Unremarkable. Reproductive: Status post hysterectomy. ABDOMEN and PELVIS: Intraperitoneal space: Unremarkable. No free air. No significant fluid collection. Bones/joints: No acute fracture. Soft tissues: Unremarkable. Vasculature: Unremarkable. Lymph nodes: Unremarkable. IMPRESSION: 1. High attenuation liquid contents within the distal transverse and proximal descending colon which could represent blood products. 2. Colonic diverticulosis without acute diverticulitis. Electronically signed by: Partha Alcala MD 05/18/24 23:47 PM Discharge Instructions Given to Patient (Per Discharging Provider) Ms. Garcia, We are discharging you home. Please continue with the antibiotic vancomycin to help your diarrhea and rectal bleeding with close followup with your primary care provider and Oncologist. Please stop taking your home aspirin in this setting. Your urine culture grew bacteria and we are discharging you home with 5 more days of the antibiotic cefdinir to help with that. Again, please keep close follow up with your primary care provider after discharge. Please do not hesitate to come back to the emergency room if your symptoms worsen or return. It was a pleasure taking care of you while you were here. Total Time Total Time Spent Total Time Spent (In Minutes): 75
== END 2024-05-21 17:00 | disposition home or self-care (01) | DRG 372 ==
LOC: ED 16:08 → SUATTDRO 19:24 → EDINP 19:24 → 2W 22:04

== ENCOUNTER 2024-07-06 10:53 | Inpatient (IN) ==
--- NOTE | 2024-07-06 12:05 | CT Scan Report ---
CT chest diagnostic wo con CLINICAL HISTORY: sob, cp, neck swelling TECHNIQUE: Multidetector row helical CT of the chest was performed. Coronal and sagittal reformations were obtained. Automated dose lowering techniques and/or adjustment according to patient size were u tilized for this exam. CT DOSE: 1241.54 mGy.cm Comparison: Comparison is made to CT chest 08/14/2023 FINDINGS: Lungs and pleura: Patient is status post right upper lobectomy. Interstitial thickening versus atelec tasis in the bilateral lower lobes. There is a pleural-based nodule in the right lower lobe measures 6 mm (series 7 image 127). Heart and pericardium: Heart size is normal. No pericardial effusion. Vessels: Severe atherosclerotic changes in the aorta and coronary arteries. Pulmonary trunk measures 32 mm. Mediastinum and chantale: Subcentimeter lymph nodes are seen. Chest wall and lower neck: A right port catheter is seen. Post surgical changes are in the right axil la. Abdomen: Patient is status post cholecystectomy. Bones: Degenerative changes in the thoracic spine. IMPRESSION: Patient is status post right upper lobectomy. No lymphadenopathy or suspicious nodules are seen. ACT 112: Negative or not required by law. Electronically signed by: Tommie Strong M.D. 07/06/2024 12:04 PM
[2024-07-06] MEDS: SODIUM CHLORIDE 0.9% 1,000 ML IV SCH (12:07)
[2024-07-06 12:15] LABS: Basophils # (auto) 0.03 K/uL (0.00-0.20); Basophils % (auto) 0.5 %; Eosinophils # (auto) 0.16 K/uL (0.00-0.50); Eosinophils % (auto) 2.6 %; Hemoglobin 13.1 g/dl (12.0-16.0); Immature Granulocytes # (auto) 0.04 K/uL (0.01-0.20); Immature Granulocytes % (auto) 0.6 %; Lymphocytes # (auto) 1.12 K/uL (1.20-3.40); Lymphocytes % (auto) 18.1 %; Mean Corpuscular Hgb Conc 32.8 g/dL (32.0-36.0); Mean Corpuscular Volume 91.7 fL (80.0-100.0); Mean Platelet Volume 11.2 fL (9.4-12.4); Monocytes # (auto) 0.59 K/uL (0.11-0.59); Monocytes % (auto) 9.5 %; Neutrophils # (auto) 4.25 K/uL (1.40-6.50); Neutrophils % (auto) 68.7 %; Platelet Count 281 K/uL (130-400); RDW Coefficient of Variation 12.4 % (11.5-14.5); RDW Standard Deviation 42.2 fL (36.4-46.3); Red Blood Count 4.36 M/uL (4.20-5.40); White Blood Count 6.19 K/ul (4.8-10.8)
[2024-07-06 12:28] LABS: Alanine Aminotransferase 15 U/L (7-52); Albumin Globulin Ratio 1.5 (0.9-2); Albumin Level 4.3 gm/dl (3.4-5.0); Alkaline Phosphatase 60 U/L (34-104); Anion Gap 8 (3-11); Aspartate Aminotransferase 16 U/L (13-39); BUN Creatinine Ratio 19.8 (10-20); Bilirubin,Total 0.4 mg/dl (0.2-1.0); Blood Urea Nitrogen 19 mg/dl (6-23); Carbon Dioxide 27 mmol/L (21-32); Chloride 100 mmol/L (98-107); Creatinine Clr Calc Pharmacy 63.2 ml/min; Est GFR (African American) 68.5 ml/min; Est GFR (Non-African American) 59.1 ml/min; Globulin 2.9 gm/dl (2.5-4.0); Glucose 290 mg/dl (70-99(Fasting)); Lipase 21 U/L (11-82); Magnesium 1.9 mg/dl (1.7-2.4); Potassium 4.1 mmol/L (3.5-5.1); Sodium 135 mmol/L (136-145); Total Protein 7.2 gm/dl (6.0-8.3)
[2024-07-06 12:33] LABS: Troponin I High Sensitivity 6.1 pg/ml (0-14)
[2024-07-06 12:42] LABS: Thyroid Stimulating Hormone 1.055 uIu/ml (0.300-4.500)
--- NOTE | 2024-07-06 12:51 | CT Scan Report ---
CT soft tissue neck wo con HISTORY: 74 years-old Female neck swelling, facial swelling, sob, cp acute neck and facial pain with soft tissue swelling COMPARISON: Chest CT of same day, CT soft tissue neck 07/04/2007 TECHNIQUE: Multiple axial CT images of the soft tissues of the neck were obtained without IV contrast . A dose lowering technique was used consistent with the principals of FELY. FINDINGS: The imaged intracranial structures appear unremarkable. Prior bilateral injury. Patent airway. No acu te inflammatory changes, pathologically enlarged lymph nodes or fluid collections. Partially imaged r ight subclavian [id number] catheter. Lung apices appear clear. Degenerative changes of the cervica l spine includes severe facet arthrosis. No acute fracture identified. Right maxillary molar periapic al cyst formation. Minimal mucosal thickening of the paranasal sinuses. IMPRESSION: No acute inflammatory changes, lymphadenopathy or fluid collections identified. ACT 112: Negative or not required by law. The above report was generated using voice recognition software. It may contain grammatical, syntax o r spelling errors. Electronically signed by: Wei Dolan M.D. 07/06/2024 12:48 PM
--- NOTE | 2024-07-06 12:56 | Electrocardiogram Report ---
Test Reason : Blood Pressure : */* mmHG Vent. Rate : 78 BPM Atrial Rate : 78 BPM P-R Int : 154 ms QRS Dur : 70 ms QT Int : 358 ms P-R-T Axes : 20 -5 34 degrees QTcB Int : 408 ms Normal sinus rhythm Normal ECG When compared with ECG of 23-Jan-2024 07:41, Nonspecific T wave abnormality no longer evident in Lateral leads Confirmed by Aaron Aguilar ([id number]) on 07/06/2024 12:56:27 PM Referred By: REFERRED SELF Confirmed By: Aaron Aguilar
--- NOTE | 2024-07-06 13:00 | Emergency Department Note ---
Impression & Plan Neck swelling, Facial swelling ED Provider Note ED Provider Note NAME: ROCÍO GREGORY AGE:74 SEX: Female : 1950 ARRIVES VIA: private vehicle INFORMANT: Patient ED PROVIDER(s): Edith Knight DO CHIEF COMPLAINT: Neck and facial swelling HPI: This is a 74-year-old female who presents emergency department complaining of neck and facial swelling that began on Friday. Patient is currently undergoing treatment for lung cancer although states she never smoked. She has remote history of breast cancer. Patient states she finished chemo for the end of March. She has been taking Keytruda infusions since then. She follows with Dr. Renner of oncology. No other recent medication changes. No new personal hygiene products or new foods. She does have a long list of allergies but states she has not quite had a reaction like this before she denies any tongue swelling, trouble swallowing. Patient states she feels worse with any attempts at ambulation and movement citing increased fatigue and increased short of breath. She also feels short of breath lying flat. She denies fevers, chills, recent URI symptoms. She does note she is scheduled to see a dentist on but a problem with a left upper tooth, no drainage or discharge from that site. She states she also feels a sense of swelling around where she had a prior lobectomy in the right lateral chest wall. She states that it has been coming and going for quite some time. She denies any swelling in her hands or feet. PAST MEDICAL HISTORY:See Below PAST SURGICAL HISTORY:See Below FAMILY HISTORY:See Below SOCIAL HISTORY:See Below HOME MEDICATIONS:See Below ALLERGIES:See Below VITALS:See Below PHYSICAL EXAMINATION: GENERAL: alert, well appearing, well nourished, no distress, non-toxic EYE EXAM: normal conjunctiva, PERRL and EOM's grossly intact OROPHARYNX: no exudate, no erythema, lips, buccal mucosa, and tongue normal and mucous membranes are moist, no obvious angioedema, no uvular edema, uvula midline NECK: supple, no nuchal rigidity, no adenopathy, non-tender, no stridor LUNGS: Clear to auscultation. Normal chest wall mechanics, no w/r/r HEART: no murmurs, S1 normal and S2 normal ABDOMEN: abdomen soft, non-tender, normo-active bowel sounds, no masses, no rebound or guarding. BACK: Back is symmetrical on inspection and there is no deformity, no midline tenderness, no CVA tenderness. SKIN: no rashes, petechiae, orbruising UPPER EXTREMITIES: upper extremities are grossly normal. FROM, nml pulses b/l. LOWER EXTREMITIES: No pitting edema. FROM, nml pulses b/l. NEURO EXAM: Normal sensorium, cranial nerves II-XII grossly intact, normal speech, no facial droop,nogross weakness of arms, no gross weakness of legs. Gross sensation intact. No ataxia. Vital Signs: reviewed and remarkable Differential Diagnosis: Increased tumor burden, SVC syndrome, upper extremity DVT, lymphadenopathy, dental abscess, pneumonia, bronchitis, COPD/Asthma exacerbation, pneumothorax, pulmonary embolism, congestive heart failure, acute coronary syndrome, as well as others were considered MEDICAL DECISION MAKING: This is a 74-year-old female who presents emergency room due to concern for neck and facial swelling. Patient is currently being treated for lung cancer. Patient denies any new products or food to suggest evolving allergic reaction. Patient does not use an KETURAH inhibitor. Exam not suggestive of angioedema. Vital signs stable and patient afebrile. Patient denies dysphagia and dysphonia. Labs drawn and sent, IV established, EKG performed at bedside interpreted by me and patient monitored on telemetry. She was started on IV fluids. Patient sent for CT of the neck and CT of the chest. These are read by radiology as reassuring. Case was discussed with oncology who recommended adding additional labs. After some of these were resulted we again discussed her condition in 1 agreement with plan for additional inpatient evaluation and monitoring given patient's report that symptoms have been worsening over the last several days. Unclear if this is related to ongoing treatment for her cancer. Case discussed with the hospitalist team for additional evaluation and management. Consultation(s): 1430: Discussed with Dr. Renner. Additional labs added. 1630: Discussed with Dr. Renner. 1712: Discucssed with Kae Casillas PA-C with [facility] hospitalist team for additional evaluation and mgmt. ER Treatment Provided: See below Diagnostics Interpreted By Me: -ECG: Normal sinus at 78, normal axis, normal intervals, no acute ST/T wave changes -Cardiac Monitoring: An order was placed for continuous cardiac monitoring. The monitor shows a rate of 78 with normal sinus rhythm. -Laboratory studies: As stated above and show below. -Imaging studies: ct neck: no abscess or deep space infection Triage Nursing Note Reviewed Prior/Outside Records Reviewed Critical Care: Critical care of 36 min performed to assess and manage high likelihood of life- threatening dyspnea, neck and facial swelling, involving labs and imaging performed with assessment to evaluate dyspnea with neck and facial swelling diagnosis with frequent reassessment. This time includes bedside time, treatment discussions with patient/family/consultants, documentation time and excludes procedure time. Past Med/Surg History Problem List (Updated 07/06/24 @ 19:33 by Kae Casillas PA-C) Facial swelling (Acute) Neck swelling (Acute) Medication reaction (Acute) Diarrhea (Acute) Hypomagnesemia (Acute) Acute GI bleeding (Acute) Hypomagnesemia Adenocarcinoma, lung Rectal bleeding Asthma Lung cancer Neuropathy Headache Migraine Imbalance Left-sided sensorineural hearing loss Mixed conductive and sensorineural hearing loss of left ear with restricted hearing of right ear Controlled type 2 diabetes mellitus, with long-term current use of insulin Hypothyroidism (acquired) Dietary counseling and surveillance Metabolic syndrome Chronic cough DANIA (obstructive sleep apnea) Asthma without acute exacerbation Pneumonia Mass of upper lobe of right lung Abnormal chest CT (Acute) Weakness (Acute) Chest pain Cholelithiasis (Acute) Nausea vomiting and diarrhea (Acute) Acute abdominal pain in right lower quadrant (Acute) Obesity HTN (hypertension) Dyslipidemia Medical History Migraine rare Nausea and vomiting after administration of anesthetic agent Diverticular disease Neuropathy feet Depression Hypothyroidism Diabetes mellitus, type 2 HX: breast cancer 1995 Hyperlipidemia Lung cancer dx March 2020 > surgery in 2022 > now getting port placed for chemo Asthma short of breath with activity since lung surgery, using res inh daily DANIA (obstructive sleep apnea) cpap Surgical History Port-A-Cath in place (01/23/24) Insertion MRI Compatible Access Port Right Cephalic(Right) - Atul Sol MD, FACS [place] teeth extracted History of lung surgery (2022) Right lung lobe removed > Oct 2023 > [facility] [place] History of cataract surgery (2020) bilat H/O breast reconstruction (1997) H/O mastectomy (1995) left H/O colonoscopy (12/02/04) S/P laparoscopic cholecystectomy (12/08/14) Lap mamadou with C'micah Sol History of hysterectomy (1998) Family History Father Hypertension Heart disease Mother Hypertension Heart disease Other No family history of adverse response to anesthesia No family history of bleeding disorder Social History Smoking Status: Never smoker Second Hand Exposure: No; Do You Dip or Chew Tobacco: No; Hx Alcohol Use: No Hx Substance Use: No Preferred Language: Kazakh Communication Ability: Effective Clinical Resource Director Required: No Beliefs That Will Affect Care: None marital status: Current Living Situation: Spouse current occupational status: retired How many Children do You have: 2 Feels Safe at Home: Yes Safety Concerns: Feels Safe At This Time Diet: diabetic Assistive Devices: Cane Assistive Devices Comment: only uses cane on uneven ground Allergies Allergies Allergy/AdvReac Type Severity Reaction Status Date / Time amoxicillin Allergy Severe SOB,ITCHING Verified 07/06/24 12:49 glyburide Allergy Severe ITCHY,SOB Verified 07/06/24 12:49 Iodinated Contrast Media Allergy Severe itchy,flushed,tight Verified 07/06/24 12:49 throat iodine Allergy Severe itching, Verified 07/06/24 12:49 flushed, tight throat morphine Allergy Severe MENTAL Verified 07/06/24 12:49 CONFUSION, SOB adhesive Allergy Intermediate unknown Verified 07/06/24 12:49 ("adhesive tape")-ITCHY, REDNESS canagliflozin Allergy Intermediate ITCHY,EYES Verified 07/06/24 12:49 SWELLING chlorhexidine Allergy Intermediate Rash Verified 07/06/24 12:49 [From ChloraPrep Clear] erythromycin base Allergy Intermediate UPSET Verified 07/06/24 12:49 STOMACH,RASH isopropyl alcohol Allergy Intermediate Rash Verified 07/06/24 12:49 [From ChloraPrep Clear] shrimp Allergy Intermediate FLUSH ITCHY Verified 07/06/24 12:49 cephalexin Allergy Mild unknown Verified 07/06/24 12:49 codeine Allergy Unknown unknown Verified 07/06/24 12:49 Macrolide Antibiotics Allergy Unknown Unknown Verified 07/06/24 12:49 methadone Allergy Unknown Unknown Verified 07/06/24 12:49 oxycodone Allergy Unknown unknown Verified 07/06/24 12:49 Penicillins Allergy Unknown Unknown Verified 07/06/24 12:49 propoxyphene Allergy Unknown UNKNOWN Verified 07/06/24 12:49 aspirin [From Percodan] AdvReac Intermediate dizziness, Verified 07/06/24 12:49 nausea glipizide AdvReac Intermediate Gastrointestinal Verified 07/06/24 12:49 Upset Sulfa (Sulfonamide AdvReac Intermediate Gastrointestinal Verified 07/06/24 12:49 Antibiotics) Upset Home Meds Home Medications Medication Instructions Recorded Confirmed atorvastatin 10 mg tablet 10 mg PO QAM 06/30/19 07/06/24 cholecalciferol (vitamin D3) 25 1,000 units PO HS 06/30/19 07/06/24 mcg (1,000 unit) capsule multivitamin (Daily Multi-Vitamin 1 tab PO PM 06/30/19 07/06/24 tablet) citalopram 40 mg tablet 40 mg PO QAM 01/21/20 07/06/24 calcium carbonate (Calcium 600) 600 mg PO 3XWK 04/13/20 07/06/24 lancets 33 gauge (OneTouch Delica #100 ea 08/19/22 05/11/24 Lancets) insulin glargine 100 unit/mL (3 24 unit subcut PM 07/24/23 07/06/24 mL) subcutaneous pen (Lantus Solostar U-100 Insulin) cyanocobalamin (vitamin B-12) 1,000 mcg PO PM 01/22/24 07/06/24 1,000 mcg capsule blood-glucose sensor (FreeStyle 05/11/24 05/11/24 Darnell 3 Sensor device) levothyroxine 175 mcg tablet 175 mcg PO DAILY 05/11/24 07/06/24 pembrolizumab 25 mg/mL intravenous 0 mg IV .Q6WK 05/18/24 07/06/24 solution (Keytruda) metformin 500 mg tablet,extended 500 mg PO UD 07/06/24 07/06/24 release 24 hr Previous Rx's Medication Instructions Recorded chlorpheniramine 4 1 tab PO Q8 PRN allergy symptoms 04/21/20 mg-phenylephrine 10 mg-DM 10 mg and cough #30 tabs tablet albuterol sulfate 90 mcg/actuation 2 inh inhalation Q4H PRN Shortness 03/08/21 aerosol inhaler (Ventolin HFA) Of Breath #18 grams pen needle, diabetic 32 gauge x #100 ea 11/29/22 5/32" (BD Johanne 2nd Gen Pen Needle) OneTouch Verio test strips (blood #300 ea 01/23/23 sugar diagnostic) CPAP Machine #1 ea 08/21/23 CPAP Supplies #1 ea 08/21/23 insulin aspart U-100 100 unit/mL See Rx Instructions .Route 07/05/24 (3 mL) subcutaneous pen (Novolog .COMPLEX #30 mL FlexPen U-100 Insulin aspart) amlodipine 5 mg tablet (Norvasc) 5 mg PO QAM 30 days #30 tabs 07/07/24 cetirizine 10 mg tablet 10 mg PO QAM 7 days #7 tabs 07/07/24 famotidine 20 mg tablet (Pepcid) 20 mg PO DAILY 7 days #7 tabs 07/07/24 Results & Data (ED) Vital Signs Vital Signs - 24 hr 07/06/24 11:10 07/06/24 11:28 07/06/24 12:11 Temperature 36.5 C 37.0 C Temperature Source Temporal Artery Scan Oral Pulse Rate 100 H 91 H Pulse Rate [Apical] 84 Pulse Rate [Exercises] Pulse Rate [Recovery] Pulse Rate from SpO2 Sensor Respiratory Rate 18 17 Respiratory Rate [Exercises] Respiratory Effort / Characteristics Non-Labored Spontaneous Respiratory Depth Normal Respiratory Pattern Regular Blood Pressure 186/97 H Blood Pressure [Left Arm] 167/108 H Blood Pressure Mean 126 Blood Pressure Mean [Left Arm] 127 Blood Pressure Position Sitting Blood Pressure Position [Left Arm] Semi-fowlers Pulse Oximetry 94 97 Pulse Oximetry [Exercises] Pulse Oximetry [Recovery] Oxygen Delivery Method Room Air Sepsis Recent Fever Within 48 Hours No Sepsis New/Unexplained Change in Mental Status No Sepsis Action Taken by Nursing No Action Required 07/06/24 12:27 07/06/24 12:30 07/06/24 12:33 Temperature Temperature Source Pulse Rate 89 92 H Pulse Rate [Apical] Pulse Rate [Exercises] Pulse Rate [Recovery] Pulse Rate from SpO2 Sensor 89 91 H Respiratory Rate 12 19 Respiratory Rate [Exercises] Respiratory Effort / Characteristics Respiratory Depth Respiratory Pattern Blood Pressure 145/90 H Blood Pressure [Left Arm] Blood Pressure Mean 105 Blood Pressure Mean [Left Arm] Blood Pressure Position Blood Pressure Position [Left Arm] Pulse Oximetry 95 94 Pulse Oximetry [Exercises] Pulse Oximetry [Recovery] Oxygen Delivery Method Sepsis Recent Fever Within 48 Hours Sepsis New/Unexplained Change in Mental Status Sepsis Action Taken by Nursing 07/06/24 12:54 07/06/24 13:00 07/06/24 13:00 Temperature Temperature Source Pulse Rate 86 Pulse Rate [Apical] Pulse Rate [Exercises] Pulse Rate [Recovery] Pulse Rate from SpO2 Sensor 86 Respiratory Rate 19 Respiratory Rate [Exercises] Respiratory Effort / Characteristics Respiratory Depth Respiratory Pattern Blood Pressure 171/106 H 171/106 H Blood Pressure [Left Arm] Blood Pressure Mean 118 118 Blood Pressure Mean [Left Arm] Blood Pressure Position Blood Pressure Position [Left Arm] Pulse Oximetry 95 Pulse Oximetry [Exercises] Pulse Oximetry [Recovery] Oxygen Delivery Method Sepsis Recent Fever Within 48 Hours Sepsis New/Unexplained Change in Mental Status Sepsis Action Taken by Nursing 07/06/24 13:00 07/06/24 13:03 07/06/24 13:15 Temperature Temperature Source Pulse Rate 89 86 Pulse Rate [Apical] Pulse Rate [Exercises] Pulse Rate [Recovery] Pulse Rate from SpO2 Sensor 88 85 Respiratory Rate 19 20 Respiratory Rate [Exercises] Respiratory Effort / Characteristics Respiratory Depth Respiratory Pattern Blood Pressure 171/106 H Blood Pressure [Left Arm] Blood Pressure Mean 118 Blood Pressure Mean [Left Arm] Blood Pressure Position Blood Pressure Position [Left Arm] Pulse Oximetry 95 92 Pulse Oximetry [Exercises] Pulse Oximetry [Recovery] Oxygen Delivery Method Sepsis Recent Fever Within 48 Hours Sepsis New/Unexplained Change in Mental Status Sepsis Action Taken by Nursing 07/06/24 16:26 07/06/24 16:45 Temperature Temperature Source Pulse Rate 79 Pulse Rate [Apical] Pulse Rate [Exercises] 105 H Pulse Rate [Recovery] 81 Pulse Rate from SpO2 Sensor Respiratory Rate Respiratory Rate [Exercises] 20 Respiratory Effort / Characteristics Respiratory Depth Respiratory Pattern Blood Pressure Blood Pressure [Left Arm] Blood Pressure Mean Blood Pressure Mean [Left Arm] Blood Pressure Position Blood Pressure Position [Left Arm] Pulse Oximetry Pulse Oximetry [Exercises] 93 Pulse Oximetry [Recovery] 95 Oxygen Delivery Method Room Air Sepsis Recent Fever Within 48 Hours Sepsis New/Unexplained Change in Mental Status Sepsis Action Taken by Nursing Laboratory Data 07/07/24 07:10 07/07/24 07:10 Lab Results 07/06/24 07/06/24 Range/Units 11:29 14:55 WBC 6.19 (4.8-10.8) K/ul RBC 4.36 (4.20-5.40) M/uL Hgb 13.1 (12.0-16.0) g/dl Hct 40.0 (37.0-47.0) % MCV 91.7 (80.0-100.0) fL MCH 30.0 (25.0-34.0) pg MCHC 32.8 (32.0-36.0) g/dL RDW Std Deviation 42.2 (36.4-46.3) fL RDW Coeff of Lorie 12.4 (11.5-14.5) % Plt Count 281 (130-400) K/uL MPV 11.2 (9.4-12.4) fL Immature Gran % (Auto) 0.6 % Neut % (Auto) 68.7 % Lymph % (Auto) 18.1 % [place] % (Auto) 9.5 % Eos % (Auto) 2.6 % Baso % (Auto) 0.5 % Neut # (Auto) 4.25 (1.40-6.50) K/uL Lymph # (Auto) 1.12 L (1.20-3.40) K/uL [place] # (Auto) 0.59 (0.11-0.59) K/uL Eos # (Auto) 0.16 (0.00-0.50) K/uL Baso # (Auto) 0.03 (0.00-0.20) K/uL Immature Gran # (Auto) 0.04 (0.01-0.20) K/uL ESR 32 H (0-30) mm/hr D-Dimer 390 (0-500) ug/L FEU Sodium 135 L (136-145) mmol/L Potassium 4.1 (3.5-5.1) mmol/L Chloride 100 (98-107) mmol/L Carbon Dioxide 27 (21-32) mmol/L Anion Gap 8 (3-11) BUN 19 (6-23) mg/dl Creatinine 0.96 (0.6-1.2) mg/dl Est Cr Clr Drug Dosing 63.2 ml/min Est GFR ( Amer) 68.5 ml/min Est GFR (Non-Af Amer) 59.1 ml/min BUN/Creatinine Ratio 19.8 (10-20) Glucose 290 H (70-99(Fasting)) mg/dl Calcium 10.0 (8.6-10.3) mg/dl Magnesium 1.9 (1.7-2.4) mg/dl Total Bilirubin 0.4 (0.2-1.0) mg/dl AST 16 (13-39) U/L ALT 15 (7-52) U/L Alkaline Phosphatase 60 (34-104) U/L Troponin I High Sens 6.1 (0-14) pg/ml C-Reactive Protein < 0.50 (0-0.5) mg/dl B-Natriuretic Peptide 39 (0-100) pg/ml Total Protein 7.2 (6.0-8.3) gm/dl Albumin 4.3 (3.4-5.0) gm/dl Globulin 2.9 (2.5-4.0) gm/dl Albumin/Globulin Ratio 1.5 (0.9-2) Lipase 21 (11-82) U/L Procalcitonin Cancelled TSH 1.055 (0.300-4.500) uIu/ml Administered Medications Discontinued Medications Acetaminophen (Acetaminophen 500 Mg Tab) 1,000 mg PO NOW STA Stop: 07/06/24 19:22 Last Admin: 07/06/24 19:34 Dose: Not Given Documented By: ANITA Acetaminophen (Acetaminophen 325 Mg Tab) 650 mg PO NOW STA Stop: 07/06/24 19:23 Last Admin: 07/06/24 19:34 Dose: 650 mg Documented By: ANITA Acetaminophen (Acetaminophen 325 Mg Tab) 650 mg PO Q4H PRN PRN Reason: Pain or Fever Stop: 08/05/24 20:36 Last Admin: 07/07/24 08:41 Dose: 650 mg Documented By: AML Amlodipine Besylate (Amlodipine Besylate 5 Mg Tab) 5 mg PO [facility] Stop: 08/06/24 08:59 Last Admin: 07/07/24 08:38 Dose: 5 mg Documented By: AML Atorvastatin Calcium (Atorvastatin 10 Mg Tab) 10 mg PO [facility] Stop: 08/06/24 08:59 Last Admin: 07/07/24 08:38 Dose: 10 mg Documented By: AML Calcium Carbonate (Calcium Carbonate 1250mg Tab) 1 tab PO MoWeFr@0900 [facility] Stop: 08/06/24 08:59 Last Admin: 07/07/24 08:38 Dose: 1 tab Documented By: JERAMY Cetirizine HCl (Cetirizine Hcl 10 Mg Tablet) 10 mg PO QAM MAYE Stop: 08/06/24 08:59 Last Admin: 07/07/24 09:06 Dose: 10 mg Documented By: AML Cetirizine HCl (Cetirizine Hcl 10 Mg Tablet) 10 mg PO QAM MAYE Stop: 07/06/24 23:59 Last Admin: 07/06/24 21:05 Dose: 10 mg Documented By: ANA ROSA Citalopram Hydrobromide (Citalopram 40 Mg Tab) 40 mg PO QAM MAYE Stop: 08/06/24 08:59 Last Admin: 07/07/24 08:39 Dose: 40 mg Documented By: JERAMY Cyanocobalamin (Cyanocobalamin (B-12) 500 Mcg Tablet) 1,000 mcg PO PM MAYE Stop: 08/05/24 20:59 Last Admin: 07/06/24 21:06 Dose: 1,000 mcg Documented By: ANA ROSA Diphenhydramine HCl (Diphenhydramine Capsule 25 Mg Cap) 25 mg PO NOW ONE Stop: 07/06/24 19:56 Last Admin: 07/06/24 21:04 Dose: 25 mg Documented By: ANA ROSA Sodium Chloride (Nss) 1,000 mls @ 125 mls/hr IV .Q8H MAYE Stop: 08/05/24 11:44 Last Infusion: 07/06/24 21:13 Dose: Infused Documented By: ANA ROSA Admin: 07/06/24 19:12 Dose: 125 mls/hr Documented By: Infusion: 07/06/24 19:12 Dose: Infused Documented By: Admin: 07/06/24 12:07 Dose: 125 mls/hr Documented By: SHERMAN Cosyntropin 250 mcg/ Syringe 5 mls @ 2.5 mls/min IV ONE ONE Stop: 07/07/24 12:31 Last Admin: 07/07/24 13:30 Dose: 2.5 mls/min Documented By: JERAMY Insulin Aspart (Insulin Aspart Per Unit Charge) 0 units SC ACHS MAYE Stop: 08/05/24 18:39 Last Admin: 07/07/24 16:45 Dose: 9 units Documented By: JERAMY Co-signed By: PK Admin: 07/07/24 12:18 Dose: 9 units Documented By: JERAMY Co-signed By: MARCIN Admin: 07/07/24 08:37 Dose: 6 units Documented By: JERAMY Co-signed By: PJ Admin: 07/06/24 21:07 Dose: 1 units Documented By: ANA ROSA Co-signed By: NEMO Admin: 07/06/24 19:05 Dose: Not Given Documented By: AY Co-signed By: BEE Insulin Glargine (Lantus Per Unit Charge) 0 - 12 units SQ BID MAYE Stop: 08/05/24 20:59 Last Admin: 07/07/24 09:06 Dose: 12 units Documented By: JERAMY Co-signed By: MARCIN Admin: 07/06/24 21:06 Dose: 8 units Documented By: ANA ROSA Co-signed By: NEMO Levothyroxine Sodium (Levothyroxine Sodium 175 Mcg Tablet) 175 mcg PO DAILY MAYE Stop: 08/06/24 08:59 Last Admin: 07/07/24 09:06 Dose: 175 mcg Documented By: JERAMY Multivitamins (Multivitamin Tab) 1 tab PO PM MAYE Stop: 08/05/24 20:59 Last Admin: 07/06/24 20:58 Dose: 1 tab Documented By: ANA ROSA Vitamin D (Cholecalciferol 25 Mcg (1000 Units) Tab) 25 mcg PO HS MAYE Stop: 08/05/24 20:59 Last Admin: 07/06/24 21:05 Dose: 25 mcg Documented By: ANA ROSA Imaging Data Radiologist's Impression: Chest CT 07/06/24 11:43 CT chest diagnostic wo con CLINICAL HISTORY: sob, cp, neck swelling TECHNIQUE: Multidetector row helical CT of the chest was performed. Coronal and sagittal reformations were obtained. Automated dose lowering techniques and/or adjustment according to patient size were utilized for this exam. CT DOSE: 1241.54 mGy.cm Comparison: Comparison is made to CT chest 08/14/2023 FINDINGS: Lungs and pleura: Patient is status post right upper lobectomy. Interstitial thickening versus atelectasis in the bilateral lower lobes. There is a pleural- based nodule in the right lower lobe measures 6 mm (series 7 image 127). Heart and pericardium: Heart size is normal. No pericardial effusion. Vessels: Severe atherosclerotic changes in the aorta and coronary arteries. Pulmonary trunk measures 32 mm. Mediastinum and chantale: Subcentimeter lymph nodes are seen. Chest wall and lower neck: A right port catheter is seen. Post surgical changes are in the right axilla. Abdomen: Patient is status post cholecystectomy. Bones: Degenerative changes in the thoracic spine. IMPRESSION: Patient is status post right upper lobectomy. No lymphadenopathy or suspicious nodules are seen. ACT 112: Negative or not required by law. Electronically signed by: Tommie Strong M.D. 07/06/2024 12:04 PM Soft Tissue Neck CT 07/06/24 11:43 CT soft tissue neck wo con HISTORY: 74 years-old Female neck swelling, facial swelling, sob, cp acute neck and facial pain with soft tissue swelling COMPARISON: Chest CT of same day, CT soft tissue neck 07/04/2007 TECHNIQUE: Multiple axial CT images of the soft tissues of the neck were obtained without IV contrast. A dose lowering technique was used consistent with the principals of ALARA. FINDINGS: The imaged intracranial structures appear unremarkable. Prior bilateral injury. Patent airway. No acute inflammatory changes, pathologically enlarged lymph nodes or fluid collections. Partially imaged right subclavian [id number] catheter. Lung apices appear clear. Degenerative changes of the cervical spine includes severe facet arthrosis. No acute fracture identified. Right maxillary molar periapical cyst formation. Minimal mucosal thickening of the paranasal sinuses. IMPRESSION: No acute inflammatory changes, lymphadenopathy or fluid collections identified. ACT 112: Negative or not required by law. The above report was generated using voice recognition software. It may contain grammatical, syntax or spelling errors. Electronically signed by: Wei Dolan M.D. 07/06/2024 12:48 PM Discharge Plan Visit Data Chief Complaint: Swelling/Edema to Extremity Stated Complaint: EDEMA IN NECK. IN CANCER TREATMENT ED Provider: Edith Knight Discharge Problem: Neck swelling, Facial swelling Patient Disposition: Admitted As Inpatient Discharge Instructions Interventions: ED Discharge Assessment Last Done: 07/06/24 20:09
[2024-07-06 15:48] LABS: D Dimer 390 ug/L FEU (0-500)
--- OUTSIDE RECORDS SUMMARY | 2024-07-06 16:44 | External Medical Summary | Summary of Care ---
Author Name Unknown Organization [facility] Address [address] [place] [address] Phone [phone] Care Team Providers Care Legislators Name Role Phone Clemencia Scott DO Primary Care Provider Reason for Visit * Reason Onset Date Comments Adult Annual Wellness Visit, Subsequent Visit Adult Annual Wellness Visit, Subsequent Visit Encounter Details Date Type Department Care Team (Late st Contact Info) Description 07/05/2024 11:00 AM EDT Nurse Only Ancillary [address] [id number] College, Nurse Annual Wellness Visit [address] [address] Adult Annual Wellness Visit, Subsequent Vi... Allergies Active Allergy Reactions Criticality Noted Date Comments Adhesive Tape Rash 08/19/2022 Amoxicillin 06/28/1999 sob, itching Canagliflozin Itching 02/07/2023 Eyes swelling Cephalexin Itching Medium 06/15/2007 itchy Chlorhexidine Rash High 01/23/2024 Codeine Psych complications 04/08/2011 Erythromycin 04/12/1999 Stomach upset, RASH Glipizide Conjunctivitis 03/07/2016 Glyburide Itching 12/18/2015 SOB Iodinated Contrast Media Anaphylaxis High 10/26/2019 Latex Rash 12/01/2023 Lisinopril Itching 12/06/2015 Macrolides And Ketolides 02/07/2023 Methadone 02/07/2023 Morphine And Codeine 09/28/2000 SOB, mental confusion Oxycodone 02/07/2023 Percodan 04/12/1999 Nausea, irritable Propoxyphene Napsylate 04/12/1999 shaky, taylor Sulfa Antibiotics 10/30/2015 Eye swelling, itching documented as of this encounter (statuses as of 07/05/2024) Medications Medication Sig Dispensed Refills Start Date End Date Status Calcium Carb-Cholecalcifer ol 500-200 MG-UNIT Oral TabletIndications: general health- supplement Take 1 Tablet by mouth every evening. On Friday, Friday, and friday Active CPAPIndications:sl eep apnea every night at bedtime. Active FreeStyle Darnell 3 SensorIndications: diabetes Use as directed. Change every 14 days 3 Active OneTouch Verio In Vitro StripIndications:d iabetes Use as directed to test blood sugars 3 Active Pen [place] 32G X 5 MMIndications:diab etes Use 4 times daily as directed 3 Active Aspirin 81 MG Oral Tablet ChewableIndication s:heart palpiations/heart attack prevention Take 1 Tablet by mouth in the morning. with food.. 3 Active Centrum Silver 50+Women Oral TabletIndications: general health- supplement Take 1 Tablet by mouth every evening. 3 Active Vitamin D (Cholecalciferol) 25 MCG (1000 UT) Oral TabletIndications: general health - supplement Take 1 Tablet by mouth every evening. 3 Active Acetaminophen 500 MG Oral TabletIndications: as needed for pain Take 1 Tablet by mouth every 6 hours as needed. Active Ventolin HFA 108 (90 Base) MCG/ACT Inhalation Aerosol SolutionIndication s:asthma Inhale 2 Puffs by mouth every 8 hours as needed for Wheezing or Shortness of Breath. 18 g 3 4 Active Atorvastatin Calcium 10 MG Oral Tablet (Lipitor)Indicatio ns:cholesterol Take 1 Tablet by mouth in the morning. 100 Tablet 3 4 Active Citalopram Hydrobromide 40 MG Oral Tablet (CeleXA)Indication s:depression/anxie ty Take 1 Tablet by mouth in the morning. 100 Tablet 3 4 Active Fluticasone Propionate 50 MCG/ACT Nasal Suspension (Flonase)Indicatio ns:allergies Administer 2 Sprays into each nostril in the morning. 48 g 3 4 Active metFORMIN HCl ER 500 MG Oral Tablet Extended Release 24 Hour (Glucophage XR)Indications:jose cruz betes Take 1 tablet by mouth in the morning and 2 tablets in the evening 300 Tablet 3 4 Active Lantus SoloStar 100 UNIT/ML Subcutaneous Solution Pen-injectorIndica tions:diabetes Inject 24 Units under the skin in the morning. 30 mL 2 4 Active Additional Information Patient taking differently:24 Units SubcutaneousBEFORE DINNER, Indications: diabetes, Reported on 01/23/2024 Losartan Potassium 100 MG Oral Tablet (Cozaar)Indication s:HTN, goal below 140/90 Take 1 Tablet by mouth in the morning. 100 Tablet 1 4 Active Levothyroxine Sodium 175 MCG Oral Tablet (Levoxyl) Take 1 Tablet by mouth daily first thing in the morning. 4 Active Magnesium 200 MG Oral Tablet Take 2 Tablets by mouth every evening. Active Docusate Sodium 100 MG Oral Capsule (Colace) Take 1 Capsule by mouth as needed for Constipation. Active Folic Acid 1 MG Oral Tablet Take 1 Tablet by mouth every evening. 4 Active Ondansetron 8 MG Oral Tablet Disintegrating (Zofran) Place 1 Tablet on tongue every 8 hours as needed for Nausea. 4 Active Insulin Aspart FlexPen 100 UNIT/ML Subcutaneous Solution Pen-injector Max Daily Dose: 25 units; Inject 10 units with breakfast, 5 units with lunch, and 10 units with dinner 30 mL 3 4 Active Keytruda 100 MG/4ML Intravenous Solution (Pembrolizumab) Administer 2 mg/kg intravenously once. 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 Type 2 diabetes mellitus wit h hemoglobin A1c goal of less than 7.0% 09/21/2009 Overview: Per Diabetes Taxonomy. ICD-10 update of inactive term ADVANCE DIRECTIVE INFORMATION 01/22/2009 Overview: No, Advance Directive brochure given to patient at prior appointment. Chronic sinusitis 09/06/2003 Deviated nasal septum 03/08/2003 Esophageal reflux 03/08/2003 Asthma, mild persistent 03/08/2003 Overview: PER PROVIDER PROTOCOL. Hypothyroidism Allergic rhinitis Depression with anxiety documented as of this encounter (statuses as of 07/05/2024) Resolved Problems Problem Noted Date Diagnosed Date Resolved Date Food insecurity 11/03/2023 01/08/2024 Overview: Per [facility] Protocol Malignant neoplasm of female breast 02/07/2023 02/07/2023 Overview: T3 N0 M0, chemo with adriamycin, taxol: 11/1995 Mixed dyslipidemia 08/16/2005 9 Overview: Per Lipid Taxonomy. Type 2 diabetes mellitus wit h hemoglobin A1c goal of less than 7.0% 08/16/2005 09/21/2009 Overview: Per Diabetes Taxonomy. ICD-10 update of inactive term Asthma with severity to be determined 03/08/2003 07/21/2013 Overview: ICD-10 update of inactive term GAEL DEPRES DIS-RECUR W/PSYCO 01/10/2015 documented as of this encounter (statuses as of 07/05/2024) Immunizations Name Administration Dates Next Due HEP A - Hepatitis A (Adult > 18 yrs) 04/29/2019, 10/26/2018 Pneumococcal Conjugate Vacci ne, 20-valent ([id number]) 02/07/2023 Pneumococcal Polysaccharide PPV23 (Pneumovax) 06/28/1999 Seasonal Influenza, Split, I IV3, With Preserve, Inj 09/02/2014,07/25/2013,09/03/2012,08/24,09/11/2010,09/19/2008,08/31/2007 ,09/18/2006 TD - Tetanus/Diptheria (ADULT) 10/29/2018 TDAP, Age 7 and older, IM (Adacel) 05/09/2008 documented as of this encounter Social History Tobacco Use Types Packs/Day Years Used Date Smoking Tobacco: Never Passive Smoke Exposure: Never Smokeless Tobacco: Never Comments:no passive smoke Alcohol Use Standard Drinks/Week Comments No 0 (1 standard drink = 0.6 oz pur e alcohol) PHQ-2 Answer Date Recorded PHQ Adult Total Score 0 12/01/2023 Hunger Vital Sign Answer Date Recorded Within the past 12 months, y ou worried that your food would run out before you got the money to buy more. Never true 12/01/19 24 Within the past 12 months, t he food you bought just didn't last and you didn't have money to get more. Never true 12/01/2023 Childcare Answer Date Recorded Do you feel overwhelmed with taking care of a child, family member or friend? No 12/01/2023 Does your family need help f inding childcare? (Household - for ages 0-17 years) Not on file 12/01/2023 Clothing Answer Date Recorded Have you been unable to get clothing when it was really needed? No 12/01/2023 Is your family able to get c lothes or diapers when needed? (Household - for ages 0-17 years) Not on file 12/01/2023 Personal Safety Answer Date Recorded Do you feel unsafe or have concerns for your saf ety? No 12/01/2023 Do you have concerns for you r family's safety? (Household - for ages 0-17 years) Not on file 12/01/2023 Utilities Answer Date Recorded Do you have trouble paying y our heating, water, or electric bill? No 12/01/2023 Is your family able to pay t he heat, water, or electric bill? (Household - for ages 0-17 years) Not on file 12/01/2023 Does your family have access to good internet? (Household - for ages 0-17 years) Not on file 12/01/2023 Employment Status Answer Date Recorded Are you unemployed or without regular income? No 12/01/2023 Does the household have a re gular source of income? (Household - for ages 0-17 years) Not on file 12/01/2023 Social Connections Answer Date Recorded How often do you feel lonely or isolated from th ose around you? Never 12/01/2023 Financial Resource Strain Answer Date R ecorded Do you have any trouble payi ng for your medications, or do you think you might in the future? No 12/01/2023 Does your family have troubl e paying for medicine? (Household - for ages 0-17 years) Not on file 12/01/2023 Transportation Needs Answer Date Record ed READ ONLY Do you have troubl e getting a ride to medical visits or work? Never True 12/01/2023 Does your family have a hard time getting a ride to doctors visits? (Household - for ages 0-17 years) Not on file 12/01/2023 Has lack of transportation k ept you from medical appointments, meetings, work, or from getting things needed for daily living? Check all that apply. (Adult - for ages 18 years and over) Not on file 12/01/2023 Do you (or your family) have trouble finding or paying for a ride (transportation)? (Household - for ages 0-17 years) Not on file 12/01/2023 Housing Stability Answer Date Recorded Do you currently live in a s helter or have no steady place to sleep at night? No 12/01/2023 READ ONLY Do you think you a re at risk of becoming homeless? No 12/01/2023 Does your family worry about paying for your home or becoming homeless? (Household - for ages 0-17 years) Not on file 0 12/01/2023 Are you homeless or worried that you might be in the future? (Adult - for ages 18 years and over) Not on file Are you (or your family) dianna eless or worried that you might be in the future? (Household - for ages 0-17 years) Not on file Food Insecurity Answer Date Recorded Do you need food for this week? No 12/01/2023 Are you able to get enough f ood for your family? (Household - for ages 0-17 years) Not on file 12/01/2023 Does your family need food t his week? (Household - for ages 0-17 years) Not on file 12/01/2023 Do you always have enough fo od for your family? (Household - for ages 0-17 years) Not on file 12/01/2023 Sex and Gender Information Value Date Recorded Sex Assigned at Female 07/02/2023 2:44 PM EDT Gender Identity Female 07/02/2023 2:44 PM EDT Sexual Orientation Straight 07/02/2023 2: 44 PM EDT Job Start Date Occupation Industry Not on file Not on file Not on file documented as of this encounter Last Filed Vital Signs Vital Sign Reading Time Taken Comments Blood Pressure 128/84 07/05/2024 11:31 AM EDT Pulse 92 07/05/2024 11:31 AM EDT Temperature 36.6 C (97.8 F) 07/05/2024 1 1:31 AM EDT Respiratory Rate 20 07/05/2024 11:3 1 AM EDT Oxygen Saturation 96% 07/05/2024 11: 31 AM EDT Inhaled Oxygen Concentration - - Weight 101.5 kg (223 lb 12.8 oz) 2023 11:31 AM EDT Height 167 cm (5' 5.75") 07/05/2024 11: 31 AM EDT Body Mass Index 36.4 07/05/2024 11:31 AM EDT documented in this encounter Patient Instructions * Patient Instructions* Anne Contreras RN - 07/05/2024 11:57 AM EDT Hi Ms. Garcia, As your primary care physician, I know that regular visits with my patients who have several chronic conditions can go a long way in helping you stay healthy. Many times, the clinic team and I are in touch with you and/or other care team members between office visits to adjust medications, discuss any changes in your health, and review our care plan to make sure it is still meeting your needs. I am dedicated to helping you take a more active role in your overall care. It is important that there are resources available to you, so I created a personalized plan of care with a Health Calendar for you, which is included on the next page of this letter. Below is a list that summarizes your electronic health record: Health Maintenance Due: Health Maintenance Due Topic Date Due COVID-19 Vaccine (1) Never done Zoster Vaccines (1 of 2) Never done Albumin/Creatinine Ratio 04/22/2024 HbA1c 07/28/2024 Current Medication List: (as of Visit date not found (in office), Visit date not found (telemedicine) ) Current Outpatient Medications Medication Sig Dispense Refill Calcium Carb-Cholecalciferol 500-200 MG-UNIT Oral Tablet Take 1 Tablet by mouth every evening. On Friday, Friday, and friday CPAP every night at bedtime. Centrum Silver 50+Women Oral Tablet Take 1 Tablet by mouth every evening. Vitamin D (Cholecalciferol) 25 MCG (1000 UT) Oral Tablet Take 1 Tablet by mouth every evening. Acetaminophen 500 MG Oral Tablet Take 1 Tablet by mouth every 6 hours as needed. Ventolin HFA 108 (90 Base) MCG/ACT Inhalation Aerosol Solution Inhale 2 Puffs by mouth every 8 hours as needed for Wheezing or Shortness of Breath. 18 g 3 Atorvastatin Calcium 10 MG Oral Tablet (Lipitor) Take 1 Tablet by mouth in the morning. 100 Tablet 3 Citalopram Hydrobromide 40 MG Oral Tablet (CeleXA) Take 1 Tablet by mouth in the morning. 100 Tablet 3 Fluticasone Propionate 50 MCG/ACT Nasal Suspension (Flonase) Administer 2 Sprays into each nostril in the morning. 48 g 3 metFORMIN HCl ER 500 MG Oral Tablet Extended Release 24 Hour (Glucophage XR) Take 1 tablet by mouth in the morning and 2 tablets in the evening 300 Tablet 3 Lantus SoloStar 100 UNIT/ML Subcutaneous Solution Pen-injector Inject 24 Units under the skin in the morning. (Patient taking differently: Inject 24 Units under the skin daily before dinner.) 30 mL 2 Losartan Potassium 100 MG Oral Tablet (Cozaar) Take 1 Tablet by mouth in the morning. 100 Tablet 1 Levothyroxine Sodium 175 MCG Oral Tablet (Levoxyl) Take 1 Tablet by mouth daily first thing in the morning. Magnesium 200 MG Oral Tablet Take 2 Tablets by mouth every evening. Folic Acid 1 MG Oral Tablet Take 1 Tablet by mouth every evening. Ondansetron 8 MG Oral Tablet Disintegrating (Zofran) Place 1 Tablet on tongue every 8 hours as needed for Nausea. Insulin Aspart FlexPen 100 UNIT/ML Subcutaneous Solution Pen-injector Max Daily Dose: 25 units;Inject 10 units with breakfast, 5 units with lunch, and 10 units with dinner 30 mL 3 Keytruda 100 MG/4ML Intravenous Solution (Pembrolizumab) Administer 2 mg/kg intravenously once. [employer] Darnell 3 Sensor Use as directed. Change every 14 days OneTouch Verio In Vitro Strip Use as directed to test blood sugars Pen [place] 32G X 5 MM Use 4 times daily as directed Aspirin 81 MG Oral Tablet Chewable Take 1 Tablet by mouth in the morning. with food.. (Patient not taking: Reported on 05/24/2024) Docusate Sodium 100 MG Oral Capsule (Colace) Take 1 Capsule by mouth as needed for Constipation. (Patient not taking: Reported on 07/05/2024) No current facility-administered medications for this visit. Current List of Allergies: (as of Visit date not found (in office), Visit date not found (telemedicine) ) Review of patient's allergies indicates: Allergen Reactions Chlorhexidine Rash Iodinated Contrast Media Anaphylaxis Cephalexin Itching itchy Adhesive Tape Rash Amoxicillin sob, itching Canagliflozin Itching Eyes swelling Codeine Psych complications Erythromycin Stomach upset, RASH Glipizide Conjunctivitis Glyburide Itching SOB Latex Rash Lisinopril Itching Macrolides And Ketolides Methadone Morphine And Codeine SOB, mental confusion Oxycodone Percodan Nausea, irritable Propoxyphene Napsylate shaky, rash Sulfa Antibiotics Eye swelling, itching Most Recent Lab Results: Results for orders placed or performed in visit on 07/01/24 CULTURE, URINE, QUANTITATIVE Specimen: Urine, Clean Catch Result Value Ref Range Culture Growth No significant growth MICROSCOPIC EXAM, URINE Result Value Ref Range RBC, Urine 0-2 0 - 2 /HPF WBC, Urine 0-2 0 - 2 /HPF Bacteria, Urine 0-25 0 - 25 /HPF URINALYSIS, POINT OF CARE Result Value Ref Range Color, Urine Yellow Light Yellow, Yellow Clarity, Urine Clear Clear Glucose, Urine Negative Negative mg/dL Bilirubin, Urine Negative Negative Ketone, Urine Negative Negative mg/dL Specific [place], Urine 1.020 1.003 - 1.030 Blood, Urine Negative Negative pH, Urine 7.5 5.0, 5.5, 6.0, 6.5, 7.0, 7.5 units Protein, Urine Negative Negative mg/dL Urobilinogen, Urine 0.2 0.2, 1.0 mg/dL Nitrite, Urine Negative Negative Esterase, Urine Negative Negative *Note: Due to a large number of results and/or encounters for the requested time period, some results have not been displayed. A complete set of results can be found in Results Review. Sincerely, Clemencia Scott, DO 07/05/2024 [facility] (as of Visit date not found (in office), Visit date not found (telemedicine) ) Care needs Care needs Last completed Due next COVID-19 Vaccine (1) --- Never done Zoster (Shingles) Vaccine (1 of 2) --- Never done Urine albumin/creatinine test 04/22/2023 04/22/2024 A1C blood sugar test 01/26/2024 07/28/2024 Flu vaccine (recommended) (1) 09/02/2014 07/25/2024 Colorectal cancer screening (colonoscopy 10 years, sigmoidoscopy 5 years, Cologuard 3 years, stool sample 1 year) 11/03/2019 11/03/2024 Diabetic Foot Exam 01/23/2024 01/22/2025 Diabetic Eye Exam 03/08/2024 03/08/2025 Yearly thyroid level check 03/29/2024 03/29/2025 Mammogram 05/06/2024 05/06/2025 Kidney Function Test 05/25/2024 05/25/2025 Adult Wellness Visit 07/05/2024 07/05/2025 Lipid (cholesterol) disorder screening 04/22/2023 04/22/2028 Diphtheria, tetanus & pertussis vaccines (3 - Td or Tdap) 10/29/2018 10/29/2028 Bone Density 12/31/2021 12/31/2028 As you look over the recommended services, be sure to check with your insurance company to determine what's covered. [employer] is a great tool that helps you review your medical record online, including test results, doctor notes and your health summary. You can also schedule appointments with me and other members of your care team, request prescription refills and ask for advice related to your medical conditions at [email or web address]. documented in this encounter Progress Notes * Anne Contreras RN - 07/05/2024 11:36 AM EDT AD8 Dementia Screening Interview Person answering questions: patient Remember, "Yes, a change" indicates that there has been a change in the last several years caused by cognitive (thinking and memory) problems 1. Problems with judgement (eg: problems making decisions, bad financial decisions, problems with thinking). No (0) 2. Less interest in hobbies/activities. No (0) 3. Repeats the same things over and over (questions, stories, or statements). No (0) 4. Trouble learning how to use a tool, appliance, or gadget (eg: VCR, computer, microwave, remote control). No (0) 5. Forgets correct month or year. No (0) 6. Trouble handling complicated financial affairs (eg: balancing checkbook, income taxes, paying bills). No (0) 7. Trouble remembering appointments. No (0) 8. Daily problems with thinking and/or memory. No (0) TOTAL AD8: 0 - AD8 Dementia Screening Score The final score is a sum of the number items marked "Yes, A Change". 0 - 1: Normal cognition; 2 or greater: Cognitive impairments is likely to be present - further testing required Adult Annual Wellness Visit: Ericka Garcia is a 74 year old female who presents for an Adult Annual Wellness Visit. Depression Screening: Did the patient complete the screening questionnaire for Depression? Yes Is the patient's total score for Depression 15 or greater? No, no further intervention needed, unless requested by patient. Did the patient answer positively to the suicide question? No, no further intervention needed, unless requested by patient. In general, compared to other people your age, what would you say that your health is? Fair Ht Readings from Last 1 Encounters: 07/05/24 1.67 m (5' 5.75") Wt Readings from Last 1 Encounters: 07/05/24 101.5 kg (223 lb 12.8 oz) Body Mass Index: BMI Greater than 30 Body mass index is 36.4 kg/m. BP Readings from Last 1 Encounters: 07/05/24 128/84 Medical/Surgical/Family History Reviewed: Yes Past Medical History: Diagnosis Date Asthma, allergic Depressive disorder, not elsewhere classified Diabetic eye exam (HCC) 08/31/2013 normal [facility] DM2 (diabetes mellitus, type 2) ([facility]) Dyslipidemia Glaucoma both eyes Hypothyroidism Malignant neoplasm of upper-outer quadrant of female breast ([facility]) 11/24/1995 Chemo only: Dr. 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 Past Surgical History: Procedure Laterality Date APPENDECTOMY W/OTHER PROCEDURE 1991 COLONOSCOPY 08/2004 repeat in five years COLONOSCOPY, DIAGNOSTIC (RECTUM) 10/05/2014 diverticulosis, repeat 5 yrs COLONOSCOPY, DIAGNOSTIC (RECTUM) 11/03/2019 hyperplastic polyp, repeat 5 yrs/COLONOSCOPY FLEXIBLE PROXIMAL DIAGNOSTIC performed by Frandy Proctor DO at ENDOSCOPY [facility] ECHO (2-D COMPLETE) 12/15/02 possible LV diastolic dysfunction and trace pulmonic insufficiency INTRACAPSULAR LENS EXTRACTION Right 12/19/2020 right REMOVAL LENS MATERIAL INTRACAPSULAR performed by Ej Heck MD at OR [facility] IOF CT CHEST W CONTRAST 12/17/02 minimal nonspecific pleural densities MAMMOGRAM - 1 BREAST 08/04/2007 right,stable right anterior benign calcifications,ultrasound normal, birad code 2 MAMMOGRAM - 1 BREAST 10/04/08 right, birad2, benign, yearly reccm. MAMMOGRAM - BILATERAL 08/19/05 birad 2 MAMMOGRAM OUTSIDE PROCEDURE 11/01/2011 [facility] MAMMOGRAM SCREENING-BILATERAL 10.3.06 negative findings, yearly mammograms appropriate, birad code 2 MISCELLANEOUS ORDER ([facility] ONLY) 10/23/07 Excision of epidermoid cyst, right axilla - Dr. Ho PARTIAL MASTECTOMY 12/24/95. lumpectomy and mastectomy b/c margins not clear RELIEVE INNER EYE PRESSURE Left 11/30/2020 LEFT GONIOTOMY performed by Ej Heck MD at OR [facility] RELIEVE INNER EYE PRESSURE Right 12/07/2020 RIGHT GONIOTOMY performed by Ej Heck MD at OR [facility] REMOVE CATARACT, INSERT LENS PROSTH Left 11/30/2020 LEFT EXTRACAPSULAR CATARACT REMOVAL WITH INTRAOCULAR LENS performed by Ej Heck MD at [facility] REMOVE CATARACT, INSERT LENS PROSTH Right 12/07/2020 RIGHT EXTRACAPSULAR CATARACT REMOVAL WITH INTRAOCULAR LENS performed by Ej Heck MD at OR [facility] REVISION OF BREAST RECONSTRUCTION 1997, 2000 adjustment of resconstruction TOTAL ABD HYSTERECTOMY W/WO REMOVAL OF TUBE(S) 1991 left overy not removed VAGINAL HYSTERECTOMY Hysterectomy, Vaginal, 1991, Right ovary also removed Family History Problem Relation Name Age of Onset Hypertension Mother Arthritis Mother Heart Disorder Mother [place] x2 Thyroid Disorder Mother hypothyroidism Hypertension Father Heart Disorder Father fatal [place] age 64 Thyroid Disorder Sister hypothyroidism Heart Disorder Brother A.fib Heart Disorder Brother A.fib Hypertension Brother [place] related health issues Cancer Grandmother (Maternal) liver No Past Hx Daughter No Past Hx Son Has patient ever had cancer? History of cancer, type: right upper lobe and brest and location: RUL lung and left brest Social History Tobacco Use Smoking status: Never Passive exposure: Never Smokeless tobacco: Never Tobacco comments: no passive smoke Substance Use Topics Alcohol use: No Vaping/E-Cigarette Use Vaping/E-Cigarette Use Never User Vaping/E-Cigarette Substances Vaping/E-Cigarette Devices Tobacco/Alcohol screening completed today? Yes Hospital Care: Admissions (within the last year): Hospital, Location: [facility] Date of Admission: 05/18/24-05/21/2024 and [facility] 11/06/2023-11/08/2023 ER within 30 days: No Does the patient have an Advance Directives/Living Will? Yes Last Physical Exam: Last physical exam: 05/25/2024 Does patient see primary provider regularly? Yes Does patient see other providers? Yes, Specialist Patient Care Team updated? Yes Review of patient's allergies indicates: Allergen Reactions Chlorhexidine Rash Iodinated Contrast Media Anaphylaxis Cephalexin Itching itchy Adhesive Tape Rash Amoxicillin sob, itching Canagliflozin Itching Eyes swelling Codeine Psych complications Erythromycin Stomach upset, RASH Glipizide Conjunctivitis Glyburide Itching SOB Latex Rash Lisinopril Itching Macrolides And Ketolides Methadone Morphine And Codeine SOB, mental confusion Oxycodone Percodan Nausea, irritable Propoxyphene Napsylate rigoberto rash Sulfa Antibiotics Eye swelling, itching Immunization History Administered Date(s) Administered HEP A - Hepatitis A (Adult > 18 yrs) 10/26/2018, 04/29/2019 Pneumococcal Conjugate Vaccine, 20-valent ([id number]) 02/07/2023 Pneumococcal Polysaccharide PPV23 (Pneumovax) 06/28/1999 Seasonal Influenza, Split, IIV3, With Preserve, Inj 10/30/2001, 10/01/2002, 09/06/2003, 09/23/2005,09/18/2006, 08/31/2007, 09/19/2008, 09/11/2010, 08/24/2011, 09/03/2012, 07/25/2013, 09/02/2014 TD - Tetanus/Diptheria (ADULT) 11/22/1997, 10/29/2018 TDAP, Age 7 and older, IM (Adacel) 05/09/2008 Current Outpatient Medications Medication Sig Dispense Refill Calcium Carb-Cholecalciferol 500-200 MG-UNIT Oral Tablet Take 1 Tablet by mouth every evening. On Friday, Friday, and friday CPAP every night at bedtime. Centrum Silver 50+Women Oral Tablet Take 1 Tablet by mouth every evening. Vitamin D (Cholecalciferol) 25 MCG (1000 UT) Oral Tablet Take 1 Tablet by mouth every evening. Acetaminophen 500 MG Oral Tablet Take 1 Tablet by mouth every 6 hours as needed. Ventolin HFA 108 (90 Base) MCG/ACT Inhalation Aerosol Solution Inhale 2 Puffs by mouth every 8 hours as needed for Wheezing or Shortness of Breath. 18 g 3 Atorvastatin Calcium 10 MG Oral Tablet (Lipitor) Take 1 Tablet by mouth in the morning. 100 Tablet 3 Citalopram Hydrobromide 40 MG Oral Tablet (CeleXA) Take 1 Tablet by mouth in the morning. 100 Tablet 3 Fluticasone Propionate 50 MCG/ACT Nasal Suspension (Flonase) Administer 2 Sprays into each nostril in the morning. 48 g 3 metFORMIN HCl ER 500 MG Oral Tablet Extended Release 24 Hour (Glucophage XR) Take 1 tablet by mouthin the morning and 2 tablets in the evening 300 Tablet 3 Lantus SoloStar 100 UNIT/ML Subcutaneous Solution Pen-injector Inject 24 Units under the skin in the morning. (Patient taking differently: Inject 24 Units under the skin daily before dinner.) 30 mL 2 Losartan Potassium 100 MG Oral Tablet (Cozaar) Take 1 Tablet by mouth in the morning. 100 Tablet 1 Levothyroxine Sodium 175 MCG Oral Tablet (Levoxyl) Take 1 Tablet by mouth daily first thing in the morning. Magnesium 200 MG Oral Tablet Take 2 Tablets by mouth every evening. Folic Acid 1 MG Oral Tablet Take 1 Tablet by mouth every evening. Ondansetron 8 MG Oral Tablet Disintegrating (Zofran) Place 1 Tablet on tongue every 8 hours as needed for Nausea. Insulin Aspart FlexPen 100 UNIT/ML Subcutaneous Solution Pen-injector Max Daily Dose: 25 units; Inject 10 units with breakfast, 5 units with lunch, and 10 units with dinner 30 mL 3 Keytruda 100 MG/4ML Intravenous Solution (Pembrolizumab) Administer 2 mg/kg intravenously once. FreeStyle Darnell 3 Sensor Use as directed. Change every 14 days OneTouch Verio In Vitro Strip Use as directed to test blood sugars Pen [place] 32G X 5 MM Use 4 times daily as directed Aspirin 81 MG Oral Tablet Chewable Take 1 Tablet by mouth in the morning. with food.. (Patient not taking: Reported on 05/24/2024) Docusate Sodium 100 MG Oral Capsule (Colace) Take 1 Capsule by mouth as needed for Constipation. (Patient not taking: Reported on 07/05/2024) No current facility-administered medications for this visit. 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 Yes Patient takes medications as prescribed? Yes Patient manages own medications: Yes Patient uses a pill box? Yes, refill(s) completed by self Dental Exam: Yes: Every 6 Months Eye Screening: Yes: Every 3-4 months Are you having trouble with hearing? No Do you use an assistive device to help your hearing? No Exercise Screening: only the exercise associated with activities at work Nutrition Assessment: Eats a balanced diet and Eats three meals a day Pain Screening: Are you having any pain? No Sleep Screening Tool 'STOP': Do you snore? Yes Do you feel fatigued during the day? Yes Do you wake up feeling like you haven't slept? Yes Have you been told you stop breathing at night? Yes Do you gasp for air or choke while sleeping? No Have you been told you have Sleep Apnea? Yes Do you have high blood pressure or are on medication(s) to control high blood pressure? Yes SCORE: If you check YES to two or more questions, make a referral for Obstructive Sleep Apnea Pt diagnosed with sleep apnea and uses c-pap nightly Patient and Caregiver Support System: Patient lives with a spouse Means of Transportation: Drives. Not a concern. Patient lives in One Story - with basement stairs: 9 steps-has hand rails Community Resources: Not Applicable Functional Status and ADL Skills: Has patient ever had an amputation? No Functional Assessment: 80- Normal activity with effort: some symptoms of disease Ambulation: Patient ambulates without assistive device. Cane-on occasion Dressing: Gets clothes and dresses without any assistance: Independent Able to move freely in chair or bed including turning over: Independent Repositioning (bed or chair): Not applicable Transfers: Independent Toileting: Goes to bathroom, uses toilet, arranges clothes and returns without any assistance: Independent Toileting: continent of bladder and continent of bowel-leakage of bladder Feeding: Self Bathing: Self; shower inside tub, has hand rails,textured floor in tub, steps out onto a mat Requires none assistance with ADLs. Instrumental ADL's: Shopping: Moderate Assistance Housekeeping: Independent Handling Finances: Independent DME Vendor Name: [employer] for c-pap supplies Fall Risk Assessment: Can the patient demonstrate that she can stand from a sitting position? Yes Has the patient had a fall within the last 6 months? No Does the patient have a problem with her gait or balance? Yes Does the patient take 4 or more prescription medicines? Yes Does the patient use sedatives or narcotics? No Fall Risk Factors Present: Uses more than 4 medications Balance or gait disturbances Older than age 70 Jst-Gr-doo-Go Test: Time began at 11:00. Patient stood from sitting position and walked approximately 10 feet, returnedand sat down. Total time for vfg-hh-sou-go test was 10.25 seconds. Nll-Wu-jmt-Go Test completed? Yes Gender Specific Preventative Plan: Health Maintenance Topic Date Due COVID-19 Vaccine (1) Never done Zoster Vaccines (1 of 2) Never done Albumin/Creatinine Ratio 04/22/2024 HbA1c 07/28/2024 Influenza Vaccine (FLU shot) (1) 07/25/2024 Colorectal Cancer Screening 11/03/2024 Diabetic Foot Exam 01/22/2025 Diabetic Eye Exam 03/08/2025 TSH 03/29/2025 Mammogram 05/06/2025 GFR 05/25/2025 Depression Monitoring 07/05/2025 Adult Wellness Visit 07/05/2025 Lipid Panel 04/22/2028 DTaP,Tdap,and Td Vaccines (3 - Td or Tdap) 10/29/2028 DXA Scan 12/31/2028 Pneumococcal Vaccine: 65+ Years Completed Hepatitis B Vaccine Aged Out MENINGOCOCCAL (MENACTRA/MENVEO) Aged Out HPV (Gardasil) Vaccine Aged Out RETIRED - COLONOSCOPY-EVERY 5 YRS AGES 18-100 Discontinued Follow Up/ Referrals/Handouts: No further action needed Routine general medical examination at a health care facility (Primary) Patient has been verbally educated on the need or importance of Immunizations: covid, RSV, Shinglesand Urine Microalbumin and has declined topic(s). Pt will consider getting her vaccines once she is done with chemo/Keytruda treatments Pt will do albumin/creatinine ratio next week with her blood work she needs prior to her next treatment. Pt states is off balance at times-did do a balance evaluation in the gym at [address]. Will continue to monitor. Pt states she is noticing some swelling in her face-puffy under eyes, cheeks- denies any difficulty breathing or swallowing, no swelling of tongue or throat.no swelling in hands,legs/feet. She has been taking steroids after each Keytruda treatment-has had 4 treatments so far. Spoke with Dr Scott-she feels swelling is from the frequent steroid use. Told pt could wait to be seen or she can monitor and f/u if worsening symptoms. Pt feels she will monitor and wait- will call if increasing swellingor further symptoms. Also pt had one episode of left sided chest pain about 1 month ago-was puttinga puzzle together and had sharp pain left side of chest-lasted 90 seconds and then went away-no other symptoms at the time and no further incidences-sppoke with Dr Scott-if happens again pt to come in for evaluation-pt agreeable. Anne Contreras RN documented in this encounter Miscellaneous Notes * Pt Handout (on AVS) - Anne Contreras RN - 07/05/2024 11:57 AM EDT Images from the original note were not included. [id number] Preventing Falls: Making Changes in Your Living Space Is your living space filled with hazards that could cause you to fall? Changes can make you safer. They could even save your life. Take a careful look around your home. Change what you can on your own. Hire someone or ask friends or family to help with harder tasks. Be sure to add a nonslip mat to the inside of your shower or bathtub. Always keep a nightlight on. Keep a clear path from your bed to the bathroom. Move items from higher shelves to lower ones. Remove hazards Remove things that can trip you, like throw rugs, boxes, piles of paper, or cords. Nail down rugs or carpeting if you don't want to remove them. Use slip- resistant backing. Don't store items on stairs. Keep walkways clear. Clean up spills right away. Replace glass tables with wooden ones. They're safer if you fall. Add safety devices Add handrails to both sides of stairs. Buy a raised toilet seat. Add grab bars near the toilet and in the shower. Get grabbers to help you reach things and avoid climbing. Improve lighting Add nightlights to halls, bedrooms, and bathrooms. Put light switches at the top and bottom of stairs. Be sure each room and flight of stairs has proper lighting. Use shades or curtains to cut glare from windows. Put flashlights in each room. Replace burned-out bulbs. Get glowing light switches for room entrances. Take other precautions Use nonskid floor wax. Buy a nonslip mat and a liquid soap dispenser for the shower. Put most-used items within easy reach. Add bright paint or tape on the top front edge of steps. Save big jobs, such as moving furniture or other heavy objects, for family or friends. Get professional help installing grab bars. They can be unsafe if not installed the right way. Fix riskier rooms first Don't tackle everything at once. Focus on one room at a time. The bathroom is a common spot for falls, so you may want to start there. Or start with a room you spend lots of time in, such as your bedroom. Make only a few changes at once. This will give you time to adjust to them. Outside safety You might arrange for these changes yourself, or you might need to talk to your building economist orhomeowners' association about them. Have loose boards on porches or damaged stairs repaired. Have rough edges, holes, or large cracks in sidewalks or driveways repaired. Remove hazards that could trip you, such as hoses or renetta. Use high-wattage light bulbs (100 [place] or greater) near outside doors and stairs. Add handrails to outside stairs. Have them extend beyond the bottom step. Get help in winter weather with ice or snow removal. Last Reviewed Date: 10/24/202219997245-5316 [employer]. All rights reserved. This information is not intended as a substitute for professional medical care. Always follow your healthcare professional's instructions. * Pt Handout (on AVS) - Anne Contreras RN - 07/05/2024 11:57 AM EDT [id number] Fall Prevention Falls often take place due to slipping, tripping, or losing your balance. Millions of people fall every year and injure themselves. Among older adults in the [place] falls are the most common cause of traumatic brain injuries. Every 20 minutes, an older adult dies from a fall. Here are ways to reduceyour risk of falling again: Think about your fall. Was there anything that caused your fall that can be fixed, removed, or replaced? Make your home safe by keeping walkways clear of objects you may trip over, such as electrical cords. Use nonslip pads under rugs. Don't use area rugs or small throw rugs. Use nonslip mats in bathtubs and showers. Hang grab rails by the toilet and inside and outside the shower. Install handrails and lights on staircases. The handrails should be on both sides of the stairs. Use night lights. Don't walk in poorly lit areas. Don't stand on chairs or wobbly ladders. Use care when reaching overhead or looking up. This position can cause a loss of balance. Be sure your shoes fit well, are in good condition, and have nonslip bottoms. Wear shoes both inside and outside of your home. Don't go barefoot or wear slippers. Be cautious when going up and down stairs, curbs, and when walking on uneven sidewalks. If your balance is poor, consider using a cane or walker. Talk with your healthcare provider about having a balance assessment. If your fall was related to alcohol use, stop or limit alcohol intake. Ask your provider for help if you think you may overuse alcohol and can't stop. If your fall was related to use of sleeping medicines, talk with your provider about this. You may need to reduce your dosage at bedtime if you wake up during the night to go to the bathroom. To reduce the need for nighttime bathroom trips: o Don't drink fluids for several hours before going to bed o Empty your bladder before going to bed o Men can keep a urinal at the bedside Stay as active as you can. Balance, flexibility, strength, and endurance all come from exercise.They all play a role in preventing falls. Ask your provider which types of activity are right for you. Try to do some type of exercise every day. Get your eyes checked once a year or more often if your vision changes If you have pets, know where they are before you stand up or walk so you don't trip over them. Go over all your medicines with a pharmacist or other provider. This is to see if any of them could make you more likely to fall. Have this type of medicine review at least once every year. If your provider advises a new medicine, ask if the side effects will affect your balance. Don't move quickly from one position to another. For instance, don't stand up fast from sitting.This can cause dizziness and may lead to a fall. Sit down when putting on pants, socks, and shoes. This will make you less likely to lose your balance and fall. Always let your provider know if you have fallen since your last visit. Contact your provider right away if you're having balance problems or falling more often. Last Reviewed Date: 11/24/202119999179-8933 [employer]. All rights reserved. This information is not intended as a substitute for professional medical care. Always follow your healthcare professional's instructions. documented in this encounter Plan of Treatment Upcoming Encounters Date Type Department Care Team (Latest Contact Info) Description 08/10/2024 2:30 PM EDT Hospital Encounter ENDO [facility], Endoscopy Room [facility] [address] [place] [phone] Keenan Caldera MD [address] [place] [address] 08/10/2024 2:30 PM EDT - 08/10/2024 3:00 PM EDT Surgery ENDO [facility], Endoscopy Room [facility] [address] [place] [phone] Keenan Caldera MD [address] [place] [address] COLONOSCOPY FLEXIBLE PROXIMAL DIAGNOSTIC 08/17/2024 11:00 AM EDT Office Visit Family Practice [address] [place] [address] [place] [phone] Clemencia Scott DO [address] [place] [address] Scheduled Procedures Name Priority Associated Diagnoses Date/Ti me COLONOSCOPY FLEXIBLE PROXIMAL DIAGNOSTIC Recall Hematochezia Stool culture positive for Clostridioides difficile History of colonic polyps 08/10/2024 2:30 PM EDT Health Maintenance Due Date Last Done Comments Cologuard 1997 Sigmoidoscopy 1997 Fecal Occult Blood Test 08/15/2008 08/15/2007, 05/04 Albumin/Creatinine Ratio 04/22/2024 023, 11/14/2022, 02/14/2016, Additional history exists Zoster Vaccines (1 of 2) 07/06/2024 Pos tponed from 1971 (Patient Declined After Education) Influenza Vaccine (FLU shot) (#1) 2024 09/02/2014, 07/25/2013, 09/03/2012, Additional history exists HbA1c 07/28/2024 01/26/2024, 05/25, 04/22/2023, Additional history exists COVID-19 Vaccine (#1) 08/05/2024 Postpo kiesha from 1955 (Unavailable) Colonoscopy 11/03/2024 11/03/2019, 10/24, 10/05/2014, Additional history exists Colorectal Cancer Screening 11/03/2024 Diabetic Foot Exam 01/22/2025 01/23/2024, 0 02/07/2023, 11/22/2015, Additional history exists Diabetic Eye Exam 03/08/2025 03/08/2024, , 03/04/2023, Additional history exists TSH 03/29/2025 03/29/2024, 07/25, 06/18/2023, Additional history exists Mammogram 05/06/2025 05/06/2024, 04/24, 05/01/2023, Additional history exists GFR 05/25/2025 05/25/2024, 04/2024, 12/17/2023, Additional history exists Adult Wellness Visit 07/05/2025 07/05/2024, 07/03/20 23 Depression Monitoring 07/05/2025 07/05/2024 Lipid Panel 04/22/2028 04/22/2023, 10/0 04/2022, 03/21/2015, Additional history exists DTaP,Tdap,and Td Vaccines (3 - Td or Tdap) 10/29/2028 10/29/2018, 05/09/2008, 11/22/1997 DXA Scan 12/31/2028 12/31/2021, 08/24, 09/03/2005, Additional history exists RETIRED - COLONOSCOPY-EVERY 5 YRS AGES 18-100 Discontinued 11/03/2019, 11/03/2019, 10/05/2014, Additional history exists Pneumococcal Vaccine: 65+ Years Completed 02/07/2023, 06/28/1999 HPV (Gardasil) Vaccine Aged Out No lo nger eligible based on patient's age to complete this topic Hepatitis B Vaccine Aged Out No longe r eligible based on patient's age to complete this topic MENINGOCOCCAL (MENACTRA/MENVEO) Aged Out No longer eligible based on patient's age to complete this topic documented as of this encounter Medical Devices Implanted 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 [employer] Device Identifier Shelf Expiration Date Model / Serial / Lot Lens Intraoc 19.0 - [id number] - [id number] Implanted:Qty: 1 on 11/30/2020 by Ej Heck MD at OR [facility] Left: Eye [employer] 02/21/2025 [id number] / [id number] / Lens Intraoc 19.0 - [id number] - [id number] Implanted:Qty: 1 on 12/07/2020 by Ej Heck MD at OR [facility] Right: Eye [employer] 05/23/2025 [id number] / [id number] / documented as of this encounter Visit Diagnoses Diagnosis Routine general medical examination at a health care facility- Primary Hematochezia Blood in stool Stool culture positive for Clostridioides difficile History of colonic polyps Personal history of colonic polyps documented in this encounter Advance Directives Documents on File Type Date Recorded 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
--- OUTSIDE RECORDS SUMMARY | 2024-07-06 16:45 | External Medical Summary ---
Author Name Unknown Address Unknown Organization [id number]:LABORATORY [facility] - [address] [facility] [id number] Laboratory Report Ordering Provider Test Date Status JERO JAEGER 07/01/2024 13:39:50 Final Observation Date Value Abnormality Reference (Units ) Status RBC, Urine 07/01/2024 13:39:50 0-2 0-2 (/HPF) Final WBC, Urine 07/01/2024 13:39:50 0-2 0-2 (/HPF) Final Bacteria [#/area] in Urine sediment by Microscopy high power field 07/01/2024 13:39:50 0-25 0-25 (/HPF) Final Performing Location LABORATORY [facility] - [address] [place] [id number]
--- OUTSIDE RECORDS SUMMARY | 2024-07-06 16:45 | External Medical Summary | Summary of Care ---
Author Name Unknown Organization [facility] Address [address] [place] [address] Phone [phone] Care Team Providers Care Allergist/Md Name Role Phone Clemencia Scott DO Primary Care Provider [phone] Encounter Details Date Type Department Care Team (Late st Contact Info) Description 06/14/2024 11:00 AM EDT Scheduled Telephone Care Coordination and Integration [address] [place] [address] Shazia Yuan, Community Health Wide Area Network Engineer [address] [place] [address] Allergies Active Allergy Reactions Criticality Noted Date [...] 04/12/1999 Nausea, irritable Propoxyphene Napsylate 04/12/1999 shaky, rash Sulfa Antibiotics 10/30/2015 Eye swelling, itching documented as of this encounter (statuses as of 06/14/2024) Medications Medication Sig Dispensed Refills Start Date [...] to test blood sugars 3 Active Pen [place] 32G X 5 MMIndications:diab etes Use 4 [...] mouth every 6 hours as needed. Active NovoLOG FlexPen 100 UNIT/ML Subcutaneous Solution Pen-injector INJECT 10 UNITS UNDER THE SKIN THREE TIMES A DAY BEFORE MEALS 30 mL 3 3 07/26/20 24 Active Ventolin HFA 108 (90 Base) MCG/ACT [...] hours as needed for Nausea. 4 Active documented as of this encounter (statuses as of 06/14/2024) Active Problems Problem Noted Date Diagnosed Date [...] as of this encounter (statuses as of 06/14/2024) Resolved Problems Problem Noted Date Diagnosed Date [...] as of this encounter (statuses as of 06/14/2024) Immunizations Name Administration Dates Next Due HEP A - Hepatitis A (Adult > 18 yrs) 04/29/2019, 10/26/2018 Pneumococcal Conjugate Vacci ne, 20-valent ([id number]) 02/07/2023 Pneumococcal Polysaccharide PPV23 (Pneumovax) 06/28/1999 Seasonal [...] on file documented as of this encounter Progress Notes * Shazia Yuan, Community Health Wide Area Network Engineer - 06/14/2024 11:47 AM EDT Telemedicine visit: No Community Health Wide Area Network Engineer (DARRION) documentation: CHW placed PC to patient per CM's request Patient reported that she is having a little more energy today since her infusion. No diarrhea or blood in stools. Her appetite is good as well. Her breathing is about the same, still gets short of breath after showering or exerting herself but she feels okay. Is still having some nausea but no vomi ting. Shazia Yuan- Community Health Worker 1 Support Services/[facility] [employer] [facility] [email or web address] documented in this encounter Plan of Treatment Upcoming Encounters Date Type Department Care Team (Latest Contact Info) Description 07/05/2024 11:00 AM EDT Nurse Only Ancillary 65 [facility] 293 [facility], [place] [address] College, Nurse Annual Wellness Visit 65 [facility] [address] 08/10/2024 2:30 PM EDT Hospital Encounter ENDO [facility], Endoscopy Room [facility] [address] [place] [phone] Keenan Caldera MD [address] [place] [address] 08/10/2024 2:30 PM EDT - 08/10/2024 3:00 PM EDT Surgery ENDO [facility], Endoscopy Room [facility] [address] [place] [phone] Keenan Caldera MD [address] [place] [address] COLONOSCOPY FLEXIBLE PROXIMAL DIAGNOSTIC 08/17/2024 11:00 AM EDT Office Visit Family Practice [address] [place] 293 [place] [address] Clemencia Scott, 293 [place] [address] Scheduled Procedures Name Priority Associated Diagnoses Date/Ti me COLONOSCOPY FLEXIBLE PROXIMAL DIAGNOSTIC Recall Hematochezia Stool culture positive for Clostridioides difficile History of colonic polyps 08/10/2024 2:30 PM EDT Health Maintenance Due Date Last Done Comments COVID-19 Vaccine (#1) 1957 Zoster Vaccines (1 of 2) 1971 Cologuard 1997 Sigmoidoscopy 1997 Fecal Occult Blood Test 08/15/2008 08/15/2007, 05/04 Albumin/Creatinine Ratio 04/22/2024 023, 11/14/2022, 02/14/2016, Additional history exists Influenza Vaccine (FLU shot) (#1) 2024 09/02/2014, 07/25/2013, 09/03/2012, Additional history exists HbA1c 07/28/2024 01/26/2024, 05/25, 04/22/2023, Additional history exists Colonoscopy 11/03/2024 11/03/2019, 10/24, 10/05/2014, Additional history exists Colorectal Cancer Screening 11/03/2024 Depression Monitoring 12/01/2024 12/01/2023 Diabetic Foot Exam 01/22/2025 01/23/2024, 0 02/07/2023, 11/22/2015, Additional history exists Diabetic Eye Exam 03/08/2025 03/08/2024, , 03/04/2023, Additional history exists TSH 03/29/2025 03/29/2024, 07/25, 06/18/2023, Additional history exists Mammogram 05/06/2025 05/06/2024, 04/24, 05/01/2023, Additional history exists GFR 05/25/2025 05/25/2024, 04/2024, 12/17/2023, Additional history exists Lipid Panel 04/22/2028 04/22/2023, 04/2022, 03/21/2015, Additional history exists DTaP,Tdap,and Td [...] this encounter Medical Devices Implanted Type Area Station Repairer Device Identifier Shelf Expiration Date Model / Serial / Lot Lens Intraoc 19.0 - [id number] - [id number] Implanted:Qty: 1 on 11/30/2020 by Ej Heck MD at OR [facility] Left: Eye BAUSCH & LOMB 02/21/2025 [id number] / [id number] / Lens Intraoc 19.0 - [id number] - [id number] Implanted:Qty: 1 on 12/07/2020 by Ej Heck MD at OR [facility] Right: Eye BAUSCH & LOMB 05/23/2025 [id number] / [id number] / documented as of this encounter Advance Directives Documents on File Type Date Recorded Patient Product Development Consultant Expl anation Power of Box Icer 11/25/2022 POWER OF A TTORNEY Healthcare Agents on File Name Relationship Healthcare Agent Relationshi p Communication Incoente Radha Spouse First Alternate Health Care Agent (per Health Care Power of Box Icer document) Care Teams Allergist/Md Relationship Specialty Start Date End Date Clemencia Scott DO [address] [place] [address], [place] [address] PCP - General Family Medicine 05/24/24 documented as of this encounter
--- OUTSIDE RECORDS SUMMARY | 2024-07-06 16:45 | External Medical Summary ---
Author Name Unknown Address Unknown Organization : Laboratory Report Ordering Provider Test Date Status NURSE,[facility] 07/01/2024 13:25:00 Final Observation Date Value Abnormality Reference (Units ) Status Color of Urine by Auto 07/01/2024 13:25:00 Yellow Light Yellow, Yellow Final Clarity, Urine 07/01/2024 13:25:00 Clear Clear Final Glucose [Mass/volume] in Urine by Automated test strip 07/01/2024 13:25:00 Negative Negative (mg/dL) Final Bilirubin.total [Presence] in Urine by Automated test strip 07/01/2024 13:25:00 Negative Negative Final Ketones [Mass/volume] in Urine by Automated test strip 07/01/2024 13:25:00 Negative Negative (mg/dL) Final Specific gravity, Urine 07/01/2024 13:25:00 1.020 1.003-1.030 Final Hemoglobin [Presence] in Urine by Automated test strip 07/01/2024 13:25:00 Negative Negative Final pH, Urine 07/01/2024 13:25:00 7.5 5.0, 5.5, 6.0, 6.5, 7.0, 7.5 (units) Final Protein [Mass/volume] in Urine by Automated test strip 07/01/2024 13:25:00 Negative Negative (mg/dL) Final Urobilinogen, Urine 07/01/2024 13:25:00 0.2 0.2, 1.0 (mg/dL) Final Nitrite [Presence] in Urine by Automated test strip 07/01/2024 13:25:00 Negative Negative Final Leukocyte esterase [Presence] in Urine by Automated test strip 07/01/2024 13:25:00 Negative Negative Final Performing Location
--- OUTSIDE RECORDS SUMMARY | 2024-07-06 16:45 | External Medical Summary ---
Author Name Unknown Address Unknown Organization K01:[facility] [place] [address] [place] [facility] Laboratory Report Ordering Provider Test Date Status BERTHA JAEGERJORDYNEDUIN 07/01/2024 13:38:30 Final Observation Date Value Abnormality Reference (Units) Status Bacteria identified in Specimen by Culture 07/01/2024 13:38:30 No significant growth Final Test: Culture, Urine, Quanti tative
Specimen Source: Urine, Clean Catch
Specimen Type: Urine
Specimen Date: 07/01/2024 1338
Result Date: 07/02/2024 1610
Result Status: Final result
Resulting Lab: [facility] [place]
[address]
[place] [address]

CULTURE

No significant growth

null Performing Location [facility] [place] [address] [facility] [address]
--- OUTSIDE RECORDS SUMMARY | 2024-07-06 16:45 | External Medical Summary | Summary of Care ---
Author Name Unknown Organization [facility] Address [address] [place] [address] Phone [phone] Care Team Providers Care Milk Treater Name Role Phone Clemencia Scott DO Primary Care Provider Reason for Visit * Reason Onset Date Comments Appointment 07/01/2024 Urinary symptoms Encounter Details Date Type Department Care Team (Late st Contact Info) Description 07/01/2024 Telephone Family Practice 65 [facility] [address] [place] [phone] Clemencia Scott DO [address] [place], [place] [phone] Appointment (Urinary symptoms) Allergies Active Allergy Reactions Criticality Noted Date [...] Percodan 04/12/1999 Nausea, irritable Propoxyphene Napsylate 04/12/1999 taylor franklin Sulfa Antibiotics 10/30/2015 Eye swelling, itching documented as of this encounter (statuses as of 07/02/2024) Medications Medication Sig Dispensed Refills Start Date [...] to test blood sugars 3 Active Pen [place] 32G X 5 MMIndications:diab etes Use 4 [...] as of this encounter (statuses as of 07/02/2024) Active Problems Problem Noted Date Diagnosed Date [...] as of this encounter (statuses as of 07/02/2024) Resolved Problems Problem Noted Date Diagnosed Date [...] as of this encounter (statuses as of 07/02/2024) Immunizations Name Administration Dates Next Due HEP A - Hepatitis A (Adult > 18 yrs) 04/29/2019, 10/26/2018 Pneumococcal Conjugate Vacci ne, 20-valent ([id number]) 02/07/2023 Pneumococcal Polysaccharide PPV23 (Pneumovax) 06/28/1999 Seasonal [...] on file documented as of this encounter Miscellaneous Notes * Telephone Encounter - Anne Kim LPN - 07/02/2024 2:54 PM EDT Called, left message for patient to return call. Will await culture. * Telephone Encounter - Clemencia Scott DO - 07/02/2024 8:53 AM EDT Let pt know that the urine dip was negative. We sent a culture. Given her recent C.diff issue, we will hold off on antibiotics until we are sure there is infection on the culture. Call over the weekend with any worsening. * Telephone Encounter - Anne Kim LPN - 07/01/2024 11:58 AM EDT Please add to nurse schedule at 115 today For poc, urine culture * Telephone Encounter - Wes Pineda DO - 07/01/2024 11:51 AM EDT Check POC and urine Culture today * Telephone Encounter - Anne Kim LPN - 07/01/2024 11:43 AM EDT Is having urgency and dysuria. Thank you * Telephone Encounter - Anne Kim LPN - 07/01/2024 11:28 AM EDT Called, left message for patient to return call. Recent admission (05/18) to [facility] for bloody stools --C diff gene positive also at the time was treated for uti with keflex also was on vancyo in hospital. Can we do urine poc and culture? * Telephone Encounter - Edyta Norwood OSA - 07/01/2024 11:24 AM EDT Pt calling to request an order for urine. States she is having pressure and burning with urination. She is aware PCP is not in office and asking to drop sample off, if agreeable. She can be reached at [phone] documented in this encounter Plan of Treatment Upcoming Encounters Date Type Department Care Team (Latest Contact Info) Description 07/05/2024 11:00 AM EDT Nurse Only Ancillary 65 [facility] 293 [place] [address] College, Nurse Annual Wellness Visit [address] [place] [address] 08/10/2024 2:30 PM EDT Hospital Encounter ENDO [facility], Endoscopy Room [facility] [address] [place] [phone] Keenan Caldera MD [address] [place] [address] 08/10/2024 2:30 PM EDT - 08/10/2024 3:00 PM EDT Surgery [facility] [place] [phone] Keenan Caldera MD [address] [place] [address] COLONOSCOPY FLEXIBLE PROXIMAL DIAGNOSTIC 08/17/2024 11:00 AM EDT Office Visit Family Practice [address], [place] [address] [place] [address] Clemencia Scott, [address] [place] [address] Pending Results Name Type Priority Associated Diagnoses Date /Time CULTURE, URINE, QUANTITATIVE Lab Routine Dysuria Polyuria 07/01/2024 1:38 PM EDT Scheduled Orders Name Type Priority Associated Diagnoses Orde r Schedule URINALYSIS, POINT OF CARE (ENTER/EDIT) Point of Care Testing Routine Dysuria Polyuria Ordered: 07/01/2024 CULTURE, URINE, QUANTITATIVE Lab Routine Dysuria Polyuria Expected: 07/01/2024, Expires: 07/01/2025 Scheduled Procedures Name Priority Associated Diagnoses Date/Ti [...] 04/22/2024 023, 11/14/2022, 02/14/2016, Additional history exists Adult Wellness Visit 07/03/2024 07/03/2023 Influenza Vaccine (FLU shot) (#1) 2024 09/02/2014, [...] this encounter Medical Devices Implanted Type Area Reflector Driller And Deburrer Device Identifier Shelf Expiration Date Model / Serial / Lot Lens Intraoc 19.0 - [id number] - [id number] Implanted:Qty: 1 on 11/30/2020 by Ej Heck MD at OR [facility] Left: Eye BAUSCH & LOMB 02/21/2025 [id number] / [id number] / Lens Intraoc 19.0 - [id number] - [id number] Implanted:Qty: 1 on 12/07/2020 by Ej Heck MD at [facility] Right: Eye BAUSCH & LOMB 05/23/2025 [id number] / [id number] / documented as of this encounter Results * MICROSCOPIC EXAM, URINE (07/01/2024 1:39 PM EDT) RBC, Urine 0-2 0 - 2 /HPF 07/01/2024 11:25 PM EDT [facility] WBC, Urine 0-2 0 - 2 /HPF 07/01/2024 11:25 PM EDT [facility] Bacteria, Urine 0-25 0 - 25 /HPF 07/01/2024 11:25 PM EDT [facility] Urine Non-blood Collection / Unknown 07/01/2024 1:39 PM EDT 07/01/2024 1:39 PM EDT Clemencia Scott DO LAB URINE ORDERABLES [facility] [place] [address] [place] [address] documented in this encounter Visit Diagnoses Diagnosis Dysuria- Primary Polyuria Hematochezia Blood in stool Stool culture positive for Clostridioides difficile History of colonic polyps Personal history of colonic polyps documented in this encounter Advance Directives Documents on File Type Date Recorded 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
--- OUTSIDE RECORDS SUMMARY | 2024-07-06 16:45 | External Medical Summary | Summary of Care ---
Author Name Unknown Organization [facility] Address [address] [place] [address] Phone [phone] Care Team Providers Care Security Vehicle Patrol Officer Name Role Phone Clemencia Scott DO Primary Care Provider [phone] Reason for Visit * Reason Onset Date Comments Appointment 05/25/2024 colonoscopy Encounter Details Date Type Department Care Team (Late st Contact Info) Description 05/25/2024 Telephone Family Practice 65 [facility] [address] [place] [phone] Clemencia Scott DO [address] [place], [place] [phone] Appointment (colonoscopy) Allergies Active Allergy Reactions Criticality Noted Date [...] as of this encounter (statuses as of 06/09/2024) Medications Medication Sig Dispensed Refills Start Date [...] to test blood sugars 3 Active Pen [place] 32G X 5 MMIndications:diab etes Use 4 [...] DAY BEFORE MEALS 30 mL 3 3 024 Active Ventolin HFA 108 (90 Base) MCG/ACT [...] hours as needed for Nausea. 4 Active Cefdinir 300 MG Oral Capsule (Omnicef) Take 1 Capsule by mouth in the morning and 1 Capsule before bedtime. 4 024 Vancomycin HCl 125 MG Oral Capsule (Vancocin) Take 1 Capsule by mouth every 6 hours. 4 024 documented as of this encounter (statuses as of 06/09/2024) Active Problems Problem Noted Date Diagnosed Date [...] as of this encounter (statuses as of 06/09/2024) Resolved Problems Problem Noted Date Diagnosed Date [...] as of this encounter (statuses as of 06/09/2024) Immunizations Name Administration Dates Next Due HEP A - Hepatitis A (Adult > 18 yrs) 04/29/2019, 10/26/2018 Pneumococcal Conjugate Vacci ne, 20-valent ([id number]) 02/07/2023 Pneumococcal Polysaccharide PPV23 (Pneumovax) 06/28/1999 Seasonal Influenza, Split, I IV3, With Preserve, Inj 09/02/2014,07/25/2013,09/03/2012,08/24,09/11/2010,09/19/2008,08/31/2007 ,09/18/2006,09/23/2005,09/06/2003,06/2002,10/30/2001 TD - Tetanus/Diptheria (ADULT) 10/29/2018,1996 TDAP, Age 7 and older, IM (Adacel) [...] encounter Miscellaneous Notes * Telephone Encounter - Clemencia Scott DO - 06/09/2024 4:00 PM EDT Noted and agree. No change for now. * Telephone Encounter - Anne Kim LPN - 06/09/2024 3:56 PM EDT Colonoscopy is scheduled for 08/10. Has not had any bloody stools. States feels she is still bloated with nausea. Feels she maybe dehydrated, states she feels better today. Advised to keep scheduled appt and call if needs anyting * Telephone Encounter - Edyta Valdes OSA - 06/09/2024 3:44 PM EDT Narinder Rodríguez call * Telephone Encounter - Deyanira Palacios OSA - 06/04/2024 2:03 PM EDT Images from the original note were not included. Jose Colvin MD You; Keenan Caldera MD; Shayy Phillips MD3 hours ago (10:49 AM) If she hsa completed 10 days of Vanco, she can have cscopy. I believe this is what the IDSA says. Ok thank you! * Telephone Encounter - Deyanira Palacios OSA - 06/04/2024 10:35 AM EDT Spoke to pt as she is on cancellation list for colonoscopy for rectal bleeding. I was able to reschedule pt to 08/10/24. Pt had c diff recently, end of April beginning of May. How many weeks out do you recommend pt to wait to have colonoscopy? Pt states she is still having rectal bleeding, did have a lot the other day but not bad today. Pt is ok with seeing any provider. * Telephone Encounter - Edyta Norwood OSA - 05/25/2024 3:28 PM EDT Pt has an order for colonoscopy for hospital follow up. Pt scheduled in first avail spot they wouldgive , Oct.26 at 1:45 pm at the office. Please advise as your note stated six weeks, ok for patient to wait this long? Gastro states they will place her on a cancellation list. Asked if PCP should message gastro but was advised that October is the soonest and I could do a TE. documented in this encounter Plan of Treatment Upcoming Encounters Date Type Department Care Team (Latest Contact Info) Description 07/05/2024 11:00 AM EDT Nurse Only Ancillary [address] [place] 293 [place] [address] College, Nurse Annual Wellness Visit [address] [place] [address], [place] [address] 08/10/2024 2:30 PM EDT Hospital Encounter ENDO [facility], Endoscopy Room [facility] [address] [facility] [place] [phone] Keenan Caldera MD [address] [place] [address] 08/10/2024 2:30 PM EDT - 08/10/2024 3:00 PM EDT Surgery ENDO [facility], Endoscopy Room [facility] [address] [facility] [place] [phone] Keenan Caldera MD [address] [place] [address] COLONOSCOPY FLEXIBLE PROXIMAL DIAGNOSTIC 08/17/2024 11:00 AM EDT Office Visit Family Practice 65 [facility] 293 [facility] [place] [address] Clemencia Scott DO 293 [place] [address] Scheduled Procedures Name Priority Associated Diagnoses Date/Ti [...] Additional history exists Lipid Panel 04/22/2028 04/22/2023, 100 04/2022, 03/21/2015, Additional history exists DTaP,Tdap,and Td [...] this encounter Medical Devices Implanted Type Area Racker Octave Board Device Identifier Shelf Expiration Date Model / Serial / Lot Lens Intraoc 19.0 - [id number] - [id number] Implanted:Qty: 1 on 11/30/2020 by Ej Heck MD at OR [facility] Left: Eye BAUSCH & LOMB 02/21/2025 [id number] / [id number] / Lens Intraoc 19.0 - [id number] - [id number] Implanted:Qty: 1 on 12/07/2020 by Ej Heck MD at OR 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
--- OUTSIDE RECORDS SUMMARY | 2024-07-06 16:45 | External Medical Summary | Summary of Care ---
Author Name Unknown Organization [facility] Address [address] [place] [address] Phone [phone] Care Team Providers Care Curriculum And Instruction Specialist Name Role Phone Clemencia Scott DO Primary Care Provider Encounter Details Date Type Department Care Team (Late st Contact Info) Description 06/21/2024 10:00 AM EDT Scheduled Telephone Care Coordination and Integration [address] [place] [address] Shazia Yuan, Community Health School Teacher [address] [place] [address] Allergies Active Allergy Reactions Criticality Noted Date [...] as of this encounter (statuses as of 06/21/2024) Medications Medication Sig Dispensed Refills Start Date [...] to test blood sugars 3 Active Pen [place] 32G X 5 MMIndications:diab etes Use 4 [...] as of this encounter (statuses as of 06/21/2024) Active Problems Problem Noted Date Diagnosed Date [...] as of this encounter (statuses as of 06/21/2024) Resolved Problems Problem Noted Date Diagnosed Date [...] as of this encounter (statuses as of 06/21/2024) Immunizations Name Administration Dates Next Due HEP A - Hepatitis A (Adult > 18 yrs) 04/29/2019, 10/26/2018 Pneumococcal Conjugate Vacci ne, 20-valent ([id number]) 02/07/2023 Pneumococcal Polysaccharide PPV23 (Pneumovax) 06/28/1999 Seasonal [...] Progress Notes * Shazia Yuan, Community Health School Teacher - 06/21/2024 10:19 AM EDT Telemedicine visit: No Community Health School Teacher (DARRION) documentation: Patient returned CHW's PC from earlier Patient reported she was on the other line when CHW called her. Patient is doing really well. She did have some diarrhea today but that has seemed to pass and is fine now no bleeding. Her appetite isfine and the prednisone makes her have the munchies. Her breathing is fine. She did have a asthma attack about two weeks ago and it had been a long time up until that point that she has had an attack. She took her inhaler and was fine. None since that time. 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 No other concerns or worries. CHW encouraged patient to reach out to CM with any further concerns or questions. Shazia Yuan- Community Health Worker 1 Support Services/[facility] [employer] [facility] [email or web address] documented in this encounter Plan of Treatment Upcoming Encounters Date Type Department Care Team (Latest Contact Info) Description 07/05/2024 11:00 AM EDT Nurse Only Ancillary 65 [facility] [place] 293 [facility], [place] [address] College, Nurse Annual Wellness Visit [address] [facility] 293 [place] [address] 08/10/2024 2:30 PM EDT Hospital Encounter ENDO [facility], Endoscopy Room [facility] [address] [place] [phone] Keenan Caldera MD [address] [place] [address] 08/10/2024 2:30 PM EDT - 08/10/2024 3:00 PM EDT Surgery ENDO [facility], Endoscopy Room [facility] [address] [place] [phone] Keenan Caldera MD [address] [place] [address] COLONOSCOPY FLEXIBLE PROXIMAL DIAGNOSTIC 08/17/2024 11:00 AM EDT Office Visit Family Practice [address], [place] 293 [facility] [address] Clemencia Scott DO 293 [facility] [place] [address] Scheduled Procedures Name Priority Associated Diagnoses Date/Ti [...] this encounter Medical Devices Implanted Type Area Lath Tier Device Identifier Shelf Expiration Date Model / Serial / Lot Lens Intraoc 19.0 - [id number] - [id number] Implanted:Qty: 1 on 11/30/2020 by Ej Heck MD at OR [facility] Left: Eye BAUSCH & LOMB 02/21/2025 [id number] / [id number] / Lens Intraoc 19.0 - [id number] - [id number] Implanted:Qty: 1 on 12/07/2020 by Ej Heck MD at OR [facility] Right: Eye BAUSCH & LOMB 05/23/2025 [id number] / [id number] / documented as of this encounter Advance Directives Documents on File Type Date Recorded Patient Sanitation Tank Washer Expl anation Power of Dermatology Teacher 11/25/2022 POWER OF A TTORNEY Healthcare Agents on File Name Relationship Healthcare Agent Relationshi p Communication Inocente Radha Spouse First Alternate Health Care Agent (per Health Care Power of Dermatology Teacher document) Care Teams Curriculum And Instruction Specialist Relationship Specialty Start Date End Date Clemencia Scott DO [address] [place] [address] PCP - General Family Medicine 05/24/24 documented as of this encounter
--- OUTSIDE RECORDS SUMMARY | 2024-07-06 16:46 | External Medical Summary | Summary of Care ---
Author Name Unknown Organization [facility] Address [address] [place] [address] Phone [phone] Care Team Providers Care Rehab Office Coordinator Name Role Phone Clemencia Scott DO Primary Care Provider Reason for Visit * Reason Onset Date Comments Appointment 05/25/2024 colonoscopy Encounter Details Date Type Department Care Team (Late st Contact Info) Description 05/25/2024 Telephone Family [address] 65 [facility] 293 [place] [phone] Clemencia Scott DO 293 [place], [place] [id number] Appointment (colonoscopy) Allergies Active Allergy Reactions Criticality [...] to test blood sugars 3 Active Pen [place] 32G X 5 MMIndications:diab etes Use 4 [...] 04/29/2019, 10/26/2018 Pneumococcal Conjugate Vacci ne, 20-valent ([id number]) 02/07/2023 Pneumococcal Polysaccharide PPV23 (Pneumovax) 06/28/1999 Seasonal [...] encounter Miscellaneous Notes * Telephone Encounter - Edyta Valdes OSA - 06/09/2024 3:44 PM EDT Returning Anne call * Telephone Encounter - Deyanira Palacios [...] scheduled in first avail spot they wouldgive me, Oct.26 at 1:45 pm at the office. [...] 11:00 AM EDT Nurse Only Ancillary 65 [facility] 293 [facility] [place] [address] College, Nurse Annual Wellness Visit [address] [address] 08/10/2024 2:30 PM EDT Hospital Encounter ENDO [facility], Endoscopy Room [facility] [address] [place] [phone] Keenan Caldera MD [address] [place] [address] 08/10/2024 2:30 PM EDT - 08/10/2024 3:00 PM EDT Surgery ENDO [facility], Endoscopy Room [facility] [address] [place] [phone] Keenan Caldera MD [address] [place] [address] COLONOSCOPY FLEXIBLE PROXIMAL DIAGNOSTIC 08/17/2024 11:00 AM EDT Office Visit Family Practice [address], [place] 293 [facility] [place] [phone] Clemencia Scott, [address] [place] [address] Scheduled Procedures Name Priority Associated Diagnoses Date/Ti [...] this encounter Medical Devices Implanted Type Area Office Machine Mechanic Device Identifier Shelf Expiration Date Model / Serial / Lot Lens Intraoc 19.0 - [id number] - [id number] Implanted:Qty: 1 on 11/30/2020 by Ej Heck MD at OR [facility] Left: Eye BAUSCH & LOMB 02/21/2025 [id number] / [id number] / Lens Intraoc 19.0 - [id number] - [id number] Implanted:Qty: 1 on 12/07/2020 by Ej Heck MD at OR [facility] Right: Eye BAUSCH & LOMB 05/23/2025 [id number] / [id number] / documented as of this encounter Advance Directives Documents on File Type Date Recorded Patient Personal Support Worker Expl anation Power of Shellfish Checker 11/25/2022 POWER OF A TTORNEY Healthcare Agents on File Name Relationship Healthcare Agent Relationshi p Communication Inocente Garcia Spouse First Alternate Health Care Agent (per Health Care Power of Shellfish Checker document) Care Teams Rehab Office Coordinator Relationship Specialty Start Date End Date Clemencia Scott DO [address] [place] [place] [address] PCP - General Family Medicine 05/24/24 documented as of this encounter
--- OUTSIDE RECORDS SUMMARY | 2024-07-06 16:46 | External Medical Summary | Summary of Care ---
Author Name Unknown Organization [facility] Address [address] [place] [address] Phone [phone] Care Team Providers Care Senior Dot Net Developer Name Role Phone Clemencia Scott DO Primary Care Provider Reason for Visit * Reason Onset Date Comments Appointment 05/25/2024 colonoscopy Encounter Details Date Type Department Care Team (Late st Contact Info) Description 05/25/2024 Telephone Family Practice 65 [facility] 293 [place] [phone] Clemencia Scott DO 293 [place], [place] [phone] Appointment (colonoscopy) Allergies Active Allergy Reactions Criticality [...] to test blood sugars 3 Active Pen [place] 32G X 5 MMIndications:diab etes Use 4 [...] 04/29/2019, 10/26/2018 Pneumococcal Conjugate Vacci ne, 20-valent ([id number]) 02/07/2023 Pneumococcal Polysaccharide PPV23 (Pneumovax) 06/28/1999 Seasonal [...] 11:00 AM EDT Nurse Only Ancillary 65 [facility] 293 [place] [address] College, Nurse Annual Wellness Visit [address] [facility] 293 [facility], [place] [address] 08/10/2024 2:30 PM EDT Hospital Encounter [facility]O [facility], Endoscopy Room [facility] 132 [facility] [place] [phone] Keenan Caldera MD [address] [place] [address] 08/10/2024 2:30 PM EDT - 08/10/2024 3:00 PM EDT Surgery [facility], Endoscopy Room [facility] [address] [place] [phone] Keenan Caldera MD [address] [place] [address] COLONOSCOPY FLEXIBLE PROXIMAL DIAGNOSTIC 08/17/2024 11:00 AM EDT Office Visit Family Practice [address], [place] 293 [place] [address] Clemencia Scott DO [address] [place] [address] Scheduled Procedures Name Priority Associated Diagnoses Date/Ti [...] this encounter Medical Devices Implanted Type Area Educator Senior Clinical Device Identifier Shelf Expiration Date Model / Serial / Lot Lens Intraoc 19.0 - [id number] - [id number] Implanted:Qty: 1 on 11/30/2020 by Ej Heck MD at OR [facility] Left: Eye BAUSCH & LOMB 02/21/2025 [id number] / [id number] / Lens Intraoc 19.0 - [id number] - [id number] Implanted:Qty: 1 on 12/07/2020 by Ej Heck MD at OR [facility] Right: Eye BAUSCH & LOMB 05/23/2025 [id number] / [id number] / documented as of this encounter Advance Directives Documents on File Type Date Recorded Patient Corduroy Cutter Operator Expl anation Power of Aircraft Mechanic Electrical And Radio 11/25/2022 POWER OF A TTORNEY Healthcare Agents on File Name Relationship Healthcare Agent Relationshi p Communication Inocente Radha Spouse First Alternate Health Care Agent (per Health Care Power of Aircraft Mechanic Electrical And Radio document) Care Teams Senior Dot Net Developer Relationship Specialty Start Date End Date Clemencia Scott DO [address] [place] [address] PCP - General Family Medicine 05/24/24 documented as of this encounter
--- OUTSIDE RECORDS SUMMARY | 2024-07-06 16:46 | External Medical Summary | Summary of Care ---
Author Name Unknown Organization [facility] Address [address] [place] [address] Phone [phone] Care Team Providers Care Shipping Inspector Name Role Phone Clemencia Scott DO Primary Care Provider Reason for Visit * Reason Onset Date Comments Appointment 05/25/2024 colonoscopy Encounter Details Date Type Department Care Team (Late st Contact Info) Description 05/25/2024 Telephone Family Practice 65 [facility] 293 [place] [phone] Clemencia Scott DO 293 [place], [place] [phone] Appointment (colonoscopy) Allergies Active Allergy Reactions Criticality [...] to test blood sugars 3 Active Pen [place] 32G X 5 MMIndications:diab etes Use 4 [...] 04/29/2019, 10/26/2018 Pneumococcal Conjugate Vacci ne, 20-valent ([id number]) 02/07/2023 Pneumococcal Polysaccharide PPV23 (Pneumovax) 06/28/1999 Seasonal [...] 11:00 AM EDT Nurse Only Ancillary 65 [facility] 293 [place] [address] College, Nurse Annual Wellness Visit [address] [address] 08/10/2024 2:30 PM EDT Hospital Encounter ENDO [facility], Endoscopy Room [facility] [address] [place] [phone] Keenan Caldera MD [address] [place] [address] 08/10/2024 2:30 PM EDT - 08/10/2024 3:00 PM EDT Surgery ENDO [facility], Endoscopy Room [facility] [address] [place] [phone] Keenan Caldera MD [address] [place] [address] COLONOSCOPY FLEXIBLE PROXIMAL DIAGNOSTIC 08/17/2024 11:00 AM EDT Office Visit Family Practice [address], [place] 293 [place] [phone] Clemencia Scott, [address] [place] [address] Scheduled Procedures Name Priority Associated Diagnoses Date/Ti [...] this encounter Medical Devices Implanted Type Area Finishing Powder Press Operator Device Identifier Shelf Expiration Date Model / Serial / Lot Lens Intraoc 19.0 - [id number] - [id number] Implanted:Qty: 1 on 11/30/2020 by Ej Heck MD at OR [facility] Left: Eye BAUSCH & LOMB 02/21/2025 [id number] / [id number] / Lens Intraoc 19.0 - [id number] - [id number] Implanted:Qty: 1 on 12/07/2020 by Ej Heck MD at OR [facility] Right: Eye BAUSCH & LOMB 05/23/2025 [id number] / [id number] / documented as of this encounter Advance Directives Documents on File Type Date Recorded Patient Commercial Loan Assistant Expl anation Power of Owner [employer] 11/25/2022 POWER OF A TTORNEY Healthcare Agents on File Name Relationship Healthcare Agent Relationshi p Communication Inocente Garcia Spouse First Alternate Health Care Agent (per Health Care Power of Owner [employer] document) Care Teams Shipping Inspector Relationship Specialty Start Date End Date Clemencia Scott DO 293 [place] [address] PCP - General Family Medicine 05/24/24 documented as of this encounter
--- OUTSIDE RECORDS SUMMARY | 2024-07-06 16:47 | External Medical Summary | Summary of Care ---
Author Name Unknown Organization [facility] Address [address] [place] [address] Phone [phone] Care Team Providers Care Machine Made Shoe Unit Worker Name Role Phone Clemencia Scott DO Primary Care Provider Encounter Details Date Type Department Care Team (Late st Contact Info) Description 06/07/2024 1:15 PM EDT Scheduled Telephone Care Coordination and Integration [address] [place] [address] Shazia Yuan, Community Health Sales Representative Publications [address] [place] [address] Allergies Active Allergy Reactions Criticality Noted Date [...] as of this encounter (statuses as of 06/07/2024) Medications Medication Sig Dispensed Refills Start Date [...] to test blood sugars 3 Active Pen [place] 32G X 5 MMIndications:diab etes Use 4 [...] as of this encounter (statuses as of 06/07/2024) Active Problems Problem Noted Date Diagnosed Date [...] as of this encounter (statuses as of 06/07/2024) Resolved Problems Problem Noted Date Diagnosed Date [...] as of this encounter (statuses as of 06/07/2024) Immunizations Name Administration Dates Next Due HEP A - Hepatitis A (Adult > 18 yrs) 04/29/2019, 10/26/2018 Pneumococcal Conjugate Vacci ne, 20-valent ([id number]) 02/07/2023 Pneumococcal Polysaccharide PPV23 (Pneumovax) 06/28/1999 Seasonal [...] Progress Notes * Shazia Yuan, Community Health Sales Representative Publications - 06/07/2024 1:44 PM EDT Telemedicine visit: No Community Health Sales Representative Publications (DARRION) documentation: CHW placed #2 f/u call to patient Patient is doing her best to stay cool and stay hydrated. She is sitting in a AC room and is staying in that room instead of the rest of the house. Her appetite is not the best just because she does not like to eat a lot in the heat. She drinks more than eats. Is not having any diarrhea or bleedingin her stools, and her breathing is okay. CHW encouraged patient to reach out to CM with any concerns or questions. Shazia Yuan- Community Health Worker 1 Support Services/[facility] [email or web address] Electronically signed by Shazia Yuan, Community Health Sales Representative Publications at 06/07/2024 2:18 PM EDT documented in this encounter Plan of Treatment Upcoming Encounters Date Type Department Care Team (Latest Contact Info) Description 07/05/2024 11:00 AM EDT Nurse Only Ancillary [address], [place] 293 [facility] [place] [address] [place], Nurse Annual Wellness Visit [address] [facility] 293 [facility] [place] [address] 08/10/2024 2:30 PM EDT Hospital Encounter [facility]O [facility], Endoscopy Room [facility] [address] [place] [phone] Keenan Caldera MD [address] [place] [address] 08/10/2024 2:30 PM EDT - 08/10/2024 3:00 PM EDT Surgery [facility]O [facility], Endoscopy Room [facility] [address] [place] [phone] Keenan Caldera MD [address] [place] [address] COLONOSCOPY FLEXIBLE PROXIMAL DIAGNOSTIC 08/17/2024 11:00 AM EDT Office Visit Family Practice [address], [place] 293 [facility] [place] [phone] Clemencia Scott DO 293 [place] [address] Scheduled Procedures Name Priority Associated Diagnoses Date/Ti [...] this encounter Medical Devices Implanted Type Area [employer] Worker Device Identifier Shelf Expiration Date Model / Serial / Lot Lens Intraoc 19.0 - [id number] - [id number] Implanted:Qty: 1 on 11/30/2020 by Ej Heck MD at OR [facility] Left: Eye BAUSCH & LOMB 02/21/2025 [id number] / [id number] / Lens Intraoc 19.0 - [id number] - [id number] Implanted:Qty: 1 on 12/07/2020 by Ej Heck MD at OR [facility] Right: Eye BAUSCH & LOMB 05/23/2025 [id number] / [id number] / documented as of this encounter Advance Directives Documents on File Type Date Recorded Patient Element Setter Expl anation Power of Chemist Helper 11/25/2022 POWER OF A TTORNEY Healthcare Agents on File Name Relationship Healthcare Agent Relationshi p Communication Inocente Radha Spouse First Alternate Health Care Agent (per Health Care Power of Chemist Helper document) Care Teams Machine Made Shoe Unit Worker Relationship Specialty Start Date End Date Clemencia Scott DO [address] [place] [address], [place] [address] PCP - General Family Medicine 05/24/24 documented as of this encounter
--- OUTSIDE RECORDS SUMMARY | 2024-07-06 16:47 | External Medical Summary | Summary of Care ---
Author Name Unknown Organization [facility] Address [address] [place] [address] Phone [phone] Care Team Providers Care Carpenter Apprentice Name Role Phone Clemencia Scott DO Primary Care Provider Reason for Visit * Reason Onset Date Comments Information 05/28/2024 Encounter Details Date Type Department Care Team (Late st Contact Info) Description 05/28/2024 11:00 AM EDT Scheduled Telephone Family Practice 65 [facility] 293 [place] [phone] [place], Nurse [facility] Prac [address] [address] Allergies Active Allergy Reactions Criticality Noted Date [...] to test blood sugars 3 Active Pen [place] 32G X 5 MMIndications:diab etes Use 4 [...] hours as needed for Nausea. 4 Active Vancomycin HCl 125 MG Oral Capsule (Vancocin) [...] 04/29/2019, 10/26/2018 Pneumococcal Conjugate Vacci ne, 20-valent ([id number]) 02/07/2023 Pneumococcal Polysaccharide PPV23 (Pneumovax) 06/28/1999 Seasonal [...] Encounter - Clemencia Scott DO - 06/09/2024 3:28 PM EDT Colonoscopy scheduled in July. * Telephone Encounter - Anne Kim LPN - 06/09/2024 9:37 AM EDT Called, left message for patient to return call. Thank you * Telephone Encounter - Anne Kim LPN - 05/28/2024 4:06 PM EDT Was seen on 05/[address] Scott, Is having formed bm's, has had some nausea--not very bad. Had no symptoms for uti. States cramping has decreased as well. States bloating has improved as well. Is moving air, is ableto pass gas. States she is eating and drinking fine. Is eating more of a normal diet and doing well with this. Is resting without problem.. Advised to contact if she needs and to keep appts shceduled as directed. Is not scheduled for colonoscopy until October. Thank you documented in this encounter Plan of Treatment Upcoming Encounters Date Type Department Care Team (Latest Contact Info) Description 07/05/2024 11:00 AM EDT Nurse Only Ancillary 65 [facility] 293 [place] [address] College, Nurse Annual Wellness Visit [address] [address] 08/10/2024 2:30 PM EDT Hospital Encounter ENDO [facility], Endoscopy Room [facility] [address] [place] [phone] Keenan Caldera MD [address] [place] [address] 08/10/2024 2:30 PM EDT - 08/10/2024 3:00 PM EDT Surgery ENDO [facility], Endoscopy Room [facility] [address] [facility] [place] [phone] Keenan Caldera MD [address] [place] [address] COLONOSCOPY FLEXIBLE PROXIMAL DIAGNOSTIC 08/17/2024 11:00 AM EDT Office Visit Family Practice 65 [facility] 293 [place] [address] Clemencia Scott, 293 [place] [address] Scheduled Procedures Name Priority Associated Diagnoses Date/Ti [...] this encounter Medical Devices Implanted Type Area Contract Serviceman Device Identifier Shelf Expiration Date Model / Serial / Lot Lens Intraoc 19.0 - [id number] - [id number] Implanted:Qty: 1 on 11/30/2020 by Ej Heck MD at OR [facility] Left: Eye BAUSCH & LOMB 02/21/2025 [id number] / [id number] / Lens Intraoc 19.0 - [id number] - [id number] Implanted:Qty: 1 on 12/07/2020 by Ej Heck MD at OR [facility] Right: Eye BAUSCH & LOMB 05/23/2025 [id number] / [id number] / documented as of this encounter Advance Directives Documents on File Type Date Recorded Patient Data Conversion Analyst Expl anation Power of Orchid Grower 11/25/2022 POWER OF A TTORNEY Healthcare Agents on File Name Relationship Healthcare Agent Relationshi p Communication Inocente Garcia Spouse First Alternate Health Care Agent (per Health Care Power of Orchid Grower document) Care Teams Carpenter Apprentice Relationship Specialty Start Date End Date Clemencia Scott DO 293 [place] [address] PCP - General Family Medicine 05/24/24 documented as of this encounter
--- OUTSIDE RECORDS SUMMARY | 2024-07-06 16:47 | External Medical Summary | Summary of Care ---
Author Name Unknown Organization [facility] Address [address] [place] [address] Phone [phone] Care Team Providers Care Grinder Set Up Operator External Name Role Phone Clemencia Scott DO Primary Care Provider Reason for Visit * Reason Onset Date Comments Appointment 05/25/2024 colonoscopy Encounter Details Date Type Department Care Team (Late st Contact Info) Description 05/25/2024 Telephone Family Practice [facility] [address] [place] [phone] Clemencia Scott DO [address] [place], [place] [phone] Appointment (colonoscopy) Allergies Active Allergy Reactions Criticality [...] as of this encounter (statuses as of 06/04/2024) Medications Medication Sig Dispensed Refills Start Date [...] to test blood sugars 3 Active Pen [place] 32G X 5 MMIndications:diab etes Use 4 [...] as of this encounter (statuses as of 06/04/2024) Active Problems Problem Noted Date Diagnosed Date [...] as of this encounter (statuses as of 06/04/2024) Resolved Problems Problem Noted Date Diagnosed Date [...] as of this encounter (statuses as of 06/04/2024) Immunizations Name Administration Dates Next Due HEP A - Hepatitis A (Adult > 18 yrs) 04/29/2019, 10/26/2018 Pneumococcal Conjugate Vacci ne, 20-valent ([id number]) 02/07/2023 Pneumococcal Polysaccharide PPV23 (Pneumovax) 06/28/1999 Seasonal [...] encounter Miscellaneous Notes * Telephone Encounter - Deyanira Palacios OSA [...] 11:00 AM EDT Nurse Only Ancillary [facility] [address] [place] [place] [address] [employer], Nurse Annual Wellness Visit [address] [place] [address] 08/10/2024 2:30 PM EDT Hospital Encounter ENDO [facility], Endoscopy Room [facility] [address] [place] [phone] Keenan Caldera MD [address] [place] [address] 08/10/2024 2:30 PM EDT - 08/10/2024 3:00 PM EDT Surgery ENDO [facility], Endoscopy Room [facility] [address] [place] [phone] Keenan Caldera MD [address] [place] [address] COLONOSCOPY FLEXIBLE PROXIMAL DIAGNOSTIC 08/17/2024 11:00 AM EDT Office Visit Family Practice 65 [facility] [address] [place] [address] Clemencia Scott DO 293 [facility] [place] [address] Scheduled Procedures Name Priority Associated Diagnoses Date/Ti [...] this encounter Medical Devices Implanted Type Area Motor Vehicle Examiner Device Identifier Shelf Expiration Date Model / Serial / Lot Lens Intraoc 19.0 - [id number] - [id number] Implanted:Qty: 1 on 11/30/2020 by Ej Heck MD at OR [facility] Left: Eye [employer]OM[employer] 02/21/2025 [id number] / [id number] / Lens Intraoc 19.0 - [id number] - [id number] Implanted:Qty: 1 on 12/07/2020 by Ej Heck MD at OR [facility] Right: Eye [employer] LOMB 05/23/2025 [id number] / [id number] / documented as of this encounter Advance Directives Documents on File Type Date Recorded Patient White Washer Piler Expl anation Power of Mri Manager 11/25/2022 POWER OF A TTORNEY Healthcare Agents on File Name Relationship Healthcare Agent Relationshi p Communication Inocente Radha Spouse First Alternate Health Care Agent (per Health Care Power of Mri Manager document) Care Teams Grinder Set Up Operator External Relationship Specialty Start Date End Date Clemencia Scott DO [address] [place] [address] PCP - General Family Medicine 05/24/24 documented as of this encounter
--- OUTSIDE RECORDS SUMMARY | 2024-07-06 16:47 | External Medical Summary | Summary of Care ---
Author Name Unknown Organization [facility] Address [address] [place] [address] Phone [phone] Care Team Providers Care Banking Specialist Name Role Phone Clemencia Scott DO Primary Care Provider Reason for Visit * Reason Onset Date Comments Appointment 05/25/2024 colonoscopy Encounter Details Date Type Department Care Team (Late st Contact Info) Description 05/25/2024 Telephone Family Practice 65 [facility] [address] [place] [phone] Clemencia Scott DO [address] [place], [place] [phone] Appointment (colonoscopy) Allergies Active Allergy Reactions Criticality [...] to test blood sugars 3 Active Pen [place] 32G X 5 MMIndications:diab etes Use 4 [...] 04/29/2019, 10/26/2018 Pneumococcal Conjugate Vacci ne, 20-valent ([id number]) 02/07/2023 Pneumococcal Polysaccharide PPV23 (Pneumovax) 06/28/1999 Seasonal [...] 11:00 AM EDT Nurse Only Ancillary 65 [facility] 293 [place] [address] [place], Nurse Annual Wellness Visit [address] [place] [address] 08/10/2024 2:30 PM EDT Hospital Encounter ENDO [facility], Endoscopy Room [facility] [address] [place] [phone] Keenan Caldera MD [address] [place] [address] 08/10/2024 2:30 PM EDT - 08/10/2024 3:00 PM EDT Surgery ENDO [facility], Endoscopy Room [facility] [address] [place] [phone] Keenan Caldera MD [address] [place] [address] COLONOSCOPY FLEXIBLE PROXIMAL DIAGNOSTIC 08/17/2024 11:00 AM EDT Office Visit Family Practice [address] [place] [phone] Clemencia Scott DO 293 [place] [address] Scheduled Procedures Name Priority Associated Diagnoses Date/Ti [...] 05/01/2023, Additional history exists GFR 05/25/2025 05/25/2024, 05/0 04/2024, 12/17/2023, Additional history exists Lipid Panel 04/22/2028 04/22/2023, 1004/2022, 03/21/2015, Additional history exists DTaP,Tdap,and Td Vaccines [...] this encounter Medical Devices Implanted Type Area Manager Publishing Device Identifier Shelf Expiration Date Model / Serial / Lot Lens Intraoc 19.0 - [id number] - [id number] Implanted:Qty: 1 on 11/30/2020 by Ej Heck MD at OR [facility] Left: Eye [employer]OM[employer] 02/21/2025 [id number] / [id number] / Lens Intraoc 19.0 - [id number] - [id number] Implanted:Qty: 1 on 12/07/2020 by Ej Heck MD at OR [facility] Right: Eye [employer]OM[employer] 05/23/2025 [id number] / [id number] / documented as of this encounter Advance Directives Documents on File Type Date Recorded Patient Tax Services Specialist Expl anation Power of Bid Writer 11/25/2022 POWER OF A TTORNEY Healthcare Agents on File Name Relationship Healthcare Agent Relationshi p Communication Inocente Radha Spouse First Alternate Health Care Agent (per Health Care Power of Bid Writer document) Care Teams Banking Specialist Relationship Specialty Start Date End Date Clemencia Scott DO [address] [place] [address], [place] [address] PCP - General Family Medicine 05/24/24 documented as of this encounter
[2024-07-06 16:51] LABS: C Reactive Protein < 0.50 mg/dl (0-0.5)
--- NOTE | 2024-07-06 17:33 | History & Physical Report ---
Date of Service July 06, 2024 Assessment & Plan (1) Facial swelling: (2) Neck swelling: (3) Lung cancer: (4) Hypothyroidism (acquired): (5) Controlled type 2 diabetes mellitus, with long-term current use of insulin: (6) HTN (hypertension): (7) Dyslipidemia: (8) DANIA (obstructive sleep apnea): Plan This is a 74-year-old female with PMH of lung cancer (completion of chemo in Mar, 2024, now on Keytruda Q3 weeks), type 2 diabetes, hypothyroidism, dyslipidemia, asthma, hypertension, depression with anxiety and other medical problems listed below who presents with neck and facial swelling x 5 days. Facial swelling Afebrile, no leukocytosis, ESR 32, CRP, d-dimer and BNP all within normal limits Procalcitonin pending Soft tissue neck CT with Right maxillary molar periapical cyst formation. Minimal mucosal thickening of the paranasal sinuses.No acute inflammatory changes, lymphadenopathy or fluid collections identified Chest CT without lymphadenopathy or suspicious nodules are seen Ddx angioedema vs drug reaction vs ? infection No overt appearance of angioedema but will hold losartan for now, adding Zyrtec and PRN benadryl Considering infection given possible dental infection and R chest wall port catheter, but will hold off on abx for now as patient is afebrile and without a clear source, also with recent c diff infection ED physician discussed with Dr. Renner, who recommended adding random cortisol and ACTH labs for AM, 2D echo to assess for any cardiomyopathy given recent chemo No difficulty swallowing, saturating at 96% on room air - monitor airway closely Routine heme onc consult Stage IIA Lung Adenocarcinoma (diagnosed 10/01/23) S/p resection and chemo, now on Keytruda First dose of Keytruda on 04/20, gets q3 weeks now (last had 2 weeks ago) Follows with Dr. Renner of oncology as above DM II A1c 7.7 in April 2024 Hold home agents Basal/bolus insulin while admitted BSG AC HS HTN Holding losartan given facial swelling as above Starting amlodipine 5mg in AM PRN IV hydralazine Hypothyroidism Continue levothyroxine DANIA CPAP HS DVT Ppx: SCDs for now given recent rectal bleed Code status: DNR/DNI PCP: Sonia Dispo: Admitted to PCU Patient seen in collaboration with Dr. Zheng. Please see addendum. I spent a total of 75 minutes coordinating, documenting, and providing care for this patient excluding time spent in the performance of separately billed services. History of Present Illness Chief Complaint: Facial swelling Primary Care Provider: Clemencia Scott DO This is a 74-year-old female with PMH of lung cancer (completion of chemo in Mar, 2024, now on Keytruda Q3 weeks), type 2 diabetes, hypothyroidism, dyslipidemia, asthma, hypertension, depression with anxiety and other medical problems listed below who presents with neck and facial swelling x 5 days. Noted abdominal distention last week following but swelling and fullness in neck up to cheeks over the past few days. Feels a tightness of neck and face that is not normal for her. No recent medication changes, new products etc. No swelling of tongue noted or difficulty swallowing. Does endorse chills and nausea overnight that have since resolved. Feels short of breath with exertion and when lying flat. Follows with Dr. Renner for history of lung cancer having completed chemo in March 2024 and is now getting Keytruda is every 3 weeks (last dose 2 weeks ago). Does have tooth pain on upper left side and is due to see dentist in 2 days. No fever, cough, congestion, CP, SOB, vomiting, abd pain, dysuria, diarrhea or constipation. Was admitted to our service in April for rectal bleeding and colitis, possible c diff vs. Keytruda associated but bowels have returned to normal. No melena, hematochezia or diarrhea. Allergies Allergy/AdvReac Type Severity Reaction Status Date / Time amoxicillin Allergy Severe SOB,ITCHING Verified 07/06/24 12:49 glyburide Allergy Severe ITCHY,SOB Verified 07/06/24 12:49 Iodinated Contrast Media Allergy Severe itchy,flushed,tight Verified 07/06/24 12:49 throat iodine Allergy Severe itching, Verified 07/06/24 12:49 flushed, tight throat morphine Allergy Severe MENTAL Verified 07/06/24 12:49 CONFUSION, SOB adhesive Allergy Intermediate unknown Verified 07/06/24 12:49 ("adhesive tape")-ITCHY, REDNESS canagliflozin Allergy Intermediate ITCHY,EYES Verified 07/06/24 12:49 SWELLING chlorhexidine Allergy Intermediate Rash Verified 07/06/24 12:49 [From ChloraPrep Clear] erythromycin base Allergy Intermediate UPSET Verified 07/06/24 12:49 STOMACH,RASH isopropyl alcohol Allergy Intermediate Rash Verified 07/06/24 12:49 [From ChloraPrep Clear] shrimp Allergy Intermediate FLUSH ITCHY Verified 07/06/24 12:49 cephalexin Allergy Mild unknown Verified 07/06/24 12:49 codeine Allergy Unknown unknown Verified 07/06/24 12:49 Macrolide Antibiotics Allergy Unknown Unknown Verified 07/06/24 12:49 methadone Allergy Unknown Unknown Verified 07/06/24 12:49 oxycodone Allergy Unknown unknown Verified 07/06/24 12:49 Penicillins Allergy Unknown Unknown Verified 07/06/24 12:49 propoxyphene Allergy Unknown UNKNOWN Verified 07/06/24 12:49 aspirin [From Percodan] AdvReac Intermediate dizziness, Verified 07/06/24 12:49 nausea glipizide AdvReac Intermediate Gastrointestinal Verified 07/06/24 12:49 Upset Sulfa (Sulfonamide AdvReac Intermediate Gastrointestinal Verified 07/06/24 12:49 Antibiotics) Upset Home Medications Medication Instructions Recorded Confirmed Type atorvastatin 10 mg tablet 10 mg PO QAM 06/30/19 07/06/24 History cholecalciferol (vitamin D3) 25 1,000 units PO HS 06/30/19 07/06/24 History mcg (1,000 unit) capsule multivitamin (Daily Multi-Vitamin 1 tab PO PM 06/30/19 07/06/24 History tablet) citalopram 40 mg tablet 40 mg PO QAM 01/21/20 07/06/24 History calcium carbonate (Calcium 600) 600 mg PO 3XWK 04/13/20 07/06/24 History chlorpheniramine 4 1 tab PO Q8 PRN allergy symptoms 04/21/20 07/06/24 Rx mg-phenylephrine 10 mg-DM 10 mg and cough #30 tabs tablet albuterol sulfate 90 mcg/actuation 2 inh inhalation Q4H PRN Shortness 03/08/21 07/06/24 Rx aerosol inhaler (Ventolin HFA) Of Breath #18 grams lancets 33 gauge (trgt.usTouch Delica #100 ea 08/19/22 05/11/24 History Lancets) pen needle, diabetic 32 gauge x #100 ea 11/29/22 05/11/24 Rx 5/32" (BD Johanne 2nd Gen Pen Needle) OneTouch Verio test strips (blood #300 ea 01/23/23 05/11/24 Rx sugar diagnostic) insulin glargine 100 unit/mL (3 24 unit subcut PM 07/24/23 07/06/24 History mL) subcutaneous pen (Lantus Solostar U-100 Insulin) CPAP Machine #1 ea 08/21/23 05/11/24 Rx CPAP Supplies #1 ea 08/21/23 05/11/24 Rx cyanocobalamin (vitamin B-12) 1,000 mcg PO PM 01/22/24 07/06/24 History 1,000 mcg capsule blood-glucose sensor (FreeStyle 05/11/24 05/11/24 History Darnell 3 Sensor device) levothyroxine 175 mcg tablet 175 mcg PO DAILY 05/11/24 07/06/24 History pembrolizumab 25 mg/mL intravenous 0 mg IV .Q6WK 05/18/24 07/06/24 History solution (Keytruda) insulin aspart U-100 100 unit/mL See Rx Instructions .Route 07/05/24 07/06/24 Rx (3 mL) subcutaneous pen (Novolog .COMPLEX #30 mL FlexPen U-100 Insulin aspart) losartan 100 mg tablet 100 mg PO QAM 07/06/24 07/06/24 History metformin 500 mg tablet,extended 500 mg PO UD 07/06/24 07/06/24 History release 24 hr Past Med/Surg History Problem List (Updated 07/06/24 @ 19:33 by Kae Casillas PA-C) Facial swelling (Acute) Neck swelling (Acute) Medication reaction (Acute) Diarrhea (Acute) Hypomagnesemia (Acute) Acute GI bleeding (Acute) Hypomagnesemia Adenocarcinoma, lung Rectal bleeding Asthma Lung cancer Neuropathy Headache Migraine Imbalance Left-sided sensorineural hearing loss Mixed conductive and sensorineural hearing loss of left ear with restricted hearing of right ear Controlled type 2 diabetes mellitus, with long-term current use of insulin Hypothyroidism (acquired) Dietary counseling and surveillance Metabolic syndrome Chronic cough DANIA (obstructive sleep apnea) Asthma without acute exacerbation Pneumonia Mass of upper lobe of right lung Abnormal chest CT (Acute) Weakness (Acute) Chest pain Cholelithiasis (Acute) Nausea vomiting and diarrhea (Acute) Acute abdominal pain in right lower quadrant (Acute) Obesity HTN (hypertension) Dyslipidemia Medical History Migraine rare Nausea and vomiting after administration of anesthetic agent Diverticular disease Neuropathy feet Depression Hypothyroidism Diabetes mellitus, type 2 HX: breast cancer 1995 Hyperlipidemia Lung cancer dx March 2020 > surgery in 2022 > now getting port placed for chemo Asthma short of breath with activity since lung surgery, using res inh daily DANIA (obstructive sleep apnea) cpap Surgical History Port-A-Cath in place (01/23/24) Insertion MRI Compatible Access Port Right Cephalic(Right) - Atul Sol MD, FACS [place] teeth extracted History of lung surgery (2022) [place] [facility] [place] of [place] surgery (2020) bilat H/O breast reconstruction (1997) H/O mastectomy (1995) left H/O colonoscopy (12/02/04) S/P laparoscopic cholecystectomy (12/08/14) Lap mamadou with C'gram Dr. Sol History of hysterectomy (1998) Family History Father Hypertension Heart disease Mother Hypertension Heart disease Other No family history of adverse response to anesthesia No family history of bleeding disorder Social History Smoking Status: Never smoker Second Hand Exposure: No; Do You Dip or Chew Tobacco: No; Hx Alcohol Use: No Hx Substance Use: No Preferred Language: Swedish Communication Ability: Effective Tax Services Intern Required: No Beliefs That Will Affect Care: None marital status: Current Living Situation: Spouse current occupational status: retired How many Children do You have: 2 Feels Safe at Home: Yes Diet: diabetic Assistive Devices: Cane and Glasses Review of Systems Review of Systems: At least ten systems reviewed and negative except as noted in the HPI. Physical Exam Physical Exam: General Appearance: WD/WN, vitals as above, NAD, sitting up in bed, pleasant, conversing easily Head: normocephalic, atraumatic Eyes: normal inspection, PERRL, conjunctivae normal, anicteric sclerae ENT: external ear and nose normal, oropharynx normal, no obvious angioedema Neck: normal visual inspection, trachea midline, no thyromegaly Respiratory: normal respiratory effort, lungs clear to auscultation, no wheeze, rales, rhonchi. No accessory muscle use Cardiovascular: regular rate, rhythm, normal peripheral pulses, no BLE edema. Vessels: no JVD Chest: normal inspection of chest , +port Abdomen/GI: normal bowel sounds, soft but distended, nontender, no hepatosplenomegaly Extremities/Musculoskeletal: no cyanosis or clubbing, extremities motor strength 5/5 Neurologic: PERRL, EOMI, accommodation nl, no face palsy, no dysarthria, CN's II-XI intact bilaterally and moves all extremities Psychiatric: A+Ox3, euthymic affect Skin: no rashes, normal color, warm/dry Results & Data Results & Data Vital Signs (Past 12 Hours) Vital Signs Temp Pulse Pulse Pulse Pulse Resp Resp 07/06/24 17:21 76 13 07/06/24 17:12 83 24 07/06/24 16:45 79 07/06/24 16:27 82 16 07/06/24 16:26 105 H 81 20 07/06/24 16:12 75 15 07/06/24 16:03 72 12 07/06/24 16:00 07/06/24 16:00 07/06/24 15:51 72 8 L 07/06/24 15:42 81 12 07/06/24 15:30 07/06/24 15:30 07/06/24 15:24 75 12 07/06/24 15:18 81 27 H 07/06/24 15:06 81 10 L 07/06/24 14:54 86 21 07/06/24 14:42 80 7 L 07/06/24 14:30 07/06/24 14:30 07/06/24 14:12 89 11 L 07/06/24 14:00 07/06/24 14:00 07/06/24 13:57 85 18 07/06/24 13:51 85 18 07/06/24 13:39 82 18 07/06/24 13:30 07/06/24 13:21 87 11 L 07/06/24 13:15 86 20 07/06/24 13:03 89 19 07/06/24 13:00 07/06/24 13:00 07/06/24 13:00 07/06/24 12:54 86 19 07/06/24 12:33 92 H 19 07/06/24 12:30 07/06/24 12:27 89 12 07/06/24 12:11 91 H 07/06/24 11:28 37.0 C 84 17 07/06/24 11:10 36.5 C 100 H 18 BP BP Pulse Ox Pulse Ox Pulse Ox O2 Del Method 07/06/24 17:21 98 07/06/24 17:12 93 07/06/24 16:45 07/06/24 16:27 96 07/06/24 16:26 93 95 Room Air 07/06/24 16:12 98 07/06/24 16:03 98 07/06/24 16:00 162/92 H 07/06/24 16:00 162/92 H 07/06/24 15:51 96 07/06/24 15:42 96 07/06/24 15:30 155/93 H 07/06/24 15:30 155/93 H 07/06/24 15:24 95 07/06/24 15:18 98 07/06/24 15:06 96 07/06/24 14:54 95 07/06/24 14:42 92 07/06/24 14:30 151/100 H 07/06/24 14:30 151/100 H 07/06/24 14:12 94 07/06/24 14:00 172/107 H 07/06/24 14:00 172/107 H 07/06/24 13:57 93 07/06/24 13:51 94 07/06/24 13:39 95 07/06/24 13:30 179/111 H 07/06/24 13:21 96 07/06/24 13:15 92 07/06/24 13:03 95 07/06/24 13:00 171/106 H 07/06/24 13:00 171/106 H 07/06/24 13:00 171/106 H 07/06/24 12:54 95 07/06/24 12:33 94 07/06/24 12:30 145/90 H 07/06/24 12:27 95 07/06/24 12:11 07/06/24 11:28 167/108 H 97 07/06/24 11:10 186/97 H 94 Room Air Laboratory Results Short CBC 07/06/24 Range/Units 11:29 WBC 6.19 (4.8-10.8) K/ul Hgb 13.1 (12.0-16.0) g/dl Hct 40.0 (37.0-47.0) % Plt Count 281 (130-400) K/uL BMP 07/06/24 11:29 Sodium 135 L Potassium 4.1 Chloride 100 Carbon Dioxide 27 BUN 19 Creatinine 0.96 Glucose 290 H Calcium 10.0 Liver Function 07/06/24 Range/Units 11:29 Total Bilirubin 0.4 (0.2-1.0) mg/dl AST 16 (13-39) U/L ALT 15 (7-52) U/L Alkaline Phosphatase 60 (34-104) U/L Albumin 4.3 (3.4-5.0) gm/dl Diagnostic Findings Chest CT 07/06/24 11:43 CT chest diagnostic wo con CLINICAL HISTORY: sob, cp, neck swelling TECHNIQUE: Multidetector row helical CT of the chest was performed. Coronal and sagittal reformations were obtained. Automated dose lowering techniques and/or adjustment according to patient size were utilized for this exam. CT DOSE: 1241.54 mGy.cm Comparison: Comparison is made to CT chest 08/14/2023 FINDINGS: Lungs and pleura: Patient is status post right upper lobectomy. Interstitial thickening versus atelectasis in the bilateral lower lobes. There is a pleural- based nodule in the right lower lobe measures 6 mm (series 7 image 127). Heart and pericardium: Heart size is normal. No pericardial effusion. Vessels: Severe atherosclerotic changes in the aorta and coronary arteries. Pulmonary trunk measures 32 mm. Mediastinum and chantale: Subcentimeter lymph nodes are seen. Chest wall and lower neck: A right port catheter is seen. Post surgical changes are in the right axilla. Abdomen: Patient is status post cholecystectomy. Bones: Degenerative changes in the thoracic spine. IMPRESSION: Patient is status post right upper lobectomy. No lymphadenopathy or suspicious nodules are seen. ACT 112: Negative or not required by law. Electronically signed by: Tommie Strong M.D. 07/06/2024 12:04 PM Soft Tissue Neck CT 07/06/24 11:43 CT soft tissue neck wo con HISTORY: 74 years-old Female neck swelling, facial swelling, sob, cp acute neck and facial pain with soft tissue swelling COMPARISON: Chest CT of same day, CT soft tissue neck 07/04/2007 TECHNIQUE: Multiple axial CT images of the soft tissues of the neck were obtained without IV contrast. A dose lowering technique was used consistent with the principals of FELY. FINDINGS: The imaged intracranial structures appear unremarkable. Prior bilateral injury. Patent airway. No acute inflammatory changes, pathologically enlarged lymph nodes or fluid collections. Partially imaged right subclavian Yljnon-z-[id number] catheter. Lung apices appear clear. Degenerative changes of the cervical spine includes severe facet arthrosis. No acute fracture identified. Right maxillary molar periapical cyst formation. Minimal mucosal thickening of the paranasal sinuses. IMPRESSION: No acute inflammatory changes, lymphadenopathy or fluid collections identified. ACT 112: Negative or not required by law. The above report was generated using voice recognition software. It may contain grammatical, syntax or spelling errors. Electronically signed by: Wei Dolan M.D. 07/06/2024 12:48 PM ECG Additional Comments: EKG reviewed - NSR at 78 bpm, no acute ST changes Supervising Physician Co-Signing Physician Notes Attending Addendum: Case reviewed with the advanced practitioner. I have personally performed a history and physical examination on the patient. I have reviewed the advanced practitioner's documentation on the date of service referenced in note, and I agree with, and take responsibility for the plan of care. please refer to her notes for full details patient seen and examined, records reviewed by myself as well on exam, patient Seen resting in bed, sitting up, in good spirits, very pleasant Reports that last Friday, she started to note upper neck bilateral swelling which spread to her bilateral cheeks, and then noticed periorbital swelling She also reports tingling sensation of her lips and tongue Denies itching, throat swelling sensation, shortness of breath or wheezing She has a tooth ache on the left upper molar which has been present for the last month now, denies tenderness on that side, no bleeding or discharge She has not taken any new medications recently no other symptoms VS noted and reviewed oriented x 3 , not in distress, speaks in sentences with no effort nor accessory muscle use Mild facial and neck edema, no erythema/warmth/tenderness Lips appear to be essentially normal Left upper molar: No gingival swelling normal rate, regular rhythm, no murmurs clear breath sounds bilaterally non distended, soft, nontender no bipedal edema, erythema, warmth no neuro deficits all labs, imaging noted and reviewed ASSESSMENT AND PLAN> Possible angioedema secondary to losartan Stop losartan, transition to amlodipine Zyrtec 10 mg daily, Benadryl 25 mg p.o. 1 dose now, and then as needed every 4-6 hours Will not start steroids at this point as adrenal insufficiency being suspected by Dr. Renner Question whether Keytruda can also be causing or contributing-will need to be discussed with Dr. Renner Left upper molar tooth pain No fever, no leukocytosis Given recent C. difficile colitis, will hold off on antibiotic treatment at this point Please monitor closely for signs of odontogenic infection, if progresses, may need antibiotic course with prophylaxis vancomycin p.o. other diagnoses and plan of care as per advanced practitioner's notes Trae Zheng MD
[2024-07-06] MEDS ORDERED: CARBOHYDRATES FOR HYPOGLYCEMIA PO PRN (18:34)
[2024-07-06] MEDS ORDERED: GLUCOSE 10 TAB/TUBE PO PRN (18:34)
[2024-07-06] MEDS ORDERED: DEXTROSE 50% 50 ML SYRINGE IV PRN (18:34)
[2024-07-06] MEDS ORDERED: GLUCOSE 40% GEL 15 GM TUBE PO PRN (18:34)
[2024-07-06] MEDS ORDERED: GLUCAGON FOR INJ 1 MG VIAL SQ PRN (18:34)
[2024-07-06] MEDS: INSULIN ASPART PER UNIT CHARGE SC SCH (19:05)
[2024-07-06] MEDS: ACETAMINOPHEN 500 MG TAB PO STA (19:34)
[2024-07-06] MEDS: ACETAMINOPHEN 325 MG TAB PO STA (19:34)
[2024-07-06] MEDS ORDERED: diphenhydrAMINE Capsule 25 MG CAP PO PRN (19:55)
[2024-07-06] MEDS ORDERED: VANCOMYCIN HCL 125 MG/2.5ML SOLN PO SCH (20:00)
[2024-07-06] MEDS ORDERED: ALBUTEROL HFA 8 GM INHALER INH PRN (20:37)
[2024-07-06] MEDS ORDERED: ONDANSETRON INJ 2 MG/ML 2 ML VIAL IV PRN (20:37)
[2024-07-06] MEDS ORDERED: hydrALAZINE HCL 20 MG/ML VIAL IV PRN (20:37)
[2024-07-06] MEDS ORDERED: POLYETHYLENE (MIRALAX) 17 GM PACK PO PRN (20:37)
[2024-07-06] MEDS: MULTIVITAMIN TAB PO SCH (20:58)
[2024-07-06] MEDS: diphenhydrAMINE Capsule 25 MG CAP PO ONE (21:04)
[2024-07-06] MEDS: CHOLECALCIFEROL 25 MCG (1000 UNITS) TAB PO SCH (21:05)
[2024-07-06] MEDS: CETIRIZINE HCL 10 MG TABLET PO SCH (21:05)
[2024-07-06] MEDS: CYANOCOBALAMIN (B-12) 500 MCG TABLET PO SCH (21:06)
[2024-07-06] MEDS: LANTUS PER UNIT CHARGE SQ SCH (21:06)
[2024-07-07] MEDS ORDERED: CHERRY SYRUP 5 ML UDP PO SCH
[2024-07-07 03:02] VITALS: RESP 18
[2024-07-07 07:31] LABS: Hematocrit (blood only) 36.9 % (37.0-47.0); Hemoglobin 12.2 g/dl (12.0-16.0); Mean Corpuscular Hemoglobin 30.3 pg (25.0-34.0); Mean Corpuscular Hgb Conc 33.1 g/dL (32.0-36.0); Mean Corpuscular Volume 91.6 fL (80.0-100.0); Platelet Count 243 K/uL (130-400); RDW Coefficient of Variation 12.4 % (11.5-14.5); RDW Standard Deviation 41.4 fL (36.4-46.3); Red Blood Count 4.03 M/uL (4.20-5.40); White Blood Count 4.84 K/ul (4.8-10.8)
[2024-07-07 07:56] LABS: BUN Creatinine Ratio 16.7 (10-20); Calcium 9.3 mg/dl (8.6-10.3); Creatinine Clr Calc Pharmacy 72.4 ml/min; Est GFR (African American) 80.5 ml/min; Est GFR (Non-African American) 69.4 ml/min; Potassium 4.2 mmol/L (3.5-5.1)
[2024-07-07] MEDS: CALCIUM CARBONATE 1250MG TAB PO SCH (08:38)
[2024-07-07] MEDS: ATORVASTATIN 10 MG TAB PO SCH (08:38)
[2024-07-07] MEDS: amLODIPine BESYLATE 5 MG TAB PO SCH (08:38)
[2024-07-07] MEDS: CITALOPRAM 40 MG TAB PO SCH (08:39)
[2024-07-07] MEDS: ACETAMINOPHEN 325 MG TAB PO PRN (08:41)
[2024-07-07] MEDS: CETIRIZINE HCL 10 MG TABLET PO SCH (09:06)
[2024-07-07] MEDS: LEVOTHYROXINE SODIUM 175 MCG TABLET PO SCH (09:06)
[2024-07-07 11:13] LABS: Appearance Urine Clear (Clear); Bacteria Urine Automated None Seen (None Seen); Bilirubin Urine Negative (Negative); Blood Urine Negative (Negative); Cast Urine Automated 0-2 /lpf (0-2); Color Urine Yellow; Epithelial Cell Urine Auto 0-2 /hpf (0-2); Glucose Urine UA 2+ (Negative); Ketones Urine Negative (Negative); Leukocyte Esterase Urine 2+ (Negative); Nitrite Urine Negative (Negative); Protein Urine Negative (Negative); RBC Urine Automated 0-2 /hpf (0-2); Specific Gravity Urine 1.011 (1.000-1.030); Urobilinogen Urine Negative (Negative); pH Urine 5.5 (4.5-7.5)
[2024-07-07 11:36] VITALS: TEMP 97.9; O2SAT 94
--- NOTE | 2024-07-07 12:42 | Discharge Summary ---
Date of Service July 07, 2024 Admission HPI Per Admitting Provider This is a 74-year-old female with PMH of lung cancer (completion of chemo in Mar, 2024, now on Keytruda Q3 weeks), type 2 diabetes, hypothyroidism, dyslipidemia, asthma, hypertension, depression with anxiety and other medical problems listed below who presents with neck and facial swelling x 5 days. Noted abdominal distention last week following but swelling and fullness in neck up to cheeks over the past few days. Feels a tightness of neck and face that is not normal for her. No recent medication changes, new products etc. No swelling of tongue noted or difficulty swallowing. Does endorse chills and nausea ov ernight that have since resolved. Feels short of breath with exertion and when lying flat. Follows with Dr. Renner for history of lung cancer having completed chemo in March 2024 and is now getting Keytruda is every 3 weeks (last dose 2 weeks ago). Does have tooth pain on upper left side and is due to see dentist in 2 days. No fever, cough, congestion, CP, SOB, vomiting, abd pain, dysuria, diarrhea or constipation. Was admitted to our service in April for rectal bleeding and colitis, possible c diff vs. Keytruda associated but bowels have returned to normal. No melena, hematochezia or diarrhea. Admission Exam Per Admitting Provider General Appearance: WD/WN, vitals as above, NAD, sitting up in bed, pleasant, conversing easily Head: normocephalic, atraumatic Eyes: normal inspection, PERRL, conjunctivae normal, anicteric sclerae ENT: external ear and nose normal, oropharynx normal, no obvious angioedema Neck: normal visual inspection, trachea midline, no thyromegaly Respiratory: normal respiratory effort, lungs clear to auscultation, no wheeze, rales, rhonchi. No accessory muscle use Cardiovascular: regular rate, rhythm, normal peripheral pulses, no BLE edema. Vessels: no JVD Chest: normal inspection of chest , +port Abdomen/GI: normal bowel sounds, soft but distended, nontender, no hepatosplenomegaly Extremities/Musculoskeletal: no cyanosis or clubbing, extremities motor strength 5/5 Neurologic: PERRL, EOMI, accommodation nl, no face palsy, no dysarthria, CN's II-XI intact bilaterally and moves all extremities Psychiatric: A+Ox3, euthymic affect Skin: no rashes, normal color, warm/dry Principal Diagnosis Facial swelling, likely angioedema secondary to losartan. Discharge Exam Constitutional: WD/WN, vitals as above, NAD, sitting up in bed, pleasant, conversing easily Face: no swelling appreciated Respiratory: normal respiratory effort, lungs clear to auscultation, no wheeze, rales, rhonchi. Normal insp/exp effort, no accessory muscle use Cardiovascular: RRR, no murmur, no edema Vessels: no JVD or carotid bruit Chest: normal inspection of chest Abdomen: normal bowel sounds, soft, nontender, no hepatosplenomegaly Musculoskeletal: no cyanosis or clubbing, extremities motor strength 5/5 Skin: no rashes, warm and dry normal turgor Neurologic: PERRL, EOMI, accommodation nl, no face palsy, no dysarthria CN's II- XI intact bilaterally and moves all extremities Psychiatric: A+Ox3, euthymic affect Discharge Data Allergies Allergy/AdvReac Type Severity Reaction Status Date / Time amoxicillin Allergy Severe SOB,ITCHING Verified 07/06/24 12:49 glyburide Allergy Severe ITCHY,SOB Verified 07/06/24 12:49 Iodinated Contrast Media Allergy Severe itchy,flushed,tight Verified 07/06/24 12:49 throat iodine Allergy Severe itching, Verified 07/06/24 12:49 flushed, tight throat morphine Allergy Severe MENTAL Verified 07/06/24 12:49 CONFUSION, SOB adhesive Allergy Intermediate unknown Verified 07/06/24 12:49 ("adhesive tape")-ITCHY, REDNESS canagliflozin Allergy Intermediate ITCHY,EYES Verified 07/06/24 12:49 SWELLING chlorhexidine Allergy Intermediate Rash Verified 07/06/24 12:49 [From ChloraPrep Clear] erythromycin base Allergy Intermediate UPSET Verified 07/06/24 12:49 STOMACH,RASH isopropyl alcohol Allergy Intermediate Rash Verified 07/06/24 12:49 [From ChloraPrep Clear] shrimp Allergy Intermediate FLUSH ITCHY Verified 07/06/24 12:49 cephalexin Allergy Mild unknown Verified 07/06/24 12:49 codeine Allergy Unknown unknown Verified 07/06/24 12:49 Macrolide Antibiotics Allergy Unknown Unknown Verified 07/06/24 12:49 methadone Allergy Unknown Unknown Verified 07/06/24 12:49 oxycodone Allergy Unknown unknown Verified 07/06/24 12:49 Penicillins Allergy Unknown Unknown Verified 07/06/24 12:49 propoxyphene Allergy Unknown UNKNOWN Verified 07/06/24 12:49 aspirin [From Percodan] AdvReac Intermediate dizziness, Verified 07/06/24 12:49 nausea glipizide AdvReac Intermediate Gastrointestinal Verified 07/06/24 12:49 Upset Sulfa (Sulfonamide AdvReac Intermediate Gastrointestinal Verified 07/06/24 12:49 Antibiotics) Upset Consultations 07/06/24 17:24 ED Decision to Admit Stat 07/06/24 20:37 Consult Hematology Routine Ordered Studies 07/06/24 11:43 CT chest diagnostic wo con Stat CT soft tissue neck wo con Stat Hospital Course (1) Facial swelling: (2) Neck swelling: (3) Lung cancer: (4) Hypothyroidism (acquired): (5) Controlled type 2 diabetes mellitus, with long-term current use of insulin: (6) HTN (hypertension): (7) Dyslipidemia: (8) DANIA (obstructive sleep apnea): Plan This is a 74-year-old female with PMH of lung cancer (completion of chemo in Mar, 2024, now on Keytruda Q3 weeks), type 2 diabetes, hypothyroidism, dyslipidemia, asthma, hypertension, depression with anxiety and other medical problems listed below who presents with neck and facial swelling x 5 days. On presentation to the ED, she was afebrile, slightly hypertensive and saturating well on room air. Workup in the ED included soft tissue neck and chest CT; no significant finding associated with facial swelling was noted. D-dimer, and BNP were within normal limits. Her liver function tests were also within normal limits. She underwent echocardiogram which showed normal EF. Urinalysis did not reveal any proteinuria. the Likely cause for the facial swelling was thought secondary to angioedema possibly due to losartan. Patient was started on antihistamine and observe overnight. She underwent cosyntropin stimulation test as a random cortisol was borderline. Cosyntropin stimulation test rule out primary adrenal insuffinecy. Patient was started on amlodipine for high blood pressure at the time of the discharge. She was also prescribed 1 week of cetirizine and Pepcid. Please note the above document was generated using voice recognition software. It may contain grammatical, syntax or spelling errors. Any formal questions or concerns about the content, text or information contained within the body of this dictation should be directly addressed to the provider for clarification Total Time Total Time Spent Total Time Spent (In Minutes): 45 Total Time Includes: Examination of the Patient, Discharge Planning, Medication Reconciliation, Communication With Other Providers and Other Discharge Plan Discharge Items Patient Disposition: Home - Self-Care Reason For Visit: FACIAL AND NECK EDEMA Discharge Diagnosis: Facial swelling Activity: Resume your previous activity Non-emergency contact: Primary Care Provider Call non-emergency contact if: you have any medication questions and your symptoms worsen Follow-up/Referrals: Clemencia Scott DO [Primary Care Provider] - (Date & Time 07/12/2024 9:40 AM Provider [place] [address] Date & Time 07/12/2024 10:00 AM Provider Clemencia Scott DO [address] ) Diet: Regular Addtl Attending Provider Instructions: You were admitted in the hospital for concern for facial swelling. You underwent evaluation of your heart with echocardiogram which showed normal heart function. You Liver function and kidney function are also normal. You also underwent evaluation with chest CT and CT of the neck; no significant findings were seen; a right maxillary molar periapical cyst was seen. Please discuss this finding with your dentist tomorrow. You also underwent evaluation regarding adrenal hormone level; it was within normal limits The likely cause of the patient's swelling is losartan. One of the rare side effect of losartan is angioedema. It has been stopped. You are prescribed amlodipine 5 mg once a day for high blood pressure. It can cause lower extremity swelling below the calf area (at ankles) which is a known side effect. Please monitor blood pressure at home daily. Measure blood pressure sitting position with both on the ground and your arm rested You are prescribed cetirizine and Pepcid once a day for 1 week. Pending Studies at Discharge: No Stand-Alone Forms: My [facility] [employer], Smoking Cessation Medications and DC Order Prescriptions: New cetirizine 10 mg Tablet 10 mg PO QAM 7 Days Qty: 7 0RF amlodipine [Norvasc] 5 mg Tablet 5 mg PO QAM 30 Days Qty: 30 0RF famotidine [Pepcid] 20 mg tablet 20 mg PO DAILY 7 Days Qty: 7 0RF Continued (DME) pen needle, diabetic [BD Johanne 2nd Gen Pen Needle] 32 gauge x /32" needle See Rx Instructions miscellaneous .MEDSUPPLY Qty: 100 2RF Rx Instructions: new pen needle 4 x a day (DME) OneTouch Verio test strips Strip See Dose Instructions .ROUTE .MEDSUPPLY Qty: 300 3RF Rx Instructions: Check blood sugar 3 x a day insulin aspart U-100 [Novolog FlexPen U-100 Insulin] 100 unit/mL (3 mL) insulin pen See Rx Instructions .ROUTE .COMPLEX MDD 25 units Qty: 30 3RF Rx Instructions: Inject 10 units with breakfast, 5 units with lunch, and 10 units with dinner atorvastatin 10 mg tablet 10 mg PO QAM multivitamin [Daily Multi-Vitamin] tablet 1 tab PO PM Hold Instructions: Holding to hold Biotin before repeat TSH 01/16 cholecalciferol (vitamin D3) 1,000 unit capsule 1,000 units PO HS citalopram 40 mg tablet 40 mg PO QAM (DME) lancets [OneTouch Delica Lancets] 33 gauge misc See Rx Instructions .ROUTE .MEDSUPPLY Qty: 100 Rx Instructions: Test blood sugar three times daily [id number] 4-10-10 mg tablet 1 tab PO Q8 PRN (Reason: allergy symptoms and cough ) Qty: 30 2RF Rx Instructions: Take 1 Tab PO BID for 7 days then PRN. albuterol sulfate [Ventolin HFA] 90 mcg/actuation HFA aerosol inhaler 2 inh INH Q4H PRN (Reason: Shortness Of Breath) Qty: 18 2RF (DME) CPAP Supplies Misc See Rx Instructions .MEDSUPPLY Qty: 1 0RF Rx Instructions: CPAP supplies, mask, headgear, filters, tubing, water chamber. G47.33 (DME) CPAP Machine Misc See Rx Instructions .MEDSUPPLY Qty: 1 0RF Rx Instructions: CPAP with 10 cm H20 pressure. G47.33 insulin glargine [Lantus Solostar U-100 Insulin] 100 unit/mL (3 mL) insulin pen 24 unit subcut PM levothyroxine 175 mcg tablet 175 mcg PO DAILY (DME) FreeStyle Darnell 3 Sensor Device See Rx Instructions .ROUTE Rx Instructions: As directed calcium carbonate [Calcium 600] 600 mg calcium (1,500 mg) Tablet 600 mg PO 3XWK Rx Instructions: MON, WED, & FRI. cyanocobalamin (vitamin B-12) 1,000 mcg capsule 1,000 mcg PO PM metformin 500 mg tablet extended release 24 hr 500 mg PO UD Rx Instructions: Take 500mg by mouth in the morning and 1000mg by mouth in the evening Keytruda 25 mg/mL Solution 0 mg IV .[id number] Discontinued losartan 100 mg tablet 100 mg PO QAM Discharge Orders: Discharge Order (Routine); Ordered 07/07/24 Ordered By: Thomas Isbell Admission Data Admit Date/Time: 07/06/24 18:34 Attending Provider: Thomas Isbell Admit Provider: Trae Zheng Primary Care Provider: Clemencia Scott Other Providers: Trae Zehng; Leeanna Renner
[2024-07-07] MEDS: COSYNTROPIN 250 MCG in SYRINGE 4 ML IV ONE (13:30)
[2024-07-07 15:28] VITALS: BP 167/108; PULSE 77
== END 2024-07-07 17:43 | disposition home or self-care (01) | DRG 916 ==
LOC: ED 10:53 → 2E 18:34 → SUATTDRO 18:34 → 2E 20:09